=== PATIENT | male | born 1950 | race Caucasian/White ===

== ENCOUNTER 2017-08-28 21:44 | Emergency (ER) | payer MEDICARE, SELFPAY ==
[2017-08-28 21:45] VITALS: BP 126/78; PULSE 125; RESP 16; TEMP 37.2; O2SAT 97; BMI 37.5
--- NOTE | 2017-08-28 22:09 | EKG12_ITS ---
Test Reason : TACHY Blood Pressure : / mmHG Vent. Rate : 150 BPM Atrial Rate : 138 BPM P-R Int : 000 ms QRS Dur : 106 ms QT Int : 308 ms P-R-T Axes : 000 -04 118 degrees QTc Int : 486 ms Atrial flutter with 2:1 conduction Abnormal ECG Confirmed by PRASHANTH FERREIRA ([id number]), editor city SALO NICOLAS ([id number]) on 09/01/2017 12:59:45 PM Referred By: SATISH Confirmed By:PRASHANTH FERREIRA
[2017-08-28] MEDS: Loperamide 2 MG Capsule 4 MG PO (22:15)
[2017-08-28] MEDS: 0.9% Normal Saline 1,000 ML 1000 ML IV ×2 (22:15→23:03)
--- NOTE | 2017-08-28 22:36 | ED.VISSUMM ---
- ER Visit Summary Date of Service: 08/28/17 Chief Complaint: Diarrhea History of Present Illness: The patient is a 67 M presenting for evaluation secondary to diarrhea. Patient states that today he had a sudden onset of severe diarrhea. Patient states that he has had multiple episodes of loose watery stool without any mucus or blood. Denies any abdominal pain. Denies any fevers associated with this. He states that he had one episode of nonbloody nonbilious emesis but is no longer nauseous today. Denies any recent hospital admissions or exposures to antibiotics. Denies any recent travel. Patient has an underlying history of A. fib, multiple sclerosis, hypertension, high cholesterol, BPH, and GERD. Physical Examination: Vital signs are notable for a heart rate of 125. Well-nourished male no acute distress. Head normal cephalic atraumatic moist mucous membranes. No JVD. Heart was tachycardic and regular. Lung sounds clear to auscultation bilaterally. Abdomen soft nontender with hyperactive bowel sounds. No peripheral edema. No skin rashes. Remainder physical otherwise unremarkable. Test Results: EKG shows atrial fibrillation with a rapid ventricular rate of 115. There is some mild ST depression in lead II. No prior EKG for comparison. CBC, chemistry found to be unremarkable Emergency Department Course and Treatment: Patient presented with 1 day of a diarrheal illness and tachycardia. Laboratory workup does not show evidence of significant metabolic dehydration. Patient was given IV saline hydration and Imodium but continued to have atrial fibrillation with rapid ventricular rate. Patient is on a beta-modesto, he was given 2 doses Lopressor and had improvement of his heart rate down to 105. This point I believe the patient can safely be discharged, he ambulated easily in the emergency department. Patient was recommended on aggressive hydration and Imodium use at home and taking all of his normal home medications. Patient understands this and understands signs and symptoms for which to return. Disposition: Discharge Impression: 1. Diarrhea 2. A. fib with RVR, resolved This note was generated with [employer] dictation software. It may contain incorrect words, spelling, and punctuation that were not noted in review of the chart prior to signing ED Disposition - Plan for ED Patient: Disposition: Home or Assisted Living Chief Complaint: Diarrhea Diagnosis: Diarrhea Instructions: ED Diarrhea Viral Referrals: Elmer Castellanos MD [Primary Care Provider] - 3-5 Days if not improving
--- NOTE | 2017-08-28 22:40 | ED.DCSUM_ITS ---
- ER Visit Summary Date of Service: 08/28/17 Chief Complaint: Diarrhea History of Present Illness: The patient is a 67 M presenting for evaluation secondary to diarrhea. Patient states that today he had a sudden onset of severe diarrhea. Patient states that he has had multiple episodes of loose watery stool without any mucus or blood. Denies any abdominal pain. Denies any fevers associated with this. He states that he had one episode of nonbloody nonbilious emesis but is no longer nauseous today. Denies any recent hospital admissions or exposures to antibiotics. Denies any recent travel. Patient has an underlying history of A. fib, multiple sclerosis, hypertension, high cholesterol, BPH, and GERD. Physical Examination: Vital signs are notable for a heart rate of 125. Well- nourished male no acute distress. Head normal cephalic atraumatic moist mucous membranes. No JVD. Heart was tachycardic and regular. Lung sounds clear to auscultation bilaterally. Abdomen soft nontender with hyperactive bowel sounds. No peripheral edema. No skin rashes. Remainder physical otherwise unremarkable. Test Results: EKG shows atrial fibrillation with a rapid ventricular rate of 115. There is some mild ST depression in lead II. No prior EKG for comparison. CBC, chemistry found to be unremarkable Emergency Department Course and Treatment: Patient presented with 1 day of a diarrheal illness and tachycardia. Laboratory workup does not show evidence of significant metabolic dehydration. Patient was given IV saline hydration and Imodium but continued to have atrial fibrillation with rapid ventricular rate. Patient is on a beta-modesto, he was given 2 doses Lopressor and had improvement of his heart rate down to 105. This point I believe the patient can safely be discharged, he ambulated easily in the emergency department. Patient was recommended on aggressive hydration and Imodium use at home and taking all of his normal home medications. Patient understands this and understands signs and symptoms for which to return. Disposition: Discharge Impression: 1. Diarrhea 2. A. fib with RVR, resolved This note was generated with [employer] dictation software. It may contain incorrect words, spelling, and punctuation that were not noted in review of the chart prior to signing ED Disposition - Plan for ED Patient: Disposition: Home or Assisted Living Chief Complaint: Diarrhea Diagnosis: Diarrhea Instructions: ED Diarrhea Viral Referrals: Elmer Castellanos MD [Primary Care Provider] - 3-5 Days if not improving
[2017-08-28 22:45] VITALS: BP 125/87; PULSE 139; RESP 18; O2SAT 98
[2017-08-28 22:59] LABS: Absolute Lymphocyte Count 0.34 X10^3/ul (0.83-4.51); Absolute Neutrophil Count 3.4 X10^3/uL (2.0-7.7); Eosinophil# 0.05 X10^3/uL; Eosinophils% 1.2 % (0-5); Hematocrit 40.8 % (40-54); Hemoglobin 13.9 g/dl (13.0-16.5); Lymphocyte # 0.34 X10^3/ul (4.0); Mean Corp Hgb Conc 34.1 g/gl (32-36); Mean Corpuscular Hgb 33.2 pg (27.0-32.0); Mean Corpuscular Volume 97.4 fL (80-94); Mean Platelet Vol. 10.5 fl (6.2-12.0); Monocyte# 0.41 X10^3/uL; Monocyte% 9.6 % (0-10); Neutrophil # 3.43 X10^3/uL (2.7-7.7); Neutrophil % 80.5 % (47-70); Platelet Count 177 K/mm3 (150-450); RBC Distribution Width CV 13.1 % (11.6-14.6); RBC Distribution Width SD 45.6 fl (35.1-43.9); Red Blood Count 4.19 M/mm3 (4.6-6.2); White Blood Count 4.3 K/mm3 (4.4-11.0)
[2017-08-28 23:01] LABS: POSITIVE COUNT NO; POSITIVE DIFFERENTIAL YES; POSITIVE MORPHOLOGY NO
[2017-08-28 23:02] LABS: Differential Indicated SCAN CRITERIA MET
[2017-08-28 23:11] LABS: AST(SGOT) 33 U/L (15-37); Alanine Aminotransfer ALT/SGPT 52 U/L (16-61); Albumin, Serum 3.4 g/dL (3.2-5.0); Alkaline Phosphatase 46 U/L (45-117); Anion Gap 10 (5-15); BUN 24 mg/dL (7-18); Calcium,Total 8.8 mg/dL (8.5-10.1); Chloride 107 mmol/L (98-107); EST Glomerular Filtration Rate 64 mL/min (>60); Est Glom Filt Rate - Afr Amer 78 mL/min (>60); Estimated Creatinine Clearance 55.85 ml/min; Globulin 3.4 g/dL (2.2-4.2); Glucose 88 mg/dL (74-106); Protein, Total 6.8 g/dL (6.4-8.2); Sodium Level 140 mmol/L (136-145)
[2017-08-28 23:20] LABS: Anisocytosis RARE; Macrocytosis RARE; Platelet Estimate ADEQUATE (ADEQ)
[2017-08-28 23:35] VITALS: BP 138/84; PULSE 120; RESP 17; O2SAT 98
[2017-08-28] MEDS: Metoprolol Tartrate 5 MG/5 ML Vial IV ×2 (23:37→23:55)
--- NOTE | 2017-08-28 23:40 | ED.RN ---
BLOOD PRESSURE CUFF NOT GIVING ACCURATE BLOOD PRESSURES. BLOOD PRESSURE TAKEN MANUALLY. BLOOD PRESSURE 138/84, PRIOR TO FIRST DOSE OF METOPROLOL.
[2017-08-28 23:55] VITALS: BP 132/80; PULSE 110; RESP 18; O2SAT 96
[2017-08-29 00:07] VITALS: BP 130/76; PULSE 116; RESP 17; O2SAT 96
[2017-08-29 00:15] VITALS: BP 118/72; PULSE 110; RESP 19; O2SAT 96
[2017-08-29 00:47] VITALS: RESP 16
== END 2017-08-29 00:47 | disposition home or self-care (01) ==
PROVIDERS: Emergency Provider Emergency Medicine; Family Provider Family Medicine; PCP Family Medicine
DX: R19.7 Diarrhea, unspecified (principal); I48.91 Unspecified atrial fibrillation; R00.0 Tachycardia, unspecified; G35 Multiple sclerosis; I10 Essential (primary) hypertension; E78.00 Pure hypercholesterolemia, unspecified; N40.0 Benign prostatic hyperplasia without lower urinary tract symptoms; K21.9 Gastro-esophageal reflux disease without esophagitis; Z79.01 Long term (current) use of anticoagulants; Z79.899 Other long term (current) drug therapy
CPT/HCPCS: 80053; 85025; 93005; 96360; 96361; 99285; J7030

== ENCOUNTER → 2017-09-01 13:19 | Outpatient (CLI) | payer MEDICARE, SELFPAY ==
--- NOTE | 2017-09-01 13:23 | RAD_ITS ---
STUDY: X-RAY - LUMBOSACRAL SPINE REASON FOR EXAM: Male, 67 years old. NO KNOWN INJURY. PAIN IN ENTIRE BACK MOSTLY LOWER AND OFF TO THE LEFT SIDE. HX OF KNOWN SCOLIOSIS. TECHNIQUE: 6 view(s) of the lumbosacral spine were obtained. COMPARISON: None FINDINGS: Normal lumbar lordosis. There is a levoscoliosis of the lumbar spine. Grade 1 retrolisthesis of L1 on L2. There is multilevel endplate spondylosis of the lumbar vertebrae. There is multi-level degenerative disc disease with multi-level disc space narrowing. Normal bilateral sacral ala, sacroiliac joints, and visualized sacrum. Normal visualized soft tissue structures. RAD/L/S Spine Comp/w Bending Views IMPRESSION: There is a levoscoliosis of the lumbar spine. Grade 1 retrolisthesis of L1 on L2. Electronically Signed: Silvino Gordillo MD at 17:10 EST , Service support ,
--- NOTE | 2017-09-01 14:05 | RAD_ITS ---
STUDY: XR SPINE ENTIRE THORACIC T LUMBAR (W SKULL, CERVICAL AND SACRAL SPINE IF PERFORMED) REASON FOR EXAM: Male, 67 years old. Scoliosis TECHNIQUE: Radiological exam, spine, entire thoracic and lumbar, including skull, cervical and sacral spine if performed (eg, scoliosis evaluation); 2 or 3 views. COMPARISON: None. FINDINGS: There is a 30 degree dextroscoliosis of the thoracic spine with the apex of the convexity at the T11-12 level. There is a 35 degree levoscoliosis scoliosis of the lumbar spine with the apex of the convexity at the L2-3 level. There is an increase in the normal thoracic kyphosis. There is multilevel endplate spondylosis of the thoracic vertebrae. There is multilevel disc space narrowing of the thoracic spine. There is straightening of the normal lumbar lordosis. There is multilevel endplate spondylosis of the lumbar vertebrae. There is multilevel disc space narrowing of the lumbar spine. Spina bifida defect at L5. RAD/Scoliosis 2 or 3 views IMPRESSION: There is a 30 degree dextroscoliosis of the thoracic spine with the apex of the convexity at the T11-12 level. There is a 35 degree levoscoliosis scoliosis of the lumbar spine with the apex of the convexity at the L2-3 level. Electronically Signed: Silvino Gordillo MD at 17:08 EST , Service support ,
== END ==
PROVIDERS: Family Provider Family Medicine; PCP Family Medicine; Visit Provider Orthopaedic Surgery
DX: M54.5 Low back pain (principal)
CPT/HCPCS: 72082; 72114

== ENCOUNTER → 2017-09-18 12:15 | Outpatient (CLI) | payer MEDICARE, SELFPAY ==
--- NOTE | 2017-09-25 14:30 | MRI_ITS ---
STUDY: MRI CERVICAL SPINE WITH AND WITHOUT CONTRAST REASON FOR EXAM: Male, 67 years old. MS. follow-up. TECHNIQUE: Standardized fat and water weighted pulse sequences were obtained in the sagittal and axial following I.V. administration of 10ml ml of Gadavist contrast material. COMPARISON: None FINDINGS: Increased T2 signal lesions are seen in the brainstem are consistent with demyelinating lesions. Normal craniovertebral junction. Normal anterior atlantoaxial articulation. Normal odontoid process. Normal cervical lordosis. Normal vertebral bodies and posterior osseous elements. C2-3: Normal endplates. Normal disc height, signal and morphology. Normal central canal and intervertebral neural foramina. C3-4: Normal endplates. Normal disc height, signal and morphology. Normal central canal and intervertebral neural foramina. C4-5: Normal endplates. Normal disc height, signal and morphology. Normal central canal and intervertebral neural foramina. C5-6: Endplate spondylosis. Central and paracentral disc bulge. Degenerative changes of the bilateral facet joints and uncovertebral joints. Mild narrowing of the central canal and the bilateral intervertebral neural foramina. C6-7: Endplate spondylosis. Central and paracentral disc bulge. Degenerative changes of the bilateral facet joints and uncovertebral joints. Moderate narrowing of the central canal and the bilateral intervertebral neural foramina. C7-T1: Endplate spondylosis. Central and paracentral disc bulge. Degenerative changes of the bilateral facet joints and uncovertebral joints. Moderate narrowing of the central canal and the bilateral intervertebral neural foramina. Normal cervical cord. No abnormal enhancement is seen after contrast administration. Small artifacts are seen on the sagittal postcontrast images in the lingula and in the cervical spine cord at C2 level. Normal visualized soft tissue structures. MRI/Spine Cervical W/WO Contrast IMPRESSION: Multilevel degenerative changes, as described above. Multiple demyelinating lesions are seen in the brainstem. No demyelinating lesions are noted in the cervical spine cord. Electronically Signed: Filippo Garay MD at 7:50 EDT Tel , Service support ,
== END ==
PROVIDERS: Family Provider Family Medicine; PCP Family Medicine; Visit Provider Orthopaedic Surgery
DX: G35 Multiple sclerosis (principal)

== ENCOUNTER 2017-10-21 12:00 | Outpatient (RCR) | payer MEDICARE, SELFPAY ==
--- NOTE | 2017-09-10 13:29 | HP.PTEVAL_ITS ---
Patient's Visit Information FREDDY RODGERS is a 67 year old M referred to Physical Therapy by Yamel MACK with a diagnosis of SCOLIOSIS. Date of Evaluation: 09/10/17 Physical Therapist: Xochitl Rowe - Visit Plan Frequency: 2-3x /Week Duration: 4-6 Weeks Plan: AQUATIC THERAPY FOR LOW IMPACT AEROBIC ACTIVITIES, GAIT TRAINING, POSTURE CORRECTION/STRENGTHENING, INSTRUCTION IN APPROPRIATE BODY MECHANICS AND ACTIVITY MODIFICATIONS. DLS STARTING WITH A NEUTRAL SPINE PROGRESSING ROM TOLERATED. MARISOL LE ROM, STRETCHING AND STRENGTHENING. HEP INSTRUCTION. - Subjective Subjective: Work/Leisure: RETIRED. Disability: NO. Present symptoms: LEFT LOW BACK. LEFT THIGH IS NUMB MOST OF THE TIME. Present since: ABOUT 7 YEARS AGO. Pain Scale: WORST 8/10, LEAST 0/10. Currently: 07/15. Commenced as a result of: USING A GASOLINE POWERED WEED EATER - WHILE USING IT FELT SOMETHING IN THAT MUSCLE. Symptoms at onset: LEFT LOW BACK. Worse: WALKING AND STANDING. Better: SITTING AND LYING DOWN. Disturbed sleep: NO. Previous history/Previous treatment: INJECTIONS FROM DR. MOSCOSO WITH THE LAST INJECTION BEING ABOUT 5 WEEKS AGO - IT HELPED FOR ABOUT 2 WEEKS AND WAITING ON APPROVAL FOR ANOTHER ONE, PT ABOUT A YEAR AGO - IT DID NO GOOD AND IF ANYTHING IT MADE IT WORSE. NO BACK SURGERY YET BUT PATIENT REPORTS DR. MONTANO THINKS BACK SURGERY MIGHT HELP. QUITE A BIT OF CHIROPRACTIC TREATMENTS IN THE PAST. Coughing/sneezing/straining: NEGATIVE. Gait: INDEP GAIT INTO PT X > 300 FEET WITH STRAIGHT CANE. PATIENT REPORTS HE CAN NOT WALK FAR AT ALL WITHOUT THE CANE BECAUSE HIS BACK WOULD START KILLING ME. Difficulty initiating urinatin: NO. SOME INCONTINENCE BUT PATIENT DOES NOT THINK IT WILL BE A PROBLEM IN THE POOL IF HE EMPTIES HIS BLADDER FIRST. Accidents: NO. Unexplained weight loss : NO. Imaging: Levoscoliosis. Mild degree of multilevel degenerative disease with annular. bulges. Facet arthrosis at L4-5 and L5-S1. No focal disc herniations or spinal canal stenosis noted. PMH: *PACEMAKER* MS DX'D IN 1989. Recent major surgery: NONE RECENT. - Objective Sitting Posture: POOR. Standing Posture: POOR. Lordosis: REDUCED. SCOLIOSIS. Active Correction of posture: NE. Other Observations: INDEP GAIT INTO PT WITH STRAIGHT CANE, DECREASED CADANCE AND EXCESSIVE TRUNK FLEX. PATIENT IS ABLE TO TRANSFER INDEP'LY FROM SIT TO STAND WITHOUT UE ASSIST. Motor deficit: 5/5 MARISOL LE'S EXCEPT HIPS 4/5. Sensory deficit: LEFT ANTERIOR THIGH. ROM deficit: TIGHT MARISOL HIP FLEXORS, HS'S AND GASTROC SOLEUS COMPLEX'S. Reflexes: 2/3 MARISOL LE'S. Dural Signs: NEGATIVE. Lumbar mvmt loss: flex - NIL. ext - JOSSE. R SG - JOSSE. L SG - MOD. PATIENT HAS INCREASED LEFT LBP WITH FLEX AND RIGHT SG TESTING. Core strength: POOR. Palpation: NO PALPABLE LUMBAR TENDERNESS ON SPINE OR MUSCULATURE - Goals Goal 1:: DECREASE C/O LEFT LOW BACK PAIN Goal Time Frame: 4-6 Weeks Goal 2:: IMPROVE STANDING AND WALKING FUNCTION Goal Time Frame: 4-6 Weeks Goal 3:: INSTRUCT IN PROPHYLAXIS Goal Time Frame: 4-6 Weeks - Rehabilitation Potential Rehabilitation Potential: Fair - Anticipated Interventions Patient/Client Instruction: Educate patient on: Condition, Plan of Care, Risk Factors, Benefits of Fitness Program For the Purpose of:: To improve self management Therapeutic Exercise to Include: Strength training, Balance training, Body mechanics, Postural training, Gait and locomotor training, In an aquatic setting, Active ROM, Dynamic Lumbar Stabilization For the Purpose of:: To decrease pain, To improve ability of physical actions for home/community/work/leisure Thank you for the opportunity to evaluate your patient. For Medicare and Medicare HMO plans, please review the plan of care and approve it. It will need to be FAXED BACK to us at [phone] for Medicare purposes. Please let me know if there are questions or concerns regarding this plan of care. Physician Signature: Date:
--- NOTE | 2017-10-21 14:04 | HP.PTDCSUM ---
HP - PT D/C Summary It has been my pleasure to treat FREDDY RODGERS under orders from Yamel Montano, for the diagnosis of SCOLIOSIS for a total of 7 visit(s). Discharge Date: Please see the following information for a summary of their discharge status. - Subjective Subjective: PATIENT REPORTS HIS POSTURE FEELS A LITTLE BETTER SINCE STARTING PT. UP TO 10/10 PAIIN AT ITS WORST. PATIENT REPORTS IT FEELS REALLY GOOD WHEN HE IS IN THE WATER BUT HE HAS HAD RECENT EPISODES OF PAIN THAT WERE SO BAD THAT HE WOULD CONSIDER BACK SURGERY. - Pain Lumbar Spine Pain Intensity (Out of 10): 0 - Overall Improvement % Improvement: 10 - Objective Objective/Function: NO SIGNIFICANT CHANGES SEEN SINCE INITIAL EVALUATION HOWEVER PATIENT TOLERATES WATER EX WELL. UPON EXAM TODAY HE EXHIBITS INDEP GAIT INTO PT WITH STRAIGHT CANE, DECREASED CADANCE AND EXCESSIVE TRUNK FLEX. PATIENT IS ABLE TO TRANSFER INDEP'LY FROM SIT TO STAND WITHOUT UE ASSIST. Motor deficit: 5/5 MARISOL LE'S EXCEPT HIPS 4/5. Sensory deficit: LEFT ANTERIOR THIGH. ROM deficit: TIGHT MARISOL HIP FLEXORS, HS'S AND GASTROC SOLEUS COMPLEX'S. Lumbar mvmt loss: flex - NIL. ext - JOSSE. R SG - JOSSE. L SG - MOD. PATIENT HAS INCREASED LEFT LBP WITH FLEX AND RIGHT SG TESTING. Core strength: POOR. Palpation: NO PALPABLE LUMBAR TENDERNESS ON SPINE OR MUSCULATURE. AT THIS POINT I RECOMMEND FOLLOW UP WITH DR. MONTANO AND CONTINUED INDEP WATER EX FOR TEMPORARY RELEIF. IF DR. MONTANO AND PATIENT FEEL IT IS APPROPRIATE WE CAN RESUME PT TO PROGRESS POOL EX'S TOLERATED. EDUCATED PATIENT ON AT LEAST A FEW LOCAL OPTIONS (HERE, [facility] AND [facility]) FOR POOL USE. - Goals Goal 1:: DECREASE C/O LEFT LOW BACK PAIN Goal Progress: Not Progressing Goal 2:: IMPROVE STANDING AND WALKING FUNCTION Goal Progress: Not Progressing Goal 3:: INSTRUCT IN PROPHYLAXIS Goal Progress: Progressing - Plan Plan: D/C TO INDEP WATER EX AT FACILITY OF PATIENTS CHOICE AND FOLLOW UP WITH DR. MONTANO. PATIENT IS AGREEABLE. - D/C Information If there are questions or concerns regarding this patient's physical therapy, please feel free to call me at [phone]. Thank you for the referral of this patient. Sincerely, Xochitl Rowe
== END 2017-10-21 18:16 | disposition home or self-care (01) ==
LOC: PT 12:00
PROVIDERS: Family Provider Family Medicine; PCP Family Medicine; Visit Provider Orthopaedic Surgery
DX: M41.9 Scoliosis, unspecified (principal)
CPT/HCPCS: 97113; 97162; 97530

== ENCOUNTER → 2018-01-18 13:52 | Outpatient (CLI) | payer MEDICARE, SELFPAY ==
[2018-01-18 15:11] LABS: Amphetamine Urine VISTA NEGATIVE (<1000 ng/mL); Barbiturate Urine VISTA NEGATIVE (< 200 ng/mL); Benzodiazepine Urine VISTA NEGATIVE (< 200 ng/mL); Cocaine Urine VISTA NEGATIVE (< 300 ng/mL); Ecstacy Urine VISTA POSITIVE (< 500 ng/mL); Methadone Urine VISTA NEGATIVE (< 300 ng/mL); PCP Urine VISTA NEGATIVE (< 25 ng/mL); THC Urine VISTA NEGATIVE (< 50 ng/mL); Vista UDS pH Range 5
== END ==
PROVIDERS: Family Provider Family Medicine; PCP Family Medicine; Visit Provider Anesthesiology Pain Medicine
DX: F11.20 Opioid dependence, uncomplicated (principal)
CPT/HCPCS: 80307

== ENCOUNTER → 2018-08-03 12:47 | Outpatient (CLI) | payer MEDICARE, SELFPAY ==
--- NOTE | 2018-08-03 12:51 | VDLE_ITS ---
Reason For Study: Hx DVT RIGHT LEFT GSV is normal. GSV is normal. CFV is compressible, spontaneous, phasic, CFV is compressible, spontaneous, phasic, competent and demonstrates normal competent, and demonstrates normal augmentation. augmentation. FV is compressible, spontaneous, phasic, FV is compressible, spontaneous, phasic, competent and demonstrates normal competent and demonstrates normal augmentation. augmentation. POP V is compressible, spontaneous, phasic, POP V is compressible, spontaneous, phasic, competent and demonstrates normal competent and demonstrates normal augmentation. augmentation. T/P Trunk is compressible. T/P Trunk is compressible. PTV is compressible. PTV is compressible. RT PerV is compressible. LT PerV is compressible. Procedure Exam performed in department. The exam was diagnostic. A preliminary report was called and/or faxed to Dr. Dinh's office. Interpretation Summary No evidence for acute deep venous thrombosis bilateral lower extremities with patent and compressible bilateral great saphenous veins. Ordering Physician: Dwain Dinh Performed By: Bryan Paige RVT
== END ==
PROVIDERS: Family Provider Family Medicine; PCP Family Medicine; Referring Provider Surgery; Visit Provider Surgery
DX: Z01.818 Encounter for other preprocedural examination (principal); Z86.718 Personal history of other venous thrombosis and embolism
CPT/HCPCS: 93970

== ENCOUNTER 2018-08-09 09:25 | Day surgery (SDC) | payer MEDICARE, SELFPAY ==
[2018-08-04 14:26] VITALS: BMI 42.3
[2018-08-06 09:42] VITALS: BMI 42.3
[2018-08-09 09:47] LABS: Hematocrit 39.2 % (40-54); Hemoglobin 12.8 g/dl (13.0-16.5); Mean Corp Hgb Conc 32.7 g/gl (32-36); Mean Corpuscular Hgb 31.9 pg (27.0-32.0); Mean Corpuscular Volume 97.8 fL (80-94); Mean Platelet Vol. 10.2 fl (6.2-12.0); Platelet Count 184 K/mm3 (150-450); RBC Distribution Width CV 13.7 % (11.6-14.6); RBC Distribution Width SD 47.2 fl (35.1-43.9); Red Blood Count 4.01 M/mm3 (4.6-6.2); White Blood Count 5.1 K/mm3 (4.4-11.0)
[2018-08-09 09:48] LABS: Scan Indicated on CBC? Y/N NO
[2018-08-09 10:19] LABS: Anion Gap 9 (5-15); BUN 39 mg/dL (7-18); BUN/Creat Ratio 27.3 RATIO (10-20); Calcium,Total 9.4 mg/dL (8.5-10.1); Chloride 107 mmol/L (98-107); Creatinine, Serum 1.43 mg/dL (0.70-1.30); EST Glomerular Filtration Rate 52 mL/min (>60); Est Glom Filt Rate - Afr Amer 63 mL/min (>60); Estimated Creatinine Clearance 47.83 ml/min; Glucose 81 mg/dL (74-106); Potassium 4.4 mmol/L (3.5-5.1); Sodium Level 143 mmol/L (136-145)
--- NOTE | 2018-08-09 12:38 | PCM.OPRPT ---
Problem List (1) History of DVT (deep vein thrombosis) Status: Acute Report of Operation Date of Procedure: 08/09/18 Pre-Operative Diagnosis: History of unprovoked deep venous thrombosis Post-Operative Diagnosis: Same Surgery/Procedure Performed:: Inferior venacavogram with inferior vena cava Cassia filter placement. Reference number [id number] lot number [id number] expiry date 09/02/2020 Description of Surgical Findings:: Timeout and informed consent was obtained. 68-year-old gentleman was taken to the special procedure lab placed on the table. He received 50 mcg fentanyl and 1 mg of Versed as intravenous sedation. The right neck was sterilely prepped and draped. Ultrasound was used to identify the right internal jugular vein. 2% lidocaine was carefully instilled under ultrasound guidance. Micropuncture needle was inserted micropuncture wire inserted fluoroscopy demonstrated very careful positioning so as to not interfere with previously patient's pacer wires. Micropuncture sheath inserted [id number] was inserted a 5 Azerbaijani short sheath was inserted using 035 J-wire a 5 Azerbaijani universal flush catheter was placed into the right common iliac. Using Isovue contrast that was diluted at the rate of 15 cc of her a second for 20 cc which actually total of 12 cc of contrast a inferior venacavogram was obtained. The inferior venacavogram demonstrated an adequate diameter vena cava there was no evidence of any intraluminal thrombus the site of entrance of the renal vein identified. This was marked with a hemostat. Then the flush catheter was removed over the J-wire. The 5 Azerbaijani sheath was removed and the tract was dilated with a 9 Azerbaijani sheath then the 8 Azerbaijani deploying sheath was inserted under fluoroscopic control. The filter was positioned so to have a hook on fast. The Cassia filter was deployed it appeared to have a appropriate positioning with the course of the inferior vena cava. The deploying mechanism was then removed. Pressure was held for hemostasis. Steri-Strip Telfa OpSite dressing applied. He tolerated procedure well blood loss was minimal no apparent complication no specimens or drains. Successfully placed inferior vena cava Cassia filter. The patient has received explicit instructions on the importance of retrieval. Further office appointment will be pending his planned back surgery Dwain Dinh M.D., F.A.C.S. Type of Anesthesia:: IV Sedation, Local
--- NOTE | 2018-08-09 12:43 | OP.PCM_ITS ---
Problem List (1) History of DVT (deep vein thrombosis) Status: Acute Report of Operation Date of Procedure: 08/09/18 Pre-Operative Diagnosis: History of unprovoked deep venous thrombosis Post-Operative Diagnosis: Same Surgery/Procedure Performed:: Inferior venacavogram with inferior vena cava [place] filter placement. Reference number [id number] lot number [id number] expiry date 09/02/2020 Description of Surgical Findings:: Timeout and informed consent was obtained. 68-year-old gentleman was taken to the special procedure lab placed on the table. He received 50 mcg fentanyl and 1 mg of Versed as intravenous sedation. The right neck was sterilely prepped and draped. Ultrasound was used to identify the right internal jugular vein. 2% lidocaine was carefully instilled under ultrasound guidance. Micropuncture needle was inserted micropuncture wire inserted fluoroscopy demonstrated very careful positioning so as to not interfere with previously patient's pacer wires. Micropuncture sheath inserted [id number] was inserted a 5 Ukrainian short sheath was inserted using 035 J-wire a 5 Ukrainian universal flush catheter was placed into the right common iliac. Using Isovue contrast that was diluted at the rate of 15 cc of her a second for 20 cc which actually total of 12 cc of contrast a inferior venacavogram was obtained. The inferior venacavogram demonstrated an adequate diameter vena cava there was no evidence of any intraluminal thrombus the site of entrance of the renal vein identified. This was marked with a hemostat. Then the flush catheter was removed over the J-wire. The 5 Ukrainian sheath was removed and the tract was dilated with a 9 Ukrainian sheath then the 8 Ukrainian deploying sheath was inserted under fluoroscopic control. The filter was positioned so to have a hook on fast. The [place] filter was deployed it appeared to have a appropriate positioning with the course of the inferior vena cava. The deploying mechanism was then removed. Pressure was held for hemost asis. Steri-Strip Telfa OpSite dressing applied. He tolerated procedure well blood loss was minimal no apparent complication no specimens or drains. Successfully placed inferior vena cava Aggie filter. The patient has received explicit instructions on the importance of retrieval. Further office appointment will be pending his planned back surgery Dwain Dinh M.D., F.A.C.S. Type of Anesthesia:: IV Sedation, Local
== END 2018-08-09 13:50 | disposition home or self-care (01) ==
LOC: CLSP 09:26
PROVIDERS: Family Provider Family Medicine; PCP Family Medicine; Referring Provider Surgery; Visit Provider Surgery
DX: Z45.89 Encounter for adjustment and management of other implanted devices (principal); Z86.718 Personal history of other venous thrombosis and embolism; I49.5 Sick sinus syndrome; I48.91 Unspecified atrial fibrillation; G35 Multiple sclerosis; E78.00 Pure hypercholesterolemia, unspecified; M19.90 Unspecified osteoarthritis, unspecified site; G47.30 Sleep apnea, unspecified; K21.9 Gastro-esophageal reflux disease without esophagitis; F32.9 Major depressive disorder, single episode, unspecified; E66.01 Morbid (severe) obesity due to excess calories; Z68.41 Body mass index [BMI] 40.0-44.9, adult; Z79.01 Long term (current) use of anticoagulants; Z79.899 Other long term (current) drug therapy; Z87.891 Personal history of nicotine dependence; Z95.0 Presence of cardiac pacemaker; Z87.19 Personal history of other diseases of the digestive system
CPT/HCPCS: 36415; 37191; 76937; 80048; 85027; 99152; 99153; J7040; Q9967; C1769; C1880; C1894

== ENCOUNTER 2018-08-19 13:51 | Inpatient (IN) | payer MEDICARE, SELFPAY ==
[2018-08-06 09:42] VITALS: BMI 42.3
[2018-08-19 14:04] VITALS: BP 105/59; PULSE 111; RESP 18; TEMP 36.9; O2SAT 92
--- NOTE | 2018-08-19 14:08 | NURSING ---
pt arrived at 1345 via cot from [facility]
[2018-08-19 14:44] VITALS: BMI 44.6
[2018-08-19 15:01] VITALS: BMI 44.6
[2018-08-19 15:46] VITALS: BP 105/59; PULSE 111; RESP 18; TEMP 36.9; O2SAT 92
[2018-08-19 18:08] VITALS: BP 105/59; PULSE 111
[2018-08-19] MEDS: Cephalexin 500 MG Capsule PO ×2 (18:08→23:24)
[2018-08-19] MEDS: Docusate Sodium 100 MG Capsule PO (18:08)
[2018-08-19] MEDS: buPROPion (SR) 150 MG Tablet.SA PO (18:08)
[2018-08-19] MEDS: Metoprolol Tartrate 50 MG Tablet PO (18:08)
[2018-08-19] MEDS: Flecainide 100 MG Tablet PO (18:08)
[2018-08-19] MEDS: Tamsulosin HCl 0.4 MG Capsule PO (18:08)
[2018-08-19] MEDS: APIXABAN 5 MG TABLET PO (18:09)
--- NOTE | 2018-08-19 19:53 | PCM.HP.STD ---
Problem List (1) Anemia Status: Chronic (2) Osteoarthritis Status: Chronic (3) Atrial fibrillation Status: Chronic (4) BPH (benign prostatic hyperplasia) Status: Chronic (5) DVT (deep venous thrombosis) Status: Chronic (6) GERD (gastroesophageal reflux disease) Status: Chronic (7) Hemorrhoids Status: Chronic (8) Multiple sclerosis Status: Chronic (9) Obstructive sleep apnea Status: Chronic History of Present Illness Date of Admission: 08/19/18 Chief Complaint: Here for rehabilitation, strengthening, prior to discharge to [facility]. The patient is a 68 year old Male with below past medical history admitted to [facility] 08/13/2018 for a T3-pelvis posterior spinal fusion per Dr. Yamel Humphrey. Reason for surgery was scoliotic deformity. Patient had Ancef while drains in place, then discharge on Keflex. The surgery required a complex wound closure, and patient had postoperative respiratory failure. Fluid resuscitation for decreased urine output. Wean ventilator to extubate. 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 Patient's postoperative course unremarkable, but unable to discharge home without inpatient rehabilitation. 08/19/2018 Admit to TCU with debility, here for rehabilitation, strengthening, prior to discharge to [facility]. Past Medical History Past Medical History (Chronic Problems): Chronic Problems (Last Updated 08/04/18 @ 14:32 by Maribell Tolliver) Anemia (Chronic) Osteoarthritis (Chronic) Atrial fibrillation (Chronic) BPH (benign prostatic hyperplasia) (Chronic) DVT (deep venous thrombosis) (Chronic) GERD (gastroesophageal reflux disease) (Chronic) Hemorrhoids (Chronic) Multiple sclerosis (Chronic) Obstructive sleep apnea (Chronic) Medical History: Medical History (Last Updated 08/04/18 @ 14:32 by Maribell Tolliver) Sick sinus syndrome (Acute) I49.5 Presence of cardiac pacemaker (Acute) Z95.0 Acid reflux K21.9 Arthritis M19.90 Atrial fibrillation I48.91 Depression F32.9 Hemorrhoids K64.9 History of back problems Hypercholesterolemia E78.00 MS (multiple sclerosis) G35 Sleep apnea G47.30 Allergies No Known Allergies Allergy (Verified 08/04/18 14:27) Home Medications: Ambulatory Orders Medication Instructions Recorded Apixaban [Eliquis] 5 mg PO BID 06/10/17 Bupropion HCl [Zyban] 150 mg PO BID 06/10/17 Finasteride [Proscar] 5 mg PO DAILY 06/10/17 Flecainide [Tambocor] 100 mg PO BID 06/10/17 Metoprolol Tartrate [Lopressor 50 mg PO BID 06/10/17 (Beta Rakesh)] Omeprazole 40 mg PO LUNCH 06/10/17 Potassium Chloride [Klor-Con M20] 20 meq PO DAILY 06/10/17 Pravastatin Sodium [Pravachol] 10 mg PO QHS 06/10/17 Ferrous Sulfate 324 mg PO DAILY 08/28/17 dimethyl fumarate 240 mg 240 mg PO BID 08/04/18 capsule,delayed release pramipexole 1 mg tablet 1 mg PO QHS 08/04/18 tamsulosin 0.4 mg capsule 0.4 mg PO DAILY@1730 cap 08/04/18 Cephalexin [Keflex] 500 mg PO Q6H 08/19/18 Cyclobenzaprine [Flexeril] 5 mg PO TID PRN 08/19/18 Docusate Sodium [Colace] 100 mg PO BID 08/19/18 Ergocalciferol [Vitamin D] 50,000 unit PO Q7D 08/19/18 Fenofibrate,Micronized 200 mg PO LUNCH 08/19/18 [Fenofibrate] Multivitamin [Multivitamins] 1 each PO DAILY 08/19/18 Oxybutynin [Ditropan] 5 mg PO DAILY 08/19/18 Oxycodone [Oxyir] 2.5 - 5 mg PO Q4H PRN PRN 08/19/18 Sertraline HCl [Zoloft] 50 mg PO DAILY 08/19/18 Surgical History: Surgical History (Last Updated 08/04/18 @ 14:22 by Maribell Tolliver) History of hemorrhoidectomy Z98.890 gallbladder removed S/P cholecystectomy Z90.49 Surgical History: cholecystectomy, tonsillectomy, - - IVC filter. Psychiatric History: Anxiety, Depression Lives: Correction - Lives at [facility] with spouse who has Parkinson's Disease. Smoking Status: Former smoker Tobacco Use: Cigarettes - He has 80 pack year smoking history. Alcohol: None Drugs: None - *Family History Maternal Family History: Family History (Last Updated 08/04/18 @ 14:25 by Maribell Tolliver) Father Arthritis Cancer Brother Cancer Mother High cholesterol History Items: No pertinent history Paternal Family History: Family History (Last Updated 08/04/18 @ 14:25 by Maribell Tolliver) Father Arthritis Cancer Brother Cancer Mother High cholesterol History Items: No pertinent history Review of Systems Constitutional: Denies: Chills, Fever, Weight Change HEENT: Denies: Head Aches, Sinus Congestion, Sinus Drainage Cardiovascular: Denies: Chest Pain, Palpitations Respiratory: Denies: Cough, Shortness of breath at rest, Sputum production Gastrointestinal: Denies: Abdominal Pain, Nausea, Vomiting Genitourinary: Denies: Dysuria Musculoskeletal: Denies: Joint Pain, Joint Tenderness Skin: Denies: Rash, Wounds Neurological: Denies: Numbness, Tingling, Focal weakness Psychiatric: Denies: Anxiety, Depression, Homicidal Ideations, Suicidal Ideations Hematologic/ Lymphatic: Denies: Easy Bruising, Easy Bleeding VTE Information - Inpt Only VTE Present on Admission: No VTE Mechan Device Prophylaxis: Knee High DIANDRA Hose VTE Pharm Prophylaxis ordered?: No Reason prophylaxis not ordered:: Treatment Not Indicated - Physical Exam General: Alert, Oriented x3, Cooperative HEENT: Atraumatic, PERRLA, EOMI, Normocephalic Neck: Supple, No JVD, Negative Carotid Bruits Lungs: Clear to auscultation, Normal air movement Cardiovascular: Regular rate, No murmurs Abdomen: Bowel Sounds Present, Soft, Non Tender Extremities: No edema, Capillary Refill Less than 3 Seconds Skin: No rashes, No breakdown Musculoskeletal: No Tenderness to Palpation of Joints or Extremities Neurological: Cranial nerves II-XII grossly intact Psych/Mental Status: Normal Affect, Appropriate Vital Signs Temp Pulse Resp BP Pulse Ox 98.4 F 111 H 18 105/59 L 92 08/19/18 15:46 08/19/18 18:08 08/19/18 15:46 08/19/18 18:08 08/19/18 15:46 Oxygen Delivery Method Room Air Weight: 133 kg Body Mass Index (BMI) 44.6 Intake and Output for Last 24 Hours 08/17/18 08/18/18 08/19/18 23:59 23:59 23:59 Intake Total 240 / 240 Balance 240 / 240 Assessment/Plan All Active Problems (Last Updated 08/04/18 @ 14:32 by Maribell Tolliver) History of DVT (deep vein thrombosis) (Acute) Sick sinus syndrome (Acute) Presence of cardiac pacemaker (Acute) 68 year old male with below past medical history hospitalized for T3-pelvis posterior spinal fusion 08/13/[address] Yamel Humphrey, admitted to TCU with debility, here for rehabilitation, strengthening, prior to discharge to [facility] with spouse. Debility - PT/OT. Pain - Tylenol 1000MG Q6H PRN mild pain, Oxycodone 5MG Q4H PRN moderate pain. Bowel - Miralax 17GM daily, Senna/colace 2 tablets BID, Dulcolax 10MG daily PRN. Pneumonia vaccination - Administer Prevnar 13 and/or Pneumovax 23 as necessary. DVT prophylaxis - Not necessary, already on Eliquis. Atrial Fibrillation - Metoprolol 50MG BID, Flecainide 100MG BID, Eliquis 5MG BID. Depression - Bupropion 150MG BID, Sertraline 50MG daily, resident doing well with chronic assisted use, GDR clinically contraindicated. Lumbar wound infection - Keflex 500MG Q6H thru 09/02/2018. Muscle spasm - Flexeril 5MG TID PRN. Multiple Sclerosis - Dimethyl Fumarate 240MG BID. Vitamin D deficiency - D2 50,000 units per week. Hyperlipidemia - Pravastatin 10MG QHS, Fenofibrate 145MG daily (Fenofibrate shows no clinical evidence for decreasing cardiovascular risk, consider discontinuation). Iron deficiency anemia - Ferrex 150MG daily. BPH - Tamsulosin 0.4MG daily, Finasteride 5MG daily. Nutrition - MVI daily. GERD - Pantoprazole 40MG daily, consider changing to H2 rakesh for decreased assisted risk of proton pump inhibitor. Hypokalemia - K-Dur 20MEQ daily. Restless Leg Syndrome - Mirapex 1MG QHS. Overactive bladder - Tolterodine 2MG daily.
--- NOTE | 2018-08-19 20:00 | HP.PCM_ITS ---
Problem List (1) Anemia Status: Chronic (2) Osteoarthritis Status: Chronic (3) Atrial fibrillation Status: Chronic (4) BPH (benign prostatic hyperplasia) Status: Chronic (5) DVT (deep venous thrombosis) Status: Chronic (6) GERD (gastroesophageal reflux disease) Status: Chronic (7) Hemorrhoids Status: Chronic (8) Multiple sclerosis Status: Chronic (9) Obstructive sleep apnea Status: Chronic History of Present Illness Date of Admission: 08/19/18 Chief Complaint: Here for rehabilitation, strengthening, prior to discharge to [facility]. The patient is a 68 year old Male with below past medical history admitted to [facility] 08/13/2018 for a T3-pelvis posterior spinal fusion per Dr. Yamel Humphrey. Reason for surgery was scoliotic deformity. Patient had Ancef while drains in place, then discharge on Keflex. The surgery required a complex wound closure, and patient had postoperative respiratory failure. Fluid resuscitation for decreased urine output. Wean ventilator to extubate. UTILITY REPAIRER for postop pain control. Patient's postoperative course unremarkable, but unable to discharge home without inpatient rehabilitation. 08/19/2018 Admit to TCU with debility, here for rehabilitation, strengthening, prior to discharge to [facility]. Past Medical History Past Medical History (Chronic Problems): Chronic Problems (Last Updated 08/04/18 @ 14:32 by Maribell Tolliver) Anemia (Chronic) Osteoarthritis (Chronic) Atrial fibrillation (Chronic) BPH (benign prostatic hyperplasia) (Chronic) DVT (deep venous thrombosis) (Chronic) GERD (gastroesophageal reflux disease) (Chronic) Hemorrhoids (Chronic) Multiple sclerosis (Chronic) Obstructive sleep apnea (Chronic) Medical History: Medical History (Last Updated 08/04/18 @ 14:32 by Maribell Tolliver) Sick sinus syndrome (Acute) I49.5 Presence of cardiac pacemaker (Acute) Z95.0 Acid reflux K21.9 Arthritis M19.90 Atrial fibrillation I48.91 Depression F32.9 Hemorrhoids K64.9 History of back problems Hypercholesterolemia E78.00 MS (multiple sclerosis) G35 Sleep apnea G47.30 Allergies No Known Allergies Allergy (Verified 08/04/18 14:27) Home Medications: Ambulatory Orders Medication Instructions Recorded Apixaban [Eliquis] 5 mg PO BID 06/10/17 Bupropion HCl [Zyban] 150 mg PO BID 06/10/17 Finasteride [Proscar] 5 mg PO DAILY 06/10/17 Flecainide [Tambocor] 100 mg PO BID 06/10/17 Metoprolol Tartrate [Lopressor 50 mg PO BID 06/10/17 (Beta Rakesh)] Omeprazole 40 mg PO LUNCH 06/10/17 Potassium Chloride [Klor-Con M20] 20 meq PO DAILY 06/10/17 Pravastatin Sodium [Pravachol] 10 mg PO QHS 06/10/17 Ferrous Sulfate 324 mg PO DAILY 08/28/17 dimethyl fumarate 240 mg 240 mg PO BID 08/04/18 capsule,delayed release pramipexole 1 mg tablet 1 mg PO QHS 08/04/18 tamsulosin 0.4 mg capsule 0.4 mg PO DAILY@1730 cap 08/04/18 Cephalexin [Keflex] 500 mg PO Q6H 08/19/18 Cyclobenzaprine [Flexeril] 5 mg PO TID PRN 08/19/18 Docusate Sodium [Colace] 100 mg PO BID 08/19/18 Ergocalciferol [Vitamin D] 50,000 unit PO Q7D 08/19/18 Fenofibrate,Micronized 200 mg PO LUNCH 08/19/18 [Fenofibrate] Multivitamin [Multivitamins] 1 each PO DAILY 08/19/18 Oxybutynin [Ditropan] 5 mg PO DAILY 08/19/18 Oxycodone [Oxyir] 2.5 - 5 mg PO Q4H PRN PRN 08/19/18 Sertraline HCl [Zoloft] 50 mg PO DAILY 08/19/18 Surgical History: Surgical History (Last Updated 08/04/18 @ 14:22 by Maribell Tolliver) History of hemorrhoidectomy Z98.890 gallbladder removed S/P cholecystectomy Z90.49 Surgical History: cholecystectomy, tonsillectomy, - - IVC filter. Psychiatric History: Anxiety, Depression Lives: Fpc - Lives at [facility] with spouse who has Parkinson's Disease. Smoking Status: Former smoker Tobacco Use: Cigarettes - He has 80 pack year smoking history. Alcohol: None Drugs: None - *Family History Maternal Family History: Family History (Last Updated 08/04/18 @ 14:25 by Maribell Tolliver) Father Arthritis Cancer Brother Cancer Mother High cholesterol History Items: No pertinent history Paternal Family History: Family History (Last Updated 08/04/18 @ 14:25 by Maribell Tolliver) Father Arthritis Cancer Brother Cancer Mother High cholesterol History Items: No pertinent history Review of Systems Constitutional: Denies: Chills, Fever, Weight Change HEENT: Denies: Head Aches, Sinus Congestion, Sinus Drainage Cardiovascular: Denies: Chest Pain, Palpitations Respiratory: Denies: Cough, Shortness of breath at rest, Sputum production Gastrointestinal: Denies: Abdominal Pain, Nausea, Vomiting Genitourinary: Denies: Dysuria Musculoskeletal: Denies: Joint Pain, Joint Tenderness Skin: Denies: Rash, Wounds Neurological: Denies: Numbness, Tingling, Focal weakness Psychiatric: Denies: Anxiety, Depression, Homicidal Ideations, Suicidal Ideations Hematologic/ Lymphatic: Denies: Easy Bruising, Easy Bleeding VTE Information - Inpt Only VTE Present on Admission: No VTE Mechan Device Prophylaxis: Knee High DIANDRA Hose VTE Pharm Prophylaxis ordered?: No Reason prophylaxis not ordered:: Treatment Not Indicated - Physical Exam General: Alert, Oriented x3, Cooperative HEENT: Atraumatic, PERRLA, EOMI, Normocephalic Neck: Supple, No JVD, Negative Carotid Bruits Lungs: Clear to auscultation, Normal air movement Cardiovascular: Regular rate, No murmurs Abdomen: Bowel Sounds Present, Soft, Non Tender Extremities: No edema, Capillary Refill Less than 3 Seconds Skin: No rashes, No breakdown Musculoskeletal: No Tenderness to Palpation of Joints or Extremities Neurological: Cranial nerves II-XII grossly intact Psych/Mental Status: Normal Affect, Appropriate Vital Signs Temp Pulse Resp BP Pulse Ox 98.4 F 111 H 18 105/59 L 92 08/19/18 15:46 08/19/18 18:08 08/19/18 15:46 08/19/18 18:08 08/19/18 15:46 Oxygen Delivery Method Room Air Weight: 133 kg Body Mass Index (BMI) 44.6 Intake and Output for Last 24 Hours 08/17/18 08/18/18 08/19/18 23:59 23:59 23:59 Intake Total 240 / 240 Balance 240 / 240 Assessment/Plan All Active Problems (Last Updated 08/04/18 @ 14:32 by Maribell Tolliver) History of DVT (deep vein thrombosis) (Acute) Sick sinus syndrome (Acute) Presence of cardiac pacemaker (Acute) 68 year old male with below past medical history hospitalized for T3-pelvis posterior spinal fusion 08/13/[address] Yamel Humphrey, admitted to TCU with debility, here for rehabilitation, strengthening, prior to discharge to [facility] with spouse. * Debility - PT/OT. * Pain - Tylenol 1000MG Q6H PRN mild pain, Oxycodone 5MG Q4H PRN moderate pain. * Bowel - Miralax 17GM daily, Senna/colace 2 tablets BID, Dulcolax 10MG daily PRN. * Pneumonia vaccination - Administer Prevnar 13 and/or Pneumovax 23 as necessary. * DVT prophylaxis - Not necessary, already on Eliquis. * Atrial Fibrillation - Metoprolol 50MG BID, Flecainide 100MG BID, Eliquis 5MG BID. * Depression - Bupropion 150MG BID, Sertraline 50MG daily, resident doing well with chronic custodial use, GDR clinically contraindicated. * Lumbar wound infection - Keflex 500MG Q6H thru 09/02/2018. * Muscle spasm - Flexeril 5MG TID PRN. * Multiple Sclerosis - Dimethyl Fumarate 240MG BID. * Vitamin D deficiency - D2 50,000 units per week. * Hyperlipidemia - Pravastatin 10MG QHS, Fenofibrate 145MG daily (Fenofibrate shows no clinical evidence for decreasing cardiovascular risk, consider discontinuation). * Iron deficiency anemia - Ferrex 150MG daily. * BPH - Tamsulosin 0.4MG daily, Finasteride 5MG daily. * Nutrition - MVI daily. * GERD - Pantoprazole 40MG daily, consider changing to H2 rakesh for decreased custodial risk of proton pump inhibitor. * Hypokalemia - K-Dur 20MEQ daily. * Restless Leg Syndrome - Mirapex 1MG QHS. * Overactive bladder - Tolterodine 2MG daily.
[2018-08-19] MEDS: Pravastatin 20 MG Tablet 10 MG PO (20:30)
[2018-08-19] MEDS: Pramipexole Di-HCl 1 MG Tablet PO (20:31)
--- NOTE | 2018-08-19 20:43 | NURSING ---
Discussed code status with pt. Pt wishing to be a DNRCC.
[2018-08-19] MEDS: oxyCODONE 5 MG Tablet PO (23:24)
[2018-08-20 06:19] LABS: BUN 18 mg/dL (7-18); Creatinine, Serum 0.92 mg/dL (0.70-1.30); Estimated Creatinine Clearance 74.35 ml/min; Glucose 83 mg/dL (74-106)
[2018-08-20 06:20] LABS: Anion Gap 11 (5-15); BUN/Creat Ratio 19.7 RATIO (10-20); Calcium,Total 8.4 mg/dL (8.5-10.1); Chloride 107 mmol/L (98-107); EST Glomerular Filtration Rate 87 mL/min (>60); Est Glom Filt Rate - Afr Amer 106 mL/min (>60); Potassium 3.8 mmol/L (3.5-5.1); Sodium Level 142 mmol/L (136-145)
[2018-08-20] MEDS: Flecainide 100 MG Tablet PO ×2 (06:23→16:51)
[2018-08-20 06:24] VITALS: BP 154/79; PULSE 81
[2018-08-20] MEDS: buPROPion (SR) 150 MG Tablet.SA PO ×2 (06:24→16:51)
[2018-08-20] MEDS: Cephalexin 500 MG Capsule PO ×4 (06:24→23:42)
[2018-08-20] MEDS: Metoprolol Tartrate 50 MG Tablet PO ×2 (06:24→16:50)
[2018-08-20] MEDS: Acetaminophen 500 MG Tablet 1000 MG PO (06:24)
[2018-08-20] MEDS: Tolterodine Tartrate 2 MG CAP.SA PO (06:25)
[2018-08-20] MEDS: APIXABAN 5 MG TABLET PO ×2 (06:25→16:51)
[2018-08-20] MEDS: DIMETHYL FUMARATE 240 MG CAPSULE.DR PO ×2 (06:25→16:50)
[2018-08-20] MEDS: oxyCODONE 5 MG Tablet PO ×2 (06:25→20:14)
[2018-08-20 06:56] LABS: Hematocrit 28.5 % (40-54); Mean Corp Hgb Conc 31.6 g/gl (32-36); Mean Corpuscular Hgb 30.6 pg (27.0-32.0); Mean Corpuscular Volume 96.9 fL (80-94); Mean Platelet Vol. 10.1 fl (6.2-12.0); Platelet Count 211 K/mm3 (150-450); RBC Distribution Width CV 14.2 % (11.6-14.6); RBC Distribution Width SD 46.5 fl (35.1-43.9); Red Blood Count 2.94 M/mm3 (4.6-6.2); White Blood Count 6.4 K/mm3 (4.4-11.0)
[2018-08-20 06:59] LABS: Differential Indicated MANUAL DIFF; POSITIVE COUNT YES; POSITIVE DIFFERENTIAL YES; POSITIVE MORPHOLOGY YES
[2018-08-20 07:53] LABS: Eosinophil 3 % (0-5); Lymphocyte 4 % (19-41); Metamyelocyte 3 % (0-1); Monocyte 3 % (0-10); Neutrophil-Band 2 % (0-5); Neutrophil-Segmented 85 % (47-70); Total Cells Counted 100 (MANUAL DIFF)
[2018-08-20 07:54] LABS: Anisocytosis 1+; Hypochromasia 1+; Microcytosis 1+; Platelet Estimate ADEQUATE (ADEQ); Polychromasia 1+
[2018-08-20 07:55] LABS: Absolute Lymphocyte Count 0.26 X10^3/ul (0.83-4.51); Absolute Neutrophil Count 5.6 X10^3/uL (2.0-7.7)
[2018-08-20] MEDS: Sertraline 50 MG Tablet PO (08:46)
[2018-08-20] MEDS: Finasteride 5 MG Tablet PO (08:47)
[2018-08-20] MEDS: Multivitamins,Therapeutic Tablet 1 TABLET PO (08:47)
--- NOTE | 2018-08-20 10:19 | CASEMGMT ---
Reviewed and approved attached social work student documentation. Note: Telephone call made to Jeanna [facility]rera reporting to be able to accept resident back regards of level of physical care needed but would have limitations with wound care if the wound care would be daily. Currently resident wound care is every 5 days and PRN. Negro. JUSTIN Zambrano, ANA
--- NOTE | 2018-08-20 10:38 | PCM.PN.RX ---
<Familia Lopez D - Last Filed: 08/20/18 10:38> Progress Note - Pharmacy Subjective: TCU Admission Objective: Allergies No Known Allergies Allergy (Verified 08/04/18 14:27) Current Medications Generic Name Dose Route Start Last Admin Trade Name Freq PRN Reason Stop Dose Admin Acetaminophen 1,000 mg 08/19/18 20:18 08/20/18 06:24 Tylenol PO 1,000 mg Q6H PRN Administration MILD PAIN (1-3/10) Apixaban 5 mg 08/19/18 20:18 08/20/18 06:25 Eliquis PO 5 mg BID ARI Administration Bisacodyl 10 mg 08/19/18 20:19 Dulcolax PO DAILY PRN Constipation Bupropion HCl 150 mg 08/19/18 18:00 08/20/18 06:24 Wellbutrin Sr (150mg Tablets) PO 150 mg BID [facility] Administration Cephalexin 500 mg 08/19/18 18:00 08/20/18 06:24 Keflex PO 09/02/18 18:01 500 mg Q6 ARI Administration Cyclobenzaprine HCl 5 mg 08/19/18 15:23 Cyclobenzaprine Hcl PO TID PRN muscle spasms Dimethyl Fumarate 240 mg 08/19/18 18:00 08/20/18 06:25 Tecfidera PO 240 mg BID [facility] Administration Ergocalciferol 50,000 unit 08/21/18 10:00 Vitamin D PO Q7D [facility] Fenofibrate 145 mg 08/20/18 12:00 Tricor PO LUNCH [facility] Finasteride 5 mg 08/20/18 08:00 08/20/18 08:47 Proscar PO 5 mg DAILY@0800 [facility] Administration Flecainide Acetate 100 mg 08/19/18 18:00 08/20/18 06:23 Tambocor PO 100 mg BID [facility] Administration Metoprolol Tartrate 50 mg 08/19/18 18:00 08/20/18 06:24 Lopressor (Beta Rakesh) PO 50 mg BID [facility] Administration Multivitamins 1 tablet 08/20/18 08:00 08/20/18 08:47 Multivitamin PO 1 tablet DAILY@0800 [facility] Administration Oxycodone HCl 5 mg 08/19/18 20:18 08/20/18 06:25 Oxyir PO 5 mg Q4H PRN PRN Administration MODERATE PAIN (4-5/10) Pantoprazole Sodium 40 mg 08/20/18 12:00 Protonix PO LUNCH [facility] Polyethylene Glycol 17 gm 08/20/18 06:00 08/20/18 06:25 Miralax PO Not Given DAILY [facility] Polysaccharide Iron Complex 150 mg 08/20/18 08:00 Ferrex 150 PO DAILYCM [facility] Potassium Chloride 20 meq 08/20/18 08:00 08/20/18 08:47 K-Dur PO 20 meq DAILYCM [facility] Administration Pramipexole Dihydrochloride 1 mg 08/19/18 22:00 08/19/18 20:31 Mirapex PO 1 mg QHS [facility] Administration Pravastatin Sodium 10 mg 08/19/18 22:00 08/19/18 20:30 Pravachol PO 10 mg QHS [facility] Administration Senna/Docusate Sodium 2 tablet 08/20/18 06:00 08/20/18 06:25 Senokot-S, Geraldine-Colace PO Not Given BID [facility] Sertraline HCl 50 mg 08/20/18 08:00 08/20/18 08:46 Zoloft PO 50 mg DAILY@0800 [facility] Administration Tamsulosin HCl 0.4 mg 08/19/18 17:30 08/19/18 18:08 Flomax PO 0.4 mg DAILY@1730 [facility] Administration Tolterodine Tartrate 2 mg 08/20/18 06:00 08/20/18 06:25 Detrol La PO 2 mg DAILY [facility] Administration Tuberculin PPD 5 tu 08/27/18 10:00 Tubersol, Aplisol, Ppd ID 08/27/18 10:01 X1 ONE Problem List (Last Updated 08/04/18 @ 14:32 by Maribell Tolliver) Anemia (Chronic) Osteoarthritis (Chronic) Atrial fibrillation (Chronic) BPH (benign prostatic hyperplasia) (Chronic) DVT (deep venous thrombosis) (Chronic) GERD (gastroesophageal reflux disease) (Chronic) Hemorrhoids (Chronic) Multiple sclerosis (Chronic) Obstructive sleep apnea (Chronic) Vital Signs Temp Pulse Resp BP Pulse Ox 98.4 F 81 18 154/79 H 92 08/19/18 15:46 08/20/18 06:24 08/19/18 15:46 08/20/18 06:24 08/19/18 15:46 Oxygen Delivery Method Room Air Weight: 133 kg Body Mass Index (BMI) 44.6 Sodium 142 mmol/L (136-145) 08/20/18 05:10 Potassium 3.8 mmol/L (3.5-5.1) 08/20/18 05:10 Chloride 107 mmol/L (98-107) 08/20/18 05:10 Carbon Dioxide 24.0 mmol/L (21.0-32.0) 08/20/18 05:10 Anion Gap 11 (5-15) 08/20/18 05:10 BUN 18 mg/dL (7-18) 08/20/18 05:10 Creatinine 0.92 mg/dL (0.70-1.30) 08/20/18 05:10 Est GFR (MDRD) Af Amer 106 mL/min (>60) 08/20/18 05:10 Est GFR (MDRD) Non-Af 87 mL/min (>60) 08/20/18 05:10 BUN/Creatinine Ratio 19.7 RATIO (10-20) 08/20/18 05:10 Glucose 83 mg/dL (74-106) 08/20/18 05:10 Assessment/Plan: 1) Pain APAP for mild pain, oxycodone for moderate pain, cyclobenzaprine for muscle spasms. Continue to monitor prn medication use, daily pain scores. 2) AFib Apixaban, metoprolol, flecainide. Continue to monitor BP/HR, for bleeding/clot. 3) ID Cephalexin thru 09/02. Continue to monitor s/s infection. 4) GI Pantoprazole daily. Continue to monitor for GI distress. 5) MS Dimethyl fumarate. Continue to monitor clinically. 6) HLD Pravastatin, fenofibrate. Continue to monitor lipids. 7) OAB/BPH Finasteride, tamsulosin, tolterodine. Continue to monitor for symptoms. 8) RLS Pramipexole at HS. Continue to monitor clinically. Psychotropic Medications: 9) Depression Sertraline, bupropion. Continue to monitor s/s depression. Unnecessary Medications: None Bowel Regimen: 10) Senna/s, PEG, prn bisacodyl. Continue to monitor prn medication use for constipation/diarrhea. Date of Note:: 08/20/18 - Provider Comments Provider responsibility: Provider responsible to enter orders to implement recommendations <Dallin Ridley Chi - Last Filed: 08/20/18 14:24> Progress Note - Pharmacy Subjective: [] Objective: Allergies No Known Allergies Allergy (Verified 08/04/18 14:27) Current Medications Generic Name Dose Route Start Last Admin Trade Name Freq PRN Reason Stop Dose Admin Acetaminophen 1,000 mg 08/19/18 20:18 08/20/18 06:24 Tylenol PO 1,000 mg Q6H PRN Administration MILD PAIN (1-310) Apixaban 5 mg 08/19/18 20:18 08/20/18 06:25 Eliquis PO 5 mg BID ARI Administration Bisacodyl 10 mg 08/19/18 20:19 Dulcolax PO DAILY PRN Constipation Bupropion HCl 150 mg 08/19/18 18:00 08/20/18 06:24 Wellbutrin Sr (150mg Tablets) PO 150 mg BID [facility] Administration Cephalexin 500 mg 08/19/18 18:00 08/20/18 10:57 Keflex PO 09/02/18 18:01 500 mg Q6 ARI Administration Cyclobenzaprine HCl 5 mg 08/19/18 15:23 Cyclobenzaprine Hcl PO TID PRN muscle spasms Dimethyl Fumarate 240 mg 08/19/18 18:00 08/20/18 06:25 Tecfidera PO 240 mg BID [facility] Administration Ergocalciferol 50,000 unit 08/21/18 10:00 Vitamin D PO Q7D [facility] Fenofibrate 145 mg 08/20/18 12:00 08/20/18 10:57 Tricor PO 145 mg LUNCH [facility] Administration Finasteride 5 mg 08/20/18 08:00 08/20/18 08:47 Proscar PO 5 mg DAILY@0800 [facility] Administration Flecainide Acetate 100 mg 08/19/18 18:00 08/20/18 06:23 Tambocor PO 100 mg BID [facility] Administration Metoprolol Tartrate 50 mg 08/19/18 18:00 08/20/18 06:24 Lopressor (Beta Rakesh) PO 50 mg BID [facility] Administration Multivitamins 1 tablet 08/20/18 08:00 08/20/18 08:47 Multivitamin PO 1 tablet DAILY@0800 [facility] Administration Oxycodone HCl 5 mg 08/19/18 20:18 08/20/18 06:25 Oxyir PO 5 mg Q4H PRN PRN Administration MODERATE PAIN (4-5/10) Pantoprazole Sodium 40 mg 08/20/18 12:00 08/20/18 10:57 Protonix PO 40 mg LUNCH [facility] Administration Polyethylene Glycol 17 gm 08/20/18 06:00 08/20/18 06:25 Miralax PO Not Given DAILY [facility] Polysaccharide Iron Complex 150 mg 08/20/18 08:00 [facility] Potassium Chloride 20 meq 08/20/18 08:00 08/20/18 08:47 K-Dur PO 20 meq DAILYCM [facility] Administration Pramipexole Dihydrochloride 1 mg 08/19/18 22:00 08/19/18 20:31 Mirapex PO 1 mg QHS [facility] Administration Pravastatin Sodium 10 mg 08/19/18 22:00 08/19/18 20:30 Pravachol PO 10 mg QHS [facility] Administration Senna/Docusate Sodium 2 tablet 08/20/18 06:00 08/20/18 06:25 Senokot-S, Geraldine-Colace PO Not Given BID [facility] Sertraline HCl 50 mg 08/20/18 08:00 08/20/18 08:46 Zoloft PO 50 mg DAILY@0800 [facility] Administration Tamsulosin HCl 0.4 mg 08/19/18 17:30 08/19/18 18:08 Flomax PO 0.4 mg DAILY@1730 [facility] Administration Tolterodine Tartrate 2 mg 08/20/18 06:00 08/20/18 06:25 Detrol La PO 2 mg DAILY [facility] Administration Tuberculin PPD 5 tu 08/27/18 10:00 Tubersol, Aplisol, Ppd ID 08/27/18 10:01 X1 ONE Problem List (Last Updated 08/04/18 @ 14:32 by Maribell Tolliver) Anemia (Chronic) Osteoarthritis (Chronic) Atrial fibrillation (Chronic) BPH (benign prostatic hyperplasia) (Chronic) DVT (deep venous thrombosis) (Chronic) GERD (gastroesophageal reflux disease) (Chronic) Hemorrhoids (Chronic) Multiple sclerosis (Chronic) Obstructive sleep apnea (Chronic) Vital Signs Temp Pulse Resp BP Pulse Ox 98.4 F 81 18 154/79 H 92 08/19/18 15:46 08/20/18 06:24 08/19/18 15:46 08/20/18 06:24 08/19/18 15:46 Oxygen Delivery Method Room Air Weight: 133 kg Body Mass Index (BMI) 44.6 Sodium 142 mmol/L (136-145) 08/20/18 05:10 Potassium 3.8 mmol/L (3.5-5.1) 08/20/18 05:10 Chloride 107 mmol/L (98-107) 08/20/18 05:10 Carbon Dioxide 24.0 mmol/L (21.0-32.0) 08/20/18 05:10 Anion Gap 11 (5-15) 08/20/18 05:10 BUN 18 mg/dL (7-18) 08/20/18 05:10 Creatinine 0.92 mg/dL (0.70-1.30) 08/20/18 05:10 Est GFR (MDRD) Af Amer 106 mL/min (>60) 08/20/18 05:10 Est GFR (MDRD) Non-Af 87 mL/min (>60) 08/20/18 05:10 BUN/Creatinine Ratio 19.7 RATIO (10-20) 08/20/18 05:10 Glucose 83 mg/dL (74-106) 08/20/18 05:10 Assessment/Plan: Psychotropic Medications: Unnecessary Medications: Bowel Regimen: - Provider Comments Provider responsibility: Provider responsible to enter orders to implement recommendations Provider Comments to Recommendations by Pharmacy: Agree
--- NOTE | 2018-08-20 10:47 | PHA.CONS_ITS ---
<Familia Lopez D - Last Filed: 08/20/18 10:38> Progress Note - Pharmacy Subjective: TCU Admission Objective: Allergies No Known Allergies Allergy (Verified 08/04/18 14:27) Current Medications Generic Name Dose Route Start Last Admin Trade Name Freq PRN Reason Stop Dose Admin Acetaminophen 1,000 mg 08/19/18 20:18 08/20/18 06:24 Tylenol PO 1,000 mg Q6H PRN Administration MILD PAIN (1-3/10) Apixaban 5 mg 08/19/18 20:18 08/20/18 06:25 Eliquis PO 5 mg BID ARI Administration Bisacodyl 10 mg 08/19/18 20:19 Dulcolax PO DAILY PRN Constipation Bupropion HCl 150 mg 08/19/18 18:00 08/20/18 06:24 Wellbutrin Sr (150mg Tablets) PO 150 mg BID [facility] Administration Cephalexin 500 mg 08/19/18 18:00 08/20/18 06:24 Keflex PO 09/02/18 18:01 500 mg Q6 ARI Administration Cyclobenzaprine HCl 5 mg 08/19/18 15:23 Cyclobenzaprine Hcl PO TID PRN muscle spasms Dimethyl Fumarate 240 mg 08/19/18 18:00 08/20/18 06:25 Tecfidera PO 240 mg BID [facility] Administration Ergocalciferol 50,000 unit 08/21/18 10:00 Vitamin D PO Q7D [facility] Fenofibrate 145 mg 08/20/18 12:00 Tricor PO LUNCH [facility] Finasteride 5 mg 08/20/18 08:00 08/20/18 08:47 Proscar PO 5 mg DAILY@0800 [facility] Administration Flecainide Acetate 100 mg 08/19/18 18:00 08/20/18 06:23 Tambocor PO 100 mg BID [facility] Administration Metoprolol Tartrate 50 mg 08/19/18 18:00 08/20/18 06:24 Lopressor (Beta Rakesh) PO 50 mg BID [facility] Administration Multivitamins 1 tablet 08/20/18 08:00 08/20/18 08:47 Multivitamin PO 1 tablet DAILY@0800 [facility] Administration Oxycodone HCl 5 mg 08/19/18 20:18 08/20/18 06:25 Oxyir PO 5 mg Q4H PRN PRN Administration MODERATE PAIN (4-5/10) Pantoprazole Sodium 40 mg 08/20/18 12:00 Protonix PO LUNCH [facility] Polyethylene Glycol 17 gm 08/20/18 06:00 08/20/18 06:25 Miralax PO Not Given DAILY [facility] Polysaccharide Iron Complex 150 mg 08/20/18 08:00 Ferrex 150 PO DAILYCM [facility] Potassium Chloride 20 meq 08/20/18 08:00 08/20/18 08:47 K-Dur PO 20 meq DAILYCM [facility] Administration Pramipexole Dihydrochloride 1 mg 08/19/18 22:00 08/19/18 20:31 Mirapex PO 1 mg QHS [facility] Administration Pravastatin Sodium 10 mg 08/19/18 22:00 08/19/18 20:30 Pravachol PO 10 mg QHS [facility] Administration Senna/Docusate Sodium 2 tablet 08/20/18 06:00 08/20/18 06:25 Senokot-S, Geraldine-Colace PO Not Given BID [facility] Sertraline HCl 50 mg 08/20/18 08:00 08/20/18 08:46 Zoloft PO 50 mg DAILY@0800 [facility] Administration Tamsulosin HCl 0.4 mg 08/19/18 17:30 08/19/18 18:08 Flomax PO 0.4 mg DAILY@1730 [facility] Administration Tolterodine Tartrate 2 mg 08/20/18 06:00 08/20/18 06:25 Detrol La PO 2 mg DAILY [facility] Administration Tuberculin PPD 5 tu 08/27/18 10:00 Tubersol, Aplisol, Ppd ID 08/27/18 10:01 X1 ONE Problem List (Last Updated 08/04/18 @ 14:32 by Maribell Tolliver) Anemia (Chronic) Osteoarthritis (Chronic) Atrial fibrillation (Chronic) BPH (benign prostatic hyperplasia) (Chronic) DVT (deep venous thrombosis) (Chronic) GERD (gastroesophageal reflux disease) (Chronic) Hemorrhoids (Chronic) Multiple sclerosis (Chronic) Obstructive sleep apnea (Chronic) Vital Signs Temp Pulse Resp BP Pulse Ox 98.4 F 81 18 154/79 H 92 08/19/18 15:46 08/20/18 06:24 08/19/18 15:46 08/20/18 06:24 08/19/18 15:46 Oxygen Delivery Method Room Air Weight: 133 kg Body Mass Index (BMI) 44.6 Sodium 142 mmol/L (136-145) 08/20/18 05:10 Potassium 3.8 mmol/L (3.5-5.1) 08/20/18 05:10 Chloride 107 mmol/L (98-107) 08/20/18 05:10 Carbon Dioxide 24.0 mmol/L (21.0-32.0) 08/20/18 05:10 Anion Gap 11 (5-15) 08/20/18 05:10 BUN 18 mg/dL (7-18) 08/20/18 05:10 Creatinine 0.92 mg/dL (0.70-1.30) 08/20/18 05:10 Est GFR (MDRD) Af Amer 106 mL/min (>60) 08/20/18 05:10 Est GFR (MDRD) Non-Af 87 mL/min (>60) 08/20/18 05:10 BUN/Creatinine Ratio 19.7 RATIO (10-20) 08/20/18 05:10 Glucose 83 mg/dL (74-106) 08/20/18 05:10 Assessment/Plan: 1) Pain APAP for mild pain, oxycodone for moderate pain, cyclobenzaprine for muscle spasms. Continue to monitor prn medication use, daily pain scores. 2) AFib Apixaban, metoprolol, flecainide. Continue to monitor BP/HR, for bleeding/clot. 3) ID Cephalexin thru 09/02. Continue to monitor s/s infection. 4) GI Pantoprazole daily. Continue to monitor for GI distress. 5) MS Dimethyl fumarate. Continue to monitor clinically. 6) HLD Pravastatin, fenofibrate. Continue to monitor lipids. 7) OAB/BPH Finasteride, tamsulosin, tolterodine. Continue to monitor for symptoms. 8) RLS Pramipexole at HS. Continue to monitor clinically. Psychotropic Medications: 9) Depression Sertraline, bupropion. Continue to monitor s/s depression. Unnecessary Medications: None Bowel Regimen: 10) Senna/s, PEG, prn bisacodyl. Continue to monitor prn medication use for constipation/diarrhea. Date of Note:: 08/20/18 - Provider Comments Provider responsibility: Provider responsible to enter orders to implement recommendations <Dallin Ridley Chi - Last Filed: 08/20/18 14:24> Progress Note - Pharmacy Subjective: [] Objective: Allergies No Known Allergies Allergy (Verified 08/04/18 14:27) Current Medications Generic Name Dose Route Start Last Admin Trade Name Freq PRN Reason Stop Dose Admin Acetaminophen 1,000 mg 08/19/18 20:18 08/20/18 06:24 Tylenol PO 1,000 mg Q6H PRN Administration MILD PAIN (1-310) Apixaban 5 mg 08/19/18 20:18 08/20/18 06:25 Eliquis PO 5 mg BID [facility] Administration Bisacodyl 10 mg 08/19/18 20:19 Dulcolax PO DAILY PRN Constipation Bupropion HCl 150 mg 08/19/18 18:00 08/20/18 06:24 Wellbutrin Sr (150mg Tablets) PO 150 mg BID [facility] Administration Cephalexin 500 mg 08/19/18 18:00 08/20/18 10:57 Keflex PO 09/02/18 18:01 500 mg Q6 ARI Administration Cyclobenzaprine HCl 5 mg 08/19/18 15:23 Cyclobenzaprine Hcl PO TID PRN muscle spasms Dimethyl Fumarate 240 mg 08/19/18 18:00 08/20/18 06:25 Tecfidera PO 240 mg BID [facility] Administration Ergocalciferol 50,000 unit 08/21/18 10:00 Vitamin D PO Q7D [facility] Fenofibrate 145 mg 08/20/18 12:00 08/20/18 10:57 Tricor PO 145 mg LUNCH [facility] Administration Finasteride 5 mg 08/20/18 08:00 08/20/18 08:47 Proscar PO 5 mg DAILY@0800 [facility] Administration Flecainide Acetate 100 mg 08/19/18 18:00 08/20/18 06:23 Tambocor PO 100 mg BID [facility] Administration Metoprolol Tartrate 50 mg 08/19/18 18:00 08/20/18 06:24 Lopressor (Beta Rakesh) PO 50 mg BID [facility] Administration Multivitamins 1 tablet 08/20/18 08:00 08/20/18 08:47 Multivitamin PO 1 tablet DAILY@0800 [facility] Administration Oxycodone HCl 5 mg 08/19/18 20:18 08/20/18 06:25 Oxyir PO 5 mg Q4H PRN PRN Administration MODERATE PAIN (4-5/10) Pantoprazole Sodium 40 mg 08/20/18 12:00 08/20/18 10:57 Protonix PO 40 mg LUNCH [facility] Administration Polyethylene Glycol 17 gm 08/20/18 06:00 08/20/18 06:25 Miralax PO Not Given DAILY [facility] Polysaccharide Iron Complex 150 mg 08/20/18 08:00 [facility] Potassium Chloride 20 meq 08/20/18 08:00 08/20/18 08:47 K-Dur PO 20 meq DAILYCM [facility] Administration Pramipexole Dihydrochloride 1 mg 08/19/18 22:00 08/19/18 20:31 Mirapex PO 1 mg QHS [facility] Administration Pravastatin Sodium 10 mg 08/19/18 22:00 08/19/18 20:30 Pravachol PO 10 mg QHS [facility] Administration Senna/Docusate Sodium 2 tablet 08/20/18 06:00 08/20/18 06:25 Senokot-S, Geraldine-Colace PO Not Given BID [facility] Sertraline HCl 50 mg 08/20/18 08:00 08/20/18 08:46 Zoloft PO 50 mg DAILY@0800 [facility] Administration Tamsulosin HCl 0.4 mg 08/19/18 17:30 08/19/18 18:08 Flomax PO 0.4 mg DAILY@1730 [facility] Administration Tolterodine Tartrate 2 mg 08/20/18 06:00 08/20/18 06:25 Detrol La PO 2 mg DAILY [facility] Administration Tuberculin PPD 5 tu 08/27/18 10:00 Tubersol, Aplisol, Ppd ID 08/27/18 10:01 X1 ONE Problem List (Last Updated 08/04/18 @ 14:32 by Maribell Tolliver) Anemia (Chronic) Osteoarthritis (Chronic) Atrial fibrillation (Chronic) BPH (benign prostatic hyperplasia) (Chronic) DVT (deep venous thrombosis) (Chronic) GERD (gastroesophageal reflux disease) (Chronic) Hemorrhoids (Chronic) Multiple sclerosis (Chronic) Obstructive sleep apnea (Chronic) Vital Signs Temp Pulse Resp BP Pulse Ox 98.4 F 81 18 154/79 H 92 08/19/18 15:46 08/20/18 06:24 08/19/18 15:46 08/20/18 06:24 08/19/18 15:46 Oxygen Delivery Method Room Air Weight: 133 kg Body Mass Index (BMI) 44.6 Sodium 142 mmol/L (136-145) 08/20/18 05:10 Potassium 3.8 mmol/L (3.5-5.1) 08/20/18 05:10 Chloride 107 mmol/L (98-107) 08/20/18 05:10 Carbon Dioxide 24.0 mmol/L (21.0-32.0) 08/20/18 05:10 Anion Gap 11 (5-15) 08/20/18 05:10 BUN 18 mg/dL (7-18) 08/20/18 05:10 Creatinine 0.92 mg/dL (0.70-1.30) 08/20/18 05:10 Est GFR (MDRD) Af Amer 106 mL/min (>60) 08/20/18 05:10 Est GFR (MDRD) Non-Af 87 mL/min (>60) 08/20/18 05:10 BUN/Creatinine Ratio 19.7 RATIO (10-20) 08/20/18 05:10 Glucose 83 mg/dL (74-106) 08/20/18 05:10 Assessment/Plan: Psychotropic Medications: Unnecessary Medications: Bowel Regimen: - Provider Comments Provider responsibility: Provider responsible to enter orders to implement recommendations Provider Comments to Recommendations by Pharmacy: Agree
[2018-08-20] MEDS: Pantoprazole Sodium 40 MG Tablet PO (10:57)
[2018-08-20] MEDS: Fenofibrate 145 MG Tablet PO (10:57)
[2018-08-20] MEDS: Tuberculin,Purif.prot.deriv. 50 TU/ML Vial 5 ML ID (10:57)
[2018-08-20 16:00] VITALS: BP 159/74; PULSE 111; RESP 20; TEMP 36.4; O2SAT 96
[2018-08-20 16:50] VITALS: BP 159/74; PULSE 111
[2018-08-20] MEDS: Iron Polysaccharide Complex 150 MG CAPSULE PO (16:51)
[2018-08-20] MEDS: Tamsulosin HCl 0.4 MG Capsule PO (16:51)
--- NOTE | 2018-08-20 19:23 | NURSING ---
Pt draines emptied by this nurse. Pt drain in right lower back had 45cc of serosangious drainage noted, and the low back drain had 55cc of drainage note. Pt drain dressing intact. Henri LYNNE aware
[2018-08-20] MEDS: Pramipexole Di-HCl 1 MG Tablet PO (20:14)
[2018-08-20] MEDS: Pravastatin 20 MG Tablet 10 MG PO (20:14)
[2018-08-21 05:03] VITALS: PULSE 110
[2018-08-21] MEDS: Metoprolol Tartrate 50 MG Tablet PO ×2 (05:03→17:58)
[2018-08-21] MEDS: Flecainide 100 MG Tablet PO ×2 (05:03→17:58)
[2018-08-21] MEDS: APIXABAN 5 MG TABLET PO ×2 (05:03→17:58)
[2018-08-21] MEDS: Tolterodine Tartrate 2 MG CAP.SA PO (05:03)
[2018-08-21] MEDS: buPROPion (SR) 150 MG Tablet.SA PO ×2 (05:03→17:58)
[2018-08-21] MEDS: Cephalexin 500 MG Capsule PO ×4 (05:03→23:46)
[2018-08-21] MEDS: oxyCODONE 5 MG Tablet PO ×4 (05:03→23:46)
[2018-08-21] MEDS: DIMETHYL FUMARATE 240 MG CAPSULE.DR PO ×2 (05:04→17:57)
[2018-08-21] MEDS: Sertraline 50 MG Tablet PO (08:26)
[2018-08-21] MEDS: Iron Polysaccharide Complex 150 MG CAPSULE PO (08:26)
[2018-08-21] MEDS: Multivitamins,Therapeutic Tablet 1 TABLET PO (08:26)
[2018-08-21] MEDS: Finasteride 5 MG Tablet PO (08:26)
--- NOTE | 2018-08-21 11:16 | NURSING ---
PT HAS OWN DIANDRA HOSE AND STATED HE WOULD LIKE TO USE THOSE. REPORTED TO MAGED SANCHEZ
[2018-08-21] MEDS: Fenofibrate 145 MG Tablet PO (11:21)
[2018-08-21] MEDS: Pantoprazole Sodium 40 MG Tablet PO (11:21)
[2018-08-21 15:17] VITALS: PULSE 101; RESP 18; O2SAT 98
--- NOTE | 2018-08-21 15:26 | NURSING ---
MEPILEX CHANGED TO PT BACK. WOUND CLEANED,SLIGHT REDNESS IN FEW AREAS. NO S/S OF INFECTION. LAURARN IN ROOM WITH THIS NURSE.
--- NOTE | 2018-08-21 15:30 | NURSING ---
BOTH DRAINS EMPTED,#09/27 AND #. SANGUINOUS DRAINAGE. DRESSING CHANGED,SMALL LEAKAGE AROUND DRAIN SITE. MAGED SANCHEZ AWARE.
[2018-08-21 15:37] VITALS: BP 113/58; PULSE 110; RESP 20; TEMP 37.1; O2SAT 96
[2018-08-21 17:58] VITALS: BP 113/58; PULSE 110
[2018-08-21] MEDS: Tamsulosin HCl 0.4 MG Capsule PO (17:58)
[2018-08-21] MEDS: Pravastatin 20 MG Tablet 10 MG PO (20:55)
[2018-08-21] MEDS: Pramipexole Di-HCl 1 MG Tablet PO (20:55)
[2018-08-21] MEDS: Menthol/Lanolin/Calamine/Znox 113 GM Tube 1 APPLIC TOPICAL (20:56)
[2018-08-22] MEDS: Tolterodine Tartrate 2 MG CAP.SA PO (05:52)
[2018-08-22] MEDS: APIXABAN 5 MG TABLET PO ×2 (05:52→17:58)
[2018-08-22] MEDS: buPROPion (SR) 150 MG Tablet.SA PO ×2 (05:53→17:57)
[2018-08-22] MEDS: Flecainide 100 MG Tablet PO ×2 (05:53→17:58)
[2018-08-22] MEDS: Senna/Docusate Sodium 1 Tablet 2 TABLET PO (05:53)
[2018-08-22] MEDS: DIMETHYL FUMARATE 240 MG CAPSULE.DR PO ×2 (05:53→17:58)
[2018-08-22] MEDS: Cephalexin 500 MG Capsule PO ×3 (05:54→17:58)
[2018-08-22 06:01] VITALS: BP 130/72; PULSE 108
[2018-08-22] MEDS: Metoprolol Tartrate 50 MG Tablet PO ×2 (06:01→17:57)
[2018-08-22] MEDS: Menthol/Lanolin/Calamine/Znox 113 GM Tube 1 APPLIC TOPICAL ×2 (06:02→20:28)
[2018-08-22] MEDS: oxyCODONE 5 MG Tablet PO ×3 (08:32→22:09)
[2018-08-22] MEDS: Sertraline 50 MG Tablet PO (08:35)
[2018-08-22] MEDS: Multivitamins,Therapeutic Tablet 1 TABLET PO (08:35)
[2018-08-22] MEDS: Finasteride 5 MG Tablet PO (08:35)
[2018-08-22] MEDS: Iron Polysaccharide Complex 150 MG CAPSULE PO (08:36)
[2018-08-22] MEDS: Pantoprazole Sodium 40 MG Tablet PO (11:25)
[2018-08-22] MEDS: Fenofibrate 145 MG Tablet PO (11:25)
[2018-08-22 15:43] VITALS: BP 142/82; PULSE 100; RESP 20; TEMP 36.6; O2SAT 98
[2018-08-22 17:57] VITALS: BP 142/82; PULSE 100
[2018-08-22] MEDS: Tamsulosin HCl 0.4 MG Capsule PO (17:58)
--- NOTE | 2018-08-22 19:14 | NURSING ---
JARROD DRAINS EMPTIED,#2/ OUT, #3/30OUT. DRAINAGE RED WITH SMALL CLOT IN EACH. REPORTED TO MAGED SANCHEZ
[2018-08-22] MEDS: Pravastatin 20 MG Tablet 10 MG PO (20:25)
[2018-08-22] MEDS: Pramipexole Di-HCl 1 MG Tablet PO (20:25)
[2018-08-22 21:40] VITALS: PULSE 106; RESP 16; O2SAT 97
[2018-08-23] MEDS: Cephalexin 500 MG Capsule PO ×4 (00:07→17:09)
[2018-08-23] MEDS: DIMETHYL FUMARATE 240 MG CAPSULE.DR PO ×2 (05:17→17:10)
[2018-08-23 05:18] VITALS: BP 127/64; PULSE 104
[2018-08-23] MEDS: Tolterodine Tartrate 2 MG CAP.SA PO (05:18)
[2018-08-23] MEDS: Metoprolol Tartrate 50 MG Tablet PO ×2 (05:18→17:10)
[2018-08-23] MEDS: Flecainide 100 MG Tablet PO ×2 (05:18→17:09)
[2018-08-23] MEDS: APIXABAN 5 MG TABLET PO ×2 (05:19→17:10)
[2018-08-23] MEDS: buPROPion (SR) 150 MG Tablet.SA PO ×2 (05:19→17:09)
[2018-08-23] MEDS: Menthol/Lanolin/Calamine/Znox 113 GM Tube 1 APPLIC TOPICAL ×2 (07:03→20:15)
[2018-08-23] MEDS: Sertraline 50 MG Tablet PO (09:04)
[2018-08-23] MEDS: Multivitamins,Therapeutic Tablet 1 TABLET PO (09:04)
[2018-08-23] MEDS: Finasteride 5 MG Tablet PO (09:05)
[2018-08-23] MEDS: Iron Polysaccharide Complex 150 MG CAPSULE PO (09:05)
--- NOTE | 2018-08-23 09:36 | EKG12_ITS ---
Test Reason : SWOLLEN ARM Blood Pressure : / mmHG Vent. Rate : 097 BPM Atrial Rate : 097 BPM P-R Int : 232 ms QRS Dur : 128 ms QT Int : 374 ms P-R-T Axes : 000 005 069 degrees QTc Int : 474 ms Sinus rhythm with 1st degree A-V block Non-specific intra-ventricular conduction block Abnormal ECG Confirmed by KARELY MONET, WENCESLAO ([id number]), video editor SALO NICOLAS ([id number]) on 08/25/2018 10:41:45 AM Referred By: Dallin Ridley Confirmed By:WENCESLAO CALI MD
--- NOTE | 2018-08-23 09:37 | VDUE_ITS ---
Reason For Study: Arm pain Right Proximal Left Proximal Right jugular vein is spontaneous, widely Left jugular vein is spontaneous, widely patent, phasic, with no intraluminal patent, phasic, with no intraluminal echogenicity noted. echogenicity noted. Right subclavian vein is spontaneous, widely Left subclavian vein is spontaneous, widely patent, phasic, with no intraluminal patent, phasic, with no intraluminal echogenicity noted. echogenicity noted. Right Lower Arm Left Arm Right radial vein is compressible. Left axillary vein is spontaneous, patent, Right ulnar vein is compressible. phasic, competent, compressible and Right Arm demonstrates augmentation. Right axillary vein is spontaneous, patent, Left brachial vein is compressible. phasic, competent, compressible and Left cephalic vein is compressible. demonstrates augmentation. Left basilic vein is compressible. Right brachial vein is compressible. Left Lower Arm Right cephalic vein is compressible. Left radial vein is compressible. Right basilic vein is compressible. Left ulnar vein is compressible. Interpretation Summary Deep veins of the upper extremities are bilaterally patent and compressible segmentally. There is no evidence of deep vein thrombosis on either side. The superficial veins of the upper extremities, the basilic and cephalic veins, are patent and compressible bilaterally. There is no evidence of upper extremity superficial thrombophlebitis on either side involving the veins imaged. Ordering Physician: Dallin Ridley Referring Physician: Dallin Ridley Chi Performed By: Candace Archbiald RVT ?
--- NOTE | 2018-08-23 09:46 | NURSING ---
Addendum entered by [place] 08/23/18 17:32: dr angel updated, no new orders. Original Note: Addendum entered by [place] 08/23/18 13:42: doppler negative Original Note: pt c/o lt arm increased edema. dr angel updated, new order for stat EKG and doppler bilat UE's.
[2018-08-23] MEDS: Pantoprazole Sodium 40 MG Tablet PO (11:38)
[2018-08-23] MEDS: Fenofibrate 145 MG Tablet PO (11:39)
--- NOTE | 2018-08-23 12:51 | CASEMGMT ---
Insurance Clinical information sent. Pending continued stay approval at this time. Auth#[id number] Ang ANDERSON, ANA
[2018-08-23 13:41] LABS: Pathologist Review Reviewed
[2018-08-23 15:24] VITALS: BP 140/80; PULSE 74; RESP 16; TEMP 36.2; O2SAT 95
[2018-08-23] MEDS: oxyCODONE 5 MG Tablet PO ×2 (15:26→20:14)
[2018-08-23 17:10] VITALS: BP 140/80; PULSE 74
[2018-08-23] MEDS: Tamsulosin HCl 0.4 MG Capsule PO (17:10)
--- NOTE | 2018-08-23 19:57 | PN_ITS ---
Subjective: Resident seen in room, sitting in chair. He notes he has been having increasing swelling of left upper extremity, and it is not improving. He does not recall any trauma to the left arm. He also notes tingling pain down left arm. Vitals/I&O's: Vital Signs Temp Pulse Resp BP Pulse Ox 97.2 F L 74 16 140/80 H 95 08/23/18 15:24 08/23/18 17:10 08/23/18 15:24 08/23/18 17:10 08/23/18 15:24 Oxygen Delivery Method Room Air Weight: 133 kg Body Mass Index (BMI) 44.6 Intake and Output for Last 24 Hours 08/21/18 08/22/18 08/23/18 23:59 23:59 23:59 Intake Total 540 / 540 720 / 720 300 / 300 Output Total 394 / 394 490 / 490 320 / 320 Balance 146 / 146 230 / 230 -20 / -20 Laboratory Results 08/20/18 05:10: Diff Path Review Reviewed Past Medical History Past Medical History (Chronic Problems): Chronic Problems (Last Updated 08/04/18 @ 14:32 by Maribell Tolliver) Anemia (Chronic) Osteoarthritis (Chronic) Atrial fibrillation (Chronic) BPH (benign prostatic hyperplasia) (Chronic) DVT (deep venous thrombosis) (Chronic) GERD (gastroesophageal reflux disease) (Chronic) Hemorrhoids (Chronic) Multiple sclerosis (Chronic) Obstructive sleep apnea (Chronic) Medical History: Medical History (Last Updated 08/04/18 @ 14:32 by Maribell Tolliver) Sick sinus syndrome (Acute) I49.5 Presence of cardiac pacemaker (Acute) Z95.0 Acid reflux K21.9 Arthritis M19.90 Atrial fibrillation I48.91 Depression F32.9 Hemorrhoids K64.9 History of back problems Hypercholesterolemia E78.00 MS (multiple sclerosis) G35 Sleep apnea G47.30 Allergies No Known Allergies Allergy (Verified 08/04/18 14:27) Home Medications: Ambulatory Orders Medication Instructions Recorded Apixaban [Eliquis] 5 mg PO BID 06/10/17 Bupropion HCl [Zyban] 150 mg PO BID 06/10/17 Finasteride [Proscar] 5 mg PO DAILY 06/10/17 Flecainide [Tambocor] 100 mg PO BID 06/10/17 Metoprolol Tartrate [Lopressor 50 mg PO BID 06/10/17 (Beta Rakesh)] Omeprazole 40 mg PO LUNCH 06/10/17 Potassium Chloride [Klor-Con M20] 20 meq PO DAILY 06/10/17 Pravastatin Sodium [Pravachol] 10 mg PO QHS 06/10/17 Ferrous Sulfate 324 mg PO DAILY 08/28/17 dimethyl fumarate 240 mg 240 mg PO BID 08/04/18 capsule,delayed release pramipexole 1 mg tablet 1 mg PO QHS 08/04/18 tamsulosin 0.4 mg capsule 0.4 mg PO DAILY@1730 cap 08/04/18 Cephalexin [Keflex] 500 mg PO Q6H 08/19/18 Cyclobenzaprine [Flexeril] 5 mg PO TID PRN 08/19/18 Docusate Sodium [Colace] 100 mg PO BID 08/19/18 Ergocalciferol [Vitamin D] 50,000 unit PO Q7D 08/19/18 Fenofibrate,Micronized 200 mg PO LUNCH 08/19/18 [Fenofibrate] Multivitamin [Multivitamins] 1 each PO DAILY 08/19/18 Oxybutynin [Ditropan] 5 mg PO DAILY 08/19/18 Oxycodone [Oxyir] 2.5 - 5 mg PO Q4H PRN PRN 08/19/18 Sertraline HCl [Zoloft] 50 mg PO DAILY 08/19/18 Surgical History: Surgical History (Last Updated 08/04/18 @ 14:22 by Maribell Tolliver) History of hemorrhoidectomy Z98.890 gallbladder removed S/P cholecystectomy Z90.49 Surgical History: cholecystectomy, tonsillectomy, - - IVC filter. Psychiatric History: Anxiety, Depression Lives: Residential - Lives at [facility] with spouse who has Parkinson's Disease. Smoking Status: Former smoker Tobacco Use: Cigarettes - He has 80 pack year smoking history. Alcohol: None Drugs: None - *Family History Maternal Family History: Family History (Last Updated 08/04/18 @ 14:25 by Maribell Tolliver) Father Arthritis Cancer Brother Cancer Mother High cholesterol History Items: No pertinent history Paternal Family History: Family History (Last Updated 08/04/18 @ 14:25 by Maribell Tolliver) Father Arthritis Cancer Brother Cancer Mother High cholesterol History Items: No pertinent history Review of Systems Constitutional: Denies: Chills, Fever, Weight Change HEENT: Denies: Head Aches, Sinus Congestion, Sinus Drainage Cardiovascular: Reports: Edema - Left upper extremity.. Denies: Chest Pain, Palpitations Respiratory: Denies: Cough, Shortness of breath at rest, Sputum production Gastrointestinal: Denies: Abdominal Pain, Nausea, Vomiting Genitourinary: Denies: Dysuria Musculoskeletal: Denies: Joint Pain, Joint Tenderness Skin: Denies: Rash, Wounds Neurological: Denies: Numbness, Tingling, Focal weakness Psychiatric: Denies: Anxiety, Depression, Homicidal Ideations, Suicidal Ideations Hematologic/ Lymphatic: Denies: Easy Bruising, Easy Bleeding - Physical Exam General: Alert, Oriented x3, Cooperative HEENT: Atraumatic, PERRLA, EOMI, Normocephalic Neck: Supple, No JVD, Negative Carotid Bruits Lungs: Clear to auscultation, Normal air movement Cardiovascular: Regular rate, No murmurs Abdomen: Bowel Sounds Present, Soft, Non Tender Extremities: Capillary Refill Less than 3 Seconds, Edema - Left upper extremity noticeably more swollen then right upper extremity. Skin: No rashes, No breakdown Musculoskeletal: No Tenderness to Palpation of Joints or Extremities Neurological: Cranial nerves II-XII grossly intact Psych/Mental Status: Normal Affect, Appropriate Vital Signs Temp Pulse Resp BP Pulse Ox 97.2 F L 74 16 140/80 H 95 08/23/18 15:24 08/23/18 17:10 08/23/18 15:24 08/23/18 17:10 08/23/18 15:24 Oxygen Delivery Method Room Air Weight: 133 kg Body Mass Index (BMI) 44.6 Intake and Output for Last 24 Hours 08/21/18 08/22/18 08/23/18 23:59 23:59 23:59 Intake Total 540 / 540 720 / 720 300 / 300 Output Total 394 / 394 490 / 490 320 / 320 Balance 146 / 146 230 / 230 -20 / -20 Laboratory Tests Past 24 Hrs 08/20/18 05:10 Diff Path Review Reviewed Assessment/Plan All Active Problems (Last Updated 08/04/18 @ 14:32 by Maribell Tolliver) History of DVT (deep vein thrombosis) (Acute) Sick sinus syndrome (Acute) Presence of cardiac pacemaker (Acute) 68 year old male with below past medical history hospitalized for T3-pelvis posterior spinal fusion 08/13/[address] Yamel Humphrey, admitted to TCU with debility, here for rehabilitation, strengthening, prior to discharge to [facility] Living with spouse. * Left upper extremity swelling - Doppler ultrasound of bilateral upper extremities negative for DVT. Recommend ZACH wrap to left upper extremity until swelling improved. * Chest pain - EKG reviewed, no signs of acute coronary syndrome, no ischemia.
[2018-08-23] MEDS: Pramipexole Di-HCl 1 MG Tablet PO (20:14)
[2018-08-23] MEDS: Pravastatin 20 MG Tablet 10 MG PO (20:14)
[2018-08-23 20:17] VITALS: O2SAT 98
[2018-08-24] MEDS: Cephalexin 500 MG Capsule PO ×5 (00:12→23:02)
[2018-08-24] MEDS: oxyCODONE 5 MG Tablet PO ×4 (00:15→23:01)
[2018-08-24] MEDS: APIXABAN 5 MG TABLET PO ×2 (06:07→17:10)
[2018-08-24] MEDS: buPROPion (SR) 150 MG Tablet.SA PO ×2 (06:07→17:09)
[2018-08-24] MEDS: Tolterodine Tartrate 2 MG CAP.SA PO (06:07)
[2018-08-24] MEDS: Flecainide 100 MG Tablet PO ×2 (06:07→17:09)
[2018-08-24] MEDS: DIMETHYL FUMARATE 240 MG CAPSULE.DR PO ×2 (06:07→17:08)
[2018-08-24 06:10] VITALS: BP 120/84; PULSE 96
[2018-08-24] MEDS: Menthol/Lanolin/Calamine/Znox 113 GM Tube 1 APPLIC TOPICAL ×2 (06:10→20:30)
[2018-08-24] MEDS: Metoprolol Tartrate 50 MG Tablet PO ×2 (06:10→17:10)
[2018-08-24] MEDS: Sertraline 50 MG Tablet PO (08:44)
[2018-08-24] MEDS: Multivitamins,Therapeutic Tablet 1 TABLET PO (08:45)
[2018-08-24] MEDS: Finasteride 5 MG Tablet PO (08:45)
[2018-08-24] MEDS: Iron Polysaccharide Complex 150 MG CAPSULE PO (08:45)
--- NOTE | 2018-08-24 09:37 | CASEMGMT ---
Addendum entered by Linnette Zambrano 08/24/18 10:59: Reviewed and approved social work student documentation. Ang Zambrano CATHEAD WORKER, BODY CORPORATE MANAGER Original Note: Brief interview for mental status (BIMS) and mood (PHQ-9) completed on this day. BIMS score . PHQ-9 score 10/30. Magdalena Peterson social work student
[2018-08-24] MEDS: Fenofibrate 145 MG Tablet PO (11:55)
[2018-08-24] MEDS: Pantoprazole Sodium 40 MG Tablet PO (11:55)
[2018-08-24 14:25] VITALS: PULSE 104; RESP 18; O2SAT 98
[2018-08-24 15:15] VITALS: BP 124/56; PULSE 104; RESP 20; TEMP 36.3; O2SAT 94
--- NOTE | 2018-08-24 16:02 | CASEMGMT ---
Insurance Continued stay approved with next update due on 08/30/18. Auth#[id number] Ang ANDERSON, ANA
[2018-08-24] MEDS: Tamsulosin HCl 0.4 MG Capsule PO (17:09)
[2018-08-24 17:10] VITALS: PULSE 104
[2018-08-24] MEDS: Pramipexole Di-HCl 1 MG Tablet PO (20:29)
[2018-08-24] MEDS: Pravastatin 20 MG Tablet 10 MG PO (20:29)
--- NOTE | 2018-08-24 23:44 | NURSING ---
Per Dr Ridley, pt can wear teds.
[2018-08-25] MEDS: oxyCODONE 5 MG Tablet PO ×3 (05:36→13:40)
[2018-08-25] MEDS: DIMETHYL FUMARATE 240 MG CAPSULE.DR PO ×2 (05:36→17:15)
[2018-08-25 05:38] VITALS: BP 119/65; PULSE 101
[2018-08-25] MEDS: buPROPion (SR) 150 MG Tablet.SA PO ×2 (05:38→17:15)
[2018-08-25] MEDS: Metoprolol Tartrate 50 MG Tablet PO ×2 (05:38→17:15)
[2018-08-25] MEDS: Cephalexin 500 MG Capsule PO ×3 (05:38→17:12)
[2018-08-25] MEDS: Flecainide 100 MG Tablet PO ×2 (05:38→17:12)
[2018-08-25] MEDS: Tolterodine Tartrate 2 MG CAP.SA PO (05:39)
[2018-08-25] MEDS: APIXABAN 5 MG TABLET PO ×2 (05:39→17:11)
[2018-08-25] MEDS: Menthol/Lanolin/Calamine/Znox 113 GM Tube 1 APPLIC TOPICAL ×2 (05:40→21:38)
[2018-08-25] MEDS: Iron Polysaccharide Complex 150 MG CAPSULE PO (09:00)
[2018-08-25] MEDS: Multivitamins,Therapeutic Tablet 1 TABLET PO (09:00)
[2018-08-25] MEDS: Sertraline 50 MG Tablet PO (09:00)
[2018-08-25] MEDS: Finasteride 5 MG Tablet PO (09:01)
[2018-08-25] MEDS: Acetaminophen 500 MG Tablet 1000 MG PO (09:02)
--- NOTE | 2018-08-25 09:50 | CASEMGMT ---
Plan of care meeting held. Resident present, no family present at this time. Resident plans to return to [facility] Living at point of discharge. Resident with insurance update due on 08/30/18 and aware that continued stay approval is not guaranteed. Resident to continue with further care and treatment on the Transitional Care Unit. Support given. Will continue to follow. Ang ANDERSON, ANA
[2018-08-25] MEDS: Fenofibrate 145 MG Tablet PO (12:11)
[2018-08-25] MEDS: Pantoprazole Sodium 40 MG Tablet PO (12:11)
[2018-08-25] MEDS: Tamsulosin HCl 0.4 MG Capsule PO (17:11)
[2018-08-25 17:15] VITALS: BP 117/57; PULSE 101
[2018-08-25] MEDS: Pravastatin 20 MG Tablet 10 MG PO (21:38)
[2018-08-25] MEDS: Pramipexole Di-HCl 1 MG Tablet PO (21:38)
[2018-08-26] MEDS: Cephalexin 500 MG Capsule PO ×4 (00:50→17:55)
[2018-08-26] MEDS: oxyCODONE 5 MG Tablet PO ×3 (00:51→11:07)
[2018-08-26] MEDS: Flecainide 100 MG Tablet PO ×2 (06:15→17:55)
[2018-08-26] MEDS: DIMETHYL FUMARATE 240 MG CAPSULE.DR PO ×2 (06:15→17:57)
[2018-08-26] MEDS: buPROPion (SR) 150 MG Tablet.SA PO ×2 (06:15→17:56)
[2018-08-26 06:16] VITALS: BP 141/69; PULSE 102
[2018-08-26] MEDS: Metoprolol Tartrate 50 MG Tablet PO ×2 (06:16→18:00)
[2018-08-26] MEDS: Tolterodine Tartrate 2 MG CAP.SA PO (06:16)
[2018-08-26] MEDS: APIXABAN 5 MG TABLET PO ×2 (06:16→17:56)
[2018-08-26] MEDS: Menthol/Lanolin/Calamine/Znox 113 GM Tube 1 APPLIC TOPICAL ×2 (06:18→20:19)
[2018-08-26] MEDS: Finasteride 5 MG Tablet PO (08:56)
[2018-08-26] MEDS: Multivitamins,Therapeutic Tablet 1 TABLET PO (08:56)
[2018-08-26] MEDS: Sertraline 50 MG Tablet PO (08:56)
[2018-08-26] MEDS: Iron Polysaccharide Complex 150 MG CAPSULE PO (08:56)
[2018-08-26] MEDS: Fenofibrate 145 MG Tablet PO (11:07)
[2018-08-26] MEDS: Pantoprazole Sodium 40 MG Tablet PO (11:07)
--- NOTE | 2018-08-26 12:00 | NURSING ---
Pt left for appt in [place], transported by cot.
--- NOTE | 2018-08-26 13:55 | CASEMGMT ---
Reviewed and approved social work student MDS documentation on this day. Ang ANDERSON, ANA
[2018-08-26] MEDS: Senna/Docusate Sodium 1 Tablet 2 TABLET PO (17:55)
[2018-08-26] MEDS: Tamsulosin HCl 0.4 MG Capsule PO (17:56)
[2018-08-26 18:00] VITALS: BP 132/71; PULSE 110
[2018-08-26 18:02] VITALS: BP 132/71; PULSE 110; RESP 20; TEMP 36.7; O2SAT 95
[2018-08-26] MEDS: Pravastatin 20 MG Tablet 10 MG PO (20:19)
[2018-08-26] MEDS: Pramipexole Di-HCl 1 MG Tablet PO (20:19)
[2018-08-27] MEDS: Cephalexin 500 MG Capsule PO ×5 (00:10→23:09)
[2018-08-27 05:53] VITALS: BP 141/68; PULSE 105
[2018-08-27] MEDS: Menthol/Lanolin/Calamine/Znox 113 GM Tube 1 APPLIC TOPICAL ×2 (05:55→20:02)
[2018-08-27] MEDS: Tolterodine Tartrate 2 MG CAP.SA PO (05:55)
[2018-08-27 05:56] VITALS: BP 141/68; PULSE 105
[2018-08-27] MEDS: Flecainide 100 MG Tablet PO ×2 (05:56→16:43)
[2018-08-27] MEDS: Metoprolol Tartrate 50 MG Tablet PO ×2 (05:56→16:42)
[2018-08-27] MEDS: APIXABAN 5 MG TABLET PO ×2 (05:56→16:42)
[2018-08-27] MEDS: buPROPion (SR) 150 MG Tablet.SA PO ×2 (05:57→16:42)
[2018-08-27] MEDS: DIMETHYL FUMARATE 240 MG CAPSULE.DR PO ×2 (05:57→16:43)
[2018-08-27] MEDS: oxyCODONE 5 MG Tablet PO ×4 (05:58→22:28)
[2018-08-27 06:10] LABS: Anion Gap 10 (5-15); BUN 17 mg/dL (7-18); BUN/Creat Ratio 17.6 RATIO (10-20); Calcium,Total 8.7 mg/dL (8.5-10.1); Chloride 107 mmol/L (98-107); Creatinine, Serum 0.97 mg/dL (0.70-1.30); EST Glomerular Filtration Rate 82 mL/min (>60); Est Glom Filt Rate - Afr Amer 99 mL/min (>60); Estimated Creatinine Clearance 70.52 ml/min; Glucose 95 mg/dL (74-106); Potassium 4.3 mmol/L (3.5-5.1); Sodium Level 142 mmol/L (136-145)
[2018-08-27 06:21] LABS: Hematocrit 28.2 % (40-54); Hemoglobin 8.8 g/dl (13.0-16.5); Mean Corp Hgb Conc 31.2 g/gl (32-36); Mean Corpuscular Hgb 31.3 pg (27.0-32.0); Mean Corpuscular Volume 100.4 fL (80-94); Mean Platelet Vol. 9.1 fl (6.2-12.0); Platelet Count 314 K/mm3 (150-450); RBC Distribution Width SD 51.3 fl (35.1-43.9); Red Blood Count 2.81 M/mm3 (4.6-6.2); White Blood Count 5.4 K/mm3 (4.4-11.0)
[2018-08-27 06:39] LABS: Differential Indicated MANUAL DIFF; POSITIVE COUNT YES; POSITIVE DIFFERENTIAL YES; POSITIVE MORPHOLOGY YES
[2018-08-27 06:50] LABS: Bedside Glucose 89 mg/dL (70-110)
[2018-08-27 06:59] LABS: Eosinophil 2 % (0-5); Lymphocyte 8 % (19-41); Monocyte 4 % (0-10); Myelocyte 2 (0-0); Neutrophil-Segmented 84 % (47-70); Total Cells Counted 100 (MANUAL DIFF)
[2018-08-27 07:00] LABS: Anisocytosis 1+; Hypochromasia 1+; Platelet Estimate ADEQUATE (ADEQ); Platelet Morphology GIANT; Polychromasia 1+
[2018-08-27 07:01] LABS: Absolute Neutrophil Count 4.5 X10^3/uL (2.0-7.7)
[2018-08-27 07:02] LABS: Absolute Lymphocyte Count 0.43 X10^3/ul (0.83-4.51)
[2018-08-27] MEDS: Finasteride 5 MG Tablet PO (08:26)
[2018-08-27] MEDS: Multivitamins,Therapeutic Tablet 1 TABLET PO (08:26)
[2018-08-27] MEDS: Iron Polysaccharide Complex 150 MG CAPSULE PO (08:26)
[2018-08-27] MEDS: Sertraline 50 MG Tablet PO (08:26)
--- NOTE | 2018-08-27 10:15 | NURSING ---
Addendum entered by [place] 08/27/18 16:39: Dr Ridley updated, new order for PO lasix Original Note: PT IS WORRIED ABOUT THE SWELLING IN HIS LEGS AND FEET,STATED HE CAN NOT PUT HIS SHOES ON NOW. EDEMA X3,PITTING IN FEET NON PITTING IN LEGS. REPORTED TO MAGED SILVA
[2018-08-27] MEDS: Tuberculin,Purif.prot.deriv. 50 TU/ML Vial 5 ML ID (10:52)
[2018-08-27] MEDS: Fenofibrate 145 MG Tablet PO (11:41)
[2018-08-27] MEDS: Pantoprazole Sodium 40 MG Tablet PO (11:42)
[2018-08-27 13:10] VITALS: PULSE 101; RESP 18; O2SAT 96
[2018-08-27 13:23] LABS: Pathologist Review Reviewed
[2018-08-27] MEDS: Furosemide 40 MG Tablet PO (14:31)
[2018-08-27 15:11] VITALS: BP 129/70; PULSE 103; RESP 16; TEMP 36.5; O2SAT 96
[2018-08-27 16:42] VITALS: PULSE 103
[2018-08-27] MEDS: Tamsulosin HCl 0.4 MG Capsule PO (16:42)
[2018-08-27] MEDS: Pramipexole Di-HCl 1 MG Tablet PO (20:01)
[2018-08-27] MEDS: Pravastatin 20 MG Tablet 10 MG PO (20:01)
[2018-08-28 05:48] VITALS: BP 153/75; PULSE 112
[2018-08-28] MEDS: APIXABAN 5 MG TABLET PO ×2 (05:48→17:12)
[2018-08-28] MEDS: Metoprolol Tartrate 50 MG Tablet PO ×2 (05:48→17:12)
[2018-08-28] MEDS: Flecainide 100 MG Tablet PO ×2 (05:48→17:12)
[2018-08-28] MEDS: Cephalexin 500 MG Capsule PO ×3 (05:48→17:13)
[2018-08-28] MEDS: buPROPion (SR) 150 MG Tablet.SA PO ×2 (05:48→17:12)
[2018-08-28] MEDS: DIMETHYL FUMARATE 240 MG CAPSULE.DR PO ×2 (05:49→17:13)
[2018-08-28] MEDS: Furosemide 40 MG Tablet PO (05:49)
[2018-08-28] MEDS: oxyCODONE 5 MG Tablet PO ×2 (05:50→19:58)
[2018-08-28] MEDS: Tolterodine Tartrate 2 MG CAP.SA PO (05:54)
[2018-08-28] MEDS: Menthol/Lanolin/Calamine/Znox 113 GM Tube 1 APPLIC TOPICAL ×2 (05:57→19:52)
[2018-08-28 07:06] LABS: Bedside Glucose 100 mg/dL (70-110)
[2018-08-28] MEDS: Multivitamins,Therapeutic Tablet 1 TABLET PO (09:28)
[2018-08-28] MEDS: Finasteride 5 MG Tablet PO (09:28)
[2018-08-28] MEDS: Sertraline 50 MG Tablet PO (09:28)
[2018-08-28] MEDS: Iron Polysaccharide Complex 150 MG CAPSULE PO (09:28)
[2018-08-28] MEDS: Fenofibrate 145 MG Tablet PO (12:14)
[2018-08-28] MEDS: Pantoprazole Sodium 40 MG Tablet PO (12:14)
[2018-08-28 15:28] VITALS: BP 106/57; PULSE 108; RESP 16; TEMP 36.8; O2SAT 94
[2018-08-28 17:12] VITALS: BP 106/57; PULSE 108
[2018-08-28] MEDS: Tamsulosin HCl 0.4 MG Capsule PO (17:13)
[2018-08-28] MEDS: Pramipexole Di-HCl 1 MG Tablet PO (19:53)
[2018-08-28] MEDS: Pravastatin 20 MG Tablet 10 MG PO (19:54)
[2018-08-29] MEDS: Cephalexin 500 MG Capsule PO ×4 (00:06→17:46)
[2018-08-29] MEDS: oxyCODONE 5 MG Tablet PO ×5 (00:08→19:57)
[2018-08-29] MEDS: Menthol/Lanolin/Calamine/Znox 113 GM Tube 1 APPLIC TOPICAL ×2 (05:19→19:41)
[2018-08-29 05:20] VITALS: BP 115/58; PULSE 101
[2018-08-29] MEDS: Furosemide 40 MG Tablet PO (05:20)
[2018-08-29] MEDS: APIXABAN 5 MG TABLET PO ×2 (05:20→17:46)
[2018-08-29] MEDS: Flecainide 100 MG Tablet PO ×2 (05:20→17:48)
[2018-08-29] MEDS: Tolterodine Tartrate 2 MG CAP.SA PO (05:20)
[2018-08-29] MEDS: Metoprolol Tartrate 50 MG Tablet PO ×2 (05:20→17:46)
[2018-08-29] MEDS: DIMETHYL FUMARATE 240 MG CAPSULE.DR PO ×2 (05:21→17:45)
[2018-08-29] MEDS: buPROPion (SR) 150 MG Tablet.SA PO ×2 (05:21→17:46)
[2018-08-29 06:30] LABS: Bedside Glucose 104 mg/dL (70-110)
[2018-08-29 06:58] LABS: Anion Gap 9 (5-15); BUN 19 mg/dL (7-18); BUN/Creat Ratio 15.8 RATIO (10-20); Calcium,Total 8.6 mg/dL (8.5-10.1); Chloride 105 mmol/L (98-107); EST Glomerular Filtration Rate 64 mL/min (>60); Est Glom Filt Rate - Afr Amer 77 mL/min (>60); Glucose 102 mg/dL (74-106); Potassium 4.1 mmol/L (3.5-5.1); Sodium Level 142 mmol/L (136-145)
[2018-08-29] MEDS: Iron Polysaccharide Complex 150 MG CAPSULE PO (09:03)
[2018-08-29] MEDS: Multivitamins,Therapeutic Tablet 1 TABLET PO (09:03)
[2018-08-29] MEDS: Sertraline 50 MG Tablet PO (09:03)
[2018-08-29] MEDS: Finasteride 5 MG Tablet PO ×2 (09:04→17:47)
[2018-08-29] MEDS: Pantoprazole Sodium 40 MG Tablet PO (12:35)
[2018-08-29] MEDS: Fenofibrate 145 MG Tablet PO (12:35)
[2018-08-29 15:44] VITALS: BP 111/50; PULSE 107; RESP 20; TEMP 37.1; O2SAT 93
[2018-08-29] MEDS: Acetaminophen 500 MG Tablet 1000 MG PO (17:44)
[2018-08-29 17:46] VITALS: BP 111/50; PULSE 107
[2018-08-29] MEDS: Tamsulosin HCl 0.4 MG Capsule PO (17:48)
[2018-08-29] MEDS: CYCLOBENZAPRINE HCL 5 MG TABLET PO (18:49)
[2018-08-29] MEDS: Pravastatin 20 MG Tablet 10 MG PO (19:41)
[2018-08-29] MEDS: Pramipexole Di-HCl 1 MG Tablet PO (19:41)
[2018-08-29 20:56] VITALS: PULSE 98; O2SAT 96
[2018-08-30] MEDS: Cephalexin 500 MG Capsule PO ×4 (00:12→17:39)
[2018-08-30] MEDS: oxyCODONE 5 MG Tablet PO ×3 (00:17→15:16)
[2018-08-30] MEDS: Furosemide 40 MG Tablet PO (05:35)
[2018-08-30] MEDS: Menthol/Lanolin/Calamine/Znox 113 GM Tube 1 APPLIC TOPICAL ×2 (05:35→19:53)
[2018-08-30 05:36] VITALS: BP 101/51; PULSE 94
[2018-08-30] MEDS: Metoprolol Tartrate 50 MG Tablet PO ×2 (05:36→17:39)
[2018-08-30] MEDS: APIXABAN 5 MG TABLET PO ×2 (05:36→17:39)
[2018-08-30] MEDS: Tolterodine Tartrate 2 MG CAP.SA PO (05:36)
[2018-08-30] MEDS: Flecainide 100 MG Tablet PO ×2 (05:37→17:39)
[2018-08-30] MEDS: DIMETHYL FUMARATE 240 MG CAPSULE.DR PO ×2 (05:37→17:39)
[2018-08-30] MEDS: buPROPion (SR) 150 MG Tablet.SA PO ×2 (05:37→17:39)
[2018-08-30 06:51] LABS: Bedside Glucose 75 mg/dL (70-110)
[2018-08-30] MEDS: Multivitamins,Therapeutic Tablet 1 TABLET PO (08:29)
[2018-08-30] MEDS: Sertraline 50 MG Tablet PO (08:29)
[2018-08-30] MEDS: Iron Polysaccharide Complex 150 MG CAPSULE PO (08:30)
--- NOTE | 2018-08-30 10:42 | NURSING ---
PT STATED TO THIS NURSE THAT HE FELT PRETTY LOW THIS MORNING,A LITTLE DEPRESSED. TALKED TO PT ONE ON ONE A FEW MINUTES AND WALKED TO BATHROOM. REPORTED TO JOCELYN NELSON AND MAGED SANCHEZ
[2018-08-30] MEDS: Pantoprazole Sodium 40 MG Tablet PO (11:13)
[2018-08-30] MEDS: Fenofibrate 145 MG Tablet PO (11:13)
[2018-08-30 11:20] VITALS: PULSE 96; RESP 18; O2SAT 95
--- NOTE | 2018-08-30 12:42 | CASEMGMT ---
Insurance Clinical information sent. Pending continued stay approval. Auth#[id number] Ang ANDERSON, ANA
[2018-08-30 16:00] VITALS: BP 122/61; PULSE 99; RESP 20; TEMP 37.1; O2SAT 94
--- NOTE | 2018-08-30 17:24 | CASEMGMT ---
Social Work Referral from nursing staff stating that resident has been down today. Met with resident in room. Resident open to this hospital social worker sitting and talking with resident. Resident reporting to be doing well with therapy but to be discouraged with how long the healing processes if. Resident plans to return to [facility] but wants to be as independent as possible. Resident reporting to have times that resident has been feeling down and resident reporting that the antidepressant doesn't seem to be helping like it use to. This hospital social worker exploring the option of seeing if the antidepressant could be increased/changed. Resident is open to seeing if the antidepressant could be increased, nursing notified of resident request and plan to let Dr. Ridley know. Resident reporting that resident spouse, who is on hospice care at [facility], is doing okay. Resident appearing down during parts of conversation but stating to be encouraged by speaking with this hospital social worker. This hospital social worker encouraging resident to take one day at a time and to keep working hard in therapy. Resident appearing to accept encouragement. Resident denies any suicidal ideations or thoughts. Emotional/verbal support provided. Will continue to follow as needed. Ang Zambrano MSW, ANA
[2018-08-30 17:39] VITALS: BP 122/61; PULSE 99
[2018-08-30] MEDS: Tamsulosin HCl 0.4 MG Capsule PO (17:39)
[2018-08-30] MEDS: Pramipexole Di-HCl 1 MG Tablet PO (19:52)
[2018-08-30] MEDS: buPROPion 75 MG Tablet 150 MG PO (19:52)
[2018-08-30] MEDS: Pravastatin 20 MG Tablet 10 MG PO (19:52)
[2018-08-31] MEDS: oxyCODONE 5 MG Tablet PO ×4 (00:05→23:37)
[2018-08-31] MEDS: Cephalexin 500 MG Capsule PO ×5 (00:06→23:37)
[2018-08-31] MEDS: Menthol/Lanolin/Calamine/Znox 113 GM Tube 1 APPLIC TOPICAL ×2 (05:41→20:02)
[2018-08-31 05:43] VITALS: BP 128/63; PULSE 96
[2018-08-31] MEDS: DIMETHYL FUMARATE 240 MG CAPSULE.DR PO ×2 (05:43→16:49)
[2018-08-31] MEDS: Metoprolol Tartrate 50 MG Tablet PO ×2 (05:43→16:48)
[2018-08-31] MEDS: buPROPion 75 MG Tablet 150 MG PO ×3 (05:43→20:01)
[2018-08-31] MEDS: Furosemide 40 MG Tablet PO (05:44)
[2018-08-31] MEDS: Tolterodine Tartrate 2 MG CAP.SA PO (05:44)
[2018-08-31] MEDS: Flecainide 100 MG Tablet PO ×2 (05:44→16:48)
[2018-08-31] MEDS: APIXABAN 5 MG TABLET PO ×2 (05:44→16:48)
[2018-08-31 06:46] LABS: Bedside Glucose 88 mg/dL (70-110)
[2018-08-31] MEDS: Multivitamins,Therapeutic Tablet 1 TABLET PO (08:21)
[2018-08-31] MEDS: Iron Polysaccharide Complex 150 MG CAPSULE PO (08:22)
[2018-08-31] MEDS: Sertraline 100 MG Tablet PO (08:22)
[2018-08-31] MEDS: Finasteride 5 MG Tablet PO (08:22)
--- NOTE | 2018-08-31 10:43 | NURSING ---
WARM COMPRESS,ZACH WRAP AND LEFT ARM ELEVATED.
[2018-08-31] MEDS: Pantoprazole Sodium 40 MG Tablet PO (11:32)
[2018-08-31] MEDS: Fenofibrate 145 MG Tablet PO (11:32)
--- NOTE | 2018-08-31 13:10 | CASEMGMT ---
Insurance Continued stay approved with next update due on 09/02/18. Auth#[id number] Ang ANDERSON, ANA
--- NOTE | 2018-08-31 14:07 | NURSING ---
JARROD DRAINS EMPTED, #2/40 AND #3/10.
[2018-08-31 15:39] VITALS: BP 100/41; PULSE 98; RESP 18; TEMP 37.1; O2SAT 94
[2018-08-31 16:48] VITALS: PULSE 104
[2018-08-31] MEDS: Tamsulosin HCl 0.4 MG Capsule PO (16:48)
[2018-08-31] MEDS: Pravastatin 20 MG Tablet 10 MG PO (20:01)
[2018-08-31] MEDS: Pramipexole Di-HCl 1 MG Tablet PO (20:02)
[2018-09-01] MEDS: oxyCODONE 5 MG Tablet PO ×2 (06:28→17:38)
[2018-09-01] MEDS: Flecainide 100 MG Tablet PO ×2 (06:28→17:33)
[2018-09-01] MEDS: DIMETHYL FUMARATE 240 MG CAPSULE.DR PO ×2 (06:28→17:33)
[2018-09-01 06:29] VITALS: BP 129/72; PULSE 96
[2018-09-01] MEDS: Cephalexin 500 MG Capsule PO ×3 (06:29→17:33)
[2018-09-01] MEDS: Metoprolol Tartrate 50 MG Tablet PO ×2 (06:29→17:33)
[2018-09-01] MEDS: Tolterodine Tartrate 2 MG CAP.SA PO (06:29)
[2018-09-01] MEDS: APIXABAN 5 MG TABLET PO ×2 (06:29→17:33)
[2018-09-01] MEDS: Furosemide 40 MG Tablet PO (06:30)
[2018-09-01] MEDS: buPROPion 75 MG Tablet 150 MG PO ×3 (06:30→20:15)
[2018-09-01] MEDS: Menthol/Lanolin/Calamine/Znox 113 GM Tube 1 APPLIC TOPICAL ×2 (06:31→20:17)
[2018-09-01 06:51] LABS: Bedside Glucose 88 mg/dL (70-110)
[2018-09-01] MEDS: Sertraline 100 MG Tablet PO (09:05)
[2018-09-01] MEDS: Multivitamins,Therapeutic Tablet 1 TABLET PO (09:05)
[2018-09-01] MEDS: Finasteride 5 MG Tablet PO (09:05)
[2018-09-01] MEDS: Iron Polysaccharide Complex 150 MG CAPSULE PO (09:05)
[2018-09-01 10:00] VITALS: PULSE 89; RESP 18; O2SAT 98
[2018-09-01] MEDS: Pantoprazole Sodium 40 MG Tablet PO (10:55)
[2018-09-01] MEDS: Fenofibrate 145 MG Tablet PO (10:55)
--- NOTE | 2018-09-01 14:32 | MDS.RN ---
Information for the mds was obtained from review of the clinical record, interview of resident, staff, and direct observation of resident's care.
[2018-09-01 15:59] VITALS: BP 114/60; PULSE 97; RESP 18; TEMP 36.6; O2SAT 94
[2018-09-01 17:33] VITALS: PULSE 97
[2018-09-01] MEDS: Tamsulosin HCl 0.4 MG Capsule PO (17:33)
[2018-09-01] MEDS: Pravastatin 20 MG Tablet 10 MG PO (20:15)
[2018-09-01] MEDS: Pramipexole Di-HCl 1 MG Tablet PO (20:15)
[2018-09-02] MEDS: Cephalexin 500 MG Capsule PO ×4 (00:01→16:36)
[2018-09-02] MEDS: oxyCODONE 5 MG Tablet PO ×5 (00:02→22:35)
[2018-09-02] MEDS: DIMETHYL FUMARATE 240 MG CAPSULE.DR PO ×2 (05:00→16:34)
[2018-09-02] MEDS: APIXABAN 5 MG TABLET PO ×2 (05:01→16:35)
[2018-09-02] MEDS: buPROPion 75 MG Tablet 150 MG PO ×3 (05:01→21:35)
[2018-09-02 05:02] VITALS: BP 130/80; PULSE 106
[2018-09-02] MEDS: Flecainide 100 MG Tablet PO ×2 (05:02→16:35)
[2018-09-02] MEDS: Furosemide 40 MG Tablet PO (05:02)
[2018-09-02] MEDS: Tolterodine Tartrate 2 MG CAP.SA PO (05:02)
[2018-09-02] MEDS: Metoprolol Tartrate 50 MG Tablet PO ×2 (05:02→16:35)
[2018-09-02] MEDS: Menthol/Lanolin/Calamine/Znox 113 GM Tube 1 APPLIC TOPICAL ×2 (05:04→21:37)
[2018-09-02 06:41] LABS: Bedside Glucose 91 mg/dL (70-110)
[2018-09-02] MEDS: Sertraline 100 MG Tablet PO (08:41)
[2018-09-02] MEDS: Multivitamins,Therapeutic Tablet 1 TABLET PO (08:41)
[2018-09-02] MEDS: Iron Polysaccharide Complex 150 MG CAPSULE PO (08:41)
[2018-09-02] MEDS: Finasteride 5 MG Tablet PO (08:41)
[2018-09-02] MEDS: Fenofibrate 145 MG Tablet PO (10:53)
[2018-09-02] MEDS: Pantoprazole Sodium 40 MG Tablet PO (10:54)
--- NOTE | 2018-09-02 12:21 | CASEMGMT ---
Insurance Clinical information sent. Pending continued stay approval. Auth#[id number] Ang ANDERSON, ANA
[2018-09-02 15:27] VITALS: BP 102/51; PULSE 91; RESP 18; TEMP 36.4; O2SAT 94
[2018-09-02] MEDS: Senna/Docusate Sodium 1 Tablet 2 TABLET PO (16:34)
[2018-09-02 16:35] VITALS: BP 102/51; PULSE 91
[2018-09-02] MEDS: Tamsulosin HCl 0.4 MG Capsule PO (16:35)
[2018-09-02] MEDS: Pramipexole Di-HCl 1 MG Tablet PO (21:35)
[2018-09-02] MEDS: Pravastatin 20 MG Tablet 10 MG PO (21:35)
[2018-09-03 06:28] LABS: Anion Gap 6 (5-15); BUN 27 mg/dL (7-18); BUN/Creat Ratio 21.6 RATIO (10-20); Calcium,Total 8.8 mg/dL (8.5-10.1); Chloride 107 mmol/L (98-107); Creatinine, Serum 1.25 mg/dL (0.70-1.30); EST Glomerular Filtration Rate 61 mL/min (>60); Est Glom Filt Rate - Afr Amer 74 mL/min (>60); Estimated Creatinine Clearance 54.72 ml/min; Glucose 82 mg/dL (74-106); Sodium Level 140 mmol/L (136-145)
[2018-09-03 06:29] LABS: Absolute Lymphocyte Count 0.36 X10^3/ul (0.83-4.51); Absolute Neutrophil Count 2.4 X10^3/uL (2.0-7.7); Basophil# 0.01 X10^3/uL; Basophil% 0.3 % (0-1); Eosinophil# 0.12 X10^3/uL; Eosinophils% 3.7 % (0-5); Hematocrit 31.5 % (40-54); Hemoglobin 9.2 g/dl (13.0-16.5); Lymphocyte # 0.36 X10^3/ul (4.0); Lymphocyte % 11.2 % (19-41); Mean Corp Hgb Conc 29.2 g/gl (32-36); Mean Corpuscular Hgb 29.8 pg (27.0-32.0); Mean Corpuscular Volume 101.9 fL (80-94); Mean Platelet Vol. 9.3 fl (6.2-12.0); Monocyte% 9.3 % (0-10); Neutrophil # 2.37 X10^3/uL (2.7-7.7); Neutrophil % 73.6 % (47-70); Platelet Count 247 K/mm3 (150-450); RBC Distribution Width CV 15.4 % (11.6-14.6); RBC Distribution Width SD 54.7 fl (35.1-43.9); Red Blood Count 3.09 M/mm3 (4.6-6.2); White Blood Count 3.2 K/mm3 (4.4-11.0)
[2018-09-03] MEDS: Tolterodine Tartrate 2 MG CAP.SA PO (06:29)
[2018-09-03] MEDS: APIXABAN 5 MG TABLET PO ×2 (06:30→17:44)
[2018-09-03] MEDS: Furosemide 40 MG Tablet PO (06:30)
[2018-09-03] MEDS: DIMETHYL FUMARATE 240 MG CAPSULE.DR PO ×2 (06:31→17:45)
[2018-09-03] MEDS: buPROPion 75 MG Tablet 150 MG PO ×3 (06:31→21:02)
[2018-09-03 06:34] LABS: Differential Indicated SCAN CRITERIA MET; POSITIVE COUNT NO; POSITIVE DIFFERENTIAL YES; POSITIVE MORPHOLOGY NO
[2018-09-03 06:36] VITALS: BP 117/65; PULSE 99
[2018-09-03] MEDS: Metoprolol Tartrate 50 MG Tablet PO ×2 (06:36→17:44)
[2018-09-03] MEDS: oxyCODONE 5 MG Tablet PO ×3 (06:36→20:57)
[2018-09-03] MEDS: Menthol/Lanolin/Calamine/Znox 113 GM Tube 1 APPLIC TOPICAL ×2 (06:38→20:58)
[2018-09-03] MEDS: Flecainide 100 MG Tablet PO ×2 (06:39→17:45)
[2018-09-03 06:45] LABS: Bedside Glucose 130 mg/dL (70-110)
[2018-09-03] MEDS: Multivitamins,Therapeutic Tablet 1 TABLET PO (08:50)
[2018-09-03] MEDS: Iron Polysaccharide Complex 150 MG CAPSULE PO (08:50)
[2018-09-03] MEDS: Finasteride 5 MG Tablet PO (08:51)
[2018-09-03] MEDS: Sertraline 100 MG Tablet PO (08:51)
[2018-09-03] MEDS: Fenofibrate 145 MG Tablet PO (11:15)
[2018-09-03] MEDS: Pantoprazole Sodium 40 MG Tablet PO (11:15)
[2018-09-03 13:15] LABS: Pathologist Review Reviewed
--- NOTE | 2018-09-03 15:43 | CASEMGMT ---
Insurance Continued stay approved with update due 09/06/18. Auth # [id number] BIBI Chatterjee
[2018-09-03 15:52] VITALS: BP 115/43; PULSE 92; RESP 20; TEMP 36.2; O2SAT 95
[2018-09-03] MEDS: Tamsulosin HCl 0.4 MG Capsule PO (17:43)
[2018-09-03 17:44] VITALS: BP 115/43; PULSE 92
[2018-09-03] MEDS: Senna/Docusate Sodium 1 Tablet 2 TABLET PO (17:45)
[2018-09-03] MEDS: Pramipexole Di-HCl 1 MG Tablet PO (20:54)
[2018-09-03] MEDS: Pravastatin 20 MG Tablet 10 MG PO (20:54)
[2018-09-04 00:19] VITALS: PULSE 93; RESP 18
[2018-09-04] MEDS: Tolterodine Tartrate 2 MG CAP.SA PO (05:37)
[2018-09-04] MEDS: Menthol/Lanolin/Calamine/Znox 113 GM Tube 1 APPLIC TOPICAL ×2 (05:38→21:15)
[2018-09-04] MEDS: APIXABAN 5 MG TABLET PO ×2 (05:38→16:54)
[2018-09-04 05:39] VITALS: BP 122/69; PULSE 98
[2018-09-04] MEDS: Senna/Docusate Sodium 1 Tablet 2 TABLET PO ×2 (05:39→16:54)
[2018-09-04] MEDS: buPROPion 75 MG Tablet 150 MG PO ×3 (05:39→21:13)
[2018-09-04] MEDS: Metoprolol Tartrate 50 MG Tablet PO ×2 (05:39→16:54)
[2018-09-04] MEDS: Flecainide 100 MG Tablet PO ×2 (05:40→16:54)
[2018-09-04] MEDS: DIMETHYL FUMARATE 240 MG CAPSULE.DR PO ×2 (05:41→16:54)
[2018-09-04] MEDS: Furosemide 40 MG Tablet PO (05:47)
[2018-09-04 06:51] LABS: Bedside Glucose 97 mg/dL (70-110)
[2018-09-04] MEDS: Iron Polysaccharide Complex 150 MG CAPSULE PO (08:01)
[2018-09-04] MEDS: Multivitamins,Therapeutic Tablet 1 TABLET PO (08:01)
[2018-09-04] MEDS: Finasteride 5 MG Tablet PO (08:01)
[2018-09-04] MEDS: Sertraline 100 MG Tablet PO (08:01)
[2018-09-04] MEDS: Pantoprazole Sodium 40 MG Tablet PO (11:32)
[2018-09-04] MEDS: Fenofibrate 145 MG Tablet PO (11:32)
[2018-09-04] MEDS: oxyCODONE 5 MG Tablet PO (12:07)
--- NOTE | 2018-09-04 12:08 | NURSING ---
drsg changed to drain site, cleansed with NS around drain x2 sites, applied x1 split sponge placed around each drain. secured with blue tape. no drng noted to old dressing. no redness or s/s of infections.
--- NOTE | 2018-09-04 14:32 | NURSING ---
NO for melatonin for help with sleep.
[2018-09-04 15:21] VITALS: BP 123/66; PULSE 95; RESP 18; TEMP 36.4; O2SAT 93
[2018-09-04 16:54] VITALS: BP 123/66; PULSE 95
[2018-09-04] MEDS: Tamsulosin HCl 0.4 MG Capsule PO (16:54)
[2018-09-04] MEDS: Pravastatin 20 MG Tablet 10 MG PO (21:14)
[2018-09-04] MEDS: MELATONIN 10 MG TABLET PO (21:14)
[2018-09-04] MEDS: Pramipexole Di-HCl 1 MG Tablet PO (21:14)
[2018-09-04 21:16] VITALS: PULSE 80; O2SAT 95
[2018-09-05 06:34] VITALS: BP 117/50; PULSE 81
[2018-09-05] MEDS: buPROPion 75 MG Tablet 150 MG PO ×3 (06:34→20:54)
[2018-09-05] MEDS: APIXABAN 5 MG TABLET PO ×2 (06:34→16:51)
[2018-09-05] MEDS: Flecainide 100 MG Tablet PO ×2 (06:34→16:51)
[2018-09-05] MEDS: Tolterodine Tartrate 2 MG CAP.SA PO (06:34)
[2018-09-05] MEDS: Metoprolol Tartrate 50 MG Tablet PO ×2 (06:34→16:51)
[2018-09-05] MEDS: DIMETHYL FUMARATE 240 MG CAPSULE.DR PO ×2 (06:35→16:52)
[2018-09-05] MEDS: oxyCODONE 5 MG Tablet PO ×3 (06:37→16:52)
[2018-09-05] MEDS: Menthol/Lanolin/Calamine/Znox 113 GM Tube 1 APPLIC TOPICAL ×2 (06:39→20:56)
[2018-09-05 06:45] LABS: Bedside Glucose 120 mg/dL (70-110)
[2018-09-05] MEDS: Iron Polysaccharide Complex 150 MG CAPSULE PO (07:59)
[2018-09-05] MEDS: Sertraline 100 MG Tablet PO (07:59)
[2018-09-05] MEDS: Finasteride 5 MG Tablet PO (07:59)
[2018-09-05] MEDS: Multivitamins,Therapeutic Tablet 1 TABLET PO (07:59)
--- NOTE | 2018-09-05 09:44 | NURSING ---
Dr Pérez dc'd melatonin for c/o not helping and NO for Doxepin 50 mg PO HS.
[2018-09-05] MEDS: Pantoprazole Sodium 40 MG Tablet PO (11:05)
[2018-09-05] MEDS: Fenofibrate 145 MG Tablet PO (11:05)
[2018-09-05 15:39] VITALS: BP 116/60; PULSE 92; RESP 18; TEMP 36.3; O2SAT 93
[2018-09-05 16:51] VITALS: BP 116/60; PULSE 92
[2018-09-05] MEDS: Tamsulosin HCl 0.4 MG Capsule PO (16:51)
[2018-09-05] MEDS: Pravastatin 20 MG Tablet 10 MG PO (20:54)
[2018-09-05] MEDS: Pramipexole Di-HCl 1 MG Tablet PO (20:54)
[2018-09-05] MEDS: DOXEPIN HCL 50 MG CAPSULE PO (20:55)
[2018-09-06] MEDS: APIXABAN 5 MG TABLET PO ×2 (06:05→17:55)
[2018-09-06] MEDS: Tolterodine Tartrate 2 MG CAP.SA PO (06:05)
[2018-09-06] MEDS: DIMETHYL FUMARATE 240 MG CAPSULE.DR PO ×2 (06:05→17:55)
[2018-09-06] MEDS: oxyCODONE 5 MG Tablet PO ×2 (06:05→21:15)
[2018-09-06 06:06] VITALS: BP 113/66; PULSE 99
[2018-09-06] MEDS: Metoprolol Tartrate 50 MG Tablet PO ×2 (06:06→17:55)
[2018-09-06] MEDS: Flecainide 100 MG Tablet PO ×2 (06:06→17:55)
[2018-09-06] MEDS: buPROPion 75 MG Tablet 150 MG PO ×3 (06:08→21:09)
[2018-09-06] MEDS: Menthol/Lanolin/Calamine/Znox 113 GM Tube 1 APPLIC TOPICAL ×2 (06:09→21:12)
[2018-09-06 06:40] LABS: Bedside Glucose 90 mg/dL (70-110)
[2018-09-06] MEDS: Acetaminophen 500 MG Tablet 1000 MG PO (08:18)
[2018-09-06] MEDS: Finasteride 5 MG Tablet PO (08:21)
[2018-09-06] MEDS: Multivitamins,Therapeutic Tablet 1 TABLET PO (08:21)
[2018-09-06] MEDS: Sertraline 100 MG Tablet PO (08:21)
[2018-09-06] MEDS: Iron Polysaccharide Complex 150 MG CAPSULE PO (08:21)
--- NOTE | 2018-09-06 11:24 | CASEMGMT ---
Insurance Clinical information sent. Pending continued stay approval at this time. Auth#[id number] Ang ANDERSON, ANA
[2018-09-06] MEDS: Pantoprazole Sodium 40 MG Tablet PO (11:27)
[2018-09-06] MEDS: Fenofibrate 145 MG Tablet PO (11:39)
[2018-09-06 13:30] VITALS: PULSE 87; RESP 18; O2SAT 97
[2018-09-06 15:13] VITALS: BP 124/62; PULSE 88; RESP 18; TEMP 36.6; O2SAT 96
[2018-09-06 17:55] VITALS: BP 124/62; PULSE 88
[2018-09-06] MEDS: Tamsulosin HCl 0.4 MG Capsule PO (17:55)
[2018-09-06] MEDS: DOXEPIN HCL 50 MG CAPSULE PO (21:09)
[2018-09-06] MEDS: Pramipexole Di-HCl 1 MG Tablet PO (21:09)
[2018-09-06] MEDS: Pravastatin 20 MG Tablet 10 MG PO (21:09)
[2018-09-07 05:40] VITALS: BP 121/68; PULSE 95
[2018-09-07] MEDS: DIMETHYL FUMARATE 240 MG CAPSULE.DR PO ×2 (05:40→17:07)
[2018-09-07] MEDS: Tolterodine Tartrate 2 MG CAP.SA PO (05:40)
[2018-09-07] MEDS: APIXABAN 5 MG TABLET PO ×2 (05:40→17:08)
[2018-09-07] MEDS: buPROPion 75 MG Tablet 150 MG PO ×3 (05:40→20:54)
[2018-09-07] MEDS: Flecainide 100 MG Tablet PO ×2 (05:40→17:07)
[2018-09-07] MEDS: Metoprolol Tartrate 50 MG Tablet PO ×2 (05:40→17:07)
[2018-09-07] MEDS: Menthol/Lanolin/Calamine/Znox 113 GM Tube 1 APPLIC TOPICAL ×2 (05:42→20:56)
[2018-09-07 07:01] LABS: Bedside Glucose 104 mg/dL (70-110)
[2018-09-07] MEDS: Sertraline 100 MG Tablet PO (08:32)
[2018-09-07] MEDS: Multivitamins,Therapeutic Tablet 1 TABLET PO (08:32)
[2018-09-07] MEDS: Finasteride 5 MG Tablet PO (08:32)
[2018-09-07] MEDS: Iron Polysaccharide Complex 150 MG CAPSULE PO (08:32)
[2018-09-07] MEDS: oxyCODONE 5 MG Tablet PO ×2 (08:35→20:53)
[2018-09-07] MEDS: Pantoprazole Sodium 40 MG Tablet PO (12:05)
[2018-09-07] MEDS: Fenofibrate 145 MG Tablet PO (12:05)
--- NOTE | 2018-09-07 15:11 | CASEMGMT ---
Insurance Continued stay approved with next update due on 09/09/18 Auth#[id number] Ang ANDERSON, ANA
[2018-09-07 15:58] VITALS: BP 117/58; PULSE 97; RESP 20; TEMP 36.4; O2SAT 94
[2018-09-07 17:07] VITALS: BP 117/58; PULSE 97
[2018-09-07] MEDS: Senna/Docusate Sodium 1 Tablet 2 TABLET PO (17:07)
[2018-09-07] MEDS: Tamsulosin HCl 0.4 MG Capsule PO (17:08)
[2018-09-07] MEDS: Pramipexole Di-HCl 1 MG Tablet PO (20:54)
[2018-09-07] MEDS: DOXEPIN HCL 50 MG CAPSULE PO (20:54)
[2018-09-07] MEDS: Pravastatin 20 MG Tablet 10 MG PO (20:55)
[2018-09-08] MEDS: oxyCODONE 5 MG Tablet PO ×3 (05:57→19:58)
[2018-09-08] MEDS: DIMETHYL FUMARATE 240 MG CAPSULE.DR PO ×2 (05:57→17:10)
[2018-09-08 05:58] VITALS: BP 151/73; PULSE 99
[2018-09-08] MEDS: Tolterodine Tartrate 2 MG CAP.SA PO (05:58)
[2018-09-08] MEDS: Metoprolol Tartrate 50 MG Tablet PO ×2 (05:58→17:09)
[2018-09-08] MEDS: buPROPion 75 MG Tablet 150 MG PO ×3 (05:58→19:59)
[2018-09-08] MEDS: Flecainide 100 MG Tablet PO ×2 (05:59→17:09)
[2018-09-08] MEDS: APIXABAN 5 MG TABLET PO ×2 (05:59→17:10)
[2018-09-08] MEDS: Menthol/Lanolin/Calamine/Znox 113 GM Tube 1 APPLIC TOPICAL ×2 (06:12→20:01)
[2018-09-08 06:45] LABS: Bedside Glucose 76 mg/dL (70-110)
[2018-09-08] MEDS: Finasteride 5 MG Tablet PO (08:13)
[2018-09-08] MEDS: Multivitamins,Therapeutic Tablet 1 TABLET PO (08:13)
[2018-09-08] MEDS: Sertraline 100 MG Tablet PO (08:13)
[2018-09-08] MEDS: Iron Polysaccharide Complex 150 MG CAPSULE PO (08:41)
[2018-09-08] MEDS: Pantoprazole Sodium 40 MG Tablet PO (12:09)
[2018-09-08] MEDS: Fenofibrate 145 MG Tablet PO (12:09)
[2018-09-08 15:43] VITALS: BP 126/67; PULSE 90; RESP 20; TEMP 36.2; O2SAT 94
[2018-09-08 17:09] VITALS: PULSE 90
[2018-09-08] MEDS: Tamsulosin HCl 0.4 MG Capsule PO (17:10)
[2018-09-08] MEDS: Pravastatin 20 MG Tablet 10 MG PO (19:58)
[2018-09-08] MEDS: Pramipexole Di-HCl 1 MG Tablet PO (19:59)
[2018-09-08] MEDS: DOXEPIN HCL 50 MG CAPSULE PO (20:00)
[2018-09-09] MEDS: oxyCODONE 5 MG Tablet PO (05:25)
[2018-09-09] MEDS: buPROPion 75 MG Tablet 150 MG PO ×3 (05:26→20:02)
[2018-09-09] MEDS: APIXABAN 5 MG TABLET PO ×2 (05:26→16:45)
[2018-09-09] MEDS: DIMETHYL FUMARATE 240 MG CAPSULE.DR PO ×2 (05:26→16:44)
[2018-09-09] MEDS: Senna/Docusate Sodium 1 Tablet 2 TABLET PO (05:26)
[2018-09-09 05:27] VITALS: BP 130/71; PULSE 98
[2018-09-09] MEDS: Tolterodine Tartrate 2 MG CAP.SA PO (05:27)
[2018-09-09] MEDS: Flecainide 100 MG Tablet PO ×3 (05:27→16:45)
[2018-09-09] MEDS: Metoprolol Tartrate 50 MG Tablet PO ×2 (05:27→16:45)
[2018-09-09] MEDS: Menthol/Lanolin/Calamine/Znox 113 GM Tube 1 APPLIC TOPICAL ×2 (05:29→20:04)
[2018-09-09 06:51] LABS: Bedside Glucose 76 mg/dL (70-110)
[2018-09-09] MEDS: Iron Polysaccharide Complex 150 MG CAPSULE PO (08:40)
[2018-09-09] MEDS: Multivitamins,Therapeutic Tablet 1 TABLET PO (08:40)
[2018-09-09] MEDS: Finasteride 5 MG Tablet PO (08:40)
[2018-09-09] MEDS: Sertraline 100 MG Tablet PO (08:40)
--- NOTE | 2018-09-09 10:20 | CASEMGMT ---
Insurance Clinical information sent. Pending continued stay approval. Auth#[id number] Ang ANDERSON, ANA
[2018-09-09] MEDS: Pantoprazole Sodium 40 MG Tablet PO (11:57)
[2018-09-09] MEDS: Fenofibrate 145 MG Tablet PO (11:58)
[2018-09-09 15:37] VITALS: BP 123/56; PULSE 98; RESP 20; TEMP 36.6; O2SAT 96
[2018-09-09 16:45] VITALS: BP 123/56; PULSE 98
[2018-09-09] MEDS: Tamsulosin HCl 0.4 MG Capsule PO (16:46)
[2018-09-09] MEDS: Pramipexole Di-HCl 1 MG Tablet PO (20:03)
[2018-09-09] MEDS: DOXEPIN HCL 50 MG CAPSULE PO (20:03)
[2018-09-09] MEDS: Pravastatin 20 MG Tablet 10 MG PO (20:03)
[2018-09-10 06:11] VITALS: BP 131/70; PULSE 103
[2018-09-10] MEDS: DIMETHYL FUMARATE 240 MG CAPSULE.DR PO ×2 (06:11→21:39)
[2018-09-10] MEDS: Tolterodine Tartrate 2 MG CAP.SA PO (06:11)
[2018-09-10] MEDS: APIXABAN 5 MG TABLET PO ×2 (06:11→17:14)
[2018-09-10] MEDS: Metoprolol Tartrate 50 MG Tablet PO ×2 (06:11→17:14)
[2018-09-10] MEDS: buPROPion 75 MG Tablet 150 MG PO ×3 (06:11→21:39)
[2018-09-10] MEDS: Menthol/Lanolin/Calamine/Znox 113 GM Tube 1 APPLIC TOPICAL ×2 (06:12→21:41)
[2018-09-10] MEDS: Flecainide 100 MG Tablet PO ×2 (06:21→17:14)
[2018-09-10 06:45] LABS: Bedside Glucose 87 mg/dL (70-110)
[2018-09-10] MEDS: Finasteride 5 MG Tablet PO (08:19)
[2018-09-10] MEDS: Sertraline 100 MG Tablet PO (08:19)
[2018-09-10] MEDS: Iron Polysaccharide Complex 150 MG CAPSULE PO (08:19)
[2018-09-10] MEDS: Multivitamins,Therapeutic Tablet 1 TABLET PO (08:19)
[2018-09-10] MEDS: oxyCODONE 5 MG Tablet PO ×2 (08:24→18:31)
[2018-09-10] MEDS: Fenofibrate 145 MG Tablet PO (11:58)
[2018-09-10] MEDS: Pantoprazole Sodium 40 MG Tablet PO (11:58)
[2018-09-10 15:12] VITALS: BP 116/61; PULSE 88; RESP 20; TEMP 36.4; O2SAT 95
--- NOTE | 2018-09-10 15:41 | NURSING ---
At pt request, Dr. Khai Hill with change to regular diet.
[2018-09-10 17:14] VITALS: BP 116/61; PULSE 88
[2018-09-10] MEDS: Tamsulosin HCl 0.4 MG Capsule PO (17:14)
[2018-09-10] MEDS: DOXEPIN HCL 50 MG CAPSULE PO (21:40)
[2018-09-10] MEDS: Pravastatin 20 MG Tablet 10 MG PO (21:40)
[2018-09-10] MEDS: Pramipexole Di-HCl 1 MG Tablet PO (21:40)
[2018-09-11] MEDS: Menthol/Lanolin/Calamine/Znox 113 GM Tube 1 APPLIC TOPICAL ×2 (05:38→20:35)
[2018-09-11 05:39] VITALS: BP 123/74; PULSE 91
[2018-09-11] MEDS: APIXABAN 5 MG TABLET PO ×2 (05:39→17:34)
[2018-09-11] MEDS: Tolterodine Tartrate 2 MG CAP.SA PO (05:39)
[2018-09-11] MEDS: buPROPion 75 MG Tablet 150 MG PO ×3 (05:39→20:30)
[2018-09-11] MEDS: Flecainide 100 MG Tablet PO ×2 (05:39→17:34)
[2018-09-11] MEDS: Metoprolol Tartrate 50 MG Tablet PO ×2 (05:39→17:33)
[2018-09-11] MEDS: DIMETHYL FUMARATE 240 MG CAPSULE.DR PO ×2 (05:40→17:33)
[2018-09-11 06:36] LABS: Bedside Glucose 87 mg/dL (70-110)
[2018-09-11] MEDS: Finasteride 5 MG Tablet PO (08:16)
[2018-09-11] MEDS: Multivitamins,Therapeutic Tablet 1 TABLET PO (08:16)
[2018-09-11] MEDS: Sertraline 100 MG Tablet PO (08:16)
[2018-09-11] MEDS: Iron Polysaccharide Complex 150 MG CAPSULE PO (08:16)
[2018-09-11] MEDS: oxyCODONE 5 MG Tablet PO (08:19)
[2018-09-11] MEDS: Fenofibrate 145 MG Tablet PO (11:48)
[2018-09-11] MEDS: Pantoprazole Sodium 40 MG Tablet PO (11:48)
[2018-09-11 15:37] VITALS: BP 132/67; PULSE 89; RESP 16; TEMP 36.8; O2SAT 94
[2018-09-11 17:33] VITALS: BP 132/67; PULSE 89
[2018-09-11] MEDS: Tamsulosin HCl 0.4 MG Capsule PO (17:34)
[2018-09-11] MEDS: Pravastatin 20 MG Tablet 10 MG PO (20:30)
[2018-09-11] MEDS: Pramipexole Di-HCl 1 MG Tablet PO (20:30)
[2018-09-11] MEDS: DOXEPIN HCL 50 MG CAPSULE PO (20:31)
[2018-09-12 06:16] VITALS: BP 118/59; PULSE 98
[2018-09-12] MEDS: Metoprolol Tartrate 50 MG Tablet PO ×2 (06:16→17:07)
[2018-09-12] MEDS: APIXABAN 5 MG TABLET PO ×2 (06:16→17:08)
[2018-09-12] MEDS: DIMETHYL FUMARATE 240 MG CAPSULE.DR PO ×2 (06:16→17:08)
[2018-09-12] MEDS: Tolterodine Tartrate 2 MG CAP.SA PO (06:17)
[2018-09-12] MEDS: buPROPion 75 MG Tablet 150 MG PO ×3 (06:17→20:40)
[2018-09-12] MEDS: Flecainide 100 MG Tablet PO ×2 (06:17→17:07)
[2018-09-12 06:21] LABS: Bedside Glucose 105 mg/dL (70-110)
[2018-09-12] MEDS: Menthol/Lanolin/Calamine/Znox 113 GM Tube 1 APPLIC TOPICAL ×2 (06:24→20:38)
[2018-09-12] MEDS: Iron Polysaccharide Complex 150 MG CAPSULE PO (08:00)
[2018-09-12] MEDS: Sertraline 100 MG Tablet PO (08:00)
[2018-09-12] MEDS: Finasteride 5 MG Tablet PO (08:00)
[2018-09-12] MEDS: Multivitamins,Therapeutic Tablet 1 TABLET PO (08:00)
[2018-09-12] MEDS: Fenofibrate 145 MG Tablet PO (11:28)
[2018-09-12] MEDS: Pantoprazole Sodium 40 MG Tablet PO (11:28)
[2018-09-12 14:00] VITALS: PULSE 88; RESP 18; O2SAT 96
[2018-09-12 16:00] VITALS: BP 139/78; PULSE 88; RESP 16; TEMP 36.8; O2SAT 95
[2018-09-12 17:07] VITALS: BP 139/78; PULSE 88
[2018-09-12] MEDS: Tamsulosin HCl 0.4 MG Capsule PO (17:08)
[2018-09-12] MEDS: Pravastatin 20 MG Tablet 10 MG PO (20:41)
[2018-09-12] MEDS: Pramipexole Di-HCl 1 MG Tablet PO (20:41)
[2018-09-12] MEDS: DOXEPIN HCL 50 MG CAPSULE PO (20:42)
[2018-09-13 06:36] LABS: Bedside Glucose 84 mg/dL (70-110)
[2018-09-13] MEDS: buPROPion 75 MG Tablet 150 MG PO ×3 (06:44→20:16)
[2018-09-13] MEDS: DIMETHYL FUMARATE 240 MG CAPSULE.DR PO ×2 (06:44→16:55)
[2018-09-13 06:45] VITALS: BP 154/73; PULSE 102
[2018-09-13] MEDS: Tolterodine Tartrate 2 MG CAP.SA PO (06:45)
[2018-09-13] MEDS: APIXABAN 5 MG TABLET PO ×2 (06:45→16:55)
[2018-09-13] MEDS: Metoprolol Tartrate 50 MG Tablet PO ×2 (06:45→16:55)
[2018-09-13] MEDS: Flecainide 100 MG Tablet PO ×2 (06:45→16:55)
[2018-09-13] MEDS: Menthol/Lanolin/Calamine/Znox 113 GM Tube 1 APPLIC TOPICAL ×2 (06:47→20:17)
[2018-09-13] MEDS: Iron Polysaccharide Complex 150 MG CAPSULE PO (08:25)
[2018-09-13] MEDS: Sertraline 100 MG Tablet PO (08:25)
[2018-09-13] MEDS: Multivitamins,Therapeutic Tablet 1 TABLET PO (08:25)
[2018-09-13] MEDS: Finasteride 5 MG Tablet PO (08:25)
--- NOTE | 2018-09-13 09:08 | NURSING ---
Per MD order, Podiatry consult entered for Dr. Yang and office was notified.
[2018-09-13] MEDS: Pantoprazole Sodium 40 MG Tablet PO (11:42)
[2018-09-13] MEDS: Fenofibrate 145 MG Tablet PO (11:42)
--- NOTE | 2018-09-13 12:53 | PCM.PROGNOTE ---
Subjective: This patient was consulted to podiatry for thickened, elongated, discolored, painful toenails with the presence of subungual debris of toenails 1, 2, 3, 4, 5 of the right and left foot. Patient states he is unable to trim these nails safely on his own and would get relief having them debrided today professionally. Patient currently denies any feelings of nausea, vomiting, fever, chills. - Physical Exam General: Alert, Oriented x3, Cooperative Extremities: Capillary Refill Less than 3 Seconds, No Calf Tenderness - Negative Narinder and Song signs bilateral, Diminished Peripheral Pulses - DP pulses palpable and PT pulses nonpalpable due to lower extremity perimalleolar edema bilateral, Edema - Bilateral lower extremity janneth-malleolar edema Skin: - - Toenails 1, 2, 3, 4, 5 of the right and left foot are thickened, elongated, discolored, painful to palpation, with the presence of subungual debris. No signs of infection appreciated. Musculoskeletal: Tenderness - With palpation of the aforementioned toenails Neurological: Sensory exam intact to light touch and pain Psych/Mental Status: Normal Affect, Appropriate Vital Signs Temp Pulse Resp BP Pulse Ox 98.2 F 102 H 16 154/73 H 95 09/12/18 16:00 09/13/18 06:45 09/12/18 16:00 09/13/18 06:45 09/12/18 16:00 Oxygen Delivery Method Room Air Weight: 124.539 kg Body Mass Index (BMI) 44.6 Intake and Output for Last 24 Hours 09/11/18 09/12/18 09/13/18 22:59 23:59 23:59 Intake Total 360 / 360 Output Total 40 / 40 Balance 320 / 320 POC Glucose 09/13/18 06:24 POC Glucose 84 Medical Necessity - Tobacco Use Smoking Status: Former smoker Tobacco Use: Cigarettes - He has 80 pack year smoking history. Assessment/Plan All Active Problems (Last Updated 08/04/18 @ 14:32 by Maribell Tolliver) History of DVT (deep vein thrombosis) (Acute) Sick sinus syndrome (Acute) Presence of cardiac pacemaker (Acute) Tinea unguium Toe pain left Toe pain right This patient was carefully examined and evaluated resting bedside. Next, toenails 1, 2, 3, 4, 5 of the right and left foot were then carefully debrided using a nail nipper. This was done without incident. Patient experienced complete relief of painful toenails upon debridement. Patient was instructed to continue with compression for lower extremity edema. Podiatry can continue to follow this patient on an as-needed basis at this time. Thank you for this consult.
[2018-09-13 15:04] VITALS: BP 125/51; PULSE 92; RESP 20; TEMP 36.6; O2SAT 95
--- NOTE | 2018-09-13 15:30 | NURSING ---
Dr. Yang was in today to trim toe nails.
--- NOTE | 2018-09-13 16:01 | NURSING ---
Emptied pt JARROD drains, see I/O documentation.
[2018-09-13 16:55] VITALS: PULSE 92
[2018-09-13] MEDS: Tamsulosin HCl 0.4 MG Capsule PO (16:55)
[2018-09-13] MEDS: Pravastatin 20 MG Tablet 10 MG PO (20:16)
[2018-09-13] MEDS: Pramipexole Di-HCl 1 MG Tablet PO (20:16)
[2018-09-13] MEDS: DOXEPIN HCL 50 MG CAPSULE PO (20:16)
[2018-09-14 06:35] VITALS: BP 144/83; PULSE 101
[2018-09-14] MEDS: buPROPion 75 MG Tablet 150 MG PO ×3 (06:35→22:13)
[2018-09-14] MEDS: Flecainide 100 MG Tablet PO ×2 (06:35→17:34)
[2018-09-14] MEDS: DIMETHYL FUMARATE 240 MG CAPSULE.DR PO ×2 (06:35→17:35)
[2018-09-14] MEDS: APIXABAN 5 MG TABLET PO ×2 (06:35→17:34)
[2018-09-14] MEDS: Metoprolol Tartrate 50 MG Tablet PO ×2 (06:35→17:34)
[2018-09-14 06:36] LABS: Bedside Glucose 82 mg/dL (70-110)
[2018-09-14] MEDS: Tolterodine Tartrate 2 MG CAP.SA PO (06:36)
[2018-09-14] MEDS: Menthol/Lanolin/Calamine/Znox 113 GM Tube 1 APPLIC TOPICAL ×2 (06:38→22:12)
[2018-09-14] MEDS: Iron Polysaccharide Complex 150 MG CAPSULE PO (08:03)
[2018-09-14] MEDS: Sertraline 100 MG Tablet PO (08:03)
[2018-09-14] MEDS: Multivitamins,Therapeutic Tablet 1 TABLET PO (08:04)
[2018-09-14] MEDS: Finasteride 5 MG Tablet PO (08:05)
[2018-09-14] MEDS: Pantoprazole Sodium 40 MG Tablet PO (12:09)
[2018-09-14] MEDS: Fenofibrate 145 MG Tablet PO (12:09)
--- NOTE | 2018-09-14 13:13 | NURSING ---
Therapy reports that one of resident's drains was open and leaking some during therapy. Recorded I&O at this time will be skewed as a result of this.
[2018-09-14 15:26] VITALS: BP 127/67; PULSE 89; RESP 18; TEMP 36.3; O2SAT 96
--- NOTE | 2018-09-14 15:40 | CASEMGMT ---
Insurance Continued stay approved with update due on 09/14/18. Further clinical information sent on this day, 09/14/18. Pending approval at this time. Auth#[id number] Ang ANDERSON, ANA
[2018-09-14 17:34] VITALS: PULSE 89
[2018-09-14] MEDS: Tamsulosin HCl 0.4 MG Capsule PO (17:34)
[2018-09-14] MEDS: Pramipexole Di-HCl 1 MG Tablet PO (22:12)
[2018-09-14] MEDS: Pravastatin 20 MG Tablet 10 MG PO (22:13)
[2018-09-14] MEDS: DOXEPIN HCL 50 MG CAPSULE PO (22:14)
[2018-09-14] MEDS: oxyCODONE 5 MG Tablet PO (22:32)
[2018-09-15 06:33] VITALS: BP 143/76; PULSE 83
[2018-09-15] MEDS: Tolterodine Tartrate 2 MG CAP.SA PO (06:33)
[2018-09-15] MEDS: Metoprolol Tartrate 50 MG Tablet PO ×2 (06:33→17:17)
[2018-09-15] MEDS: Flecainide 100 MG Tablet PO ×2 (06:33→17:17)
[2018-09-15] MEDS: Menthol/Lanolin/Calamine/Znox 113 GM Tube 1 APPLIC TOPICAL ×2 (06:33→21:51)
[2018-09-15] MEDS: Finasteride 5 MG Tablet PO (06:33)
[2018-09-15] MEDS: buPROPion 75 MG Tablet 150 MG PO ×3 (06:34→21:52)
[2018-09-15] MEDS: DIMETHYL FUMARATE 240 MG CAPSULE.DR PO ×2 (06:34→17:17)
[2018-09-15] MEDS: APIXABAN 5 MG TABLET PO ×2 (06:35→17:17)
[2018-09-15 06:45] LABS: Bedside Glucose 81 mg/dL (70-110)
[2018-09-15] MEDS: Iron Polysaccharide Complex 150 MG CAPSULE PO (08:12)
[2018-09-15] MEDS: Multivitamins,Therapeutic Tablet 1 TABLET PO (08:12)
[2018-09-15] MEDS: Sertraline 100 MG Tablet PO (08:12)
[2018-09-15] MEDS: Fenofibrate 145 MG Tablet PO (11:38)
[2018-09-15] MEDS: Pantoprazole Sodium 40 MG Tablet PO (11:38)
[2018-09-15] MEDS: oxyCODONE 5 MG Tablet PO ×2 (13:57→23:11)
[2018-09-15 16:00] VITALS: BP 129/75; PULSE 96; RESP 20; TEMP 36.9; O2SAT 91
--- NOTE | 2018-09-15 16:03 | CASEMGMT ---
Insurance Continued stay denied with last cover day being 09/17/18 and resident to discharge or financial responsibility to begin on 09/18/18. Auth#[id number] Ang ANDERSON, ANA
--- NOTE | 2018-09-15 16:44 | CASEMGMT ---
Brief interview for mental status (BIMS) and resident mood interview (PHQ-9) completed on this day. BIMS score 15. PHQ-9 score 08/01
--- NOTE | 2018-09-15 16:56 | CASEMGMT ---
Brief interview for mental status (BIMS) and resident mood interview (PHQ-9) completed on this day. BIMS score 15. PHQ-9 score 11/29
--- NOTE | 2018-09-15 16:57 | CASEMGMT ---
Social Work Spoke with resident in room. This certified social workers in health care communicating that continued stay has been denied by insurance with a last cover day of 09/17/18 and resident to discharge or financial responsibility to begin on 09/18/18. Resident plans to discharge on 09/18/18 back to [facility]. Resident requesting for transportation to be set up via wheelchair van. This certified social workers in health care communicating that physical and occupational therapy are recommending for resident to continue with services at [facility]. Resident is agreeable to recommendation and utilizing home health care at [facility]. Resident reporting to also need a walker. Resident does not have a preference of [employer] to be utilized. Support given. Telephone call to [facility], they are able to accept resident back. Will fax discharge information when obtained. Telephone call to [facility]. Transportation set up for 09/18/18 at 12:45pm. Transportation form completed and placed with resident discharge information. Proposed discharge date: 09/18/18 PLAN: Discharge to [facility]. Ang ANDERSON, ANA
[2018-09-15 17:17] VITALS: PULSE 96
[2018-09-15] MEDS: Tamsulosin HCl 0.4 MG Capsule PO (17:17)
--- NOTE | 2018-09-15 20:33 | DCINST_ITS ---
- Discharge Diagnoses Current Active Problems: Current Active and Chronic Problems (Last Updated 08/04/18 @ 14:32 by Maribell Tolliver) Anemia (Chronic) Osteoarthritis (Chronic) Atrial fibrillation (Chronic) BPH (benign prostatic hyperplasia) (Chronic) DVT (deep venous thrombosis) (Chronic) GERD (gastroesophageal reflux disease) (Chronic) Hemorrhoids (Chronic) Multiple sclerosis (Chronic) Obstructive sleep apnea (Chronic) You will use the following diet at home:: No restrictions, Regular Your food should be the consistency of: Regular Your liquids should be the consistency of: Regular/Thin Discharge Activity: Return to Normal Activity, May Shower, Use Walker Weight Bearing Status: Weight bearing as tolerated Call your doctor if you observe: Fever of 101 or Higher, Inability to urinate, Inability to have a bowel movement, Shortness of breath, Chest pain, Uncontrolled pain Allergies/Adverse Reactions: Allergies No Known Allergies Allergy (Verified 08/04/18 14:27) Medications to take at Discharge Apixaban [Eliquis] 5 mg PO BID 06/10/17 Bupropion HCl [Zyban] 150 mg PO BID 06/10/17 Finasteride [Proscar] 5 mg PO DAILY 06/10/17 Flecainide [Tambocor] 100 mg PO BID 06/10/17 Metoprolol Tartrate [Lopressor (beta modesto)] 50 mg PO BID 06/10/17 Omeprazole 40 mg PO LUNCH 06/10/17 Potassium Chloride [Klor-Con M20] 20 meq PO DAILY 06/10/17 Pravastatin Sodium [Pravachol] 10 mg PO QHS 06/10/17 dimethyl fumarate 240 mg capsule,delayed release 240 mg PO BID 08/04/18 pramipexole 1 mg tablet 1 mg PO QHS 08/04/18 tamsulosin 0.4 mg capsule 0.4 mg PO DAILY@1730 cap 08/04/18 Ergocalciferol [Vitamin D] 50,000 unit PO Q7D 08/19/18 Fenofibrate,Micronized [Fenofibrate] 200 mg PO LUNCH 08/19/18 Multivitamin [Multivitamins] 1 each PO DAILY 08/19/18 Oxybutynin [Ditropan] 5 mg PO DAILY 08/19/18 Sertraline HCl [Zoloft] 50 mg PO DAILY 08/19/18 Acetaminophen [Tylenol] 1,000 mg PO Q6H PRN tablet 09/15/18 Cyclobenzaprine [Flexeril] 5 mg PO TID PRN #90 tablet 09/15/18 Doxepin HCl 50 mg PO QHS #30 capsule 09/15/18 Iron Polysaccharide Complex [Ferrex 150] 150 mg PO DAILYCM #30 capsule 09/15/18 Menthol/Lanolin/Calamine/Znox [Calmoseptine Ointment] 1 applic TOPICAL 0600,2200 tube 09/15/18 Oxycodone [Oxyir] 5 mg PO Q4H PRN PRN 7 Days #30 tab 09/15/18 Polyethylene Glycol 3350 [Miralax] 17 gm PO DAILY #30 packet 09/15/18 The following prescriptions were given: Oxycodone [Oxyir] 5 mg PO Q4H PRN PRN 7 Days #30 tab PRN Reason: Moderate Pain (4-5/10) Doxepin HCl 50 mg PO QHS #30 capsule Iron Polysaccharide Complex [Ferrex 150] 150 mg PO DAILYCM #30 capsule Polyethylene Glycol 3350 [Miralax] 17 gm PO DAILY #30 packet Cyclobenzaprine [Flexeril] 5 mg PO TID PRN #90 tablet PRN Reason: muscle spasms Primary Care Physician: Elmer Castellanos MD [Primary Care Provider] - Please follow up with your Primary Care Physician in: 1 week. Test Results: Test results from this visit will be discussed in further detail at your follow- up appointment, if applicable. Please Follow Up With: alicia lara PA-C When: [phone] Please Follow Up With: CARMELO Johansen When: [phone] Please Follow Up With: Jeffery Castellanos MD Proposed Discharge Date: 09/18/18
--- NOTE | 2018-09-15 20:33 | PCM.DC.SUM ---
Discharge Date and Diagnosis Date of Admission: 08/19/18 Date of Discharge: 09/18/18 - Secondary Discharge Diagnosis Chronic Problems (Last Updated 08/04/18 @ 14:32 by Maribell Tolliver) Anemia (Chronic) Osteoarthritis (Chronic) Atrial fibrillation (Chronic) BPH (benign prostatic hyperplasia) (Chronic) DVT (deep venous thrombosis) (Chronic) GERD (gastroesophageal reflux disease) (Chronic) Hemorrhoids (Chronic) Multiple sclerosis (Chronic) Obstructive sleep apnea (Chronic) Hospital Course and Treatment Imaging Results: 09/10/18 15:41 Diet: Regular Diet Is pt able to select menu?: Yes Diet Comments: low salt Labs (Last 48 Hours) 09/14/18 09/15/18 06:28 06:24 POC Glucose 82 81 Operations: None Procedures: None Summary of Care Provided: The patient is a 68 year old Male with below past medical history hospitalized for T3-pelvis posterior spinal fusion 08/13/[address] Yamel Humphrey, admitted to TCU with debility, here for rehabilitation, strengthening, prior to discharge to [facility] with spouse. Discharge to [facility], with Home Health Services. - Physical Exam Vital Signs Temp Pulse Resp BP Pulse Ox 98.5 F 96 20 H 129/75 H 91 09/15/18 16:00 09/15/18 17:17 09/15/18 16:00 09/15/18 16:00 09/15/18 16:00 Oxygen Delivery Method Room Air Weight: 123.462 kg Body Mass Index (BMI) 44.6 Intake and Output for Last 24 Hours 09/13/18 09/14/18 09/15/18 23:59 23:59 23:59 Intake Total 480 / 480 600 / 600 660 / 660 Output Total 80 / 80 78 / 78 450 / 450 Balance 400 / 400 522 / 522 210 / 210 POC Glucose 09/15/18 06:24 POC Glucose 81 Discharge Diet: No Restrictions Discharge Activity: Return to Normal Activity, May Shower, Use Walker Weight Bearing Status: Weight bearing as tolerated Call your doctor if you observe: Fever of 101 or Higher, Inability to urinate, Inability to have a bowel movement, Shortness of breath, Chest pain, Uncontrolled pain Home Medications: Medications to take at Discharge Apixaban [Eliquis] 5 mg PO BID 06/10/17 Bupropion HCl [Zyban] 150 mg PO BID 06/10/17 Finasteride [Proscar] 5 mg PO DAILY 06/10/17 Flecainide [Tambocor] 100 mg PO BID 06/10/17 Metoprolol Tartrate [Lopressor (beta modesto)] 50 mg PO BID 06/10/17 Omeprazole 40 mg PO LUNCH 06/10/17 Potassium Chloride [Klor-Con M20] 20 meq PO DAILY 06/10/17 Pravastatin Sodium [Pravachol] 10 mg PO QHS 06/10/17 dimethyl fumarate 240 mg capsule,delayed release 240 mg PO BID 08/04/18 pramipexole 1 mg tablet 1 mg PO QHS 08/04/18 tamsulosin 0.4 mg capsule 0.4 mg PO DAILY@1730 cap 08/04/18 Ergocalciferol [Vitamin D] 50,000 unit PO Q7D 08/19/18 Fenofibrate,Micronized [Fenofibrate] 200 mg PO LUNCH 08/19/18 Multivitamin [Multivitamins] 1 each PO DAILY 08/19/18 Oxybutynin [Ditropan] 5 mg PO DAILY 08/19/18 Sertraline HCl [Zoloft] 50 mg PO DAILY 08/19/18 Acetaminophen [Tylenol] 1,000 mg PO Q6H PRN tablet 09/15/18 Cyclobenzaprine [Flexeril] 5 mg PO TID PRN #90 tablet 09/15/18 Doxepin HCl 50 mg PO QHS #30 capsule 09/15/18 Iron Polysaccharide Complex [Ferrex 150] 150 mg PO DAILYCM #30 capsule 09/15/18 Menthol/Lanolin/Calamine/Znox [Calmoseptine Ointment] 1 applic TOPICAL 0600,2200 tube 09/15/18 Oxycodone [Oxyir] 5 mg PO Q4H PRN PRN 7 Days #30 tab 09/15/18 Polyethylene Glycol 3350 [Miralax] 17 gm PO DAILY #30 packet 09/15/18 Following Prescrptions Were Given to Patient: Oxycodone [Oxyir] 5 mg PO Q4H PRN PRN 7 Days #30 tab PRN Reason: Moderate Pain (4-5/10) Doxepin HCl 50 mg PO QHS #30 capsule Iron Polysaccharide Complex [Ferrex 150] 150 mg PO DAILYCM #30 capsule Polyethylene Glycol 3350 [Miralax] 17 gm PO DAILY #30 packet Cyclobenzaprine [Flexeril] 5 mg PO TID PRN #90 tablet PRN Reason: muscle spasms Primary Care Physician: Elmer Castellanos MD [Primary Care Provider] - Please follow up with your Primary Care Physician in: 1 week. Please Follow Up With: alicia lara PA-C When: [phone] Please Follow Up With: CARMELO Johansen When: [phone] Please Follow Up With: Jeffery Castellanos MD Disposition: [facility] Living/Non-[facility] Minutes spent on discharge:: 35 Patient Condition:: Good Medical Necessity - Tobacco Use Smoking Status: Former smoker Tobacco Use: Cigarettes - He has 80 pack year smoking history. Meaningful Use Info Meaningful Use Diagnoses (Choose all that apply): None applicable
--- NOTE | 2018-09-15 20:35 | PCM.PN.HH ---
Home Health Note - Plan Overview of reason of hospitalization: The patient is a 68 year old Male with below past medical history hospitalized for T3-pelvis posterior spinal fusion 08/13/[address] Yamel Humphrey, admitted to TCU with debility, here for rehabilitation, strengthening, prior to discharge to [facility] with spouse. Discharge to [facility], with Home Health Services. Problems: Patient was seen for (Last Updated 08/04/18 @ 14:32 by Maribell Tolliver) Anemia (Chronic) Osteoarthritis (Chronic) Atrial fibrillation (Chronic) BPH (benign prostatic hyperplasia) (Chronic) DVT (deep venous thrombosis) (Chronic) GERD (gastroesophageal reflux disease) (Chronic) Hemorrhoids (Chronic) Multiple sclerosis (Chronic) Obstructive sleep apnea (Chronic) Complete List of Medical Problems (Last Updated 08/04/18 @ 14:32 by Maribell Tolliver) Anemia (Chronic) Osteoarthritis (Chronic) Atrial fibrillation (Chronic) BPH (benign prostatic hyperplasia) (Chronic) DVT (deep venous thrombosis) (Chronic) GERD (gastroesophageal reflux disease) (Chronic) Hemorrhoids (Chronic) Multiple sclerosis (Chronic) Obstructive sleep apnea (Chronic) History of DVT (deep vein thrombosis) (Acute) Sick sinus syndrome (Acute) Presence of cardiac pacemaker (Acute) - Requirements and Reasons Disciplines Needed/Ordered: Physical Therapy Reason for Disciplines: Gait Training, Stair Training, Fall Prevention, Home Safety/Equipment Instruction, Balance and/or Posture Training, Transfer Training Related To: Limited/Poor Endurance, Shortness of Breath with Activity, Physical Impairments, Unsteady Gait/Balance, Fall Risk Patient is unable to leave the home: Without Aid of Supportive Devices (crutches, cane, wheelchair, walker), Without the assistance of another person - Additional Disciplines Additional Disciplines Needed/Ordered: Occupational Therapy
[2018-09-15] MEDS: Pramipexole Di-HCl 1 MG Tablet PO (21:53)
[2018-09-15] MEDS: DOXEPIN HCL 50 MG CAPSULE PO (21:53)
[2018-09-15] MEDS: Pravastatin 20 MG Tablet 10 MG PO (21:58)
[2018-09-15 23:10] VITALS: PULSE 82; RESP 18; O2SAT 94
[2018-09-16] MEDS: Menthol/Lanolin/Calamine/Znox 113 GM Tube 1 APPLIC TOPICAL ×2 (06:39→21:49)
[2018-09-16 06:43] VITALS: BP 129/66; PULSE 100
[2018-09-16] MEDS: Metoprolol Tartrate 50 MG Tablet PO ×2 (06:43→17:10)
[2018-09-16] MEDS: Tolterodine Tartrate 2 MG CAP.SA PO (06:43)
[2018-09-16] MEDS: APIXABAN 5 MG TABLET PO ×2 (06:44→17:08)
[2018-09-16] MEDS: buPROPion 75 MG Tablet 150 MG PO ×3 (06:44→21:50)
[2018-09-16] MEDS: Flecainide 100 MG Tablet PO ×2 (06:44→17:10)
[2018-09-16] MEDS: DIMETHYL FUMARATE 240 MG CAPSULE.DR PO ×2 (06:45→17:11)
[2018-09-16 06:46] LABS: Bedside Glucose 88 mg/dL (70-110)
[2018-09-16] MEDS: Finasteride 5 MG Tablet PO (07:43)
[2018-09-16] MEDS: Multivitamins,Therapeutic Tablet 1 TABLET PO (07:43)
[2018-09-16] MEDS: Sertraline 100 MG Tablet PO (07:44)
[2018-09-16] MEDS: Iron Polysaccharide Complex 150 MG CAPSULE PO (07:44)
--- NOTE | 2018-09-16 08:43 | CASEMGMT ---
Social Work Discharge information faxed to [facility]. Proposed discharge date: 09/18/18 PLAN: Discharge to [facility] with therapy. Ang ANDERSON, ANA
--- NOTE | 2018-09-16 08:45 | CASEMGMT ---
Social Work Order for walker faxed to [facility]. [facility] to deliver walker to resident room prior to resident discharge. Proposed discharge date: 09/18/18 PLAN: Discharge to [facility] with continued therapy services. Ang Zambrano MSW, ANA
[2018-09-16] MEDS: Fenofibrate 145 MG Tablet PO (11:56)
[2018-09-16] MEDS: Pantoprazole Sodium 40 MG Tablet PO (11:56)
--- NOTE | 2018-09-16 13:10 | MDS.RN ---
Pain interview for liza 09/18/18 completed.
[2018-09-16 15:04] VITALS: BP 121/65; PULSE 94; RESP 14; TEMP 36.7; O2SAT 94
[2018-09-16] MEDS: Tamsulosin HCl 0.4 MG Capsule PO (17:09)
[2018-09-16 17:10] VITALS: BP 121/65; PULSE 94
[2018-09-16] MEDS: Pramipexole Di-HCl 1 MG Tablet PO (21:51)
[2018-09-16] MEDS: DOXEPIN HCL 50 MG CAPSULE PO (21:52)
[2018-09-16] MEDS: Pravastatin 20 MG Tablet 10 MG PO (21:55)
[2018-09-16 22:00] VITALS: PULSE 91; RESP 18; O2SAT 93
[2018-09-17] MEDS: Menthol/Lanolin/Calamine/Znox 113 GM Tube 1 APPLIC TOPICAL ×2 (05:32→21:29)
[2018-09-17] MEDS: Flecainide 100 MG Tablet PO ×2 (05:33→17:07)
[2018-09-17] MEDS: APIXABAN 5 MG TABLET PO ×2 (05:33→17:07)
[2018-09-17] MEDS: Tolterodine Tartrate 2 MG CAP.SA PO (05:33)
[2018-09-17] MEDS: DIMETHYL FUMARATE 240 MG CAPSULE.DR PO ×2 (05:34→17:07)
[2018-09-17] MEDS: buPROPion 75 MG Tablet 150 MG PO ×3 (05:35→21:28)
[2018-09-17 05:38] VITALS: BP 144/74; PULSE 98
[2018-09-17] MEDS: Metoprolol Tartrate 50 MG Tablet PO ×2 (05:38→17:07)
[2018-09-17 07:05] LABS: Bedside Glucose 116 mg/dL (70-110)
[2018-09-17] MEDS: Multivitamins,Therapeutic Tablet 1 TABLET PO (08:16)
[2018-09-17] MEDS: Iron Polysaccharide Complex 150 MG CAPSULE PO (08:16)
[2018-09-17] MEDS: Finasteride 5 MG Tablet PO (08:16)
[2018-09-17] MEDS: Sertraline 100 MG Tablet PO (09:11)
[2018-09-17] MEDS: Pantoprazole Sodium 40 MG Tablet PO (11:10)
[2018-09-17] MEDS: Fenofibrate 145 MG Tablet PO (11:10)
--- NOTE | 2018-09-17 11:46 | NURSING ---
PT AND THERAPY,GEGE CAME TO THIS NURSE AND STATED PT GOT A SKIN TEAR TO THE LEFT HAND. ASKED PT WHAT HAPPENED,PT STATED WHEN HE WENT TO SIT DOWN IN THE WHEEL CHAIR HIS BACK BRACE SCRAPED HIS HAND. WOUND CLEANED AND APPLIED DRESSING. REPORTED TO MAGED SANCHEZ
[2018-09-17 15:33] VITALS: BP 116/64; PULSE 99; RESP 16; TEMP 36.7; O2SAT 93
[2018-09-17 17:07] VITALS: BP 116/64; PULSE 99
[2018-09-17] MEDS: Tamsulosin HCl 0.4 MG Capsule PO (17:07)
[2018-09-17] MEDS: DOXEPIN HCL 50 MG CAPSULE PO (21:27)
[2018-09-17] MEDS: Pramipexole Di-HCl 1 MG Tablet PO (21:28)
[2018-09-17] MEDS: Pravastatin 20 MG Tablet 10 MG PO (21:28)
[2018-09-18 04:56] VITALS: BP 109/60; PULSE 94
[2018-09-18] MEDS: buPROPion 75 MG Tablet 150 MG PO (04:56)
[2018-09-18] MEDS: Metoprolol Tartrate 50 MG Tablet PO (04:56)
[2018-09-18] MEDS: Flecainide 100 MG Tablet PO (04:56)
[2018-09-18] MEDS: Tolterodine Tartrate 2 MG CAP.SA PO (04:56)
[2018-09-18] MEDS: Pantoprazole Sodium 40 MG Tablet PO (04:56)
[2018-09-18] MEDS: DIMETHYL FUMARATE 240 MG CAPSULE.DR PO (04:57)
[2018-09-18] MEDS: APIXABAN 5 MG TABLET PO (04:57)
[2018-09-18] MEDS: Menthol/Lanolin/Calamine/Znox 113 GM Tube 1 APPLIC TOPICAL (04:59)
[2018-09-18 06:51] LABS: Bedside Glucose 98 mg/dL (70-110)
[2018-09-18] MEDS: Iron Polysaccharide Complex 150 MG CAPSULE PO (08:14)
[2018-09-18] MEDS: Sertraline 100 MG Tablet PO (08:14)
[2018-09-18] MEDS: Multivitamins,Therapeutic Tablet 1 TABLET PO (08:14)
[2018-09-18] MEDS: Finasteride 5 MG Tablet PO (08:14)
[2018-09-18 11:35] VITALS: BP 146/84; PULSE 68; RESP 16; TEMP 36.9; O2SAT 96
--- NOTE | 2018-09-20 10:55 | CASEMGMT ---
Insurance Notified insurance of resident discharge on 09/18/18 to [facility] with continued therapy. Auth#[id number] Ang ANDERSON, ANA
== END 2018-09-18 11:40 | disposition home health service (06) | DRG 561 ==
PROVIDERS: Admitting Provider Family Medicine Geriatric Medicine; Family Provider Family Medicine; PCP Family Medicine; Referring Provider Family Medicine Geriatric Medicine; Visit Provider Family Medicine Geriatric Medicine
DX: Z47.89 Encounter for other orthopedic aftercare (principal); K21.9 Gastro-esophageal reflux disease without esophagitis; Z86.718 Personal history of other venous thrombosis and embolism; G47.33 Obstructive sleep apnea (adult) (pediatric); G35 Multiple sclerosis; I48.2 Chronic atrial fibrillation; M19.90 Unspecified osteoarthritis, unspecified site; N40.0 Benign prostatic hyperplasia without lower urinary tract symptoms; F32.9 Major depressive disorder, single episode, unspecified; E78.5 Hyperlipidemia, unspecified; D50.9 Iron deficiency anemia, unspecified; N32.81 Overactive bladder; G25.81 Restless legs syndrome; E87.6 Hypokalemia; E55.9 Vitamin D deficiency, unspecified; T81.49XD Infection following a procedure, other surgical site, subsequent encounter; Y83.8 Other surgical procedures as the cause of abnormal reaction of the patient, or of later complication, without mention of misadventure at the time of the procedure; Z95.0 Presence of cardiac pacemaker; Z87.891 Personal history of nicotine dependence
CPT/HCPCS: 36415; 80048; 82962; 85025; 93005; 93970; 97110; 97116; 97163; 97166; 97530; 97535; 97802

== ENCOUNTER → 2018-10-12 05:30 | Outpatient (REF) | payer MEDICARE, SELFPAY ==
[2018-10-12 08:51] LABS: ALB/GLOB Ratio 0.9 RATIO (0.9-2.4); AST(SGOT) 15 U/L (15-37); Alanine Aminotransfer ALT/SGPT 15 U/L (16-61); Albumin, Serum 2.9 g/dL (3.2-5.0); Alkaline Phosphatase 63 U/L (45-117); Anion Gap 7 (5-15); BUN 24 mg/dL (7-18); Calcium,Total 9.1 mg/dL (8.5-10.1); Chloride 105 mmol/L (98-107); Creatinine, Serum 1.26 mg/dL (0.70-1.30); EST Glomerular Filtration Rate 60 mL/min (>60); Est Glom Filt Rate - Afr Amer 73 mL/min (>60); Globulin 3.4 g/dL (2.2-4.2); Glucose 74 mg/dL (74-106); Potassium 3.7 mmol/L (3.5-5.1); Protein, Total 6.3 g/dL (6.4-8.2); Sodium Level 138 mmol/L (136-145)
== END ==
DX: Z79.899 Other long term (current) drug therapy (principal); R60.9 Edema, unspecified
CPT/HCPCS: 36415; 80053

== ENCOUNTER → 2018-11-01 05:00 | Outpatient (REF) | payer MEDICARE, SELFPAY ==
[2018-11-01 07:43] LABS: Absolute Lymphocyte Count 0.61 X10^3/ul (0.83-4.51); Absolute Neutrophil Count 2.9 X10^3/uL (2.0-7.7); Basophil# 0.01 X10^3/uL; Basophil% 0.2 % (0-1); Eosinophil# 0.19 X10^3/uL; Eosinophils% 4.7 % (0-5); Hematocrit 33.4 % (40-54); Hemoglobin 10.6 g/dl (13.0-16.5); Lymphocyte # 0.61 X10^3/ul (4.0); Lymphocyte % 15.1 % (19-41); Mean Corp Hgb Conc 31.7 g/gl (32-36); Mean Corpuscular Hgb 28.8 pg (27.0-32.0); Mean Corpuscular Volume 90.8 fL (80-94); Mean Platelet Vol. 9.3 fl (6.2-12.0); Monocyte% 7.4 % (0-10); Neutrophil # 2.89 X10^3/uL (2.7-7.7); Neutrophil % 71.4 % (47-70); Platelet Count 270 K/mm3 (150-450); RBC Distribution Width CV 14.6 % (11.6-14.6); RBC Distribution Width SD 48.9 fl (35.1-43.9); Red Blood Count 3.68 M/mm3 (4.6-6.2); White Blood Count 4.1 K/mm3 (4.4-11.0)
[2018-11-01 07:45] LABS: POSITIVE COUNT NO; POSITIVE DIFFERENTIAL NO; POSITIVE MORPHOLOGY NO
[2018-11-01 07:56] LABS: ALB/GLOB Ratio 0.6 RATIO (0.9-2.4); AST(SGOT) 20 U/L (15-37); Alanine Aminotransfer ALT/SGPT 20 U/L (16-61); Albumin, Serum 2.9 g/dL (3.2-5.0); Alkaline Phosphatase 73 U/L (45-117); Anion Gap 8 (5-15); BUN 34 mg/dL (7-18); BUN/Creat Ratio 21.9 RATIO (10-20); Calcium,Total 9.5 mg/dL (8.5-10.1); Chloride 104 mmol/L (98-107); Creatinine, Serum 1.55 mg/dL (0.70-1.30); EST Glomerular Filtration Rate 48 mL/min (>60); Est Glom Filt Rate - Afr Amer 58 mL/min (>60); Globulin 4.5 g/dL (2.2-4.2); Glucose 91 mg/dL (74-106); Potassium 3.8 mmol/L (3.5-5.1); Protein, Total 7.4 g/dL (6.4-8.2); Sodium Level 141 mmol/L (136-145)
== END ==
DX: I48.91 Unspecified atrial fibrillation (principal); R53.83 Other fatigue
CPT/HCPCS: 36415; 80053; 85025

== ENCOUNTER → 2018-11-16 14:02 | Outpatient (CLI) | payer MEDICARE, SELFPAY ==
[2018-11-16 13:44] VITALS: BMI 44.6
--- NOTE | 2018-11-16 14:04 | RAD_ITS ---
STUDY: X-RAY OF THE THORACIC AND LUMBAR SPINE. REASON FOR EXAM: Male, 68 years old. Postop . TECHNIQUE: 2 views of the thoracic and lumbar spine. COMPARISON: None. FINDINGS: Posterior thoracolumbar fusion with pedicle screws from T3 through the sacrum. Bilateral rods and pedicle screws. Surgical hardware appears intact. Heart is mildly enlarged. Cardiac pacemaker left hemithorax. Caval filter best appreciated on the lateral view.. RAD/Scoliosis 2 or 3 views IMPRESSION: Thoracolumbar fusion. Electronically Signed: Adam Love MD at 3:11 EDT , Service support ,
== END ==
PROVIDERS: Family Provider Family Medicine; PCP Family Medicine; Referring Provider Orthopaedic Surgery; Visit Provider Orthopaedic Surgery
DX: M43.26 Fusion of spine, lumbar region (principal)
CPT/HCPCS: 72082

== ENCOUNTER → 2019-01-11 09:26 | Outpatient (CLI) | payer MEDICARE, SELFPAY ==
[2018-11-16 13:44] VITALS: BMI 44.6
--- NOTE | 2019-01-11 09:27 | RAD_ITS ---
STUDY: X-RAY EXAMINATION: SCOLIOSIS SERIES REASON FOR EXAM: Male, 68 years old. Mid back pain TECHNIQUE: 4 view(s) of the thoracolumbar spine were obtained in the upright standing position. COMPARISON: November 16, 2018 FINDINGS: Extensive scoliosis fixation randal hardware is noted of the thoracolumbar spine which is intact and not changed from prior exam. Again noted is similar minimal scoliosis of the thoracolumbar spine without change. Again noted is normal vertebral body height with mild multilevel degenerative disc disease. IVC filter is noted. Lungs are clear. Left chest wall pacing device RAD/Scoliosis 2 or 3 views IMPRESSION: Status post scoliosis fixation rods without evidence of acute hardware failure or loosening. Minimal scoliosis is noted. Age-related degenerative changes of the thoracolumbar spine. Electronically Signed: Asad Souza DO at 9:29 EDT Tel , Service support ,
== END ==
PROVIDERS: Family Provider Family Medicine; PCP Family Medicine; Referring Provider Orthopaedic Surgery; Visit Provider Orthopaedic Surgery
DX: Z98.1 Arthrodesis status (principal)
CPT/HCPCS: 72081; 72082

== ENCOUNTER → 2019-02-15 14:09 | Outpatient (CLI) | payer MEDICARE, SELFPAY ==
[2019-01-11 09:34] VITALS: BMI 44.6
--- NOTE | 2019-02-15 14:10 | RAD_ITS ---
STUDY: ENTIRE THORACIC AND LUMBAR SPINE 2 or 3 views REASON FOR EXAM: Male, 68 years old. Follow-up back surgery 2018 TECHNIQUE: AP and lateral view of the spine is provided. COMPARISON: January 11, 2019 AP lateral some lumbar spine. FINDINGS: There are new posterior spinous cervical spinal randal and cortical screws. There is anterior fusion in the cervical spine partially visualized on this study. There is a spinal fusion approximately T1 to the sacrum. There is kyphosis. There is minimal spondylosis. There is a left-sided pacer. There is mild cardiac enlargement. RAD/Scoliosis 2 or 3 views IMPRESSION: Interval placement of posterior spinal rods and anterior plate with cervical spinal fusion since prior study and re alignment of the upper thoracic spinal rods when compared to prior study. Ptosis. Electronically Signed: Mary Ellen Mehta MD at 1:12 EDT Tel , Service support ,
--- NOTE | 2019-02-15 14:27 | RAD_ITS ---
STUDY: X-RAY - CERVICAL SPINE REASON FOR EXAM: Male, 68 years old. Follow-up surgery TECHNIQUE: 2 view(s) of the cervical spine were obtained. COMPARISON: January 11 thoracic spine x-ray FINDINGS 2019: There are degenerative changes of the anterior atlantoaxial articulation. Normal odontoid process. Since prior study there is been a placement of an anterior cervical plate 345 and 6. The upper thoracic spinal rods are realigned with the posterior elements of the cervical spine with multilevel cortical screws and spinal rods. There are punctate calcific bone graft type densities along the borders of the hardware . There is minimal spondylosis remaining at the level of C6-C7. Since prior study there there are new cortical screws randal at T1 and T2 RAD/Cerv Spine 2 or 3 Views IMPRESSION: Interval cervical anterior and posterior spinal fusion which appears to be in anatomic position and alignment. The upper spinal rods on the prior study appear to be aligned with the cervical spine posterior spinal fusion. Electronically Signed: Mary Ellen Mehta MD at 1:17 EDT Tel , Service support ,
== END ==
PROVIDERS: Family Provider Family Medicine; PCP Family Medicine; Referring Provider Orthopaedic Surgery; Visit Provider Orthopaedic Surgery
DX: Z98.1 Arthrodesis status (principal)
CPT/HCPCS: 72040; 72082

== ENCOUNTER → 2019-02-17 10:40 | Outpatient (CLI) | payer MEDICARE, SELFPAY ==
[2019-02-15 14:16] VITALS: BMI 44.6
--- NOTE | 2019-02-17 10:45 | CT_ITS ---
STUDY: CT CERVICAL SPINE WITHOUT CONTRAST REASON FOR EXAM: Male, 68 years old. Hardware failure. Pain. RADIATION DOSAGE (If Supplied By Facility): CTDIvol = ( 38.62 ) mGy, DLP = ( 3722.62 ) mGycm TECHNIQUE: High resolution transaxial imaging was performed without contrast material. Sagittal and coronal images were reconstructed. Individualized dose optimization techniques were used for this CT. COMPARISON: None FINDINGS: Normal craniovertebral junction. Normal anterior atlantoaxial articulation. Normal odontoid process. Normal cervical lordosis. The patient is status post anterior fusion and disc spacers at the C3-C4, C4-C5 and C5-C6 levels. The patient is also status post posterior fusion at the C3-C7 level with interpedicular screw and plate fixation as well as posterior bone graft. No evidence of spinal stenosis. There is good alignment. Artifacts from the extensive metal causes beam hardening artifact. Normal visualized soft tissue structures. CT/Spine Cervical without Contras IMPRESSION: Multilevel anterior and posterior fusion with bone grafting posteriorly. Electronically Signed: Lawson Vogel, at 12:21 EDT , Service support ,
--- NOTE | 2019-02-17 10:45 | CT_ITS ---
STUDY: CT THORACIC SPINE WITHOUT CONTRAST REASON FOR EXAM: Male, 68 years old. Scoliosis. Hardware failure. RADIATION DOSAGE (If Supplied By Facility): CTDIvol = ( 38.62 ) mGy, DLP = ( 3722.62 ) mGycm TECHNIQUE: The patient was scanned in a multi detector CT scanner. High resolution imaging was performed. Images were obtained from to . Sagittal and coronal images were reconstructed. Individualized dose optimization techniques were used for this CT. COMPARISON: None. FINDINGS: There is an increased kyphosis of the thoracic spine. There is a minimal dextroscoliosis of the thoracic spine. The patient is status post interpedicular screw and randal fixation involving the lower cervical spine and the entire thoracic spine. Multilevel spondylosis and disc space narrowing. The mineralization of the thoracic vertebrae. A filter is seen within the inferior vena cava. CT/Spine Thoracic without Contras IMPRESSION: Status post multilevel into thicker screw and randal fixation of the thoracic spine with increased kyphosis and multilevel disc space narrowing and degeneration. Electronically Signed: Lawson Vogel, at 12:24 EDT , Service support ,
== END ==
PROVIDERS: Family Provider Family Medicine; PCP Family Medicine; Referring Provider Orthopaedic Surgery; Visit Provider Orthopaedic Surgery
DX: Z98.1 Arthrodesis status (principal)
CPT/HCPCS: 72125; 72128

== ENCOUNTER → 2019-02-21 05:00 | Outpatient (REF) | payer MEDICARE, SELFPAY ==
[2019-02-15 14:16] VITALS: BMI 44.6
[2019-02-21 09:10] LABS: Hematocrit 34.2 % (40-54); Hemoglobin 10.9 g/dL (13.0-16.5); Mean Corp Hgb Conc 31.9 g/dL (32-36); Mean Corpuscular Hgb 30.1 pg (27.0-32.0); Mean Corpuscular Volume 94.5 fL (80-94); Mean Platelet Vol. 10.2 fl (6.2-12.0); Platelet Count 200 K/mm3 (150-450); RBC Distribution Width CV 16.4 % (11.6-14.6); Red Blood Count 3.62 M/mm3 (4.6-6.2); White Blood Count 3.9 K/mm3 (4.4-11.0)
[2019-02-21 09:46] LABS: AST(SGOT) 18 U/L (15-37); Alanine Aminotransfer ALT/SGPT 21 U/L (16-61); Albumin, Serum 3.4 g/dL (3.2-5.0); Alkaline Phosphatase 89 U/L (45-117); Anion Gap 6 (5-15); BUN 19 mg/dL (7-18); BUN/Creat Ratio 17.4 RATIO (10-20); Calcium,Total 9.1 mg/dL (8.5-10.1); Chloride 109 mmol/L (98-107); Creatinine, Serum 1.09 mg/dL (0.70-1.30); EST Glomerular Filtration Rate 71 mL/min (>60); Est Glom Filt Rate - Afr Amer 86 mL/min (>60); Globulin 3.5 g/dL (2.2-4.2); Glucose 87 mg/dL (74-106); Potassium 4.1 mmol/L (3.5-5.1); Protein, Total 6.9 g/dL (6.4-8.2); Sodium Level 140 mmol/L (136-145)
== END ==
DX: I82.409 Acute embolism and thrombosis of unspecified deep veins of unspecified lower extremity (principal); I10 Essential (primary) hypertension; E78.5 Hyperlipidemia, unspecified; Z79.899 Other long term (current) drug therapy
CPT/HCPCS: 36415; 80053; 85027

== ENCOUNTER 2019-03-18 12:15 | Inpatient (IN) | payer MEDICARE, SELFPAY ==
[2019-02-15 14:16] VITALS: BMI 44.6
[2019-03-18 12:56] VITALS: BP 149/84; PULSE 60; RESP 18; TEMP 36.8; O2SAT 98; BMI 40.2
[2019-03-18 13:15] VITALS: RESP 18; O2SAT 98; BMI 40.2
--- NOTE | 2019-03-18 14:44 | CASEMGMT ---
Social Work Completed new healthcare POA and living will paperwork, per pt request. POA is son, Hakeem Lo. Copies placed on pt chart. Sonja Quintanilla, ASSISTANT [employer] COACH HELP DESK REPRESENTATIVE
--- NOTE | 2019-03-18 15:09 | HP.PCM_ITS ---
Problem List (1) Debility Status: Acute (2) Scoliosis Status: Chronic (3) Hypokalemia Status: Chronic (4) Hyperlipidemia Status: Chronic (5) Iron deficiency anemia Status: Chronic (6) Restless leg syndrome Status: Chronic (7) Muscle spasm Status: Chronic (8) Vitamin D deficiency Status: Chronic (9) Overactive bladder Status: Chronic (10) Hardware failure Status: Acute (11) Anemia Status: Chronic (12) Osteoarthritis Status: Chronic (13) Atrial fibrillation Status: Chronic (14) BPH (benign prostatic hyperplasia) Status: Chronic (15) DVT (deep venous thrombosis) Status: Chronic (16) GERD (gastroesophageal reflux disease) Status: Chronic (17) Multiple sclerosis Status: Chronic (18) Obstructive sleep apnea Status: Chronic History of Present Illness Date of Admission: 03/18/19 Chief Complaint: Here for rehabilitation, strengthening, prior to discharge to [facility]. The patient is a 68 year old Male with below past medical history with followin08/13/2018 T3-ileum instrumented surgery. 01/17/2019 Dr. Humphrey performed Revision posterior spinal fusion from C3-T6 with plastics assist. 01/24/2019 C3-C6 Anterior cervical discectomy and fusion with ENT assist. 03/14/2019 Admitted to [facility] for revision C2-T8 instrumented fusion due to hardware failure after mechanical fall 02/15/2019. 03/14/2019 Removal of hardware with fusion. 03/18/2019 Admit to TCU with debility, here for rehabilitation, strengthening, prior to discharge to [facility]. Past Medical History Past Medical History (Chronic Problems): Chronic Problems (Last Updated 08/04/18 @ 14:32 by Maribell Tolliver) Anemia (Chronic) Osteoarthritis (Chronic) Atrial fibrillation (Chronic) BPH (benign prostatic hyperplasia) (Chronic) DVT (deep venous thrombosis) (Chronic) GERD (gastroesophageal reflux disease) (Chronic) Hemorrhoids (Chronic) Multiple sclerosis (Chronic) Obstructive sleep apnea (Chronic) Scoliosis (Chronic) Hypokalemia (Chronic) Hyperlipidemia (Chronic) Iron deficiency anemia (Chronic) Restless leg syndrome (Chronic) Muscle spasm (Chronic) Vitamin D deficiency (Chronic) Overactive bladder (Chronic) Medical History: Medical History (Last Updated 08/04/18 @ 14:32 by Maribell Tolliver) Sick sinus syndrome (Acute) I49.5 Presence of cardiac pacemaker (Acute) Z95.0 Acid reflux K21.9 Arthritis M19.90 Atrial fibrillation I48.91 Depression F32.9 Hemorrhoids K64.9 History of back problems Hypercholesterolemia E78.00 MS (multiple sclerosis) G35 Sleep apnea G47.30 Allergies No Known Allergies Allergy (Verified 08/04/18 14:27) Home Medications: Ambulatory Orders Medication Instructions Recorded Apixaban [Eliquis] 5 mg PO BID 06/10/17 Bupropion HCl [Zyban] 150 mg PO BID 06/10/17 Finasteride [Proscar] 5 mg PO DINNER 06/10/17 Flecainide [Tambocor] 100 mg PO BID 06/10/17 Metoprolol Tartrate [Lopressor 50 mg PO BID 06/10/17 (beta modesto)] Omeprazole 40 mg PO LUNCH 06/10/17 Potassium Chloride [Klor-Con M20] 20 meq PO BREAKFAST 06/10/17 Pravastatin Sodium [Pravachol] 10 mg PO QHS 06/10/17 dimethyl fumarate 240 mg 240 mg PO BID 08/04/18 capsule,delayed release pramipexole 1 mg tablet 1 mg PO QHS 08/04/18 tamsulosin 0.4 mg capsule 0.4 mg PO DAILY@1730 cap 08/04/18 Ergocalciferol [Vitamin D] 50,000 unit PO Q7D 08/19/18 Fenofibrate,Micronized 200 mg PO LUNCH 08/19/18 [Fenofibrate] Multivitamin [Multivitamins] 1 ea PO DAILY 08/19/18 Oxybutynin [Ditropan] 5 mg PO DAILY 08/19/18 Sertraline HCl [Zoloft] 50 mg PO DAILY 08/19/18 Acetaminophen [Tylenol] 650 mg PO Q6H PRN PRN 03/18/19 Ascorbic Acid [Vitamin C] 250 mg PO BID 03/18/19 Calcium (Elemental) [Os-Karlos 500] 1,250 mg PO DAILY@0800 03/18/19 Cholecalciferol (VIT D3) [Vitamin 2,000 units PO DAILY 03/18/19 D3] Docusate Sodium 100 mg PO BID 03/18/19 Ferrous Gluconate 324 mg PO BREAKFAST 03/18/19 Lactobacillus Acidophilus 1 ea PO BID 03/18/19 [Acidophilus Lactobacilli] Magnesium Hydroxide [Milk Of 30 ml PO DAILY PRN PRN 03/18/19 Magnesia] Magnesium Oxide 400 400 mg PO BREAKFAST 03/18/19 Oxycodone [Oxyir] 5 mg PO Q4H PRN PRN 03/18/19 Sennosides [Senna] 8.6 mg PO BID 03/18/19 Zinc Sulfate 220 mg PO DAILY 03/18/19 cycloBENZAPRine HCl [Flexeril] 5 mg PO Q8H PRN PRN 03/18/19 Surgical History: Surgical History (Last Updated 08/04/18 @ 14:22 by Maribell Tolliver) History of hemorrhoidectomy Z98.890 gallbladder removed S/P cholecystectomy Z90.49 Surgical History: cholecystectomy, pacemaker implantation, tonsillectomy, - - IVC filter, Multiple spine surgeries. Psychiatric History: Anxiety, Depression Lives: [facility]dc - Lives at [facility]. Smoking Status: Former smoker - 80 pack year history. Tobacco Use: Non-smoker Alcohol: None Drugs: None - *Family History Maternal Family History: Family History (Last Updated 08/04/18 @ 14:25 by Maribell Tolliver) Father Arthritis Cancer Brother Cancer Mother High cholesterol History Items: No pertinent history Paternal Family History: Family History (Last Updated 08/04/18 @ 14:25 by Maribell Tolliver) Father Arthritis Cancer Brother Cancer Mother High cholesterol History Items: No pertinent history Review of Systems Constitutional: Denies: Chills, Fever, Weight Change HEENT: Denies: Head Aches, Sinus Congestion, Sinus Drainage Cardiovascular: Denies: Chest Pain, Palpitations Respiratory: Denies: Cough, Shortness of breath at rest, Sputum production Gastrointestinal: Denies: Abdominal Pain, Nausea, Vomiting Genitourinary: Denies: Dysuria Musculoskeletal: Denies: Joint Pain, Joint Tenderness Skin: Denies: Rash, Wounds Neurological: Denies: Numbness, Tingling, Focal weakness Psychiatric: Denies: Anxiety, Depression, Homicidal Ideations, Suicidal Ideations Hematologic/ Lymphatic: Denies: Easy Bruising, Easy Bleeding VTE Information - Inpt Only VTE Present on Admission: No VTE Mechan Device Prophylaxis: Knee High DIANDRA Hose VTE Pharm Prophylaxis ordered?: No Reason prophylaxis not ordered:: Treatment Not Indicated Patient Problems: Active and Suspected Problems (Last Updated 08/04/18 @ 14:32 by Maribell Tolliver) Debility (Acute) Hardware failure (Acute) - Physical Exam General: Alert, Oriented x3, Cooperative HEENT: Atraumatic, PERRLA, EOMI, Normocephalic Neck: Supple, No JVD, Negative Carotid Bruits Lungs: Clear to auscultation, Normal air movement Cardiovascular: Regular rate, No murmurs Abdomen: Bowel Sounds Present, Soft, Non Tender Extremities: No edema, Capillary Refill Less than 3 Seconds Skin: No rashes, No breakdown, Incision - cervical thoracic spine clean, dry, intact. Drain in place superiorly. Musculoskeletal: No Tenderness to Palpation of Joints or Extremities, - - Back brace. Neurological: Cranial nerves II-XII grossly intact Psych/Mental Status: Normal Affect, Appropriate Vital Signs Temp Pulse Resp BP Pulse Ox 98.2 F 60 18 149/84 H 98 03/18/19 12:56 03/18/19 12:56 03/18/19 12:56 03/18/19 12:56 03/18/19 12:56 Oxygen Delivery Method Room Air Weight: 119.918 kg Body Mass Index (BMI) 44.6 Assessment/Plan All Active Problems (Last Updated 08/04/18 @ 14:32 by Maribell Tolliver) Debility (Acute) Hardware failure (Acute) History of DVT (deep vein thrombosis) (Acute) Sick sinus syndrome (Acute) Presence of cardiac pacemaker (Acute) 68 year old male with below past medical history hospitalized for removal of hardware with fusion 03/14/2019, admitted to TCU with debility, here for rehabilitation, strengthening, prior to discharge to [facility]. * Debility - PT/OT. * Pain - Tylenol 1000MG Q6H PRN mild pain, Oxycodone 5MG Q4H PRN moderate pain. * Bowel - Miralax 17GM daily, Senna/colace 2 tablets BID, Duloclax 10MG RI PRN. * Pneumonia vaccination - Administer Prevnar 13 and/or Pneumovax 23 as necessa ry. * DVT prophylaxis - Not necessary, already on Eliquis. * Atrial Fibrillation - Metoprolol 50MG twice daily, Flecainide 100MG BID, Eliquis 5MG BID. * Vitamin C deficiency - Vitamin C 250MG BID. * Depression - Bupropion 150MG twice daily. * Calcium deficiency - Calcium 1250MG daily. * Vitamin D deficiency - D3 2000IU daily. * Muscle spasm - Flexeril 5MG Q8H PRN. * Multiple Sclerosis - Dimethyl Fumarate 240MG BID. * Hypertriglyceridemia - Fenofibrate 200MG daily. * Iron deficiency anemia - Ferrous 324MG daily. * BPH - Finasteride 5MG daily, Tamsulosin 0.4MG daily. * GI prophylaxis - Lactobacillus 1 tablet BID. * Hypomagnesemia - Magnesium Oxide 400MG daily. * Nutrition - MVI daily. * GERD - Omeprazole 40MG daily. * OAB - Oxybutynin 5MG daily. * Hypokalemia - KCL 20MEQ daily. * Restless Leg syndrome - Mirapex 1MG QHS. * Hyperlipidemia - Pravastatin 10MG QHS. * Depression - Sertraline 50MG daily. * Zinc deficiency - Zinc 220MG daily.
[2019-03-18 15:40] VITALS: BP 141/60; PULSE 63; RESP 20; TEMP 36.8; O2SAT 98
--- NOTE | 2019-03-18 15:43 | CPS ---
Pt krystle I.S., says he works on one @home and will do deep breathing on his own once an hour w/a.
[2019-03-18] MEDS: Senna/Docusate Sodium 1 Tablet 2 TABLET PO (17:41)
[2019-03-18] MEDS: Ascorbic Acid 500 MG Tablet 250 MG PO (17:45)
[2019-03-18] MEDS: Flecainide 100 MG Tablet PO (17:46)
[2019-03-18 17:48] VITALS: BP 141/60; PULSE 63
[2019-03-18] MEDS: buPROPion (SR) 150 MG Tablet.SA PO (17:48)
[2019-03-18] MEDS: Metoprolol Tartrate 50 MG Tablet PO (17:48)
[2019-03-18] MEDS: Tamsulosin HCl 0.4 MG Capsule PO (17:49)
[2019-03-18] MEDS: Finasteride 5 MG Tablet PO (17:50)
[2019-03-18] MEDS: Pravastatin 20 MG Tablet 10 MG PO (20:47)
[2019-03-18] MEDS: Pramipexole Di-HCl 1 MG Tablet PO (20:47)
[2019-03-19] MEDS: Oxybutynin 5 MG Tablet PO (04:43)
[2019-03-19 04:44] VITALS: BP 158/73; PULSE 65
[2019-03-19] MEDS: Flecainide 100 MG Tablet PO ×2 (04:44→16:55)
[2019-03-19] MEDS: Metoprolol Tartrate 50 MG Tablet PO ×2 (04:44→16:54)
[2019-03-19] MEDS: buPROPion (SR) 150 MG Tablet.SA PO ×2 (04:45→16:55)
[2019-03-19] MEDS: Sertraline 50 MG Tablet PO (04:46)
[2019-03-19] MEDS: Ascorbic Acid 500 MG Tablet 250 MG PO ×2 (04:48→16:55)
[2019-03-19] MEDS: APIXABAN 5 MG TABLET PO ×2 (04:53→16:55)
[2019-03-19 06:44] LABS: Absolute Lymphocyte Count 0.44 X10^3/uL (0.83-4.51); Absolute Neutrophil Count 3.8 X10^3/uL (2.0-7.7); Basophil# 0.02 X10^3/uL; Basophil% 0.4 % (0-1); Eosinophil# 0.23 X10^3/uL; Eosinophils% 4.8 % (0-5); Hematocrit 27.4 % (40-54); Hemoglobin 8.7 g/dL (13.0-16.5); Lymphocyte # 0.44 X10^3/ul (4.0); Lymphocyte % 9.1 % (19-41); Mean Corp Hgb Conc 31.8 g/dL (32-36); Mean Corpuscular Hgb 29.9 pg (27.0-32.0); Mean Corpuscular Volume 94.2 fL (80-94); Mean Platelet Vol. 9.7 fl (6.2-12.0); Monocyte# 0.28 X10^3/uL; Monocyte% 5.8 % (0-10); NRBC Flagged by Analyzer 0 % (0-5); Neutrophil # 3.78 X10^3/uL (2.7-7.7); Neutrophil % 78.7 % (47-70); POSITIVE DIFFERENTIAL YES; Platelet Count 214 K/mm3 (150-450); RBC Distribution Width CV 15.6 % (11.6-14.6); RBC Distribution Width SD 53.1 fl (35.1-43.9); Red Blood Count 2.91 M/mm3 (4.6-6.2); White Blood Count 4.8 K/mm3 (4.4-11.0)
[2019-03-19 06:53] LABS: Differential Indicated SCAN CRITERIA MET
[2019-03-19 07:08] LABS: Anion Gap 7 (5-15); BUN 18 mg/dL (7-18); BUN/Creat Ratio 17.6 RATIO (10-20); Calcium,Total 9.4 mg/dL (8.5-10.1); Chloride 110 mmol/L (98-107); Creatinine, Serum 1.02 mg/dL (0.70-1.30); EST Glomerular Filtration Rate 77 mL/min (>60); Est Glom Filt Rate - Afr Amer 93 mL/min (>60); Estimated Creatinine Clearance 67.06 ml/min; Glucose 87 mg/dL (74-106); Potassium 4.4 mmol/L (3.5-5.1); Sodium Level 144 mmol/L (136-145)
[2019-03-19] MEDS: Multivitamins,Therapeutic Tablet 1 TABLET PO (07:49)
[2019-03-19] MEDS: Magnesium Oxide 400 MG Tablet PO (07:49)
[2019-03-19] MEDS: Ferrous Gluconate 324 MG Tablet PO (07:49)
[2019-03-19] MEDS: Calcium (Elemental) 500 MG Tablet 1250 MG PO (07:50)
[2019-03-19] MEDS: Tuberculin,Purif.prot.deriv. 50 TU/ML Vial 5 ML ID (11:42)
[2019-03-19] MEDS: Pantoprazole Sodium 40 MG Tablet PO (11:45)
[2019-03-19] MEDS: Fenofibrate 145 MG Tablet PO (11:46)
[2019-03-19 15:52] VITALS: BP 142/70; PULSE 64; RESP 18; TEMP 36.4; O2SAT 98
[2019-03-19] MEDS: Finasteride 5 MG Tablet PO (16:53)
[2019-03-19 16:54] VITALS: BP 142/70; PULSE 64
[2019-03-19] MEDS: DIMETHYL FUMARATE 240 MG CAPSULE.DR PO (20:43)
[2019-03-19] MEDS: Pravastatin 20 MG Tablet 10 MG PO (20:44)
[2019-03-19] MEDS: Pramipexole Di-HCl 1 MG Tablet PO (20:45)
[2019-03-19] MEDS: Tamsulosin HCl 0.4 MG Capsule PO (20:46)
[2019-03-20] MEDS: Sertraline 50 MG Tablet PO (06:08)
[2019-03-20] MEDS: Oxybutynin 5 MG Tablet PO (06:08)
[2019-03-20] MEDS: Flecainide 100 MG Tablet PO ×2 (06:08→16:51)
[2019-03-20 06:09] VITALS: BP 136/69; PULSE 60
[2019-03-20] MEDS: Metoprolol Tartrate 50 MG Tablet PO ×2 (06:09→16:51)
[2019-03-20] MEDS: Ascorbic Acid 500 MG Tablet 250 MG PO ×2 (06:09→16:51)
[2019-03-20] MEDS: APIXABAN 5 MG TABLET PO ×2 (06:10→16:53)
[2019-03-20] MEDS: buPROPion (SR) 150 MG Tablet.SA PO ×2 (06:10→16:51)
[2019-03-20] MEDS: DIMETHYL FUMARATE 240 MG CAPSULE.DR PO ×2 (07:40→20:58)
[2019-03-20] MEDS: Magnesium Oxide 400 MG Tablet PO (07:40)
[2019-03-20] MEDS: Calcium (Elemental) 500 MG Tablet 1250 MG PO (07:40)
[2019-03-20] MEDS: Iron Polysaccharide Complex 150 MG CAPSULE PO (07:40)
[2019-03-20] MEDS: Finasteride 5 MG Tablet PO (07:40)
[2019-03-20] MEDS: Multivitamins,Therapeutic Tablet 1 TABLET PO (07:40)
[2019-03-20] MEDS: Fenofibrate 145 MG Tablet PO (11:42)
[2019-03-20] MEDS: Pantoprazole Sodium 40 MG Tablet PO (11:42)
[2019-03-20 16:00] VITALS: BP 135/71; PULSE 61; RESP 18; TEMP 37.2; O2SAT 95
[2019-03-20 16:51] VITALS: BP 135/71; PULSE 64
[2019-03-20] MEDS: Pramipexole Di-HCl 1 MG Tablet PO (20:59)
[2019-03-20] MEDS: Pravastatin 20 MG Tablet 10 MG PO (21:00)
[2019-03-20] MEDS: Tamsulosin HCl 0.4 MG Capsule PO (21:03)
[2019-03-21 05:12] VITALS: BP 142/78; PULSE 60
[2019-03-21] MEDS: Sertraline 50 MG Tablet PO (05:12)
[2019-03-21] MEDS: Metoprolol Tartrate 50 MG Tablet PO ×2 (05:12→17:44)
[2019-03-21] MEDS: buPROPion (SR) 150 MG Tablet.SA PO ×2 (05:12→17:43)
[2019-03-21] MEDS: Oxybutynin 5 MG Tablet PO (05:13)
[2019-03-21] MEDS: APIXABAN 5 MG TABLET PO ×2 (05:13→17:43)
[2019-03-21] MEDS: Ascorbic Acid 500 MG Tablet 250 MG PO ×2 (05:13→17:43)
[2019-03-21] MEDS: Flecainide 100 MG Tablet PO ×2 (05:14→17:45)
--- NOTE | 2019-03-21 08:46 | CASEMGMT ---
Insurance: Continued stay review sent through [employer] secure email this day. Auth # [id number].
[2019-03-21] MEDS: DIMETHYL FUMARATE 240 MG CAPSULE.DR PO ×2 (09:45→20:01)
[2019-03-21] MEDS: Magnesium Oxide 400 MG Tablet PO (09:46)
[2019-03-21] MEDS: Finasteride 5 MG Tablet PO (09:46)
[2019-03-21] MEDS: Multivitamins,Therapeutic Tablet 1 TABLET PO (09:46)
[2019-03-21] MEDS: Calcium (Elemental) 500 MG Tablet 1250 MG PO (09:47)
[2019-03-21] MEDS: Iron Polysaccharide Complex 150 MG CAPSULE PO (09:47)
[2019-03-21] MEDS: Pantoprazole Sodium 40 MG Tablet PO (11:26)
[2019-03-21] MEDS: Fenofibrate 145 MG Tablet PO (11:26)
--- NOTE | 2019-03-21 15:35 | PHA.CONS_ITS ---
<FayeGalina M - Last Filed: 03/21/19 15:35> Progress Note - Pharmacy Subjective: TCU Admission Objective: Allergies No Known Allergies Allergy (Verified 08/04/18 14:27) Current Medications Generic Name Dose Route Start Last Admin Trade Name Freq PRN Reason Stop Dose Admin Acetaminophen 1,000 mg 03/18/19 15:56 Tylenol PO Q6H PRN PRN MILD PAIN (1-3/10) Apixaban 5 mg 03/19/19 06:00 03/21/19 05:13 Eliquis PO 5 mg BID ARI Administration Ascorbic Acid 250 mg 03/18/19 18:00 03/21/19 05:13 Vitamin C PO 250 mg BID ARI Administration Bisacodyl 10 mg 03/18/19 15:22 Dulcolax RECTAL DAILY PRN PRN Constipation Bupropion HCl 150 mg 03/18/19 18:00 03/21/19 05:12 Wellbutrin Sr (150mg Tablets) PO 150 mg BID ARI Administration Calcium Carbonate 1,250 mg 03/19/19 08:00 03/21/19 09:47 Os-Karlos 500 PO 1,250 mg DAILY@0800 ARI Administration Cholecalciferol 2,000 unit 03/19/19 06:00 03/21/19 05:13 Vitamin D PO 2,000 unit DAILY ARI Administration Cyclobenzaprine HCl 5 mg 03/18/19 15:23 Flexeril PO Q8H PRN PRN muscle spasms Dimethyl Fumarate 240 mg 03/19/19 20:00 03/21/19 09:45 Tecfidera PO 240 mg 08,1999 ARI Administration Fenofibrate 145 mg 03/19/19 12:00 03/21/19 11:26 Tricor PO 145 mg LUNCH ARI Administration Finasteride 5 mg 03/20/19 08:00 03/21/19 09:46 Proscar PO 5 mg BREAKFAST ARI Administration Flecainide Acetate 100 mg 03/18/19 18:00 03/21/19 05:14 Tambocor PO 100 mg BID ARI Administration Lactobacillus Acidophilus 1 tablet 03/18/19 18:00 03/21/19 05:14 Acidophilus PO 1 tablet BID ARI Administration Magnesium Oxide 400 mg 03/19/19 08:00 03/21/19 09:46 Mag-Ox 400 PO 400 mg BREAKFAST ARI Administration Metoprolol Tartrate 50 mg 03/18/19 18:00 03/21/19 05:12 Lopressor (Beta Rakesh) PO 50 mg BID ARI Administration Multivitamins 1 tablet 03/19/19 08:00 03/21/19 09:46 Multivitamin PO 1 tablet DAILY@0800 ARI Administration Oxybutynin Chloride 5 mg 03/19/19 06:00 03/21/19 05:13 Ditropan PO 5 mg DAILY ARI Administration Oxycodone HCl 5 mg 03/18/19 15:56 Oxyir PO Q4H PRN PRN MODERATE PAIN (4-5/10) Pantoprazole Sodium 40 mg 03/19/19 12:00 03/21/19 11:26 Protonix PO 40 mg LUNCH [facility] Administration Polyethylene Glycol 17 gm 03/19/19 06:00 03/21/19 05:13 Miralax PO Not Given DAILY ARI Polysaccharide Iron Complex 150 mg 03/20/19 08:00 03/21/19 09:47 Ferrex 150 PO 150 mg DAILYCM [facility] Administration Potassium Chloride 20 meq 03/19/19 08:00 03/21/19 09:47 K-Dur PO 20 meq BREAKFAST [facility] Administration Pramipexole Dihydrochloride 1 mg 03/18/19 22:00 03/20/19 20:59 Mirapex PO 1 mg QHS ARI Administration Pravastatin Sodium 10 mg 03/18/19 22:00 03/20/19 21:00 Pravachol PO 10 mg QHS ARI Administration Senna/Docusate Sodium 2 tablet 03/18/19 18:00 03/21/19 05:13 Senokot-S, Geraldine-Colace PO Not Given BID [facility] Sertraline HCl 50 mg 03/19/19 06:00 03/21/19 05:12 Zoloft PO 50 mg DAILY ARI Administration Tamsulosin HCl 0.4 mg 03/19/19 20:00 03/20/19 21:03 Flomax PO 0.4 mg DAILY@1999 [facility] Administration Tuberculin PPD 5 tu 03/26/19 10:00 Tubersol, Aplisol, Ppd ID 03/26/19 10:01 X1 ONE Zinc Sulfate 220 mg 03/19/19 06:00 03/21/19 05:13 Zinc Sulfate PO 220 mg DAILY ARI Administration Problem List (Last Updated 08/04/18 @ 14:32 by Maribell Tolliver) Debility (Acute) Scoliosis (Chronic) Hypokalemia (Chronic) Hyperlipidemia (Chronic) Iron deficiency anemia (Chronic) Restless leg syndrome (Chronic) Muscle spasm (Chronic) Vitamin D deficiency (Chronic) Overactive bladder (Chronic) Hardware failure (Acute) Vital Signs Temp Pulse Resp BP Pulse Ox 99.0 F 60 18 142/78 H 95 03/20/19 16:00 03/21/19 05:12 03/20/19 16:00 03/21/19 05:12 03/20/19 16:00 Oxygen Delivery Method Room Air Weight: 120.021 kg Body Mass Index (BMI) 40.2 Sodium 144 mmol/L (136-145) 03/19/19 06:23 Potassium 4.4 mmol/L (3.5-5.1) 03/19/19 06:23 Chloride 110 mmol/L (98-107) H 03/19/19 06:23 Carbon Dioxide 27.0 mmol/L (21.0-32.0) 03/19/19 06:23 Anion Gap 7 (5-15) 03/19/19 06:23 BUN 18 mg/dL (7-18) 03/19/19 06:23 Creatinine 1.02 mg/dL (0.70-1.30) 03/19/19 06:23 Est GFR (MDRD) Af Amer 93 mL/min (>60) 03/19/19 06:23 Est GFR (MDRD) Non-Af 77 mL/min (>60) 03/19/19 06:23 BUN/Creatinine Ratio 17.6 RATIO (10-20) 03/19/19 06:23 Glucose 87 mg/dL (74-106) 03/19/19 06:23 Assessment/Plan: 1. Pain: Tylenol 1000mg PO Q6h PRN Mild Pain (1-3/10), Oxycodone 5mg PO Q4h PRN Moderate pain (4-5/10). Please continue to monitor for increased/decreased signs and symptoms of pain 2. Atrial Fibrillation: Eliquis 5mg PO BID, Flecainide 100mg PO BID, Metoprolol tartrate 50mg PO BID. Please continue to monitor for signs/symptoms of bleeding, blood pressure, heart rate and cardiac rhythm 3. Muscle Spasm: Flexeril 5mg PO Q8h PRN. Please continue to monitor for increased/decreased PRN use 4. Multiple Sclerosis: Dimethyl Fumarate: 240mg PO BID. Please continue to monitor for progression of disease, LFTs 5. BPH: Finasteride 5mg PO daily, Flomax 0.4mg PO daily. Please continue to monitor for increased/decreased BPH symptoms 6. OAB: Ditropan 5mg PO Daily. Beer's list drug, please consider behavioral alternatives. Pt already on medication for BPH, which is another alternative, please continue to monitor *7. Hyperlipidemia/Hypertriglyceridemia: Pravastatin 10mg PO QHS, Fenofibrate 145mg PO daily. No lipid panel in [facility], if labs not done at another facility, please consider ordering a lipid panel to assess dosing/patient need. 8. Restless Leg Syndrome: Mirapex 1mg PO QHS. Please continue to monitor for increased or decreased signs/symptoms 9. GERD: Protonix 40mg PO Daily. Please continue to monitor for increased or decreased GERD symptoms 10. Hypokalemia: KCl 20mEq PO Daily. Last K =4.4 03/19/19. Please continue to monitor electrolytes as clinically appropriate. *11. Iron Deficiency Anemia: Ferrex 150mg PO daily. No iron studies reported in [facility]. If labs not done at another facility, please consider ordering iron studies to assess dosing/patient need. 12. General Wellness: MVI 1T PO daily, Mag-Ox 400mg PO daily, Zinc 220mg PO daily, Cholecalciferol 2000 units PO daily, Lactobacillus acidophilus 1T PO BID, Os-Karlos 1T PO daily, ascorbic acid 250mg PO BID. Please continue to monitor Psychotropic Medications: *1. Depression: Wellbutrin SR: 150mg PO BID, Sertraline 50mg PO daily. Please consider a GDR by 09/2019 if clinically indicated/appropriate Unnecessary Medications: None Bowel Regimen: Miralax 17g PO Daily, Senna/Docusate 2T PO BID, Bisacodyl 10mg Rectal Daily PRN. Please continue to monitor for increased/decreased bowel movements or diarrhea Date of Note:: 03/21/19 - Provider Comments Provider responsibility: Provider responsible to enter orders to implement recommendations <Dallin Ridley Chi - Last Filed: 03/21/19 17:26> Progress Note - Pharmacy Subjective: [] Objective: Allergies No Known Allergies Allergy (Verified 08/04/18 14:27) Current Medications Generic Name Dose Route Start Last Admin Trade Name Freq PRN Reason Stop Dose Admin Acetaminophen 1,000 mg 03/18/19 15:56 Tylenol PO Q6H PRN PRN MILD PAIN (1-3/10) Apixaban 5 mg 03/19/19 06:00 03/21/19 05:13 Eliquis PO 5 mg BID ARI Administration Ascorbic Acid 250 mg 03/18/19 18:00 03/21/19 05:13 Vitamin C PO 250 mg BID ARI Administration Bisacodyl 10 mg 03/18/19 15:22 Dulcolax RECTAL DAILY PRN PRN Constipation Bupropion HCl 150 mg 03/18/19 18:00 03/21/19 05:12 Wellbutrin Sr (150mg Tablets) PO 150 mg BID ARI Administration Calcium Carbonate 1,250 mg 03/19/19 08:00 03/21/19 09:47 Os-Karlos 500 PO 1,250 mg DAILY@0800 ARI Administration Cholecalciferol 2,000 unit 03/19/19 06:00 03/21/19 05:13 Vitamin D PO 2,000 unit DAILY ARI Administration Cyclobenzaprine HCl 5 mg 03/18/19 15:23 Flexeril PO Q8H PRN PRN muscle spasms Dimethyl Fumarate 240 mg 03/19/19 20:00 03/21/19 09:45 Tecfidera PO 240 mg ARI Administration Fenofibrate 145 mg 03/19/19 12:00 03/21/19 11:26 Tricor PO 145 mg LUNCH ARI Administration Finasteride 5 mg 03/20/19 08:00 03/21/19 09:46 Proscar PO 5 mg BREAKFAST [facility] Administration Flecainide Acetate 100 mg 03/18/19 18:00 03/21/19 05:14 Tambocor PO 100 mg BID ARI Administration Lactobacillus Acidophilus 1 tablet 03/18/19 18:00 03/21/19 05:14 Acidophilus PO 1 tablet BID ARI Administration Magnesium Oxide 400 mg 03/19/19 08:00 03/21/19 09:46 Mag-Ox 400 PO 400 mg BREAKFAST ARI Administration Metoprolol Tartrate 50 mg 03/18/19 18:00 03/21/19 05:12 Lopressor (Beta Rakesh) PO 50 mg BID ARI Administration Multivitamins 1 tablet 03/19/19 08:00 03/21/19 09:46 Multivitamin PO 1 tablet DAILY@0800 [facility] Administration Oxybutynin Chloride 5 mg 03/19/19 06:00 03/21/19 05:13 Ditropan PO 5 mg DAILY ARI Administration Oxycodone HCl 5 mg 03/18/19 15:56 Oxyir PO Q4H PRN PRN MODERATE PAIN (4-5/10) Pantoprazole Sodium 40 mg 03/19/19 12:00 03/21/19 11:26 Protonix PO 40 mg LUNCH ARI Administration Polyethylene Glycol 17 gm 03/19/19 06:00 03/21/19 05:13 Miralax PO Not Given DAILY [facility] Polysaccharide Iron Complex 150 mg 03/20/19 08:00 03/21/19 09:47 Ferrex 150 PO 150 mg DAILYCM [facility] Administration Potassium Chloride 20 meq 03/19/19 08:00 03/21/19 09:47 K-Dur PO 20 meq BREAKFAST [facility] Administration Pramipexole Dihydrochloride 1 mg 03/18/19 22:00 03/20/19 20:59 Mirapex PO 1 mg QHS ARI Administration Pravastatin Sodium 10 mg 03/18/19 22:00 03/20/19 21:00 Pravachol PO 10 mg QHS [facility] Administration Senna/Docusate Sodium 2 tablet 03/18/19 18:00 03/21/19 05:13 Senokot-S, Geraldine-Colace PO Not Given BID [facility] Sertraline HCl 50 mg 03/19/19 06:00 03/21/19 05:12 Zoloft PO 50 mg DAILY [facility] Administration Tamsulosin HCl 0.4 mg 03/19/19 20:00 03/20/19 21:03 Flomax PO 0.4 mg DAILY@2000 [facility] Administration Tuberculin PPD 5 tu 03/26/19 10:00 Tubersol, Aplisol, Ppd ID 03/26/19 10:01 X1 ONE Zinc Sulfate 220 mg 03/19/19 06:00 03/21/19 05:13 Zinc Sulfate PO 220 mg DAILY ARI Administration Problem List (Last Updated 08/04/18 @ 14:32 by Maribell Tolliver) Debility (Acute) Scoliosis (Chronic) Hypokalemia (Chronic) Hyperlipidemia (Chronic) Iron deficiency anemia (Chronic) Restless leg syndrome (Chronic) Muscle spasm (Chronic) Vitamin D deficiency (Chronic) Overactive bladder (Chronic) Hardware failure (Acute) Vital Signs Temp Pulse Resp BP Pulse Ox 98.5 F 60 18 137/64 H 94 03/21/19 16:00 03/21/19 16:00 03/21/19 16:00 03/21/19 16:00 03/21/19 16:00 Oxygen Delivery Method Room Air Weight: 120.021 kg Body Mass Index (BMI) 40.2 Sodium 144 mmol/L (136-145) 03/19/19 06:23 Potassium 4.4 mmol/L (3.5-5.1) 03/19/19 06:23 Chloride 110 mmol/L (98-107) H 03/19/19 06:23 Carbon Dioxide 27.0 mmol/L (21.0-32.0) 03/19/19 06:23 Anion Gap 7 (5-15) 03/19/19 06:23 BUN 18 mg/dL (7-18) 03/19/19 06:23 Creatinine 1.02 mg/dL (0.70-1.30) 03/19/19 06:23 Est GFR (MDRD) Af Amer 93 mL/min (>60) 03/19/19 06:23 Est GFR (MDRD) Non-Af 77 mL/min (>60) 03/19/19 06:23 BUN/Creatinine Ratio 17.6 RATIO (10-20) 03/19/19 06:23 Glucose 87 mg/dL (74-106) 03/19/19 06:23 Assessment/Plan: Psychotropic Medications: Unnecessary Medications: Bowel Regimen: - Provider Comments Provider responsibility: Provider responsible to enter orders to implement recommendations Provider Comments to Recommendations by Pharmacy: Agree
--- NOTE | 2019-03-21 15:42 | CASEMGMT ---
Social Work Patient was issued LCD 03/23 by insurance. DC 03/24. Spoke with patient - he is agreeable. Pt has drs. perez in [place] that day and will discharge prior to appt. He will return to [facility]. Pt requested [facility] PT/OT as well. NO DME needs. Referral made. Plan: [place] 03/24 back to [facility] with [facility] PT/OT. Sonja Quintanilla, [employer]
[2019-03-21 16:00] VITALS: BP 137/64; PULSE 60; RESP 18; TEMP 36.9; O2SAT 94
[2019-03-21 17:44] VITALS: BP 137/64; PULSE 60
[2019-03-21] MEDS: Tamsulosin HCl 0.4 MG Capsule PO (20:01)
[2019-03-21] MEDS: Pramipexole Di-HCl 1 MG Tablet PO (20:02)
[2019-03-21] MEDS: Pravastatin 20 MG Tablet 10 MG PO (20:02)
--- NOTE | 2019-03-21 20:21 | DCINST_ITS ---
- Discharge Diagnoses Current Active Problems: Current Active and Chronic Problems (Last Updated 08/04/18 @ 14:32 by Maribell Tolliver) Debility (Acute) Scoliosis (Chronic) Hypokalemia (Chronic) Hyperlipidemia (Chronic) Iron deficiency anemia (Chronic) Restless leg syndrome (Chronic) Muscle spasm (Chronic) Vitamin D deficiency (Chronic) Overactive bladder (Chronic) Hardware failure (Acute) You will use the following diet at home:: No restrictions, Regular Your food should be the consistency of: Regular Your liquids should be the consistency of: Regular/Thin Discharge Activity: Return to Normal Activity, May Shower, Use Walker Weight Bearing Status: Weight bearing as tolerated Call your doctor if you observe: Fever of 101 or Higher, Inability to urinate, Inability to have a bowel movement, Shortness of breath, Chest pain, Uncontrolled pain Allergies/Adverse Reactions: Allergies No Known Allergies Allergy (Verified 08/04/18 14:27) Medications to take at Discharge Apixaban [Eliquis] 5 mg PO BID 06/10/17 Bupropion HCl [Zyban] 150 mg PO BID 06/10/17 Finasteride [Proscar] 5 mg PO DINNER 06/10/17 Flecainide [Tambocor] 100 mg PO BID 06/10/17 Metoprolol Tartrate [Lopressor (beta modesto)] 50 mg PO BID 06/10/17 Omeprazole 40 mg PO LUNCH 06/10/17 Potassium Chloride [Klor-Con M20] 20 meq PO BREAKFAST 06/10/17 Pravastatin Sodium [Pravachol] 10 mg PO QHS 06/10/17 dimethyl fumarate 240 mg capsule,delayed release 240 mg PO BID 08/04/18 pramipexole 1 mg tablet 1 mg PO QHS 08/04/18 tamsulosin 0.4 mg capsule 0.4 mg PO DAILY@1730 cap 08/04/18 Fenofibrate,Micronized [Fenofibrate] 200 mg PO LUNCH 08/19/18 Multivitamin [Multivitamins] 1 ea PO DAILY 08/19/18 Oxybutynin [Ditropan] 5 mg PO DAILY 08/19/18 Sertraline HCl [Zoloft] 50 mg PO DAILY 08/19/18 Ascorbic Acid [Vitamin C] 250 mg PO BID 03/18/19 Calcium (Elemental) [Os-Karlos 500] 1,250 mg PO DAILY@0800 09/13/19 Cholecalciferol (VIT D3) [Vitamin D3] 2,000 units PO DAILY 03/18/19 Lactobacillus Acidophilus [Acidophilus Lactobacilli] 1 ea PO BID 03/18/19 cycloBENZAPRine HCl [Flexeril] 5 mg PO Q8H PRN PRN 03/18/19 Acetaminophen [Tylenol] 1,000 mg PO Q6H PRN PRN tablet 03/21/19 Iron Polysaccharide Complex [Ferrex 150] 150 mg PO DAILYCM #30 cap 03/21/19 Magnesium Oxide 400 400 mg PO BREAKFAST #30 03/21/19 Polyethylene Glycol 3350 [Miralax] 17 gm PO DAILY packet 03/21/19 Zinc Sulfate 220 mg PO DAILY #30 tab 03/21/19 The following prescriptions were given: Iron Polysaccharide Complex [Ferrex 150] 150 mg PO DAILYCM #30 cap Transmission Status: [id number] Magnesium Oxide 400 400 mg PO BREAKFAST #30 Zinc Sulfate 220 mg PO DAILY #30 tab Transmission Status: [id number] Primary Care Physician: Elmer Castellanos MD [Primary Care Provider] - Please follow up with your Primary Care Physician in: 1 week. Test Results: Test results from this visit will be discussed in further detail at your follow- up appointment, if applicable. Please Follow Up With: Heidy Weber PA-C When: 2 weeks. Please Follow Up With: Dr. Yamel Humphrey When: 2 weeks. Please Follow Up With: Dr. Jefefry Castellanos MD Proposed Discharge Date: 03/24/19
--- NOTE | 2019-03-21 20:23 | PCM.DC.SUM ---
Discharge Date and Diagnosis - Problem List Patient Problems: Active and Suspected Problems (Last Updated 08/04/18 @ 14:32 by Maribell Tolliver) Debility (Acute) Hardware failure (Acute) Date of Admission: 03/18/19 Date of Discharge: 03/24/19 - Primary Discharge Diagnosis Active and Suspected Problems (Last Updated 08/04/18 @ 14:32 by Maribell Tolliver) Debility (Acute) Hardware failure (Acute) - Secondary Discharge Diagnosis Chronic Problems (Last Updated 08/04/18 @ 14:32 by Maribell Tolliver) Anemia (Chronic) Osteoarthritis (Chronic) Atrial fibrillation (Chronic) BPH (benign prostatic hyperplasia) (Chronic) DVT (deep venous thrombosis) (Chronic) GERD (gastroesophageal reflux disease) (Chronic) Hemorrhoids (Chronic) Multiple sclerosis (Chronic) Obstructive sleep apnea (Chronic) Scoliosis (Chronic) Hypokalemia (Chronic) Hyperlipidemia (Chronic) Iron deficiency anemia (Chronic) Restless leg syndrome (Chronic) Muscle spasm (Chronic) Vitamin D deficiency (Chronic) Overactive bladder (Chronic) Hospital Course and Treatment Imaging Results: 03/18/19 13:10 Diet: Regular Diet Operations: None Procedures: None Summary of Care Provided: The patient is a 68 year old Male with below past medical history hospitalized for removal of hardware with fusion cervical spine 03/14/2019, admitted to TCU with debility, here for rehabilitation, strengthening, prior to discharge to [facility]. [] Discharge to [facility], with [facility] for PT/OT. Patient Problems: Active and Suspected Problems (Last Updated 08/04/18 @ 14:32 by Maribell Tolliver) Debility (Acute) Hardware failure (Acute) - Physical Exam Vital Signs Temp Pulse Resp BP Pulse Ox 98.5 F 60 18 137/64 H 94 03/21/19 16:00 03/21/19 17:44 03/21/19 16:00 03/21/19 17:44 03/21/19 16:00 Oxygen Delivery Method Room Air Weight: 120.021 kg Body Mass Index (BMI) 40.2 Intake and Output for Last 24 Hours 03/19/19 03/20/19 03/21/19 23:59 23:59 23:59 Intake Total 720 / 720 470 / 470 480 / 480 Output Total 70 / 70 90 / 90 25 / 25 Balance 650 / 650 380 / 380 455 / 455 Discharge Diet: No Restrictions Discharge Activity: Return to Normal Activity, May Shower, Use Walker Weight Bearing Status: Weight bearing as tolerated Call your doctor if you observe: Fever of 101 or Higher, Inability to urinate, Inability to have a bowel movement, Shortness of breath, Chest pain, Uncontrolled pain Home Medications: Medications to take at Discharge Apixaban [Eliquis] 5 mg PO BID 06/10/17 Bupropion HCl [Zyban] 150 mg PO BID 06/10/17 Finasteride [Proscar] 5 mg PO DINNER 06/10/17 Flecainide [Tambocor] 100 mg PO BID 06/10/17 Metoprolol Tartrate [Lopressor (beta modesto)] 50 mg PO BID 06/10/17 Omeprazole 40 mg PO LUNCH 06/10/17 Potassium Chloride [Klor-Con M20] 20 meq PO BREAKFAST 06/10/17 Pravastatin Sodium [Pravachol] 10 mg PO QHS 06/10/17 dimethyl fumarate 240 mg capsule,delayed release 240 mg PO BID 08/04/18 pramipexole 1 mg tablet 1 mg PO QHS 08/04/18 tamsulosin 0.4 mg capsule 0.4 mg PO DAILY@1730 cap 08/04/18 Fenofibrate,Micronized [Fenofibrate] 200 mg PO LUNCH 08/19/18 Multivitamin [Multivitamins] 1 ea PO DAILY 08/19/18 Oxybutynin [Ditropan] 5 mg PO DAILY 08/19/18 Sertraline HCl [Zoloft] 50 mg PO DAILY 08/19/18 Ascorbic Acid [Vitamin C] 250 mg PO BID 03/18/19 Calcium (Elemental) [Os-Karlos 500] 1,250 mg PO DAILY@0800 03/18/19 Cholecalciferol (VIT D3) [Vitamin D3] 2,000 units PO DAILY 03/18/19 Lactobacillus Acidophilus [Acidophilus Lactobacilli] 1 ea PO BID 03/18/19 cycloBENZAPRine HCl [Flexeril] 5 mg PO Q8H PRN PRN 03/18/19 Acetaminophen [Tylenol] 1,000 mg PO Q6H PRN PRN tablet 03/21/19 Iron Polysaccharide Complex [Ferrex 150] 150 mg PO DAILYCM #30 cap 09/16/19 Magnesium Oxide 400 400 mg PO BREAKFAST #30 03/21/19 Polyethylene Glycol 3350 [Miralax] 17 gm PO DAILY packet 03/21/19 Zinc Sulfate 220 mg PO DAILY #30 tab 03/21/19 Following Prescrptions Were Given to Patient: Iron Polysaccharide Complex [Ferrex 150] 150 mg PO DAILYCM #30 cap Transmission Status: [id number] Magnesium Oxide 400 400 mg PO BREAKFAST #30 Zinc Sulfate 220 mg PO DAILY #30 tab Transmission Status: [id number] Primary Care Physician: Elmer Castellanos MD [Primary Care Provider] - Please follow up with your Primary Care Physician in: 1 week. Please Follow Up With: Heidy Weber PA-C When: 2 weeks. Please Follow Up With: Dr. Yamel Humphrey When: 2 weeks. Please Follow Up With: Dr. Jeffery Castellanos MD Disposition: Asstd Living/Non-Skill [facility] Minutes spent on discharge:: 30 Patient Condition:: Stable Medical Necessity - Tobacco Use Smoking Status: Former smoker - 80 pack year history. Tobacco Use: Non-smoker Meaningful Use Info Meaningful Use Diagnoses (Choose all that apply): None applicable
--- NOTE | 2019-03-21 20:25 | HHNOTE_ITS ---
Home Health Note - Plan Overview of reason of hospitalization: The patient is a 68 year old Male with below past medical history hospitalized for removal of hardware with fusion cervical spine 03/14/2019, admitted to TCU with debility, here for rehabilitation, strengthening, prior to discharge to [facility]. [] Discharge to [facility], with [facility] for PT/OT. Problems: Patient was seen for (Last Updated 08/04/18 @ 14:32 by Maribell Tolliver) Debility (Acute) Scoliosis (Chronic) Hypokalemia (Chronic) Hyperlipidemia (Chronic) Iron deficiency anemia (Chronic) Restless leg syndrome (Chronic) Muscle spasm (Chronic) Vitamin D deficiency (Chronic) Overactive bladder (Chronic) Hardware failure (Acute) Complete List of Medical Problems (Last Updated 08/04/18 @ 14:32 by Maribell Tolliver) Anemia (Chronic) Osteoarthritis (Chronic) Atrial fibrillation (Chronic) BPH (benign prostatic hyperplasia) (Chronic) DVT (deep venous thrombosis) (Chronic) GERD (gastroesophageal reflux disease) (Chronic) Hemorrhoids (Chronic) Multiple sclerosis (Chronic) Obstructive sleep apnea (Chronic) Debility (Acute) Scoliosis (Chronic) Hypokalemia (Chronic) Hyperlipidemia (Chronic) Iron deficiency anemia (Chronic) Restless leg syndrome (Chronic) Muscle spasm (Chronic) Vitamin D deficiency (Chronic) Overactive bladder (Chronic) Hardware failure (Acute) History of DVT (deep vein thrombosis) (Acute) Sick sinus syndrome (Acute) Presence of cardiac pacemaker (Acute) - Requirements and Reasons Disciplines Needed/Ordered: Physical Therapy Reason for Disciplines: Teaching of Injections, Gait Training, Stair Training, Fall Prevention, Home Safety/Equipment Instruction, Balance and/or Posture Training, Transfer Training Related To: Limited/Poor Endurance, Physical Impairments, Unsteady Gait/Balance, Fall Risk Patient is unable to leave the home: Without Aid of Supportive Devices (crutches, cane, wheelchair, walker), Without the assistance of another person - Additional Disciplines Additional Disciplines Needed/Ordered: Occupational Therapy
[2019-03-22] MEDS: Flecainide 100 MG Tablet PO ×2 (05:05→17:06)
[2019-03-22] MEDS: Ascorbic Acid 500 MG Tablet 250 MG PO ×2 (05:05→17:06)
[2019-03-22] MEDS: Oxybutynin 5 MG Tablet PO (05:05)
[2019-03-22] MEDS: APIXABAN 5 MG TABLET PO ×2 (05:05→17:04)
[2019-03-22] MEDS: Sertraline 50 MG Tablet PO (05:06)
[2019-03-22] MEDS: buPROPion (SR) 150 MG Tablet.SA PO ×2 (05:06→17:06)
[2019-03-22 05:07] VITALS: BP 129/65; PULSE 60
[2019-03-22] MEDS: Metoprolol Tartrate 50 MG Tablet PO ×2 (05:07→17:05)
[2019-03-22] MEDS: Calcium (Elemental) 500 MG Tablet 1250 MG PO (08:49)
[2019-03-22] MEDS: Iron Polysaccharide Complex 150 MG CAPSULE PO (08:49)
[2019-03-22] MEDS: Magnesium Oxide 400 MG Tablet PO (08:50)
[2019-03-22] MEDS: Multivitamins,Therapeutic Tablet 1 TABLET PO (08:50)
[2019-03-22] MEDS: DIMETHYL FUMARATE 240 MG CAPSULE.DR PO ×2 (08:50→21:38)
[2019-03-22] MEDS: Finasteride 5 MG Tablet PO (08:50)
[2019-03-22] MEDS: Pantoprazole Sodium 40 MG Tablet PO (11:55)
[2019-03-22] MEDS: Fenofibrate 145 MG Tablet PO (11:55)
[2019-03-22 15:22] VITALS: BP 141/70; PULSE 60; RESP 18; TEMP 36.8; O2SAT 98
[2019-03-22 17:05] VITALS: PULSE 60
[2019-03-22] MEDS: Tamsulosin HCl 0.4 MG Capsule PO (21:38)
[2019-03-22] MEDS: Pramipexole Di-HCl 1 MG Tablet PO (21:38)
[2019-03-22] MEDS: Pravastatin 20 MG Tablet 10 MG PO (21:38)
[2019-03-23 05:47] VITALS: BP 162/76; PULSE 67
[2019-03-23] MEDS: Flecainide 100 MG Tablet PO ×2 (05:47→17:40)
[2019-03-23] MEDS: buPROPion (SR) 150 MG Tablet.SA PO ×2 (05:47→17:40)
[2019-03-23] MEDS: APIXABAN 5 MG TABLET PO ×2 (05:47→17:40)
[2019-03-23] MEDS: Oxybutynin 5 MG Tablet PO (05:47)
[2019-03-23] MEDS: Metoprolol Tartrate 50 MG Tablet PO ×2 (05:47→17:39)
[2019-03-23] MEDS: Ascorbic Acid 500 MG Tablet 250 MG PO ×2 (05:47→17:38)
[2019-03-23] MEDS: Sertraline 50 MG Tablet PO (05:48)
[2019-03-23] MEDS: DIMETHYL FUMARATE 240 MG CAPSULE.DR PO ×2 (07:48→20:46)
[2019-03-23] MEDS: Calcium (Elemental) 500 MG Tablet 1250 MG PO (07:48)
[2019-03-23] MEDS: Multivitamins,Therapeutic Tablet 1 TABLET PO (07:48)
[2019-03-23] MEDS: Iron Polysaccharide Complex 150 MG CAPSULE PO (07:48)
[2019-03-23] MEDS: Magnesium Oxide 400 MG Tablet PO (07:49)
[2019-03-23] MEDS: Finasteride 5 MG Tablet PO (07:49)
--- NOTE | 2019-03-23 09:59 | CASEMGMT ---
Social Work IDT met with patient for care plan meeting. Pt is mod I for ADLs, walking 200 ft with FWW, some assistance needed for LE dressing d/t neck brace. Pt will return home to [facility] with [facility] to evaluate if he has further needs. DC home 03/24. JUSTIN BarnesW
[2019-03-23] MEDS: Fenofibrate 145 MG Tablet PO (12:23)
[2019-03-23] MEDS: Pantoprazole Sodium 40 MG Tablet PO (12:23)
[2019-03-23 16:00] VITALS: BP 121/58; PULSE 60; RESP 18; TEMP 36.8; O2SAT 96
[2019-03-23 17:39] VITALS: BP 121/58; PULSE 60
[2019-03-23] MEDS: Pramipexole Di-HCl 1 MG Tablet PO (20:46)
[2019-03-23] MEDS: Pravastatin 20 MG Tablet 10 MG PO (20:46)
[2019-03-23] MEDS: Tamsulosin HCl 0.4 MG Capsule PO (20:47)
[2019-03-24] MEDS: DIMETHYL FUMARATE 240 MG CAPSULE.DR PO (05:11)
[2019-03-24 05:12] VITALS: BP 154/57; PULSE 60
[2019-03-24] MEDS: Finasteride 5 MG Tablet PO (05:12)
[2019-03-24] MEDS: APIXABAN 5 MG TABLET PO (05:12)
[2019-03-24] MEDS: Flecainide 100 MG Tablet PO (05:12)
[2019-03-24] MEDS: Metoprolol Tartrate 50 MG Tablet PO (05:12)
[2019-03-24] MEDS: buPROPion (SR) 150 MG Tablet.SA PO (05:12)
[2019-03-24] MEDS: Sertraline 50 MG Tablet PO (05:12)
[2019-03-24] MEDS: Oxybutynin 5 MG Tablet PO (05:12)
[2019-03-24 05:15] VITALS: O2SAT 98
[2019-03-24 05:36] VITALS: BP 154/57; PULSE 60; RESP 20; TEMP 37.1; O2SAT 98
--- NOTE | 2019-03-24 06:40 | NURSING ---
Pt was DC'd at 0640. Pts home medication, Tecfidera bottle was sent with pt.
--- NOTE | 2019-03-24 11:50 | NURSING ---
report called to Asya nurse at [facility]. faxed H/P, med list & DC orders per her request.
--- NOTE | 2019-03-29 14:01 | MDS.RN ---
Information for the mds was obtained from review of the clinical record, interview of resident, staff, and direct observation of resident's care.
== END 2019-03-24 06:40 | disposition home or self-care (01) | DRG 561 ==
PROVIDERS: Admitting Provider Family Medicine Geriatric Medicine; Family Provider Family Medicine; PCP Family Medicine; Referring Provider Family Medicine Geriatric Medicine; Visit Provider Family Medicine Geriatric Medicine
DX: Z47.89 Encounter for other orthopedic aftercare (principal); Z98.1 Arthrodesis status; M19.90 Unspecified osteoarthritis, unspecified site; N40.0 Benign prostatic hyperplasia without lower urinary tract symptoms; K21.9 Gastro-esophageal reflux disease without esophagitis; Z86.718 Personal history of other venous thrombosis and embolism; G35 Multiple sclerosis; N32.81 Overactive bladder; G47.33 Obstructive sleep apnea (adult) (pediatric); E78.5 Hyperlipidemia, unspecified; I48.2 Chronic atrial fibrillation; E55.9 Vitamin D deficiency, unspecified; G25.81 Restless legs syndrome; D50.9 Iron deficiency anemia, unspecified; M41.9 Scoliosis, unspecified; F32.9 Major depressive disorder, single episode, unspecified; Z87.891 Personal history of nicotine dependence; T84.89XD Other specified complication of internal orthopedic prosthetic devices, implants and grafts, subsequent encounter; Y79.8 Miscellaneous orthopedic devices associated with adverse incidents, not elsewhere classified; F41.9 Anxiety disorder, unspecified; E87.6 Hypokalemia
CPT/HCPCS: 36415; 80048; 85025; 97110; 97116; 97162; 97166; 97530; 97535; 97802

== ENCOUNTER → 2019-03-29 10:24 | Outpatient (CLI) | payer MEDICARE, SELFPAY ==
[2019-03-18 13:15] VITALS: BMI 40.2
--- NOTE | 2019-03-29 10:26 | RAD_ITS ---
STUDY: X-RAY EXAMINATION: ENTIRE SPINE REASON FOR EXAM: Male, 68 years old. Postop TECHNIQUE: 6 view(s) of the thoracolumbar spine were obtained in the upright standing position. COMPARISON: CT of the thoracic spine, February 17, 2019. Scoliosis series, February 15, 2019. FINDINGS: Again seen is fusion extending from the C2 to the sacroiliac joints. There is scientology of normal alignment of the cervical portion of the fusion. The lower hardware appears unchanged from the prior study. The hardware is intact and unchanged. Also noted anterior plate and screws extending from C3 through C6. There is no evidence of new hardware. There is no evidence of scoliosis. Normal kyphosis of the thoracic spine. Normal thoracic vertebrae and endplates. Normal disc space heights of the thoracic spine. Normal lordosis of the lumbar spine. Normal lumbar vertebrae and endplates. Normal disc space heights of the lumbar spine. The soft tissues appear grossly normal. There is evidence of an IVC filter and surgical clips in the pelvis and the left sided cardiac pacemaker. Right jugular central venous catheter is now noted. RAD/Scoliosis 2 or 3 views IMPRESSION: Spinal fusion from C2 through the sacroiliac joints. There is scientology of normal fusion of the posterior cervical spine when compared to prior study. There is otherwise no major interval change. Electronically Signed: Kvng Desir DO at 17:52 EDT Tel [phone], Service support ,
--- NOTE | 2019-03-29 10:50 | RAD_ITS ---
STUDY: X-RAY - CERVICAL SPINE REASON FOR EXAM: Male, 68 years old. Neck pain. TECHNIQUE: 2 view(s) of the cervical spine were obtained. COMPARISON: Cervical spine, March 29 cervical spine, February 16, 2012. FINDINGS: There are degenerative changes of the anterior atlantoaxial articulation. Normal odontoid process. There is bed revision of the posterior cervical fusion when compared to prior study. The prior study demonstrated displacement of the posterior hardware. This is now in normal position with the pedicle screws in expected location. There are no pedicle screws extending into C2. There is a metallic plate and screws along the anterior aspect of C3-C6 which is unchanged. There is no change in alignment. There is no evidence of neural foraminal narrowing Normal disc space heights. There is maintenance of normal alignment. The soft tissue structures are unremarkable. RAD/Cerv Spine 2 or 3 Views IMPRESSION: 1. Revision of the posterior cervical fusion when compared to the earlier study. No evidence of acute abnormality. 2. Stable anterior fusion lower cervical spine. Electronically Signed: Kvng Desir DO at 21:53 EDT Tel [phone], Service support ,
== END ==
PROVIDERS: Family Provider Family Medicine; PCP Family Medicine; Referring Provider Orthopaedic Surgery; Visit Provider Orthopaedic Surgery
DX: Z98.1 Arthrodesis status (principal)
CPT/HCPCS: 72040; 72082

== ENCOUNTER → 2019-04-04 12:00 | Outpatient (REF) | payer MEDICARE, SELFPAY ==
[2019-03-29 10:50] VITALS: BMI 40.2
[2019-04-04 13:07] LABS: Color, Urine Yellow (Yellow); Glucose, Dipstick Normal (Normal); Ketone-Dipstick 5 mg/dl (Negative); Leukocyte Esterase-Dipstick Negative /ul (Negative); Nitrite-Dipstick Negative (Negative); Occult Blood-Urine Negative /ul (Negative); Protein-Dipstick Negative (Negative); Specific Gravity, Urine 1.025 (1.002-1.030); Urine Bilirubin Dipstick Negative (Negative); Urine Clarity Clear (Clear); Urine Urobilinogen Normal (Normal)
== END ==
DX: R46.89 Other symptoms and signs involving appearance and behavior (principal)
CPT/HCPCS: 81002; 87077; 87086; 87088; 87186

== ENCOUNTER 2019-04-04 18:56 | Emergency (ER) | payer MEDICARE, SELFPAY ==
[2019-03-29 10:50] VITALS: BMI 40.2
[2019-04-04 19:01] VITALS: BP 131/61; PULSE 82; RESP 18; TEMP 37.6; O2SAT 94; BMI 40.3
--- NOTE | 2019-04-04 19:23 | ED.VISSUMM ---
- ER Visit Summary Date of Service: 04/04/19 Chief Complaint: Pain History of Present Illness: The patient is a 69 M with neck and upper back pain. The pain came on gradually yesterday and was worse today. He is also having fever since yesterday. The patient has an extensive surgical history by Dr. Humphrey at [facility]. His first surgery was in August for his cervical spine. He also had hardware issues with his lower back and with his upper back. His last surgery was about 4 weeks ago. The patient fell at rehab and had Pulled some hardware in his upper back. He denies any history of back or surgical infections. He denies any other infectious symptoms like cough, upper respiratory symptoms, joint pain, rash, GI symptoms, or urinary symptoms. Physical Examination: Afebrile and vital signs unremarkable. Patient appears nontoxic. He is wearing a cervical collar. This was removed to examine him while holding spinal precautions. He has midline upper thoracic and cervical incision that is red and warm to the touch. There is no drainage. No fluctuance or induration. The area is tender to palpation. Otherwise his back is unremarkable. Good strength and sensation. Test Results: X-rays and lab work pending. Emergency Department Course and Treatment: Treated with fluids. He declined pain medicine. We will check x-rays and blood work. Will discuss with his surgeon. White count normal. Hemoglobin 8.0, stable. Lactate normal. Cultures pending. CRP 126 and ESR 75. X-ray showed stable changes, postoperative changes. Nothing acute. Patient was discussed with Dr. Yamel Humphrey. She would like the patient transferred to [facility] ER for evaluation by her resident. Treatment Plan: As above Disposition: Transfer Impression: 1. Neck pain This note was generated with [employer] dictation software. It may contain incorrect words, spelling, and punctuation that were not noted in review of the chart prior to signing ED Disposition - Plan for ED Patient: Referrals: Elmer Castellanos MD [Primary Care Provider] -
[2019-04-04] MEDS: 0.9% Normal Saline 1,000 ML 999 ML IV (19:42)
--- NOTE | 2019-04-04 19:50 | RAD_ITS ---
STUDY: X-RAY - CERVICAL SPINE REASON FOR EXAM: Male, 69 years old. Postoperative pain TECHNIQUE: 2 view(s) of the cervical spine were obtained. COMPARISON: 03/29/2019 FINDINGS: Stable cervical alignment. Stable cervicothoracic hardware. Normal prevertebral soft tissues. Pacemaker. Carotid calcifications. Posterior bone graft. No radiographic evidence of hardware failure. RAD/Cerv Spine 2 or 3 Views IMPRESSION: Stable alignment and cervicothoracic hardware. Electronically Signed: Tello Medrano MD at 20:18 EDT Tel , Service support ,
--- NOTE | 2019-04-04 19:56 | RAD_ITS ---
STUDY: X-RAY - THORACIC SPINE REASON FOR EXAM: Male, 69 years old. Postoperative pain TECHNIQUE: 3 view(s) of the thoracic spine were obtained. COMPARISON: 02/15/2019 FINDINGS: Stable thoracic spine hardware. Stable thoracic spinal alignment. Diffuse spondylosis. No new compression fractures are seen. Pacemaker. RAD/Thoracic Spine 3 Views IMPRESSION: Stable thoracic spine hardware. Stable thoracic spinal alignment. No new compression fractures are seen. Electronically Signed: Tello Medrano MD at 20:20 EDT Tel , Service support ,
[2019-04-04 20:05] LABS: Absolute Lymphocyte Count 0.33 X10^3/uL (0.83-4.51); Eosinophil# 0.03 X10^3/uL; Eosinophils% 0.6 % (0-5); Hematocrit 25.3 % (40-54); Lymphocyte # 0.33 X10^3/ul (4.0); Lymphocyte % 6.9 % (19-41); Mean Corp Hgb Conc 31.6 g/dL (32-36); Mean Corpuscular Volume 91.7 fL (80-94); Mean Platelet Vol. 9.5 fl (6.2-12.0); Monocyte# 0.36 X10^3/uL; Monocyte% 7.6 % (0-10); NRBC Flagged by Analyzer 0 % (0-5); Neutrophil # 3.98 X10^3/uL (2.7-7.7); Neutrophil % 83.8 % (47-70); POSITIVE DIFFERENTIAL YES; Platelet Count 231 K/mm3 (150-450); RBC Distribution Width CV 15.4 % (11.6-14.6); RBC Distribution Width SD 51.5 fl (35.1-43.9); Red Blood Count 2.76 M/mm3 (4.6-6.2); White Blood Count 4.8 K/mm3 (4.4-11.0)
[2019-04-04 20:11] LABS: Differential Indicated SCAN CRITERIA MET; Lactic Acid 1.1 mmol/L (0.4-2.0)
[2019-04-04 20:12] LABS: Anion Gap 6 (5-15); BUN 26 mg/dL (7-18); Calcium,Total 9.1 mg/dL (8.5-10.1); Chloride 102 mmol/L (98-107); Creatinine, Serum 1.24 mg/dL (0.70-1.30); EST Glomerular Filtration Rate 61 mL/min (>60); Est Glom Filt Rate - Afr Amer 74 mL/min (>60); Glucose 115 mg/dL (74-106); Potassium 3.5 mmol/L (3.5-5.1); Sodium Level 137 mmol/L (136-145)
[2019-04-04 20:35] LABS: Differential Comment SCANNED
[2019-04-04 20:36] LABS: Erythrocyte Sedimentation Rate 75 mm/hr (0-20)
--- NOTE | 2019-04-04 20:54 | ED.RN ---
dr. hallman paged at this time
[2019-04-04 21:39] VITALS: BP 136/51; PULSE 78; RESP 18; TEMP 36.9; O2SAT 95
[2019-04-04 21:53] VITALS: RESP 18
--- NOTE | 2019-04-05 22:54 | ED.RN ---
lab called with positive blood culture results. both cultures positive for gram positive cocci in clusters. spoke with Dr. Humphrey who discharged patient from [facility] today. Patient has been cleared by neurosurgery. Patient needs no follow up with them. Spoke with Dr. Torre at this time. Patient should be brought back into the hospital and admitted for IV ATX. [facility] called and made aware of test results. They will attempt to arrange transport to [facility] or [facility] for treatment at this time
--- NOTE | 2019-04-06 00:50 | ED.RN ---
shahbaz called patient is arranging own transport to [facility]. [facility] transfer line made aware of patient coming at this time
== END 2019-04-04 21:55 | disposition short-term general hospital (02) ==
LOC: ED 21:16
PROVIDERS: Emergency Provider Emergency Medicine; Family Provider Family Medicine; PCP Family Medicine
DX: M54.2 Cervicalgia (principal); R50.9 Fever, unspecified; K21.9 Gastro-esophageal reflux disease without esophagitis; I48.91 Unspecified atrial fibrillation; I49.5 Sick sinus syndrome; N40.0 Benign prostatic hyperplasia without lower urinary tract symptoms; G25.81 Restless legs syndrome; G35 Multiple sclerosis; Z95.0 Presence of cardiac pacemaker; Z79.01 Long term (current) use of anticoagulants; Z79.899 Other long term (current) drug therapy; Z72.0 Tobacco use; R46.89 Other symptoms and signs involving appearance and behavior
CPT/HCPCS: 72040; 72072; 80048; 81002; 83605; 85025; 85652; 86140; 87040; 87077; 87086; 87088; 87149; 87186; 96360; 99285; J7030; A4216

== ENCOUNTER 2019-04-13 16:13 | Inpatient (IN) | payer MEDICARE, SELFPAY ==
[2019-04-13 16:23] VITALS: BP 141/77; PULSE 60; RESP 18; TEMP 36.4; O2SAT 96; BMI 37.9
--- NOTE | 2019-04-13 16:43 | NURSING ---
PT ARRIVED BY [facility] FROM [facility] @ [id number].
[2019-04-13 18:52] VITALS: BP 141/77; PULSE 60
[2019-04-13] MEDS: Senna Tablet 1 TABLET PO (18:52)
[2019-04-13] MEDS: Docusate Sodium 100 MG Capsule PO (18:52)
[2019-04-13] MEDS: Metoprolol Tartrate 50 MG Tablet PO (18:52)
[2019-04-13] MEDS: Tamsulosin HCl 0.4 MG Capsule PO (18:52)
[2019-04-13] MEDS: buPROPion (SR) 150 MG Tablet.SA PO (20:57)
[2019-04-13] MEDS: rifAMPin 300 MG Capsule PO (20:57)
[2019-04-13] MEDS: APIXABAN 5 MG TABLET PO (20:58)
[2019-04-13] MEDS: Pravastatin 20 MG Tablet 10 MG PO (20:59)
[2019-04-13] MEDS: traZODone 50 MG Tablet PO (21:00)
[2019-04-13] MEDS: Ferrous Gluconate 324 MG Tablet PO (21:00)
[2019-04-13] MEDS: Pramipexole Di-HCl 1 MG Tablet PO (21:00)
[2019-04-13] MEDS: Calcium (Elemental) 500 MG Tablet PO (21:06)
--- NOTE | 2019-04-13 21:06 | HP.PCM_ITS ---
Problem List (1) Staphylococcus epidermidis bacteremia Status: Acute (2) Spinal abscess Status: Acute (3) Osteoarthritis Status: Chronic (4) Atrial fibrillation Status: Chronic (5) BPH (benign prostatic hyperplasia) Status: Chronic (6) GERD (gastroesophageal reflux disease) Status: Chronic (7) Multiple sclerosis Status: Chronic (8) Obstructive sleep apnea Status: Chronic (9) Debility Status: Acute (10) Scoliosis Status: Chronic (11) Hyperlipidemia Status: Chronic (12) Iron deficiency anemia Status: Chronic (13) Restless leg syndrome Status: Chronic (14) Muscle spasm Status: Chronic (15) Vitamin D deficiency Status: Chronic (16) Overactive bladder Status: Chronic History of Present Illness Date of Admission: 04/13/19 Chief Complaint: Here for rehabilitation, strengthening, intravenous antibiotics, prior to discharge to [facility]. The patient is a 69 year old Male with below past medical history presented to [facility] Emergency Department with pain. 04/04/2019 X-ray cervical spine stable alignment, cervicothoracic hardware. 04/04/2019 X-ray thoracic spine stable thoracic spine hardware. No new compression fractures. Gradual pain, worsening, fever. IV fluids given. CRP 126, ESR 75. Transfer to [facility] per Dr. Yamel Humphrey's recommendations. 04/06/2019 Admit to [facility]. Bacteremia secondary to Staphylococcus epidermidis. Blood cultures repeated, patient treated with Vancomycin IV. Blood cultures x 5 positive for S. Epi, last blood culture methicillin resistant S. epi, doubt skin contaminant. MRI showed large C4 - T7 abscess. Surgery for drainage not done, patient deemed too high risk. PICC line right upper extremity. Need senior living IV antibiotics for 6 weeks. 04/13/2019 Admit to TCU with debility, here for rehabilitation, strengthening, intravenous antibiotics, prior to discharge to [facility]. Past Medical History Past Medical History (Chronic Problems): Chronic Problems (Last Updated 08/04/18 @ 14:32 by Maribell Tolliver) Anemia (Chronic) Osteoarthritis (Chronic) Atrial fibrillation (Chronic) BPH (benign prostatic hyperplasia) (Chronic) DVT (deep venous thrombosis) (Chronic) GERD (gastroesophageal reflux disease) (Chronic) Hemorrhoids (Chronic) Multiple sclerosis (Chronic) Obstructive sleep apnea (Chronic) Scoliosis (Chronic) Hypokalemia (Chronic) Hyperlipidemia (Chronic) Iron deficiency anemia (Chronic) Restless leg syndrome (Chronic) Muscle spasm (Chronic) Vitamin D deficiency (Chronic) Overactive bladder (Chronic) Medical History: Medical History (Last Updated 08/04/18 @ 14:32 by Maribell Tolliver) Sick sinus syndrome (Acute) I49.5 Presence of cardiac pacemaker (Acute) Z95.0 Acid reflux K21.9 Arthritis M19.90 Atrial fibrillation I48.91 Depression F32.9 Hemorrhoids K64.9 History of back problems Hypercholesterolemia E78.00 MS (multiple sclerosis) G35 Sleep apnea G47.30 Allergies No Known Allergies Allergy (Verified 04/04/19 19:04) Home Medications: Ambulatory Orders Medication Instructions Recorded Apixaban [Eliquis] 5 mg PO BID 06/10/17 Bupropion HCl [Zyban] 150 mg PO BID 06/10/17 Finasteride [Proscar] 5 mg PO DINNER 06/10/17 Flecainide [Tambocor] 100 mg PO BID 06/10/17 Metoprolol Tartrate [Lopressor 50 mg PO BID 06/10/17 (beta modesto)] Omeprazole 40 mg PO LUNCH 06/10/17 Potassium Chloride [Klor-Con M20] 20 meq PO BREAKFAST 06/10/17 Pravastatin Sodium [Pravachol] 10 mg PO QHS 06/10/17 dimethyl fumarate 240 mg 240 mg PO BID 08/04/18 capsule,delayed release pramipexole 1 mg tablet 1 mg PO QHS 08/04/18 tamsulosin 0.4 mg capsule 0.4 mg PO DAILY@1730 cap 08/04/18 Fenofibrate,Micronized 200 mg PO LUNCH 08/19/18 [Fenofibrate] Multivitamin [Multivitamins] 1 ea PO DAILY 08/19/18 Oxybutynin [Ditropan] 2.5 mg PO DAILY 08/19/18 Sertraline HCl [Zoloft] 50 mg PO DAILY 08/19/18 Calcium (Elemental) [Os-Karlos 500] 600 mg PO BID 03/18/19 Cholecalciferol (VIT D3) [Vitamin 2,000 units PO DAILY 03/18/19 D3] cycloBENZAPRine HCl [Flexeril] 5 mg PO Q8H PRN PRN 03/18/19 Ferrous Gluconate 324 mg PO QHS 04/04/19 Oxycodone HCl 5 mg PO Q8H PRN PRN 04/04/19 Acetaminophen 325 mg PO Q6H PRN PRN 04/13/19 Docusate Sodium 100 mg PO BID 04/13/19 Furosemide [Lasix] 40 mg PO DAILY 04/13/19 L. Acidophilus/L.bulgaricus 1 ea PO BID 04/13/19 [Lactobacillus Tablet] Magnesium Hydroxide [Milk Of 30 ml PO DAILY PRN PRN 04/13/19 Magnesia] Magnesium Oxide 400 mg PO DAILY 04/13/19 Nitroglycerin (INPATIENT USE) 0.4 mg SL DAILY PRN PRN 04/13/19 [Nitrostat] Polyethylene Glycol 3350 [Miralax] 17 gm PO DAILY 04/13/19 Rifampin 300 mg PO Q12H 04/13/19 Sennosides 8.6 mg PO BID 04/13/19 Vancomycin HCl in 5 % Dextrose 1.25 gm IV Q12H 04/13/19 [Vancomycin 1.25 Gram/250Ml-D5w] Zinc Sulfate 220 mg PO DAILY 04/13/19 traZODone [Desyrel] 50 mg PO QHS 04/13/19 Surgical History: Surgical History (Last Updated 03/29/19 @ 10:16 by Betty Reyes) H/O cervical spine surgery Z98.890 03/14/19 History of hemorrhoidectomy Z98.890 gallbladder removed S/P cholecystectomy Z90.49 Surgical History: cholecystectomy, pacemaker implantation, tonsillectomy, - - IVC filter, Multiple spine surgeries. Psychiatric History: Anxiety, Depression Lives: [facility]. Smoking Status: Former smoker - 80 pack year smoking history. Tobacco Use: Cigarettes Alcohol: None Drugs: None - *Family History Maternal Family History: Family History (Last Updated 08/04/18 @ 14:25 by Maribell Tolliver) Father Arthritis Cancer Brother Cancer Mother High cholesterol History Items: No pertinent history Paternal Family History: Family History (Last Updated 08/04/18 @ 14:25 by Maribell Tolliver) Father Arthritis Cancer Brother Cancer Mother High cholesterol History Items: No pertinent history Review of Systems Constitutional: Denies: Chills, Fever, Weight Change HEENT: Denies: Head Aches, Sinus Congestion, Sinus Drainage Cardiovascular: Denies: Chest Pain, Palpitations Respiratory: Denies: Cough, Shortness of breath at rest, Sputum production Gastrointestinal: Denies: Abdominal Pain, Nausea, Vomiting Genitourinary: Denies: Dysuria Musculoskeletal: Denies: Joint Pain, Joint Tenderness Skin: Denies: Rash, Wounds Neurological: Denies: Numbness, Tingling, Focal weakness Psychiatric: Denies: Anxiety, Depression, Homicidal Ideations, Suicidal Ideations Hematologic/ Lymphatic: Denies: Easy Bruising, Easy Bleeding VTE Information - Inpt Only VTE Present on Admission: No VTE Mechan Device Prophylaxis: Knee High DIANDRA Hose VTE Pharm Prophylaxis ordered?: No Reason prophylaxis not ordered:: Treatment Not Indicated Patient Problems: Active and Suspected Problems (Last Updated 08/04/18 @ 14:32 by Maribell Tolliver) Staphylococcus epidermidis bacteremia (Acute) Spinal abscess (Acute) - Physical Exam General: Alert, Oriented x3, Cooperative HEENT: Atraumatic, PERRLA, EOMI, Normocephalic Neck: Supple, No JVD, Negative Carotid Bruits Lungs: Clear to auscultation, Normal air movement Cardiovascular: Regular rate, No murmurs, - - Back brace. Abdomen: Bowel Sounds Present, Soft, Non Tender Extremities: No edema, Capillary Refill Less than 3 Seconds, - - Right upper extremity PICC line. Skin: No rashes, No breakdown Musculoskeletal: No Tenderness to Palpation of Joints or Extremities Neurological: Cranial nerves II-XII grossly intact Psych/Mental Status: Normal Affect, Appropriate Vital Signs Temp Pulse Resp BP Pulse Ox 97.5 F L 60 18 141/77 H 96 04/13/19 16:23 04/13/19 18:52 04/13/19 16:23 04/13/19 18:52 04/13/19 16:23 Oxygen Delivery Method Room Air Weight: 113.1 kg Body Mass Index (BMI) 37.9 Laboratory Tests Past 24 Hrs 04/13/19 20:10 Random Vancomycin 24.0 H Assessment/Plan All Active Problems (Last Updated 08/04/18 @ 14:32 by Maribell Tolliver) Staphylococcus epidermidis bacteremia (Acute) Spinal abscess (Acute) Debility (Acute) Hardware failure (Acute) History of DVT (deep vein thrombosis) (Acute) Sick sinus syndrome (Acute) Presence of cardiac pacemaker (Acute) 69 year old male with below past medical history hospitalized for staph epi bacteremia, no surgical intervention recommended due to high risk, admitted to TCU with debility, here for rehabilitation, strengthening, intravenous antibiotics, prior to discharge to [facility]. * Debility - PT/OT. * Pain - Tylenol 1000MG Q6H PRN pain (1-3), Oxycodone 5MG Q8H PRN pain (4-10) * Bowel - Miralax 17GM daily, Senna/colace 2 tablets BID, Dulcolax 10MG daily PRN. * Pneumonia vaccination - Administer Prevnar 13 and/or Pneumovax 23 as necessary. * DVT prophylaxis - Not necessary, already on Eliquis. * Atrial Fibrillation - Metoprolol 50MG BID, Flecainide 100MG BID, Eliquis 5MG BID. * Depression - Bupropion SR 150MG BID. * Hypocalcemia - Calcium 500MG BID. * Vitamin D deficiency - D3 2000IU daily. * Muscle spasm - Flexeril 5MG Q8H PRN. * Multiple Sclerosis - Dimethyl Fumarate 240MG BID. * Hyperlipidemia - Tricor 145MG daily, Pravastatin 10MG QHS. * Iron deficiency anemia - Ferrous Gluconate 324MG QHS. * BPH - Tamsulosin 0.4MG daily, Finasteride 5MG daily. * Edema - Lasix 40MG daily. * GI prophylaxis - Lactobacillus 1 tablet BID. * Hypomagnesemia - Magnesium Oxide 400MG daily. * Nutrition - MVI daily.. * Chest pain - NTG 0.4MG SL Q5M PRN. * Overactive bladder - Oxybutynin 2.5MG daily. * GERD - Pantoprazole 40MG daily. * Hypokalemia - K-Dur 20MEQ daily. * Restless Leg Syndrome - Mirapex 1MG QHS. * S. Epidermidis bacteremia - Rifampin 300MG PO Q12H, Vancomycin 1.25GM IV Q12H thru 05/17/2019. * Anxiety - Sertraline 50MG daily. * Insomnia - Trazodone 50MG QHS. * Zinc deficiency - Zinc 220MG daily.
[2019-04-13 21:08] VITALS: PULSE 60; RESP 16
[2019-04-13 22:07] VITALS: PULSE 60; RESP 16
[2019-04-14] MEDS: oxyCODONE 5 MG Tablet PO (02:56)
[2019-04-14] MEDS: Flecainide 100 MG Tablet PO ×2 (03:00→16:57)
[2019-04-14] MEDS: Sertraline 50 MG Tablet PO (03:00)
[2019-04-14] MEDS: Magnesium Oxide 400 MG Tablet PO (03:00)
[2019-04-14] MEDS: Oxybutynin 5 MG Tablet 2.5 MG PO (03:01)
[2019-04-14] MEDS: Polyethylene Glycol 3350 17 GM PACKET PO (03:02)
[2019-04-14] MEDS: Furosemide 40 MG Tablet PO (03:02)
[2019-04-14] MEDS: rifAMPin 300 MG Capsule PO ×2 (03:04→16:59)
[2019-04-14] MEDS: APIXABAN 5 MG TABLET PO ×2 (03:05→16:59)
[2019-04-14] MEDS: buPROPion (SR) 150 MG Tablet.SA PO ×2 (03:06→17:00)
[2019-04-14 03:12] VITALS: BP 174/71; PULSE 68
[2019-04-14] MEDS: Senna/Docusate Sodium 1 Tablet 2 TABLET PO ×2 (03:12→16:59)
[2019-04-14] MEDS: Metoprolol Tartrate 50 MG Tablet PO ×2 (03:12→16:59)
[2019-04-14 06:05] LABS: Absolute Lymphocyte Count 0.46 X10^3/uL (0.83-4.51); Absolute Neutrophil Count 4.1 X10^3/uL (2.0-7.7); Basophil# 0.02 X10^3/uL; Basophil% 0.4 % (0-1); Eosinophil# 0.23 X10^3/uL; Eosinophils% 4.4 % (0-5); Hemoglobin 8.7 g/dL (13.0-16.5); Lymphocyte # 0.46 X10^3/ul (4.0); Lymphocyte % 8.7 % (19-41); Mean Corp Hgb Conc 31.1 g/dL (32-36); Mean Corpuscular Hgb 28.2 pg (27.0-32.0); Mean Corpuscular Volume 90.9 fL (80-94); Mean Platelet Vol. 9.3 fl (6.2-12.0); Monocyte# 0.42 X10^3/uL; NRBC Flagged by Analyzer 0 % (0-5); Neutrophil # 4.07 X10^3/uL (2.7-7.7); Neutrophil % 77.2 % (47-70); POSITIVE DIFFERENTIAL YES; Platelet Count 377 K/mm3 (150-450); RBC Distribution Width CV 15.5 % (11.6-14.6); RBC Distribution Width SD 51.1 fl (35.1-43.9); Red Blood Count 3.08 M/mm3 (4.6-6.2); White Blood Count 5.3 K/mm3 (4.4-11.0)
[2019-04-14 06:26] LABS: Differential Indicated SCAN CRITERIA MET
[2019-04-14 06:38] LABS: Anion Gap 8 (5-15); BUN 13 mg/dL (7-18); BUN/Creat Ratio 10.9 RATIO (10-20); Calcium,Total 9.4 mg/dL (8.5-10.1); Chloride 100 mmol/L (98-107); Creatinine, Serum 1.19 mg/dL (0.70-1.30); EST Glomerular Filtration Rate 64 mL/min (>60); Est Glom Filt Rate - Afr Amer 78 mL/min (>60); Estimated Creatinine Clearance 56.68 ml/min; Glucose 96 mg/dL (74-106); Sodium Level 137 mmol/L (136-145)
--- NOTE | 2019-04-14 06:59 | PCM.PN.RX ---
<Familia Lopez D - Last Filed: 04/14/19 06:59> Progress Note - Pharmacy Subjective: TCU Admission Objective: Allergies No Known Allergies Allergy (Verified 04/04/19 19:04) Current Medications Generic Name Dose Route Start Last Admin Trade Name Freq PRN Reason Stop Dose Admin Acetaminophen 1,000 mg 04/13/19 21:36 Tylenol PO Q6H PRN PRN Pain Score 1-3/10 Apixaban 5 mg 04/13/19 18:00 04/14/19 03:05 Eliquis PO 5 mg BID ARI Administration Bisacodyl 10 mg 04/13/19 21:35 Dulcolax PO DAILY PRN Constipation Bupropion HCl 150 mg 04/13/19 18:30 04/14/19 03:06 Wellbutrin Sr (150mg Tablets) PO 150 mg BID ARI Administration Calcium Carbonate 500 mg 04/13/19 18:00 04/13/19 21:06 Os-Karlos 500 PO 500 mg BIDCM ARI Administration Cholecalciferol 2,000 unit 04/14/19 06:00 04/14/19 03:01 Vitamin D PO 2,000 unit DAILY ARI Administration Cyclobenzaprine HCl 5 mg 04/13/19 17:19 Flexeril PO Q8H PRN PRN muscle spasms Fenofibrate 145 mg 04/14/19 12:00 Tricor PO LUNCH [facility] Ferrous Gluconate 324 mg 04/13/19 22:00 04/13/19 21:00 Ferrous Gluconate PO 324 mg QHS ARI Administration Finasteride 5 mg 04/14/19 17:00 Proscar PO DINNER [facility] Flecainide Acetate 100 mg 04/14/19 08:00 04/14/19 03:00 Tambocor PO 100 mg BIDCM ARI Administration Furosemide 40 mg 04/14/19 06:00 04/14/19 03:02 Lasix PO 40 mg DAILY ARI Administration Heparin Sodium (Beef Lung) 50 units 04/14/19 00:20 IV UD PRN HEPARIN FLUSH Sodium Chloride 250 mls @ 15 mls/hr 04/14/19 00:20 IV .[id number] PRN SALINE FLUSH Lactobacillus Acidophilus 1 tablet 04/14/19 06:00 04/14/19 03:05 Acidophilus PO 1 tablet BID ARI Administration Magnesium Oxide 400 mg 04/14/19 06:00 04/14/19 03:00 Mag-Ox 400 PO 400 mg DAILY ARI Administration Metoprolol Tartrate 50 mg 04/13/19 18:00 04/14/19 03:12 Lopressor (Beta Rakesh) PO 50 mg BID ARI Administration Multivitamins 1 tablet 04/14/19 08:00 Multivitamin PO DAILY@0800 [facility] Nitroglycerin 0.4 mg 04/13/19 17:19 Nitrostat SUBLINGUAL DAILY PRN PRN chest pain Non-Formulary Medication 240 mg 04/13/19 18:00 Dimethyl Fumarate PO BID ARI Non-Formulary Medication 1.25 gm 04/14/19 10:00 Vancomycin Hcl In 5 % Dextrose [Vancomycin 1.25 Gram/250ml-D5w] IV 05/17/19 10:01 Q12H ARI Oxybutynin Chloride 2.5 mg 04/14/19 06:00 04/14/19 03:01 Ditropan PO 2.5 mg DAILY ARI Administration Oxycodone HCl 5 mg 04/13/19 17:19 04/14/19 02:56 Oxyir PO 5 mg Q8H PRN PRN Administration Pain Score 4-10/10 Pantoprazole Sodium 40 mg 04/14/19 12:00 Protonix PO LUNCH [facility] Polyethylene Glycol 17 gm 04/14/19 06:00 04/14/19 03:02 Miralax PO 17 gm DAILY [facility] Administration Potassium Chloride 20 meq 04/14/19 08:00 K-Dur PO BREAKFAST [facility] Pramipexole Dihydrochloride 1 mg 04/13/19 22:00 04/13/19 21:00 Mirapex PO 1 mg QHS ARI Administration Pravastatin Sodium 10 mg 04/13/19 22:00 04/13/19 20:59 Pravachol PO 10 mg QHS ARI Administration Rifampin 300 mg 04/13/19 18:30 04/14/19 03:04 Rifadin PO 05/17/19 23:59 300 mg Q12 ARI Administration Senna/Docusate Sodium 2 tablet 04/14/19 06:00 04/14/19 03:12 Senokot-S, Geraldine-Colace PO 2 tablet BID ARI Administration Sertraline HCl 50 mg 04/14/19 06:00 04/14/19 03:00 Zoloft PO 50 mg DAILY ARI Administration Sodium Chloride 10 - 40 ml 04/14/19 00:20 IV UD PRN PICC FLUSH Tamsulosin HCl 0.4 mg 04/13/19 17:30 04/13/19 18:52 Flomax PO 0.4 mg DAILY@1730 ARI Administration Trazodone HCl 50 mg 04/13/19 22:00 04/13/19 21:00 Desyrel PO 50 mg QHS ARI Administration Tuberculin PPD 5 tu 04/14/19 10:00 Tubersol, Aplisol, Ppd ID 04/14/19 10:01 X1 ONE Tuberculin PPD 5 tu 04/21/19 10:00 Tubersol, Aplisol, Ppd ID 04/21/19 10:01 X1 ONE Zinc Sulfate 220 mg 04/14/19 06:00 04/14/19 03:02 Zinc Sulfate PO 220 mg DAILY ARI Administration Problem List (Last Updated 08/04/18 @ 14:32 by Maribell Tolliver) Staphylococcus epidermidis bacteremia (Acute) Spinal abscess (Acute) Vital Signs Temp Pulse Resp BP Pulse Ox 97.5 F L 68 16 174/71 H 96 04/13/19 16:23 04/14/19 03:12 04/13/19 22:07 04/14/19 03:12 04/13/19 16:23 Oxygen Delivery Method Room Air Weight: 113.1 kg Body Mass Index (BMI) 37.9 Sodium 137 mmol/L (136-145) 04/14/19 05:05 Potassium 4.0 mmol/L (3.5-5.1) 04/14/19 05:05 Chloride 100 mmol/L (98-107) 04/14/19 05:05 Carbon Dioxide 29.0 mmol/L (21.0-32.0) 04/14/19 05:05 Anion Gap 8 (5-15) 04/14/19 05:05 BUN 13 mg/dL (7-18) 04/14/19 05:05 Creatinine 1.19 mg/dL (0.70-1.30) 04/14/19 05:05 Est GFR (MDRD) Af Amer 78 mL/min (>60) 04/14/19 05:05 Est GFR (MDRD) Non-Af 64 mL/min (>60) 04/14/19 05:05 BUN/Creatinine Ratio 10.9 RATIO (10-20) 04/14/19 05:05 Glucose 96 mg/dL (74-106) 04/14/19 05:05 Assessment/Plan: 1) Pain APAP for pain 1-3, oxycodone for pain 4-10, cyclobenzaprine for spasm. Continue to monitor daily pain scores, prn medication use. 2) AFib Flecainide, apixaban. Continue to monitor BP/HR, s/s bleeding/clot. 3) MS DMF. Continue to monitor clinically. 4) HLD Pravastatin, fenofibrate. Continue to monitor lipids. 5) Edema Furosemide, KCL, Mg. Continue to monitor renal function, electrolytes, BP/HR, swelling. 6) ID Vancomycin, rifampin thru 05/17. Pharmacy following vanc levels and recommending adjustments prn. Continue to monitor renal function, s/s infection. 7) GI Lactobacillus, pantoprazole. Continue to monitor s/s GI distress. 8) Tamsulosin, finasteride, oxybutynin. Continue to monitor for symptoms. 9) RLS Pramipexole at HS. Continue to monitor for restless legs. 10) Nutrition Zn, multivitamin, Fe, Ca, D. Continue to monitor clinically. Psychotropic Medications: 11) Depression/Insomnia Bupropion, sertraline, trazodone. Continue to monitor s/s depression/anxiety, for serotonin syndrome with multiple serotonergic drugs. Unnecessary Medications: None Bowel Regimen: 12) Senna/s, PEG, prn bisacodyl. Continue to monitor prn medication use, for constipation/diarrhea. Date of Note:: 04/14/19 - Provider Comments Provider responsibility: Provider responsible to enter orders to implement recommendations <Dallin Ridley Chi - Last Filed: 04/14/19 08:15> Progress Note - Pharmacy Subjective: [] Objective: Allergies No Known Allergies Allergy (Verified 04/04/19 19:04) Current Medications Generic Name Dose Route Start Last Admin Trade Name Freq PRN Reason Stop Dose Admin Acetaminophen 1,000 mg 04/13/19 21:36 Tylenol PO Q6H PRN PRN Pain Score 1-3/10 Apixaban 5 mg 04/13/19 18:00 04/14/19 03:05 Eliquis PO 5 mg BID ARI Administration Bisacodyl 10 mg 04/13/19 21:35 Dulcolax PO DAILY PRN Constipation Bupropion HCl 150 mg 04/13/19 18:30 04/14/19 03:06 Wellbutrin Sr (150mg Tablets) PO 150 mg BID [facility] Administration Calcium Carbonate 500 mg 04/13/19 18:00 04/13/19 21:06 Os-Karlos 500 PO 500 mg BIDCM [facility] Administration Cholecalciferol 2,000 unit 04/14/19 06:00 04/14/19 03:01 Vitamin D PO 2,000 unit DAILY [facility] Administration Cyclobenzaprine HCl 5 mg 04/13/19 17:19 Flexeril PO Q8H PRN PRN muscle spasms Fenofibrate 145 mg 04/14/19 12:00 Tricor PO LUNCH [facility] Ferrous Gluconate 324 mg 04/13/19 22:00 04/13/19 21:00 Ferrous Gluconate PO 324 mg QHS [facility] Administration Finasteride 5 mg 04/14/19 17:00 Proscar PO DINNER [facility] Flecainide Acetate 100 mg 04/14/19 08:00 04/14/19 03:00 Tambocor PO 100 mg [facility] Administration Furosemide 40 mg 04/14/19 06:00 04/14/19 03:02 Lasix PO 40 mg DAILY [facility] Administration Heparin Sodium (Beef Lung) 50 units 04/14/19 00:20 IV UD PRN HEPARIN FLUSH Sodium Chloride 250 mls @ 15 mls/hr 04/14/19 00:20 IV .[id number] PRN SALINE FLUSH Lactobacillus Acidophilus 1 tablet 04/14/19 06:00 04/14/19 03:05 Acidophilus PO 1 tablet BID [facility] Administration Magnesium Oxide 400 mg 04/14/19 06:00 04/14/19 03:00 Mag-Ox 400 PO 400 mg DAILY [facility] Administration Metoprolol Tartrate 50 mg 04/13/19 18:00 04/14/19 03:12 Lopressor (Beta Rakesh) PO 50 mg BID [facility] Administration Multivitamins 1 tablet 04/14/19 08:00 Multivitamin PO DAILY@0800 [facility] Nitroglycerin 0.4 mg 04/13/19 17:19 Nitrostat SUBLINGUAL DAILY PRN PRN chest pain Non-Formulary Medication 240 mg 04/13/19 18:00 Dimethyl Fumarate PO BID [facility] Non-Formulary Medication 1.25 gm 04/14/19 10:00 Vancomycin Hcl In 5 % Dextrose [Vancomycin 1.25 Gram/250ml-D5w] IV 05/17/19 10:01 Q12H ARI Oxybutynin Chloride 2.5 mg 04/14/19 06:00 04/14/19 03:01 Ditropan PO 2.5 mg DAILY ARI Administration Oxycodone HCl 5 mg 04/13/19 17:19 04/14/19 02:56 Oxyir PO 5 mg Q8H PRN PRN Administration Pain Score 4-10/10 Pantoprazole Sodium 40 mg 04/14/19 12:00 Protonix PO LUNCH [facility] Polyethylene Glycol 17 gm 04/14/19 06:00 04/14/19 03:02 Miralax PO 17 gm DAILY ARI Administration Potassium Chloride 20 meq 04/14/19 08:00 K-Dur PO BREAKFAST [facility] Pramipexole Dihydrochloride 1 mg 04/13/19 22:00 04/13/19 21:00 Mirapex PO 1 mg QHS ARI Administration Pravastatin Sodium 10 mg 04/13/19 22:00 04/13/19 20:59 Pravachol PO 10 mg QHS ARI Administration Rifampin 300 mg 04/13/19 18:30 04/14/19 03:04 Rifadin PO 05/17/19 23:59 300 mg Q12 ARI Administration Senna/Docusate Sodium 2 tablet 04/14/19 06:00 04/14/19 03:12 Senokot-S, Geraldine-Colace PO 2 tablet BID ARI Administration Sertraline HCl 50 mg 04/14/19 06:00 04/14/19 03:00 Zoloft PO 50 mg DAILY ARI Administration Sodium Chloride 10 - 40 ml 04/14/19 00:20 IV UD PRN PICC FLUSH Tamsulosin HCl 0.4 mg 04/13/19 17:30 04/13/19 18:52 Flomax PO 0.4 mg DAILY@1730 ARI Administration Trazodone HCl 50 mg 04/13/19 22:00 04/13/19 21:00 Desyrel PO 50 mg QHS ARI Administration Tuberculin PPD 5 tu 04/14/19 10:00 Tubersol, Aplisol, Ppd ID 04/14/19 10:01 X1 ONE Tuberculin PPD 5 tu 04/21/19 10:00 Tubersol, Aplisol, Ppd ID 04/21/19 10:01 X1 ONE Zinc Sulfate 220 mg 04/14/19 06:00 04/14/19 03:02 Zinc Sulfate PO 220 mg DAILY ARI Administration Problem List (Last Updated 08/04/18 @ 14:32 by Maribell Tolliver) Staphylococcus epidermidis bacteremia (Acute) Spinal abscess (Acute) Vital Signs Temp Pulse Resp BP Pulse Ox 97.5 F L 68 16 174/71 H 96 04/13/19 16:23 04/14/19 03:12 04/13/19 22:07 04/14/19 03:12 04/13/19 16:23 Oxygen Delivery Method Room Air Weight: 113.1 kg Body Mass Index (BMI) 37.9 Sodium 137 mmol/L (136-145) 04/14/19 05:05 Potassium 4.0 mmol/L (3.5-5.1) 04/14/19 05:05 Chloride 100 mmol/L (98-107) 04/14/19 05:05 Carbon Dioxide 29.0 mmol/L (21.0-32.0) 04/14/19 05:05 Anion Gap 8 (5-15) 04/14/19 05:05 BUN 13 mg/dL (7-18) 04/14/19 05:05 Creatinine 1.19 mg/dL (0.70-1.30) 04/14/19 05:05 Est GFR (MDRD) Af Amer 78 mL/min (>60) 04/14/19 05:05 Est GFR (MDRD) Non-Af 64 mL/min (>60) 04/14/19 05:05 BUN/Creatinine Ratio 10.9 RATIO (10-20) 04/14/19 05:05 Glucose 96 mg/dL (74-106) 04/14/19 05:05 Assessment/Plan: Psychotropic Medications: Unnecessary Medications: Bowel Regimen: - Provider Comments Provider responsibility: Provider responsible to enter orders to implement recommendations Provider Comments to Recommendations by Pharmacy: Agree
[2019-04-14] MEDS: Multivitamins,Therapeutic Tablet 1 TABLET PO (08:14)
[2019-04-14] MEDS: Calcium (Elemental) 500 MG Tablet PO ×2 (09:08→16:57)
[2019-04-14] MEDS: Tuberculin,Purif.prot.deriv. 50 TU/ML Vial 5 ML ID (09:09)
[2019-04-14 09:14] LABS: Vancomycin, Random Level 17.2 ug/mL (0.0-15.0)
--- NOTE | 2019-04-14 09:48 | PCM.RX.CS ---
Consult Pharmacy has been consulted to manage selected antiobiotic: Vancomycin Type of Consult: Follow-up Suspected Infection: Other Labs: Sodium 137 mmol/L (136-145) 04/14/19 05:05 Potassium 4.0 mmol/L (3.5-5.1) 04/14/19 05:05 Chloride 100 mmol/L (98-107) 04/14/19 05:05 Carbon Dioxide 29.0 mmol/L (21.0-32.0) 04/14/19 05:05 Anion Gap 8 (5-15) 04/14/19 05:05 BUN 13 mg/dL (7-18) 04/14/19 05:05 Creatinine 1.19 mg/dL (0.70-1.30) 04/14/19 05:05 Est GFR (MDRD) Af Amer 78 mL/min (>60) 04/14/19 05:05 Est GFR (MDRD) Non-Af 64 mL/min (>60) 04/14/19 05:05 BUN/Creatinine Ratio 10.9 RATIO (-) 04/14/19 05:05 Glucose 96 mg/dL (74-106) 04/14/19 05:05 Random Vancomycin 17.2 ug/mL (0.0-15.0) H 04/14/19 08:21 Weight used for dosin kg Goal Trough: 15-20 mcg/mL Pharmacy Plan for Drug Dosing: Patient admitted from [facility], last reported vanc dose was 1250mg IV x1 04/13 @ 1000 (admission order was to continue 1250mg IV q12h @ 10-22 thru 05/17). Initial level here which would've been a trough was 24 mcg/mL, patient did not receive dose. Random level checked @ 22 hours was 17.2. Recommend to change order to vancomycin 1250mg IV q24h and continue dosing via policy with next trough prior to 3rd dose of new frequency. Thru 05/17/19. Pharmacy Service will continue to monitor and adjust dosing as required. Follow-Up Labs: Trough Vancomycin - 04/16/19 @ 0930
[2019-04-14] MEDS: 0.9% NaCl PICC Flush IV (10:25)
[2019-04-14] MEDS: 0.9% NaCl IVPB Med Flush (250 mL) 15 ML IV (10:30)
[2019-04-14] MEDS: Fenofibrate 145 MG Tablet PO (11:46)
[2019-04-14] MEDS: Pantoprazole Sodium 40 MG Tablet PO (11:46)
[2019-04-14 13:30] VITALS: PULSE 59; RESP 18; O2SAT 96
[2019-04-14 15:41] VITALS: BP 153/66; PULSE 60; RESP 18; TEMP 36.6; O2SAT 95
[2019-04-14] MEDS: Finasteride 5 MG Tablet PO (16:57)
[2019-04-14] MEDS: Tamsulosin HCl 0.4 MG Capsule PO (16:57)
[2019-04-14 16:59] VITALS: BP 153/66; PULSE 60
[2019-04-14] MEDS: DIMETHYL FUMARATE 240 MG CAPSULE.DR PO (17:00)
[2019-04-14] MEDS: Pramipexole Di-HCl 1 MG Tablet PO (20:48)
[2019-04-14] MEDS: traZODone 50 MG Tablet PO (20:48)
[2019-04-14] MEDS: Ferrous Gluconate 324 MG Tablet PO (20:48)
[2019-04-14] MEDS: Pravastatin 20 MG Tablet 10 MG PO (20:49)
--- NOTE | 2019-04-14 22:08 | PCA ---
This DRUG ENFORCEMENT AGENT gave patient a shower this evening.
[2019-04-15] MEDS: Oxybutynin 5 MG Tablet 2.5 MG PO (05:34)
[2019-04-15] MEDS: APIXABAN 5 MG TABLET PO ×2 (05:35→17:10)
[2019-04-15] MEDS: Sertraline 50 MG Tablet PO (05:35)
[2019-04-15] MEDS: rifAMPin 300 MG Capsule PO ×2 (05:35→17:09)
[2019-04-15] MEDS: Magnesium Oxide 400 MG Tablet PO (05:36)
[2019-04-15] MEDS: buPROPion (SR) 150 MG Tablet.SA PO ×2 (05:36→17:11)
[2019-04-15] MEDS: Furosemide 40 MG Tablet PO (05:36)
[2019-04-15] MEDS: DIMETHYL FUMARATE 240 MG CAPSULE.DR PO ×2 (05:37→17:17)
[2019-04-15] MEDS: cycloBENZAPRine HCl 10 MG Tablet 5 MG PO (05:48)
[2019-04-15 05:49] VITALS: BP 138/68; PULSE 66
[2019-04-15] MEDS: Metoprolol Tartrate 50 MG Tablet PO ×2 (05:49→17:07)
[2019-04-15] MEDS: Flecainide 100 MG Tablet PO ×2 (08:19→17:08)
[2019-04-15] MEDS: Multivitamins,Therapeutic Tablet 1 TABLET PO (08:19)
[2019-04-15] MEDS: Calcium (Elemental) 500 MG Tablet PO ×2 (08:19→17:13)
[2019-04-15] MEDS: 0.9% NaCl PICC Flush IV (10:09)
[2019-04-15] MEDS: Pantoprazole Sodium 40 MG Tablet PO (12:11)
[2019-04-15] MEDS: Fenofibrate 145 MG Tablet PO (12:12)
[2019-04-15 15:42] VITALS: BP 136/69; PULSE 60; RESP 16; TEMP 36.6; O2SAT 95
[2019-04-15 17:07] VITALS: PULSE 60
[2019-04-15] MEDS: Senna/Docusate Sodium 1 Tablet 2 TABLET PO (17:07)
[2019-04-15] MEDS: Finasteride 5 MG Tablet PO (17:07)
[2019-04-15] MEDS: Tamsulosin HCl 0.4 MG Capsule PO (17:11)
[2019-04-15] MEDS: Pramipexole Di-HCl 1 MG Tablet PO (20:02)
[2019-04-15] MEDS: Pravastatin 20 MG Tablet 10 MG PO (20:02)
[2019-04-15] MEDS: traZODone 50 MG Tablet PO (20:03)
[2019-04-15] MEDS: Ferrous Gluconate 324 MG Tablet PO (20:03)
[2019-04-16] MEDS: DIMETHYL FUMARATE 240 MG CAPSULE.DR PO ×2 (05:47→17:58)
[2019-04-16 05:49] VITALS: BP 150/61; PULSE 61
[2019-04-16] MEDS: Magnesium Oxide 400 MG Tablet PO (05:49)
[2019-04-16] MEDS: Metoprolol Tartrate 50 MG Tablet PO ×2 (05:49→17:58)
[2019-04-16] MEDS: Sertraline 50 MG Tablet PO (05:49)
[2019-04-16] MEDS: Furosemide 40 MG Tablet PO (05:49)
[2019-04-16] MEDS: buPROPion (SR) 150 MG Tablet.SA PO ×2 (05:50→17:58)
[2019-04-16] MEDS: Oxybutynin 5 MG Tablet 2.5 MG PO (05:50)
[2019-04-16] MEDS: rifAMPin 300 MG Capsule PO ×2 (05:50→17:58)
[2019-04-16] MEDS: APIXABAN 5 MG TABLET PO ×2 (05:51→17:58)
[2019-04-16] MEDS: Multivitamins,Therapeutic Tablet 1 TABLET PO (09:00)
[2019-04-16] MEDS: Calcium (Elemental) 500 MG Tablet PO ×2 (09:01→17:57)
[2019-04-16] MEDS: Flecainide 100 MG Tablet PO ×2 (09:01→17:57)
[2019-04-16] MEDS: 0.9% NaCl IVPB Med Flush (250 mL) 167 ML IV (11:15)
[2019-04-16] MEDS: 0.9% NaCl PICC Flush IV ×2 (11:16→21:11)
[2019-04-16 11:28] LABS: Vancomycin, Trough Level 12.1 ug/mL (5.0-15.0)
[2019-04-16] MEDS: Fenofibrate 145 MG Tablet PO (11:56)
[2019-04-16] MEDS: Pantoprazole Sodium 40 MG Tablet PO (11:56)
--- NOTE | 2019-04-16 13:16 | NURSING ---
Pt noted to have blood under PICC dressing. Reported to Henri LYNNE.
[2019-04-16 15:05] LABS: Creatinine, Serum 1.33 mg/dL (0.70-1.30); EST Glomerular Filtration Rate 57 mL/min (>60); Est Glom Filt Rate - Afr Amer 69 mL/min (>60); Estimated Creatinine Clearance 50.71 ml/min
--- NOTE | 2019-04-16 15:35 | PCM.RX.CS ---
Consult Pharmacy has been consulted to manage selected antiobiotic: Vancomycin Type of Consult: Follow-up Suspected Infection: Other Prior Doses of Antibiotics Received/Current Regimen: Currently receiving 1250mg IV q24h Labs: Sodium 137 mmol/L (136-145) 04/14/19 05:05 Potassium 4.0 mmol/L (3.5-5.1) 04/14/19 05:05 Chloride 100 mmol/L (98-107) 04/14/19 05:05 Carbon Dioxide 29.0 mmol/L (21.0-32.0) 04/14/19 05:05 Anion Gap 8 (5-15) 04/14/19 05:05 BUN 13 mg/dL (7-18) 04/14/19 05:05 Creatinine 1.33 mg/dL (0.70-1.30) H 04/16/19 14:40 Est GFR (MDRD) Af Amer 69 mL/min (>60) 04/16/19 14:40 Est GFR (MDRD) Non-Af 57 mL/min (>60) L 04/16/19 14:40 BUN/Creatinine Ratio 10.9 RATIO (10-20) 04/14/19 05:05 Glucose 96 mg/dL (74-106) 04/14/19 05:05 Vancomycin Trough 12.1 ug/mL (5.0-15.0) 04/16/19 10:36 Random Vancomycin 17.2 ug/mL (0.0-15.0) H 04/14/19 08:21 Weight used for dosin kg Estimated Creatinine Clearance: 51 ml/min Goal Trough: 15-20 mcg/mL Pharmacy Plan for Drug Dosing: The trough drawn before this morning's dose came back as 12.1 mg/L. Since this is below goal range of 15-20, will plan to increase the dose to 1500mg IV q24h, starting with tomorrow's dose since the patient already received today's dose of 1250mg this morning after the trough was drawn. We are being conservative in increasing the dose at this time since the patient's SCr did go up to 1.33 today. Another trough will be drawn on 04/19/19 before the 3rd dose. Pharmacy Service will continue to monitor and adjust dosing as required. Follow-Up Labs: Trough Vancomycin Labs to be done on [date and time ordered]: 04/19/19 09:30
[2019-04-16 15:50] VITALS: BP 113/47; PULSE 59; RESP 20; TEMP 36.5; O2SAT 95
[2019-04-16] MEDS: Tamsulosin HCl 0.4 MG Capsule PO (17:57)
[2019-04-16 17:58] VITALS: BP 113/47; PULSE 59
[2019-04-16] MEDS: Finasteride 5 MG Tablet PO (17:58)
[2019-04-16] MEDS: Pramipexole Di-HCl 1 MG Tablet PO (20:56)
[2019-04-16] MEDS: traZODone 50 MG Tablet PO (20:58)
[2019-04-16] MEDS: Ferrous Gluconate 324 MG Tablet PO (20:59)
[2019-04-16] MEDS: Pravastatin 20 MG Tablet 10 MG PO (21:02)
[2019-04-16 21:15] VITALS: PULSE 70; RESP 16; O2SAT 94
[2019-04-17] MEDS: DIMETHYL FUMARATE 240 MG CAPSULE.DR PO ×2 (06:40→17:22)
[2019-04-17] MEDS: Furosemide 40 MG Tablet PO (06:41)
[2019-04-17] MEDS: Magnesium Oxide 400 MG Tablet PO (06:41)
[2019-04-17] MEDS: Oxybutynin 5 MG Tablet 2.5 MG PO (06:41)
[2019-04-17] MEDS: Sertraline 50 MG Tablet PO (06:41)
[2019-04-17 06:42] VITALS: BP 136/49; PULSE 60
[2019-04-17] MEDS: APIXABAN 5 MG TABLET PO ×2 (06:42→17:21)
[2019-04-17] MEDS: buPROPion (SR) 150 MG Tablet.SA PO ×2 (06:42→17:23)
[2019-04-17] MEDS: Metoprolol Tartrate 50 MG Tablet PO ×2 (06:42→17:22)
[2019-04-17] MEDS: Senna/Docusate Sodium 1 Tablet 2 TABLET PO (06:42)
[2019-04-17] MEDS: rifAMPin 300 MG Capsule PO ×2 (06:42→17:22)
[2019-04-17] MEDS: Multivitamins,Therapeutic Tablet 1 TABLET PO (08:14)
[2019-04-17] MEDS: Flecainide 100 MG Tablet PO ×2 (08:14→17:21)
[2019-04-17] MEDS: Calcium (Elemental) 500 MG Tablet PO ×2 (08:14→17:21)
[2019-04-17 10:00] VITALS: PULSE 60; O2SAT 94
[2019-04-17] MEDS: 0.9% NaCl IVPB Med Flush (250 mL) IV (10:02)
[2019-04-17] MEDS: 0.9% NaCl PICC Flush IV ×2 (10:03→21:04)
[2019-04-17] MEDS: Fenofibrate 145 MG Tablet PO (11:11)
[2019-04-17] MEDS: Pantoprazole Sodium 40 MG Tablet PO (11:11)
[2019-04-17 15:17] VITALS: BP 173/46; PULSE 61; RESP 18; TEMP 36.6; O2SAT 98
[2019-04-17] MEDS: Tamsulosin HCl 0.4 MG Capsule PO (17:21)
[2019-04-17] MEDS: Finasteride 5 MG Tablet PO (17:21)
[2019-04-17 17:22] VITALS: BP 173/46; PULSE 61
[2019-04-17] MEDS: Pravastatin 20 MG Tablet 10 MG PO (20:58)
[2019-04-17] MEDS: traZODone 50 MG Tablet PO (20:58)
[2019-04-17] MEDS: Pramipexole Di-HCl 1 MG Tablet PO (20:58)
[2019-04-17] MEDS: Ferrous Gluconate 324 MG Tablet PO (20:59)
[2019-04-18] MEDS: DIMETHYL FUMARATE 240 MG CAPSULE.DR PO ×2 (06:27→17:40)
[2019-04-18] MEDS: Magnesium Oxide 400 MG Tablet PO (06:28)
[2019-04-18] MEDS: Oxybutynin 5 MG Tablet 2.5 MG PO (06:28)
[2019-04-18] MEDS: rifAMPin 300 MG Capsule PO ×2 (06:28→17:40)
[2019-04-18] MEDS: Furosemide 40 MG Tablet PO (06:28)
[2019-04-18] MEDS: Polyethylene Glycol 3350 17 GM PACKET PO (06:28)
[2019-04-18] MEDS: APIXABAN 5 MG TABLET PO ×2 (06:29→17:38)
[2019-04-18] MEDS: Senna/Docusate Sodium 1 Tablet 2 TABLET PO ×2 (06:30→17:40)
[2019-04-18] MEDS: Sertraline 50 MG Tablet PO (06:31)
[2019-04-18] MEDS: buPROPion (SR) 150 MG Tablet.SA PO ×2 (06:31→17:39)
[2019-04-18 06:36] VITALS: BP 157/68; PULSE 82
[2019-04-18] MEDS: Metoprolol Tartrate 50 MG Tablet PO ×2 (06:36→17:40)
[2019-04-18] MEDS: Flecainide 100 MG Tablet PO ×2 (08:39→17:38)
[2019-04-18] MEDS: Calcium (Elemental) 500 MG Tablet PO ×2 (08:40→17:38)
[2019-04-18] MEDS: Multivitamins,Therapeutic Tablet 1 TABLET PO (08:40)
[2019-04-18] MEDS: 0.9% NaCl PICC Flush IV ×2 (09:41→20:57)
[2019-04-18 09:50] VITALS: PULSE 60; RESP 18; O2SAT 96
[2019-04-18] MEDS: Fenofibrate 145 MG Tablet PO (11:35)
[2019-04-18] MEDS: Pantoprazole Sodium 40 MG Tablet PO (11:35)
[2019-04-18 16:00] VITALS: BP 129/44; PULSE 60; RESP 18; TEMP 36.6; O2SAT 96
[2019-04-18] MEDS: Finasteride 5 MG Tablet PO (17:37)
[2019-04-18] MEDS: Tamsulosin HCl 0.4 MG Capsule PO (17:38)
[2019-04-18 17:40] VITALS: BP 129/44; PULSE 60
[2019-04-18] MEDS: Pramipexole Di-HCl 1 MG Tablet PO (20:58)
[2019-04-18] MEDS: Pravastatin 20 MG Tablet 10 MG PO (20:58)
[2019-04-18] MEDS: traZODone 50 MG Tablet PO (20:58)
[2019-04-18] MEDS: Ferrous Gluconate 324 MG Tablet PO (21:01)
--- NOTE | 2019-04-18 21:29 | PCA ---
This PLANT UTILITIES ENGINEER assisted patient with a shower this evening. Patient was able to do most everything for himself with minimal assistance.
[2019-04-19] MEDS: Senna/Docusate Sodium 1 Tablet 2 TABLET PO ×2 (05:22→17:24)
[2019-04-19] MEDS: DIMETHYL FUMARATE 240 MG CAPSULE.DR PO ×2 (05:22→17:24)
[2019-04-19] MEDS: rifAMPin 300 MG Capsule PO ×2 (05:23→17:24)
[2019-04-19] MEDS: Oxybutynin 5 MG Tablet 2.5 MG PO (05:23)
[2019-04-19 05:24] VITALS: BP 140/76; PULSE 82
[2019-04-19] MEDS: APIXABAN 5 MG TABLET PO ×2 (05:24→17:23)
[2019-04-19] MEDS: Metoprolol Tartrate 50 MG Tablet PO ×2 (05:24→17:23)
[2019-04-19] MEDS: Furosemide 40 MG Tablet PO (05:24)
[2019-04-19] MEDS: Sertraline 50 MG Tablet PO (05:24)
[2019-04-19] MEDS: Magnesium Oxide 400 MG Tablet PO (05:24)
[2019-04-19] MEDS: buPROPion (SR) 150 MG Tablet.SA PO ×2 (05:24→17:25)
[2019-04-19] MEDS: Polyethylene Glycol 3350 17 GM PACKET PO (05:34)
[2019-04-19] MEDS: Calcium (Elemental) 500 MG Tablet PO ×2 (08:22→17:20)
[2019-04-19] MEDS: Multivitamins,Therapeutic Tablet 1 TABLET PO (08:22)
[2019-04-19] MEDS: Flecainide 100 MG Tablet PO ×2 (08:22→17:21)
[2019-04-19 09:59] LABS: EST Glomerular Filtration Rate 64 mL/min (>60); Est Glom Filt Rate - Afr Amer 77 mL/min (>60); Estimated Creatinine Clearance 56.21 ml/min
--- NOTE | 2019-04-19 10:35 | NURSING ---
PICC FLUSHED,GOOD BLOOD RETURN. PT TOLERATED WELL. NO S/S OF INFECTION.
[2019-04-19 10:36] LABS: Vancomycin, Trough Level 14.3 ug/mL (5.0-15.0)
--- NOTE | 2019-04-19 11:29 | PCM.RX.CS ---
Consult Pharmacy has been consulted to manage selected antiobiotic: Vancomycin Type of Consult: Follow-up Suspected Infection: Other Prior Doses of Antibiotics Received/Current Regimen: Currently on vancomycin 1500mg IV q24h. Labs: Sodium 137 mmol/L (136-145) 04/14/19 05:05 Potassium 4.0 mmol/L (3.5-5.1) 04/14/19 05:05 Chloride 100 mmol/L (98-107) 04/14/19 05:05 Carbon Dioxide 29.0 mmol/L (21.0-32.0) 04/14/19 05:05 Anion Gap 8 (5-15) 04/14/19 05:05 BUN 13 mg/dL (7-18) 04/14/19 05:05 Creatinine 1.20 mg/dL (0.70-1.30) 04/19/19 09:28 Est GFR (MDRD) Af Amer 77 mL/min (>60) 04/19/19 09:28 Est GFR (MDRD) Non-Af 64 mL/min (>60) 04/19/19 09:28 BUN/Creatinine Ratio 10.9 RATIO (10-20) 04/14/19 05:05 Glucose 96 mg/dL (74-106) 04/14/19 05:05 Vancomycin Trough 14.3 ug/mL (5.0-15.0) 04/19/19 09:28 Random Vancomycin 17.2 ug/mL (0.0-15.0) H 04/14/19 08:21 Weight used for dosin kg Estimated Creatinine Clearance: 56 ml/min Goal Trough: 15-20 mcg/mL Pharmacy Plan for Drug Dosing: The vancomycin trough drawn before this morning's dose came back as 14.3 mg/L, which is just below goal range of 15-20. The patient's SCr did go down to 1.20 today from 1.33 on 04/16/19 so we will increase the dose to 1750mg IV q24h. Will start with tomorrow's dose since the patient already received a dose of 1500mg today. Will obtain a trough before the 3rd new dose on 04/22/19. The patient's vancomycin therapy is to continue through 05/17/19. Pharmacy Service will continue to monitor and adjust dosing as required. Follow-Up Labs: Trough Vancomycin Labs to be done on [date and time ordered]: 04/22/19 09:30
--- NOTE | 2019-04-19 11:43 | CASEMGMT ---
Insurance: Continued stay review sent to [place] through secure email on 04/18/19. Next update due on 04/21. auth # [id number].
[2019-04-19] MEDS: Fenofibrate 145 MG Tablet PO (11:50)
[2019-04-19] MEDS: Pantoprazole Sodium 40 MG Tablet PO (11:50)
[2019-04-19 15:38] VITALS: BP 127/58; PULSE 60; RESP 18; TEMP 36.3; O2SAT 94
[2019-04-19] MEDS: Finasteride 5 MG Tablet PO (17:21)
[2019-04-19] MEDS: Tamsulosin HCl 0.4 MG Capsule PO (17:22)
[2019-04-19 17:23] VITALS: PULSE 60
[2019-04-19] MEDS: Pravastatin 20 MG Tablet 10 MG PO (21:59)
[2019-04-19] MEDS: traZODone 50 MG Tablet PO (22:00)
[2019-04-19] MEDS: Ferrous Gluconate 324 MG Tablet PO (22:00)
[2019-04-19] MEDS: Pramipexole Di-HCl 1 MG Tablet PO (22:00)
[2019-04-20] MEDS: DIMETHYL FUMARATE 240 MG CAPSULE.DR PO ×2 (06:11→17:53)
[2019-04-20] MEDS: rifAMPin 300 MG Capsule PO ×2 (06:12→17:53)
[2019-04-20] MEDS: Magnesium Oxide 400 MG Tablet PO (06:12)
[2019-04-20] MEDS: buPROPion (SR) 150 MG Tablet.SA PO ×2 (06:12→17:56)
[2019-04-20] MEDS: Sertraline 50 MG Tablet PO (06:12)
[2019-04-20] MEDS: Senna/Docusate Sodium 1 Tablet 2 TABLET PO (06:12)
[2019-04-20] MEDS: Furosemide 40 MG Tablet PO (06:13)
[2019-04-20] MEDS: Oxybutynin 5 MG Tablet 2.5 MG PO (06:13)
[2019-04-20] MEDS: APIXABAN 5 MG TABLET PO ×2 (06:13→17:53)
[2019-04-20] MEDS: Menthol/Lanolin/Calamine/Znox 113 GM Tube 1 APPLIC TOPICAL ×2 (06:17→22:15)
[2019-04-20 06:18] VITALS: BP 139/60; PULSE 78
[2019-04-20] MEDS: Metoprolol Tartrate 50 MG Tablet PO ×2 (06:18→17:53)
[2019-04-20] MEDS: Flecainide 100 MG Tablet PO ×2 (08:22→17:56)
[2019-04-20] MEDS: Calcium (Elemental) 500 MG Tablet PO ×2 (08:23→17:56)
[2019-04-20] MEDS: Multivitamins,Therapeutic Tablet 1 TABLET PO (08:23)
--- NOTE | 2019-04-20 09:26 | CASEMGMT ---
Social Work IDT met with patient for care plan meeting. Discussed patient's progress in therapy. Pt is CGA 170 ft FWW, SBA to CGA for transfers, min assist bed mobility and min assist for LE ADLs. Pt has IV ATBs through 05/17. Pt will return to [facility] once IVs are stopped as they cannot take pt with IVs. Explained insurance coverage and NRD 04/21 - continued stay is not guaranteed. Will continue to follow. Sonja Quintanilla, DISTRIBUTION SYSTEMS SERVICEPERSON BREAKFAST SUPERVISOR
[2019-04-20] MEDS: 0.9% NaCl PICC Flush IV ×2 (09:47→12:14)
[2019-04-20] MEDS: 0.9% NaCl IVPB Med Flush (250 mL) 15 ML IV (09:48)
[2019-04-20] MEDS: Fenofibrate 145 MG Tablet PO (11:29)
[2019-04-20] MEDS: Pantoprazole Sodium 40 MG Tablet PO (11:29)
[2019-04-20 15:23] VITALS: BP 128/55; PULSE 60; RESP 18; TEMP 36.6; O2SAT 92
[2019-04-20 17:53] VITALS: PULSE 60
[2019-04-20] MEDS: Finasteride 5 MG Tablet PO (17:55)
[2019-04-20] MEDS: Tamsulosin HCl 0.4 MG Capsule PO (17:56)
[2019-04-20] MEDS: Ferrous Gluconate 324 MG Tablet PO (22:13)
[2019-04-20] MEDS: Pravastatin 20 MG Tablet 10 MG PO (22:14)
[2019-04-20] MEDS: Pramipexole Di-HCl 1 MG Tablet PO (22:15)
--- NOTE | 2019-04-20 23:07 | NURSING ---
SPECIAL AGENT IN CHARGE REPORTED BLOOD IN PT'S TOILET AFTER URINATION. THIS RN ESTIMATES 20-30 ML OF ELIZABETH RED BLOOD NOTED IN TOILET. PT STATES HEMORRHOIDS ARE CHRONIC AND ON OCCASION THEY BLEED. PT REFUSED TO HAVE RECTAL AREA ASSESSED AT THIS TIME. WILL CONTINUE TO MONITOR.
[2019-04-21 05:01] VITALS: BP 145/52; PULSE 61; RESP 18; O2SAT 95
[2019-04-21] MEDS: APIXABAN 5 MG TABLET PO ×2 (05:02→17:37)
[2019-04-21] MEDS: Sertraline 50 MG Tablet PO (05:02)
[2019-04-21] MEDS: buPROPion (SR) 150 MG Tablet.SA PO ×2 (05:03→17:42)
[2019-04-21 05:04] VITALS: BP 145/52; PULSE 61
[2019-04-21] MEDS: Furosemide 40 MG Tablet PO (05:04)
[2019-04-21] MEDS: rifAMPin 300 MG Capsule PO ×2 (05:04→17:37)
[2019-04-21] MEDS: Metoprolol Tartrate 50 MG Tablet PO ×2 (05:04→17:39)
[2019-04-21] MEDS: Magnesium Oxide 400 MG Tablet PO (05:04)
[2019-04-21] MEDS: Menthol/Lanolin/Calamine/Znox 113 GM Tube 1 APPLIC TOPICAL ×2 (05:05→21:14)
[2019-04-21] MEDS: Oxybutynin 5 MG Tablet 2.5 MG PO (05:05)
[2019-04-21] MEDS: DIMETHYL FUMARATE 240 MG CAPSULE.DR PO ×2 (05:05→17:36)
[2019-04-21] MEDS: Finasteride 5 MG Tablet PO (05:07)
[2019-04-21 06:15] LABS: Absolute Lymphocyte Count 0.54 X10^3/uL (0.83-4.51); Absolute Neutrophil Count 3.5 X10^3/uL (2.0-7.7); Basophil# 0.01 X10^3/uL; Basophil% 0.2 % (0-1); Eosinophil# 0.15 X10^3/uL; Eosinophils% 3.2 % (0-5); Hematocrit 30.2 % (40-54); Hemoglobin 9.2 g/dL (13.0-16.5); Lymphocyte # 0.54 X10^3/ul (4.0); Lymphocyte % 11.7 % (19-41); Mean Corp Hgb Conc 30.5 g/dL (32-36); Mean Corpuscular Hgb 27.7 pg (27.0-32.0); Mean Platelet Vol. 9.5 fl (6.2-12.0); Monocyte# 0.37 X10^3/uL; NRBC Flagged by Analyzer 0 % (0-5); Neutrophil # 3.46 X10^3/uL (2.7-7.7); Neutrophil % 74.7 % (47-70); POSITIVE DIFFERENTIAL YES; Platelet Count 267 K/mm3 (150-450); RBC Distribution Width CV 15.9 % (11.6-14.6); RBC Distribution Width SD 52.6 fl (35.1-43.9); Red Blood Count 3.32 M/mm3 (4.6-6.2); White Blood Count 4.6 K/mm3 (4.4-11.0)
[2019-04-21 06:22] LABS: Differential Indicated SCAN CRITERIA MET
[2019-04-21 06:28] LABS: Anion Gap 5 (5-15); BUN 22 mg/dL (7-18); BUN/Creat Ratio 17.2 RATIO (10-20); Calcium,Total 9.9 mg/dL (8.5-10.1); Chloride 103 mmol/L (98-107); Creatinine, Serum 1.28 mg/dL (0.70-1.30); EST Glomerular Filtration Rate 59 mL/min (>60); Est Glom Filt Rate - Afr Amer 72 mL/min (>60); Glucose 92 mg/dL (74-106); Potassium 4.4 mmol/L (3.5-5.1); Sodium Level 138 mmol/L (136-145)
[2019-04-21 06:39] LABS: Differential Comment SCANNED
[2019-04-21] MEDS: Multivitamins,Therapeutic Tablet 1 TABLET PO (08:34)
[2019-04-21] MEDS: Flecainide 100 MG Tablet PO ×2 (08:35→16:11)
[2019-04-21 08:42] VITALS: PULSE 70
[2019-04-21] MEDS: Calcium (Elemental) 500 MG Tablet PO ×2 (10:25→16:11)
[2019-04-21] MEDS: Tuberculin,Purif.prot.deriv. 50 TU/ML Vial 5 ML ID (10:25)
[2019-04-21] MEDS: 0.9% NaCl PICC Flush IV ×2 (10:25→13:51)
[2019-04-21] MEDS: 0.9% NaCl IVPB Med Flush (250 mL) 15 ML IV (10:26)
--- NOTE | 2019-04-21 10:42 | NURSING ---
pt states he is in a lousy mood, he requested for a nail clipper locked in med cupboard. Nurse asked if was suicidal, pt denies. Nail clipper given.
--- NOTE | 2019-04-21 10:55 | CASEMGMT ---
Insurance: Continued stay review sent to [place] secure email. auth #[id number].
[2019-04-21] MEDS: Pantoprazole Sodium 40 MG Tablet PO (12:14)
[2019-04-21] MEDS: Fenofibrate 145 MG Tablet PO (12:14)
[2019-04-21 15:16] VITALS: BP 122/53; PULSE 66; RESP 18; TEMP 36.4; O2SAT 94
--- NOTE | 2019-04-21 16:14 | CASEMGMT ---
Social Work Insurance issued LCD 04/23, DC home 04/24. Spoke with patient about LCD and provided pt with options and appeal rights. Patient did not want to appeal and have the risk of accepting financial liability. Contacted [facility] to verify return with IV ATB - Jeanna stated given the situation, pt can return but nursing unable to provide any skilled needs and could only commit to 3 days a week for transportation if pt chooses to get ATBs administer at the hospital infusion clinic. They also stated their [facility] could not complete those services either. Relayed information to pt and he would like to DC home. He does not have means for consistent transportation and would prefer to be homebound, have HHC out once a week and learn how to administer IV ATBs. [facility] Referral made. Referral made to I infusion. Pt stated he is confident his secondary insurance will cover cost of copays, if any, and was not concerned with cost of IVs in the community, if any. Plan: DC to [facility] with [facility] SN and Q24 IV ATBs through [facility]. Sonja Quintanilla, JUSTIN RODRIGUEZW
[2019-04-21 17:39] VITALS: PULSE 66
[2019-04-21] MEDS: Tamsulosin HCl 0.4 MG Capsule PO (17:41)
[2019-04-21] MEDS: Pravastatin 20 MG Tablet 10 MG PO (21:18)
[2019-04-21] MEDS: Pramipexole Di-HCl 1 MG Tablet PO (21:18)
[2019-04-21] MEDS: Ferrous Gluconate 324 MG Tablet PO (21:19)
--- NOTE | 2019-04-21 22:00 | DCINST_ITS ---
- Discharge Diagnoses Current Active Problems: Current Active and Chronic Problems (Last Updated 08/04/18 @ 14:32 by Maribell Tolliver) Staphylococcus epidermidis bacteremia (Acute) Spinal abscess (Acute) You will use the following diet at home:: No restrictions, Regular Your food should be the consistency of: Regular Your liquids should be the consistency of: Regular/Thin Discharge Activity: Return to Normal Activity, May Shower, Use Walker Weight Bearing Status: Weight bearing as tolerated Call your doctor if you observe: Fever of 101 or Higher, Inability to urinate, Inability to have a bowel movement, Shortness of breath, Chest pain, Uncontrolled pain Allergies/Adverse Reactions: Allergies No Known Allergies Allergy (Verified 04/04/19 19:04) Medications to take at Discharge Apixaban [Eliquis] 5 mg PO BID 06/10/17 Bupropion HCl [Zyban] 150 mg PO BID 06/10/17 Finasteride [Proscar] 5 mg PO DINNER 06/10/17 Flecainide [Tambocor] 100 mg PO BID 06/10/17 Metoprolol Tartrate [Lopressor (beta [place])] 50 mg PO BID 06/10/17 Omeprazole 40 mg PO LUNCH 06/10/17 Potassium Chloride [Klor-Con M20] 20 meq PO BREAKFAST 06/10/17 Pravastatin Sodium [Pravachol] 10 mg PO QHS 06/10/17 dimethyl fumarate 240 mg capsule,delayed release 240 mg PO BID 08/04/18 pramipexole 1 mg tablet 1 mg PO QHS 08/04/18 tamsulosin 0.4 mg capsule 0.4 mg PO DAILY@1730 cap 08/04/18 Fenofibrate,Micronized [Fenofibrate] 200 mg PO LUNCH 08/19/18 Multivitamin [Multivitamins] 1 ea PO DAILY 08/19/18 Oxybutynin [Ditropan] 2.5 mg PO DAILY 08/19/18 Sertraline HCl [Zoloft] 50 mg PO DAILY 08/19/18 Calcium (Elemental) [Os-Karlos 500] 600 mg PO BID 03/18/19 Cholecalciferol (VIT D3) [Vitamin D3] 2,000 units PO DAILY 03/18/19 cycloBENZAPRine HCl [Flexeril] 5 mg PO Q8H PRN PRN 03/18/19 Ferrous Gluconate 324 mg PO QHS 04/04/19 L. Acidophilus/L.bulgaricus [Lactobacillus Tablet] 1 ea PO BID 04/13/19 Magnesium Oxide 400 mg PO DAILY 04/13/19 Nitroglycerin (INPATIENT USE) [Nitrostat] 0.4 mg SL DAILY PRN PRN 04/13/19 Vancomycin HCl in 5 % Dextrose [Vancomycin 1.25 Gram/250Ml-D5w] 1.25 gm IV Q12H 04/13/19 Zinc Sulfate 220 mg PO DAILY 04/13/19 traZODone [Desyrel] 50 mg PO QHS 04/13/19 Acetaminophen [Tylenol] 1,000 mg PO Q6H PRN PRN tab 04/21/19 Furosemide [Lasix] 40 mg PO DAILY #30 tab 04/21/19 Heparin Pf Lock 10 units/ml 50 units IV UD PRN #30 syringe 04/21/19 Menthol/Lanolin/Calamine/Znox [Calmoseptine Ointment] 1 applic TOPICAL 0600,2200 tube 04/21/19 Rifampin 300 mg PO Q12H #50 cap 04/21/19 Vancomycin IV 1,750 mg IV Q24H #25 vial 04/21/19 The following prescriptions were given: Heparin Pf Lock 10 units/ml 50 units IV UD PRN #30 syringe PRN Reason: Heparin Flush Prescription Printed Furosemide [Lasix] 40 mg PO DAILY #30 tab Transmission Status: Pending to [id number] Rifampin 300 mg PO Q12H #50 cap Transmission Status: Pending to [id number] Vancomycin IV 1,750 mg IV Q24H #25 vial Prescription Printed Primary Care Physician: Elmer Castellanos MD [Primary Care Provider] - Please follow up with your Primary Care Physician in: 1 week. Test Results: Test results from this visit will be discussed in further detail at your follow- up appointment, if applicable. Please Follow Up With: teo Naranjo/garrett per patient 04-20-19 Please Follow Up With: Yamel Humphrey When: As scheduled. Please Follow Up With: MRI Please Follow Up With: MEENA Cooper When: As scheduled. Proposed Discharge Date: 04/24/19
--- NOTE | 2019-04-21 22:02 | PCM.DC.SUM ---
Discharge Date and Diagnosis - Problem List Patient Problems: Active and Suspected Problems (Last Updated 08/04/18 @ 14:32 by Maribell Tolliver) Staphylococcus epidermidis bacteremia (Acute) Spinal abscess (Acute) Date of Admission: 04/13/19 Date of Discharge: 04/24/19 - Primary Discharge Diagnosis Active and Suspected Problems (Last Updated 08/04/18 @ 14:32 by Maribell Tolliver) Staphylococcus epidermidis bacteremia (Acute) Spinal abscess (Acute) - Secondary Discharge Diagnosis Chronic Problems (Last Updated 08/04/18 @ 14:32 by Maribell Tolliver) Anemia (Chronic) Osteoarthritis (Chronic) Atrial fibrillation (Chronic) BPH (benign prostatic hyperplasia) (Chronic) DVT (deep venous thrombosis) (Chronic) GERD (gastroesophageal reflux disease) (Chronic) Hemorrhoids (Chronic) Multiple sclerosis (Chronic) Obstructive sleep apnea (Chronic) Scoliosis (Chronic) Hypokalemia (Chronic) Hyperlipidemia (Chronic) Iron deficiency anemia (Chronic) Restless leg syndrome (Chronic) Muscle spasm (Chronic) Vitamin D deficiency (Chronic) Overactive bladder (Chronic) Hospital Course and Treatment Imaging Results: 04/13/19 16:47 Diet: Regular Diet Food consistency:: Regular Liquid Consistency:: Regular/Thin Labs (Last 48 Hours) 04/21/19 04/21/19 06:00 06:00 WBC 4.6 RBC 3.32 L Hgb 9.2 L Hct 30.2 L MCV 91.0 MCH 27.7 MCHC 30.5 L RDW Std Deviation 52.6 H RDW Coeff of Nick 15.9 H Plt Count 267 MPV 9.5 Immature Gran % (Auto) 2.200 H Neut % (Auto) 74.7 H Lymph % (Auto) 11.[address] [place] % (Auto) 8.0 Eos % (Auto) 3.2 Baso % (Auto) 0.2 Absolute Neuts (auto) 3.5 Absolute Lymphs (auto) 0.54 L Nucleated RBC % 0 Differential Comment SCANNED Sodium 138 Potassium 4.4 Chloride 103 Carbon Dioxide 30.0 Anion Gap 5 BUN 22 H Creatinine 1.28 Estim Creat Clear Calc 52.70 Est GFR (MDRD) Af Amer 72 Est GFR (MDRD) Non-Af 59 L BUN/Creatinine Ratio 17.2 Glucose 92 Calcium 9.9 Operations: None Procedures: None Summary of Care Provided: The patient is a 69 year old Male with below past medical history hospitalized for staph epi bacteremia, no surgical intervention recommended due to high risk, admitted to TCU with debility, here for rehabilitation, strengthening, intravenous antibiotics, prior to discharge to [facility]. Discharge to [facility], with [facility] & Q24H IV antibiotic thru [facility]. Patient Problems: Active and Suspected Problems (Last Updated 08/04/18 @ 14:32 by Maribell Tolliver) Staphylococcus epidermidis bacteremia (Acute) Spinal abscess (Acute) - Physical Exam Vital Signs Temp Pulse Resp BP Pulse Ox 97.5 F L 66 18 122/53 H 94 04/21/19 15:16 04/21/19 17:39 04/21/19 15:16 04/21/19 15:16 04/21/19 15:16 Oxygen Delivery Method Room Air Weight: 110.875 kg Body Mass Index (BMI) 37.9 Intake and Output for Last 24 Hours 04/19/19 04/20/19 04/21/19 23:59 23:59 23:59 Intake Total 1170 / 1170 1579.5 / 1579.5 1086.75 / 1086.75 Balance 1170 / 1170 1579.5 / 1579.5 1086.75 / 1086.75 Laboratory Tests Past 24 Hrs 04/21/19 04/21/19 06:00 06:00 WBC 4.6 RBC 3.32 L Hgb 9.2 L Hct 30.2 L MCV 91.0 MCH 27.7 MCHC 30.5 L RDW Std Deviation 52.6 H RDW Coeff of Nick 15.9 H Plt Count 267 MPV 9.5 Immature Gran % (Auto) 2.200 H Neut % (Auto) 74.7 H Lymph % (Auto) 11.[address] [place] % (Auto) 8.0 Eos % (Auto) 3.2 Baso % (Auto) 0.2 Absolute Neuts (auto) 3.5 Absolute Lymphs (auto) 0.54 L Nucleated RBC % 0 Differential Comment SCANNED Sodium 138 Potassium 4.4 Chloride 103 Carbon Dioxide 30.0 Anion Gap 5 BUN 22 H Creatinine 1.28 Estim Creat Clear Calc 52.70 Est GFR (MDRD) Af Amer 72 Est GFR (MDRD) Non-Af 59 L BUN/Creatinine Ratio 17.2 Glucose 92 Calcium 9.9 Discharge Diet: No Restrictions Discharge Activity: Return to Normal Activity, May Shower, Use Walker Weight Bearing Status: Weight bearing as tolerated Call your doctor if you observe: Fever of 101 or Higher, Inability to urinate, Inability to have a bowel movement, Shortness of breath, Chest pain, Uncontrolled pain Home Medications: Medications to take at Discharge Apixaban [Eliquis] 5 mg PO BID 06/10/17 Bupropion HCl [Zyban] 150 mg PO BID 06/10/17 Finasteride [Proscar] 5 mg PO DINNER 06/10/17 Flecainide [Tambocor] 100 mg PO BID 06/10/17 Metoprolol Tartrate [Lopressor (beta modesto)] 50 mg PO BID 06/10/17 Omeprazole 40 mg PO LUNCH 06/10/17 Potassium Chloride [Klor-Con M20] 20 meq PO BREAKFAST 06/10/17 Pravastatin Sodium [Pravachol] 10 mg PO QHS 06/10/17 dimethyl fumarate 240 mg capsule,delayed release 240 mg PO BID 08/04/18 pramipexole 1 mg tablet 1 mg PO QHS 08/04/18 tamsulosin 0.4 mg capsule 0.4 mg PO DAILY@1730 cap 08/04/18 Fenofibrate,Micronized [Fenofibrate] 200 mg PO LUNCH 08/19/18 Multivitamin [Multivitamins] 1 ea PO DAILY 08/19/18 Oxybutynin [Ditropan] 2.5 mg PO DAILY 08/19/18 Sertraline HCl [Zoloft] 50 mg PO DAILY 08/19/18 Calcium (Elemental) [Os-Karlos 500] 600 mg PO BID 03/18/19 Cholecalciferol (VIT D3) [Vitamin D3] 2,000 units PO DAILY 03/18/19 cycloBENZAPRine HCl [Flexeril] 5 mg PO Q8H PRN PRN 03/18/19 Ferrous Gluconate 324 mg PO QHS 04/04/19 L. Acidophilus/L.bulgaricus [Lactobacillus Tablet] 1 ea PO BID 04/13/19 Magnesium Oxide 400 mg PO DAILY 04/13/19 Nitroglycerin (INPATIENT USE) [Nitrostat] 0.4 mg SL DAILY PRN PRN 04/13/19 Vancomycin HCl in 5 % Dextrose [Vancomycin 1.25 Gram/250Ml-D5w] 1.25 gm IV Q12H 04/13/19 Zinc Sulfate 220 mg PO DAILY 04/13/19 traZODone [Desyrel] 50 mg PO QHS 04/13/19 Acetaminophen [Tylenol] 1,000 mg PO Q6H PRN PRN tab 04/21/19 Furosemide [Lasix] 40 mg PO DAILY #30 tab 04/21/19 Heparin Pf Lock 10 units/ml 50 units IV UD PRN #30 syringe 04/21/19 Menthol/Lanolin/Calamine/Znox [Calmoseptine Ointment] 1 applic TOPICAL 0600,2200 tube 04/21/19 Rifampin 300 mg PO Q12H #50 cap 04/21/19 Vancomycin IV 1,750 mg IV Q24H #25 vial 04/21/19 Following Prescrptions Were Given to Patient: Heparin Pf Lock 10 units/ml 50 units IV UD PRN #30 syringe PRN Reason: Heparin Flush Prescription Printed Furosemide [Lasix] 40 mg PO DAILY #30 tab Transmission Status: Pending to [id number] Rifampin 300 mg PO Q12H #50 cap Transmission Status: Pending to [id number] Vancomycin IV 1,750 mg IV Q24H #25 vial Prescription Printed Primary Care Physician: Elmer Castellanos MD [Primary Care Provider] - Please follow up with your Primary Care Physician in: 1 week. Please Follow Up With: teo Naranjo/canceled per patient 04-20-19 Please Follow Up With: Yamel Humphrey When: As scheduled. Please Follow Up With: MRI Please Follow Up With: MEENA Cooper When: As scheduled. Disposition: Asstd Living/Non-Skill NH Minutes spent on discharge:: 35 Patient Condition:: Stable Medical Necessity - Tobacco Use Smoking Status: Former smoker - 80 pack year smoking history. Tobacco Use: Cigarettes Meaningful Use Info Meaningful Use Diagnoses (Choose all that apply): None applicable
--- NOTE | 2019-04-21 22:04 | HHNOTE_ITS ---
Home Health Note - Plan Overview of reason of hospitalization: The patient is a 69 year old Male with below past medical history hospitalized for staph epi bacteremia, no surgical intervention recommended due to high risk, admitted to TCU with debility, here for rehabilitation, strengthening, intravenous antibiotics, prior to discharge to [facility]. Discharge to [facility], with [facility] & Q24H IV antibiotic thru [facility]. Problems: Patient was seen for (Last Updated 08/04/18 @ 14:32 by Maribell Tolliver) Staphylococcus epidermidis bacteremia (Acute) Spinal abscess (Acute) Complete List of Medical Problems (Last Updated 08/04/18 @ 14:32 by Maribell Tolliver) Staphylococcus epidermidis bacteremia (Acute) Spinal abscess (Acute) Anemia (Chronic) Osteoarthritis (Chronic) Atrial fibrillation (Chronic) BPH (benign prostatic hyperplasia) (Chronic) DVT (deep venous thrombosis) (Chronic) GERD (gastroesophageal reflux disease) (Chronic) Hemorrhoids (Chronic) Multiple sclerosis (Chronic) Obstructive sleep apnea (Chronic) Debility (Acute) Scoliosis (Chronic) Hypokalemia (Chronic) Hyperlipidemia (Chronic) Iron deficiency anemia (Chronic) Restless leg syndrome (Chronic) Muscle spasm (Chronic) Vitamin D deficiency (Chronic) Overactive bladder (Chronic) Hardware failure (Acute) History of DVT (deep vein thrombosis) (Acute) Sick sinus syndrome (Acute) Presence of cardiac pacemaker (Acute) - Requirements and Reasons Disciplines Needed/Ordered: Senior Care Reason for Disciplines: Disease Specific Monitoring/education, Medication Management/Knowledge Deficit, Infusion Therapy, Observation Assessment Related To: Change in Medical Treatment Plan, Limited/Poor Endurance, Physical Impairments, Unsteady Gait/Balance, Intractable Pain, Fall Risk Patient is unable to leave the home: Without Aid of Supportive Devices (crutches, cane, wheelchair, walker), Without the assistance of another person
[2019-04-22 04:59] VITALS: BP 138/68; PULSE 81
[2019-04-22] MEDS: 0.9% NaCl PICC Flush IV ×2 (05:02→10:40)
[2019-04-22] MEDS: APIXABAN 5 MG TABLET PO ×2 (05:04→17:37)
[2019-04-22] MEDS: buPROPion (SR) 150 MG Tablet.SA PO ×2 (05:04→17:37)
[2019-04-22] MEDS: Magnesium Oxide 400 MG Tablet PO (05:04)
[2019-04-22 05:05] VITALS: BP 138/68; PULSE 81
[2019-04-22] MEDS: Furosemide 40 MG Tablet PO (05:05)
[2019-04-22] MEDS: Metoprolol Tartrate 50 MG Tablet PO ×2 (05:05→17:37)
[2019-04-22] MEDS: rifAMPin 300 MG Capsule PO ×2 (05:05→17:37)
[2019-04-22] MEDS: Oxybutynin 5 MG Tablet 2.5 MG PO (05:05)
[2019-04-22] MEDS: DIMETHYL FUMARATE 240 MG CAPSULE.DR PO ×2 (05:07→17:38)
[2019-04-22] MEDS: Menthol/Lanolin/Calamine/Znox 113 GM Tube 1 APPLIC TOPICAL ×2 (05:11→22:06)
[2019-04-22] MEDS: Finasteride 5 MG Tablet PO (05:23)
[2019-04-22] MEDS: Sertraline 50 MG Tablet PO (05:24)
--- NOTE | 2019-04-22 06:29 | NURSING ---
ECONOMICS ANALYST REPORTED TO THIS NURSE THAT THE PT HAD A SMALL BOWEL MOVEMENT AND THERE WAS BLOOD IN THE TOILET. THIS NURSE TALKED TO THE PT. PT STATES HE HAS 1 HEMORRHOID. PT REFUSED TO HAVE RECTAL AREA ASSESSED.
[2019-04-22] MEDS: Flecainide 100 MG Tablet PO ×2 (07:45→17:37)
[2019-04-22] MEDS: Multivitamins,Therapeutic Tablet 1 TABLET PO (07:45)
[2019-04-22] MEDS: Calcium (Elemental) 500 MG Tablet PO ×2 (07:45→17:37)
[2019-04-22 10:39] LABS: Vancomycin, Trough Level 16.8 ug/mL (5.0-15.0)
[2019-04-22 10:42] LABS: EST Glomerular Filtration Rate 64 mL/min (>60); Est Glom Filt Rate - Afr Amer 77 mL/min (>60); Estimated Creatinine Clearance 56.21 ml/min
--- NOTE | 2019-04-22 10:43 | NURSING ---
PICC IN RIGHT UPPER ARM FLUSHED AND GOOD BLOOD RETURN. MED INFUSING. WILL MONITOR.
[2019-04-22] MEDS: 0.9% NaCl IVPB Med Flush (250 mL) 15 ML IV (10:45)
[2019-04-22] MEDS: Pantoprazole Sodium 40 MG Tablet PO (11:33)
[2019-04-22] MEDS: Fenofibrate 145 MG Tablet PO (11:33)
[2019-04-22 16:00] VITALS: BP 137/56; PULSE 70; RESP 18; TEMP 36.6; O2SAT 93
[2019-04-22 17:37] VITALS: BP 137/56; PULSE 70
[2019-04-22] MEDS: Tamsulosin HCl 0.4 MG Capsule PO (17:37)
[2019-04-22] MEDS: Pravastatin 20 MG Tablet 10 MG PO (22:05)
[2019-04-22] MEDS: Pramipexole Di-HCl 1 MG Tablet PO (22:06)
[2019-04-22] MEDS: Ferrous Gluconate 324 MG Tablet PO (22:06)
[2019-04-23] MEDS: Calcium (Elemental) 500 MG Tablet PO ×2 (06:10→17:37)
[2019-04-23] MEDS: Sertraline 50 MG Tablet PO (06:10)
[2019-04-23] MEDS: Finasteride 5 MG Tablet PO (06:10)
[2019-04-23] MEDS: APIXABAN 5 MG TABLET PO ×2 (06:10→17:40)
[2019-04-23] MEDS: buPROPion (SR) 150 MG Tablet.SA PO ×2 (06:10→17:39)
[2019-04-23 06:11] VITALS: PULSE 82
[2019-04-23] MEDS: Magnesium Oxide 400 MG Tablet PO (06:11)
[2019-04-23] MEDS: Furosemide 40 MG Tablet PO (06:11)
[2019-04-23] MEDS: Oxybutynin 5 MG Tablet 2.5 MG PO (06:11)
[2019-04-23] MEDS: rifAMPin 300 MG Capsule PO ×2 (06:11→17:39)
[2019-04-23] MEDS: Metoprolol Tartrate 50 MG Tablet PO ×2 (06:11→17:38)
[2019-04-23] MEDS: DIMETHYL FUMARATE 240 MG CAPSULE.DR PO ×2 (06:13→17:40)
[2019-04-23] MEDS: Menthol/Lanolin/Calamine/Znox 113 GM Tube 1 APPLIC TOPICAL ×2 (06:24→20:06)
[2019-04-23] MEDS: Multivitamins,Therapeutic Tablet 1 TABLET PO (08:05)
[2019-04-23] MEDS: Flecainide 100 MG Tablet PO ×2 (08:05→17:37)
[2019-04-23] MEDS: Fenofibrate 145 MG Tablet PO (11:10)
[2019-04-23] MEDS: Pantoprazole Sodium 40 MG Tablet PO (11:10)
[2019-04-23 15:56] VITALS: BP 147/56; PULSE 66; RESP 18; TEMP 36.4; O2SAT 95
[2019-04-23] MEDS: Tamsulosin HCl 0.4 MG Capsule PO (17:37)
[2019-04-23 17:38] VITALS: BP 147/56; PULSE 66
--- NOTE | 2019-04-23 19:20 | NURSING ---
pt stating that he will try to find a ride back to [place] but not sure if that is possible. Pt had reported to BIBI Casillas on 04/21 that he had a friend to take him home. Pt going to call some people that may be able to pick him up tomorrow. states ya know, I dont have any family or friends to help me, but let me try the one that might pt knows to let charge nurse know if he finds a ride. [facility] digital campaign manager notified. [facility] updated and they do not have transport on sundays & neither does [facility]. will continue to follow for transportation home.
[2019-04-23] MEDS: Pravastatin 20 MG Tablet 10 MG PO (20:06)
[2019-04-23] MEDS: Ferrous Gluconate 324 MG Tablet PO (20:06)
[2019-04-23] MEDS: Pramipexole Di-HCl 1 MG Tablet PO (20:07)
[2019-04-23] MEDS: 0.9% NaCl PICC Flush IV (20:09)
[2019-04-24 04:55] VITALS: BP 145/55; PULSE 60; RESP 18; TEMP 36.7; O2SAT 96
[2019-04-24] MEDS: Sertraline 50 MG Tablet PO (04:56)
[2019-04-24] MEDS: DIMETHYL FUMARATE 240 MG CAPSULE.DR PO (04:56)
[2019-04-24 04:57] VITALS: BP 145/55; PULSE 60
[2019-04-24] MEDS: Oxybutynin 5 MG Tablet 2.5 MG PO (04:57)
[2019-04-24] MEDS: Metoprolol Tartrate 50 MG Tablet PO (04:57)
[2019-04-24] MEDS: Magnesium Oxide 400 MG Tablet PO (04:57)
[2019-04-24] MEDS: rifAMPin 300 MG Capsule PO (04:58)
[2019-04-24] MEDS: buPROPion (SR) 150 MG Tablet.SA PO (04:59)
[2019-04-24] MEDS: Flecainide 100 MG Tablet PO (04:59)
[2019-04-24] MEDS: Finasteride 5 MG Tablet PO (05:00)
[2019-04-24] MEDS: APIXABAN 5 MG TABLET PO (05:00)
[2019-04-24] MEDS: Menthol/Lanolin/Calamine/Znox 113 GM Tube 1 APPLIC TOPICAL (05:02)
[2019-04-24] MEDS: Furosemide 40 MG Tablet PO (05:02)
[2019-04-24] MEDS: Calcium (Elemental) 500 MG Tablet PO (07:43)
[2019-04-24] MEDS: Multivitamins,Therapeutic Tablet 1 TABLET PO (07:43)
[2019-04-24] MEDS: 0.9% NaCl PICC Flush IV ×2 (09:23→12:10)
[2019-04-24 09:25] VITALS: BP 127/61; PULSE 63; RESP 18; TEMP 36.6; O2SAT 96
[2019-04-24 09:42] VITALS: PULSE 68; RESP 18
--- NOTE | 2019-04-24 10:03 | NURSING ---
report called to [facility] Meeks at this time.
[2019-04-24] MEDS: Fenofibrate 145 MG Tablet PO (11:40)
--- NOTE | 2019-04-26 08:31 | MDS.RN ---
Information for the mds was obtained from review of the clinical record, interview of resident, staff, and direct observation of resident's care.
== END 2019-04-24 12:00 | disposition home health service (06) | DRG 95 ==
PROVIDERS: Admitting Provider Family Medicine Geriatric Medicine; Family Provider Family Medicine; PCP Family Medicine; Referring Provider Family Medicine Geriatric Medicine; Visit Provider Family Medicine Geriatric Medicine
DX: G06.1 Intraspinal abscess and granuloma (principal); I48.20 Chronic atrial fibrillation, unspecified; B95.7 Other staphylococcus as the cause of diseases classified elsewhere; M19.90 Unspecified osteoarthritis, unspecified site; G35 Multiple sclerosis; N40.0 Benign prostatic hyperplasia without lower urinary tract symptoms; K21.9 Gastro-esophageal reflux disease without esophagitis; G47.33 Obstructive sleep apnea (adult) (pediatric); M41.9 Scoliosis, unspecified; E55.9 Vitamin D deficiency, unspecified; G25.81 Restless legs syndrome; D50.9 Iron deficiency anemia, unspecified; E78.5 Hyperlipidemia, unspecified; N32.81 Overactive bladder; F41.9 Anxiety disorder, unspecified; F32.9 Major depressive disorder, single episode, unspecified; E87.6 Hypokalemia; Z86.718 Personal history of other venous thrombosis and embolism; Z95.0 Presence of cardiac pacemaker; Z87.891 Personal history of nicotine dependence
CPT/HCPCS: 36415; 80048; 80202; 82565; 85025; 97110; 97116; 97162; 97165; 97530; 97535; 97802; J7040; J7050; A4216

== ENCOUNTER 2019-04-25 13:27 | Outpatient (RCR) | payer MEDICARE, SELFPAY ==
[2019-04-13 16:23] VITALS: BMI 37.9
[2019-04-25 15:50] LABS: Absolute Lymphocyte Count 0.43 X10^3/uL (0.83-4.51); Absolute Neutrophil Count 2.8 X10^3/uL (2.0-7.7); Basophil# 0.02 X10^3/uL; Basophil% 0.5 % (0-1); Eosinophil# 0.12 X10^3/uL; Eosinophils% 3.2 % (0-5); Hematocrit 31.4 % (40-54); Hemoglobin 9.9 g/dL (13.0-16.5); Lymphocyte # 0.43 X10^3/ul (4.0); Lymphocyte % 11.3 % (19-41); Mean Corp Hgb Conc 31.5 g/dL (32-36); Mean Corpuscular Hgb 28.4 pg (27.0-32.0); Mean Platelet Vol. 9.7 fl (6.2-12.0); Monocyte# 0.34 X10^3/uL; Monocyte% 8.9 % (0-10); NRBC Flagged by Analyzer 0 % (0-5); Neutrophil # 2.84 X10^3/uL (2.7-7.7); Neutrophil % 74.8 % (47-70); POSITIVE DIFFERENTIAL YES; Platelet Count 252 K/mm3 (150-450); RBC Distribution Width CV 16.3 % (11.6-14.6); Red Blood Count 3.49 M/mm3 (4.6-6.2); White Blood Count 3.8 K/mm3 (4.4-11.0)
[2019-04-25 15:57] LABS: Anion Gap 6 (5-15); BUN 25 mg/dL (7-18); BUN/Creat Ratio 19.7 RATIO (10-20); Calcium,Total 9.9 mg/dL (8.5-10.1); Chloride 101 mmol/L (98-107); Creatinine, Serum 1.27 mg/dL (0.70-1.30); EST Glomerular Filtration Rate 60 mL/min (>60); Est Glom Filt Rate - Afr Amer 72 mL/min (>60); Glucose 101 mg/dL (74-106); Sodium Level 137 mmol/L (136-145)
[2019-04-25 16:03] LABS: Vancomycin, Trough Level 16.4 ug/mL (5.0-15.0)
[2019-04-25 16:06] LABS: Differential Indicated SCAN CRITERIA MET
[2019-04-26 14:17] LABS: Pathologist Review Reviewed
== END 2019-05-05 23:59 ==
LOC: HHLAB 13:27
PROVIDERS: Family Provider Family Medicine; PCP Family Medicine
DX: R78.81 Bacteremia (principal)
CPT/HCPCS: 80048; 80202; 85025

== ENCOUNTER → 2019-04-26 10:18 | Outpatient (CLI) | payer MEDICARE, SELFPAY ==
[2019-04-26 10:16] VITALS: BMI 37.9
--- NOTE | 2019-04-26 10:19 | RAD_ITS ---
Study: X-ray of the entire thoracic and lumbar spine Prior study: 04/04/2019 CLINICAL HISTORY: Follow-up postop FINDINGS: There are posterior spinal fusion changes with rods and interpeduncular screws extending from the mid sacrum to lower cervical region. There is a slightly increased thoracic kyphosis. The visualized thoracic and lumbar vertebrae appear within normal limits in contour and alignment. There is mild diffuse endplate spondylosis of the thoracic and lumbar vertebrae. IMPRESSION: Posterior spinal fusion with rods and interpeduncular screws from the mid sacrum to lower cervical region. No new compression fractures are identified. Findings are similar to the previous study. Electronically Signed: Dex Ascencio MD at 19:58 EDT , Service support , RAD/Scoliosis 2 or 3 views
--- NOTE | 2019-04-26 10:19 | RAD_ITS ---
STUDY: X-RAY - CERVICAL SPINE REASON FOR EXAM: Male, 69 years old. Postop TECHNIQUE: 2 view(s) of the cervical spine were obtained. COMPARISON: Prior study of 04/04/2019. FINDINGS: There is an anterior fusion plate from C3 to C6 with disc spacers noted throughout this level.. Posterior fusion changes with rods and interpeduncular screws are seen from C2 through the visualized mid thoracic region. Posterior bone graft changes are seen. There is no evidence of acute fracture or subluxation. RAD/Cerv Spine 2 or 3 Views IMPRESSION: Stable orthopedic hardware with no evidence of acute fracture or subluxation. Electronically Signed: Dex Ascencio MD at 19:59 EDT , Service support ,
== END ==
PROVIDERS: Family Provider Family Medicine; PCP Family Medicine; Referring Provider Orthopaedic Surgery; Visit Provider Orthopaedic Surgery
DX: M54.2 Cervicalgia (principal)
CPT/HCPCS: 72040; 72082

== ENCOUNTER 2019-05-05 11:45 | Outpatient (RCR) | payer MEDICARE, SELFPAY ==
[2019-04-26 10:16] VITALS: BMI 37.9
[2019-04-28 12:19] LABS: Absolute Lymphocyte Count 0.31 X10^3/uL (0.83-4.51); Absolute Neutrophil Count 1.7 X10^3/uL (2.0-7.7); Basophil# 0.01 X10^3/uL; Basophil% 0.4 % (0-1); Eosinophil# 0.14 X10^3/uL; Eosinophils% 5.7 % (0-5); Hematocrit 31.7 % (40-54); Hemoglobin 9.9 g/dL (13.0-16.5); Lymphocyte # 0.31 X10^3/ul (4.0); Lymphocyte % 12.6 % (19-41); Mean Corp Hgb Conc 31.2 g/dL (32-36); Mean Corpuscular Volume 89.5 fL (80-94); Mean Platelet Vol. 9.8 fl (6.2-12.0); Monocyte# 0.26 X10^3/uL; Monocyte% 10.6 % (0-10); NRBC Flagged by Analyzer 0 % (0-5); Neutrophil # 1.69 X10^3/uL (2.7-7.7); Neutrophil % 68.7 % (47-70); POSITIVE DIFFERENTIAL YES; Platelet Count 189 K/mm3 (150-450); RBC Distribution Width CV 16.5 % (11.6-14.6); RBC Distribution Width SD 54.6 fl (35.1-43.9); Red Blood Count 3.54 M/mm3 (4.6-6.2); White Blood Count 2.5 K/mm3 (4.4-11.0)
[2019-04-28 12:22] LABS: Differential Indicated SCAN CRITERIA MET
[2019-04-28 12:26] LABS: Anion Gap 6 (5-15); BUN 28 mg/dL (7-18); BUN/Creat Ratio 22.4 RATIO (10-20); Calcium,Total 9.2 mg/dL (8.5-10.1); Chloride 105 mmol/L (98-107); Creatinine, Serum 1.25 mg/dL (0.70-1.30); EST Glomerular Filtration Rate 61 mL/min (>60); Est Glom Filt Rate - Afr Amer 74 mL/min (>60); Glucose 91 mg/dL (74-106); Potassium 4.1 mmol/L (3.5-5.1); Sodium Level 141 mmol/L (136-145)
[2019-04-28 12:28] LABS: Vancomycin, Trough Level 17.9 ug/mL (5.0-15.0)
[2019-04-29 11:49] LABS: Pathologist Review Reviewed
[2019-05-02 10:28] LABS: Absolute Lymphocyte Count 0.39 X10^3/uL (0.83-4.51); Absolute Neutrophil Count 1.8 X10^3/uL (2.0-7.7); Basophil# 0.02 X10^3/uL; Basophil% 0.7 % (0-1); Eosinophil# 0.16 X10^3/uL; Hematocrit 28.8 % (40-54); Hemoglobin 8.9 g/dL (13.0-16.5); Lymphocyte # 0.39 X10^3/ul (4.0); Lymphocyte % 14.6 % (19-41); Mean Corp Hgb Conc 30.9 g/dL (32-36); Mean Corpuscular Hgb 28.3 pg (27.0-32.0); Mean Corpuscular Volume 91.4 fL (80-94); Mean Platelet Vol. 9.6 fl (6.2-12.0); Monocyte# 0.34 X10^3/uL; Monocyte% 12.7 % (0-10); NRBC Flagged by Analyzer 0 % (0-5); Neutrophil # 1.75 X10^3/uL (2.7-7.7); Neutrophil % 65.3 % (47-70); POSITIVE DIFFERENTIAL YES; Platelet Count 170 K/mm3 (150-450); RBC Distribution Width SD 57.1 fl (35.1-43.9); Red Blood Count 3.15 M/mm3 (4.6-6.2); White Blood Count 2.7 K/mm3 (4.4-11.0)
[2019-05-02 10:32] LABS: Differential Indicated SCAN CRITERIA MET
[2019-05-02 10:40] LABS: Anion Gap 5 (5-15); BUN 24 mg/dL (7-18); BUN/Creat Ratio 21.4 RATIO (10-20); Calcium,Total 9.5 mg/dL (8.5-10.1); Chloride 105 mmol/L (98-107); Creatinine, Serum 1.12 mg/dL (0.70-1.30); EST Glomerular Filtration Rate 69 mL/min (>60); Est Glom Filt Rate - Afr Amer 84 mL/min (>60); Glucose 112 mg/dL (74-106); Potassium 3.8 mmol/L (3.5-5.1); Sodium Level 141 mmol/L (136-145)
[2019-05-02 10:44] LABS: Vancomycin, Trough Level 17.2 ug/mL (5.0-15.0)
[2019-05-02 14:32] LABS: Pathologist Review Reviewed
[2019-05-05 12:11] LABS: Anion Gap 8 (5-15); BUN 23 mg/dL (7-18); Chloride 104 mmol/L (98-107); Creatinine, Serum 1.15 mg/dL (0.70-1.30); EST Glomerular Filtration Rate 67 mL/min (>60); Est Glom Filt Rate - Afr Amer 81 mL/min (>60); Glucose 98 mg/dL (74-106); Potassium 3.9 mmol/L (3.5-5.1); Sodium Level 143 mmol/L (136-145)
[2019-05-05 12:14] LABS: Vancomycin, Trough Level 15.9 ug/mL (5.0-15.0)
[2019-05-05 12:22] LABS: Absolute Lymphocyte Count 0.34 X10^3/uL (0.83-4.51); Absolute Neutrophil Count 1.7 X10^3/uL (2.0-7.7); Eosinophil# 0.21 X10^3/uL; Eosinophils% 8.1 % (0-5); Hematocrit 27.2 % (40-54); Lymphocyte # 0.34 X10^3/ul (4.0); Lymphocyte % 13.2 % (19-41); Mean Corp Hgb Conc 33.1 g/dL (32-36); Mean Corpuscular Hgb 29.8 pg (27.0-32.0); Mean Corpuscular Volume 90.1 fL (80-94); Mean Platelet Vol. 9.9 fl (6.2-12.0); Monocyte# 0.29 X10^3/uL; Monocyte% 11.2 % (0-10); NRBC Flagged by Analyzer 0 % (0-5); Neutrophil # 1.71 X10^3/uL (2.7-7.7); Neutrophil % 66.3 % (47-70); POSITIVE DIFFERENTIAL YES; Platelet Count 161 K/mm3 (150-450); RBC Distribution Width CV 17.4 % (11.6-14.6); RBC Distribution Width SD 57.1 fl (35.1-43.9); Red Blood Count 3.02 M/mm3 (4.6-6.2); White Blood Count 2.6 K/mm3 (4.4-11.0)
[2019-05-05 12:24] LABS: Differential Indicated SCAN CRITERIA MET
[2019-05-06 11:53] LABS: Pathologist Review Reviewed
== END 2019-05-05 23:59 ==
LOC: HHLAB 11:45
PROVIDERS: Family Provider Family Medicine; PCP Family Medicine
DX: R78.81 Bacteremia (principal)
CPT/HCPCS: 80048; 80202; 85025

== ENCOUNTER → 2019-05-10 09:14 | Outpatient (CLI) | payer MEDICARE, SELFPAY ==
[2019-04-26 10:16] VITALS: BMI 37.9
[2019-05-10] MEDS: Alteplase 2 MG/2 ML Vial IV (09:51)
== END ==
PROVIDERS: Family Provider Family Medicine; PCP Family Medicine
DX: R78.81 Bacteremia (principal)
CPT/HCPCS: 36593; J2997; A4216

== ENCOUNTER 2019-05-31 11:52 | Outpatient (RCR) | payer MEDICARE, SELFPAY ==
[2019-04-26 10:16] VITALS: BMI 37.9
[2019-05-09 11:21] LABS: Absolute Lymphocyte Count 0.45 X10^3/uL (0.83-4.51); Basophil# 0.01 X10^3/uL; Basophil% 0.3 % (0-1); Eosinophil# 0.22 X10^3/uL; Eosinophils% 7.1 % (0-5); Hematocrit 29.4 % (40-54); Hemoglobin 9.2 g/dL (13.0-16.5); Lymphocyte # 0.45 X10^3/ul (4.0); Lymphocyte % 14.6 % (19-41); Mean Corp Hgb Conc 31.3 g/dL (32-36); Mean Corpuscular Hgb 28.2 pg (27.0-32.0); Mean Corpuscular Volume 90.2 fL (80-94); Mean Platelet Vol. 9.9 fl (6.2-12.0); Monocyte# 0.33 X10^3/uL; Monocyte% 10.7 % (0-10); NRBC Flagged by Analyzer 0 % (0-5); Neutrophil # 2.03 X10^3/uL (2.7-7.7); POSITIVE DIFFERENTIAL YES; Platelet Count 176 K/mm3 (150-450); RBC Distribution Width CV 17.4 % (11.6-14.6); RBC Distribution Width SD 58.2 fl (35.1-43.9); Red Blood Count 3.26 M/mm3 (4.6-6.2); White Blood Count 3.1 K/mm3 (4.4-11.0)
[2019-05-09 11:24] LABS: Differential Indicated SCAN CRITERIA MET
[2019-05-09 11:29] LABS: Anion Gap 4 (5-15); BUN 32 mg/dL (7-18); BUN/Creat Ratio 27.6 RATIO (10-20); Chloride 106 mmol/L (98-107); Creatinine, Serum 1.16 mg/dL (0.70-1.30); EST Glomerular Filtration Rate 66 mL/min (>60); Est Glom Filt Rate - Afr Amer 80 mL/min (>60); Glucose 98 mg/dL (74-106); Potassium 4.1 mmol/L (3.5-5.1); Sodium Level 141 mmol/L (136-145)
[2019-05-09 11:32] LABS: Vancomycin, Trough Level 15.5 ug/mL (5.0-15.0)
[2019-05-10 12:42] LABS: Pathologist Review Reviewed
[2019-05-16 13:48] LABS: Absolute Lymphocyte Count 0.41 X10^3/uL (0.83-4.51); Absolute Neutrophil Count 2.5 X10^3/uL (2.0-7.7); Eosinophil# 0.24 X10^3/uL; Eosinophils% 6.8 % (0-5); Hematocrit 29.1 % (40-54); Hemoglobin 9.2 g/dL (13.0-16.5); Lymphocyte # 0.41 X10^3/ul (4.0); Lymphocyte % 11.6 % (19-41); Mean Corp Hgb Conc 31.6 g/dL (32-36); Mean Corpuscular Hgb 28.9 pg (27.0-32.0); Mean Corpuscular Volume 91.5 fL (80-94); Mean Platelet Vol. 10.7 fl (6.2-12.0); Monocyte# 0.33 X10^3/uL; Monocyte% 9.4 % (0-10); NRBC Flagged by Analyzer 0 % (0-5); Neutrophil # 2.53 X10^3/uL (2.7-7.7); Neutrophil % 71.9 % (47-70); POSITIVE DIFFERENTIAL YES; Platelet Count 186 K/mm3 (150-450); RBC Distribution Width CV 17.9 % (11.6-14.6); RBC Distribution Width SD 60.1 fl (35.1-43.9); Red Blood Count 3.18 M/mm3 (4.6-6.2); White Blood Count 3.5 K/mm3 (4.4-11.0)
[2019-05-16 13:56] LABS: Anion Gap 7 (5-15); BUN 35 mg/dL (7-18); BUN/Creat Ratio 27.8 RATIO (10-20); Chloride 105 mmol/L (98-107); Creatinine, Serum 1.26 mg/dL (0.70-1.30); EST Glomerular Filtration Rate 60 mL/min (>60); Est Glom Filt Rate - Afr Amer 73 mL/min (>60); Glucose 96 mg/dL (74-106); Potassium 4.2 mmol/L (3.5-5.1); Sodium Level 140 mmol/L (136-145)
[2019-05-16 14:02] LABS: Vancomycin, Trough Level 17.4 ug/mL (5.0-15.0)
[2019-05-16 14:43] LABS: Anisocytosis RARE; Platelet Estimate ADEQUATE (ADEQ); Red Cell Morphology N CHROM NORMAL (NORM C&C)
[2019-05-16 14:44] LABS: Differential Indicated SCAN CRITERIA MET
[2019-05-17 13:45] LABS: Pathologist Review Reviewed
[2019-05-23 11:25] LABS: Absolute Lymphocyte Count 0.43 X10^3/uL (0.83-4.51); Absolute Neutrophil Count 2.3 X10^3/uL (2.0-7.7); Basophil# 0.01 X10^3/uL; Basophil% 0.3 % (0-1); Eosinophil# 0.21 X10^3/uL; Eosinophils% 6.4 % (0-5); Hematocrit 30.4 % (40-54); Hemoglobin 9.6 g/dL (13.0-16.5); Lymphocyte # 0.43 X10^3/ul (4.0); Lymphocyte % 13.1 % (19-41); Mean Corp Hgb Conc 31.6 g/dL (32-36); Mean Corpuscular Hgb 28.7 pg (27.0-32.0); Mean Corpuscular Volume 90.7 fL (80-94); Mean Platelet Vol. 10.1 fl (6.2-12.0); Monocyte% 9.2 % (0-10); NRBC Flagged by Analyzer 0 % (0-5); Neutrophil # 2.31 X10^3/uL (2.7-7.7); Neutrophil % 70.7 % (47-70); POSITIVE DIFFERENTIAL YES; Platelet Count 192 K/mm3 (150-450); RBC Distribution Width CV 17.2 % (11.6-14.6); RBC Distribution Width SD 57.6 fl (35.1-43.9); Red Blood Count 3.35 M/mm3 (4.6-6.2); White Blood Count 3.3 K/mm3 (4.4-11.0)
[2019-05-23 11:28] LABS: Differential Indicated SCAN CRITERIA MET
[2019-05-23 11:31] LABS: Anion Gap 5 (5-15); BUN 30 mg/dL (7-18); BUN/Creat Ratio 24.6 RATIO (10-20); Calcium,Total 9.2 mg/dL (8.5-10.1); Chloride 107 mmol/L (98-107); Creatinine, Serum 1.22 mg/dL (0.70-1.30); EST Glomerular Filtration Rate 63 mL/min (>60); Est Glom Filt Rate - Afr Amer 76 mL/min (>60); Glucose 109 mg/dL (74-106); Potassium 3.8 mmol/L (3.5-5.1); Sodium Level 141 mmol/L (136-145)
[2019-05-23 11:33] LABS: Vancomycin, Trough Level 14.3 ug/mL (5.0-15.0)
[2019-05-23 11:47] LABS: Hypochromasia 1+; Platelet Estimate ADEQUATE (ADEQ); Red Cell Morphology N CYTIC NORMAL (NORM C&C)
[2019-05-24 11:44] LABS: Pathologist Review Reviewed
[2019-05-31 12:10] LABS: Absolute Lymphocyte Count 0.43 X10^3/uL (0.83-4.51); Absolute Neutrophil Count 2.3 X10^3/uL (2.0-7.7); Basophil# 0.02 X10^3/uL; Basophil% 0.6 % (0-1); Eosinophils% 6.1 % (0-5); Hemoglobin 9.9 g/dL (13.0-16.5); Lymphocyte # 0.43 X10^3/ul (4.0); Mean Corp Hgb Conc 31.9 g/dL (32-36); Mean Corpuscular Hgb 29.1 pg (27.0-32.0); Mean Corpuscular Volume 91.2 fL (80-94); Mean Platelet Vol. 10.1 fl (6.2-12.0); Monocyte# 0.36 X10^3/uL; Monocyte% 10.9 % (0-10); NRBC Flagged by Analyzer 0 % (0-5); Neutrophil # 2.26 X10^3/uL (2.7-7.7); Neutrophil % 68.5 % (47-70); POSITIVE DIFFERENTIAL YES; Platelet Count 190 K/mm3 (150-450); RBC Distribution Width CV 17.2 % (11.6-14.6); RBC Distribution Width SD 58.4 fl (35.1-43.9); White Blood Count 3.3 K/mm3 (4.4-11.0)
[2019-05-31 12:19] LABS: Anion Gap 7 (5-15); BUN 44 mg/dL (7-18); BUN/Creat Ratio 29.9 RATIO (10-20); Chloride 105 mmol/L (98-107); Creatinine, Serum 1.47 mg/dL (0.70-1.30); EST Glomerular Filtration Rate 51 mL/min (>60); Est Glom Filt Rate - Afr Amer 61 mL/min (>60); Glucose 93 mg/dL (74-106); Potassium 4.4 mmol/L (3.5-5.1); Sodium Level 140 mmol/L (136-145)
[2019-05-31 12:43] LABS: Anisocytosis RARE; Platelet Estimate ADEQUATE (ADEQ); Red Cell Morphology N CHROM NORMAL (NORM C&C)
[2019-05-31 12:44] LABS: Differential Indicated SCAN CRITERIA MET
[2019-06-01 14:34] LABS: Pathologist Review Reviewed
== END 2019-05-31 18:00 | disposition home or self-care (01) ==
LOC: HHLAB 11:52
PROVIDERS: Family Provider Family Medicine; PCP Family Medicine
DX: R78.81 Bacteremia (principal)
CPT/HCPCS: 80048; 80202; 85025

== ENCOUNTER → 2019-06-07 13:54 | Outpatient (CLI) | payer MEDICARE, SELFPAY ==
[2019-04-26 10:16] VITALS: BMI 37.9
--- NOTE | 2019-06-07 13:59 | CT_ITS ---
STUDY: CT CERVICAL SPINE WITH AND WITHOUT CONTRAST REASON FOR EXAM: Male, 69 years old. History of spinal abscess following complete cervical spinal fusion. RADIATION DOSAGE (If Supplied By Facility): CTDIvol = ( 36.92 ) mGy, DLP = ( 4927.09 ) mGycm TECHNIQUE: High resolution transaxial imaging was performed following intravenous administration of 100ML ISOVUE 370. Sagittal and coronal images were reconstructed. Individualized dose optimization techniques were used for this CT. COMPARISON: Comparison is made with prior examination dated February 17, 2019. FINDINGS: Limited examination due to the extensive beam hardening artifact due to the metallic fusion materials. The patient is status post anterior fusion at the C3-C4, C4-C5 and C5-C6 levels. There is also evidence of a prior fusion posteriorly utilizing intrapedicular screw and randal fixation devices and disc space prosthetic material at the C3-C4 C4-C5 and C5-C6 levels. No obvious spinal stenosis is seen. No obvious soft tissue inflammation is present. CT/Spine Cervical W/WO Contrast IMPRESSION: Stable examination. Status post anterior and posterior fusion with limited visualization of the spinal cord due to beam hardening artifacts. Electronically Signed: Lawson Vogel, at 10:35 EST , Service support ,
--- NOTE | 2019-06-07 14:00 | CT_ITS ---
STUDY: CT THORACIC SPINE WITH AND WITHOUT CONTRAST REASON FOR EXAM: Male, 69 years old. SPINAL ABSCESS FOLLOWING COMPLETE SPINAL FUSION, HAD SURG IN AUG 2018, HX-SCOLIOSIS, DDD RADIATION DOSAGE (If Supplied By Facility): CTDIvol = ( 36.92 ) mGy, DLP = ( 4927.09 ) mGycm TECHNIQUE: The patient was scanned in a multi-detector CT scanner. High resolution transaxial imaging was performed pre-and post contrast administration. The examination was performed with 100ML ISOVUE 370. Sagittal and coronal images were reconstructed. Individualized dose optimization techniques were used for this CT. COMPARISON: None. FINDINGS: Spinal rods and screws are present from the cervical spine down to the visualized upper lumbar spine. No fracture or significant displacement of the hardware is seen on this study. Metallic artifact from the hardware results in limited visualization of the surrounding regions. No visualized acute fracture or aggressive process. Mild disc space narrowing is present at multiple levels mild anterior endplate osteophyte formation is present in nearly all visualized levels. The kyphosis of the thoracic spine is slightly exaggerated. There is no substantial scoliosis. No significant central canal stenosis is seen on this study. Chronic postsurgical changes are seen in the paraspinous soft tissues. No significant process is seen in the visualized aspects of the chest and abdomen. No large fluid collection is seen. CT/Spine Thoracic W/WO Contrast IMPRESSION: 1. No large fluid collection seen on this study. 2. Multilevel degenerative changes. Electronically Signed: Roger Buckner MD at 17:03 EST , Service support ,
== END ==
PROVIDERS: Family Provider Family Medicine; PCP Family Medicine
DX: M46.20 Osteomyelitis of vertebra, site unspecified (principal)
CPT/HCPCS: 72127; 72130; Q9967

== ENCOUNTER 2019-06-13 09:30 | Outpatient (RCR) | payer MEDICARE, SELFPAY ==
[2019-04-26 10:16] VITALS: BMI 37.9
[2019-06-06 13:10] LABS: Absolute Lymphocyte Count 0.46 X10^3/uL (0.83-4.51); Basophil# 0.01 X10^3/uL; Basophil% 0.2 % (0-1); Differential Indicated SCAN CRITERIA MET; Eosinophil# 0.19 X10^3/uL; Eosinophils% 4.6 % (0-5); Hematocrit 31.1 % (40-54); Lymphocyte # 0.46 X10^3/ul (4.0); Lymphocyte % 11.2 % (19-41); Mean Corp Hgb Conc 32.2 g/dL (32-36); Mean Corpuscular Hgb 28.8 pg (27.0-32.0); Mean Corpuscular Volume 89.6 fL (80-94); Mean Platelet Vol. 10.3 fl (6.2-12.0); Monocyte# 0.42 X10^3/uL; Monocyte% 10.2 % (0-10); NRBC Flagged by Analyzer 0 % (0-5); Neutrophil % 73.1 % (47-70); POSITIVE DIFFERENTIAL YES; Platelet Count 178 K/mm3 (150-450); RBC Distribution Width CV 17.2 % (11.6-14.6); RBC Distribution Width SD 56.2 fl (35.1-43.9); Red Blood Count 3.47 M/mm3 (4.6-6.2); White Blood Count 4.1 K/mm3 (4.4-11.0)
[2019-06-06 13:20] LABS: Anion Gap 6 (5-15); BUN 37 mg/dL (7-18); BUN/Creat Ratio 25.9 RATIO (10-20); Calcium,Total 9.1 mg/dL (8.5-10.1); Chloride 105 mmol/L (98-107); Creatinine, Serum 1.43 mg/dL (0.70-1.30); EST Glomerular Filtration Rate 52 mL/min (>60); Est Glom Filt Rate - Afr Amer 63 mL/min (>60); Glucose 81 mg/dL (74-106); Potassium 4.2 mmol/L (3.5-5.1); Sodium Level 140 mmol/L (136-145)
[2019-06-06 13:26] LABS: Vancomycin, Trough Level 17.9 ug/mL (5.0-15.0)
[2019-06-06 13:55] LABS: Platelet Estimate ADEQUATE (ADEQ); Red Cell Morphology NORM C+C NORMAL (NORM C&C)
[2019-06-07 11:58] LABS: Pathologist Review Reviewed
[2019-06-13 10:29] LABS: Absolute Lymphocyte Count 0.44 X10^3/uL (0.83-4.51); Absolute Neutrophil Count 1.7 X10^3/uL (2.0-7.7); Basophil# 0.01 X10^3/uL; Basophil% 0.4 % (0-1); Eosinophil# 0.18 X10^3/uL; Eosinophils% 7.1 % (0-5); Hematocrit 33.9 % (40-54); Hemoglobin 10.6 g/dL (13.0-16.5); Lymphocyte # 0.44 X10^3/ul (4.0); Lymphocyte % 17.5 % (19-41); Mean Corp Hgb Conc 31.3 g/dL (32-36); Mean Corpuscular Hgb 28.7 pg (27.0-32.0); Mean Corpuscular Volume 91.9 fL (80-94); Mean Platelet Vol. 10.1 fl (6.2-12.0); Monocyte% 7.9 % (0-10); NRBC Flagged by Analyzer 0 % (0-5); Neutrophil # 1.66 X10^3/uL (2.7-7.7); Neutrophil % 65.9 % (47-70); POSITIVE DIFFERENTIAL YES; Platelet Count 159 K/mm3 (150-450); RBC Distribution Width CV 17.1 % (11.6-14.6); RBC Distribution Width SD 57.6 fl (35.1-43.9); Red Blood Count 3.69 M/mm3 (4.6-6.2); White Blood Count 2.5 K/mm3 (4.4-11.0)
[2019-06-13 10:31] LABS: Differential Indicated SCAN CRITERIA MET
[2019-06-13 10:49] LABS: Differential Comment SCANNED
[2019-06-13 10:54] LABS: Anion Gap 4 (5-15); BUN 29 mg/dL (7-18); BUN/Creat Ratio 21.5 RATIO (10-20); Calcium,Total 9.3 mg/dL (8.5-10.1); Chloride 105 mmol/L (98-107); Creatinine, Serum 1.35 mg/dL (0.70-1.30); EST Glomerular Filtration Rate 56 mL/min (>60); Est Glom Filt Rate - Afr Amer 67 mL/min (>60); Glucose 96 mg/dL (74-106); Potassium 3.8 mmol/L (3.5-5.1); Sodium Level 140 mmol/L (136-145)
[2019-06-13 10:55] LABS: Vancomycin, Trough Level 20.3 ug/mL (5.0-15.0)
== END 2019-06-13 18:00 | disposition home or self-care (01) ==
LOC: HHLAB 09:30
PROVIDERS: Family Provider Family Medicine; PCP Family Medicine
DX: R78.81 Bacteremia (principal)
CPT/HCPCS: 80048; 80202; 85025

== ENCOUNTER → 2019-06-14 10:29 | Outpatient (CLI) | payer MEDICARE, SELFPAY ==
[2019-04-26 10:16] VITALS: BMI 37.9
--- NOTE | 2019-06-14 10:38 | RAD_ITS ---
HISTORY: PAIN TECHNIQUE: AP and lateral views of the thoracolumbar spine Number of images including paperwork: 12 COMPARISON: 04/26/2019 04/04/2019 FINDINGS: Extensive spinal fusion hardware is noted in the cervical, thoracic and lumbar spine. No radiographic evidence of hardware complication. Bone graft material noted in the lumbar region. VERTEBRAE: No acute fracture. VERTEBRAL ALIGNMENT: No traumatic subluxation. DISKS AND JOINTS: No significant degenerative changes. SOFT TISSUES: Unremarkable paraspinous soft tissues. Pacemaker with left-sided generator. IVC filter tilted slightly to the right. Brachytherapy seeds in the prostate. RAD/Scoliosis 2 or 3 views IMPRESSION: No acute osseous abnormality. Extensive spinal fusion hardware without gross change. at [id number] Reported and signed by: Nicole Grant MD Electronically Signed: Nicole Grant MD at 23:41 EST Tel , Service support ,
== END ==
PROVIDERS: Family Provider Family Medicine; PCP Family Medicine; Referring Provider Orthopaedic Surgery; Visit Provider Orthopaedic Surgery
DX: T82.898A Other specified complication of vascular prosthetic devices, implants and grafts, initial encounter (principal); Z45.2 Encounter for adjustment and management of vascular access device; Z98.1 Arthrodesis status
CPT/HCPCS: 36593; 72082; J2997; A4216

== ENCOUNTER → 2019-06-14 12:00 | Outpatient (CLI) | payer MEDICARE, SELFPAY ==
[2019-04-26 10:16] VITALS: BMI 37.9
[2019-06-14 11:13] VITALS: BMI 37.9
[2019-06-14] MEDS: Alteplase 2 MG/2 ML Vial IV (12:21)
--- NOTE | 2019-06-14 15:35 | NURSING ---
PT INFORMED THAT [facility] INFECTIONS DISEASE DOCTOR WANTS A SECOND DOSE OF CATH KEITH TO BE GIVEN. PT REFUSING, WANTS TO LEAVE, STATES HE DOESN'T HAVE ANY MORE IV ANTIBIOTICS AT HOME ANYWAY. INFECTIONS DISEASE DOCTOR MADE AWARE THAT PT IS LEAVING AND IS NOT PLANNING TO RECEIVE ANY MORE IV ANTIBIOTICS. PT WILL FOLLOW UP WITH INFECTIOUS DISEASE ON THURSDAY THIS WEEK.
== END ==
PROVIDERS: Family Provider Family Medicine; PCP Family Medicine
DX: T82.898A Other specified complication of vascular prosthetic devices, implants and grafts, initial encounter (principal); Z45.2 Encounter for adjustment and management of vascular access device
CPT/HCPCS: 36593; J2997; A4216

== ENCOUNTER → 2019-07-01 09:43 | Outpatient (CLI) | payer MEDICARE, SELFPAY ==
[2019-06-14 11:13] VITALS: BMI 37.9
[2019-06-24 09:48] VITALS: BMI 37.9
--- NOTE | 2019-07-01 09:44 | VDLE_ITS ---
Reason For Study: History of DVT RIGHT LEFT GSV is normal. GSV is normal. CFV is compressible, spontaneous, phasic, CFV is compressible, spontaneous, phasic, competent and demonstrates normal competent, and demonstrates normal augmentation. augmentation. FV prox and distal is compressible, FV is compressible, spontaneous, phasic, spontaneous, phasic, competent and competent and demonstrates normal demonstrates normal augmentation. augmentation. FV mid is partially compressible with normal POP V is compressible, spontaneous, phasic, flow noted. competent and demonstrates normal POP V is compressible, spontaneous, phasic, augmentation. competent and demonstrates normal T/P Trunk is compressible. augmentation. PTV is compressible. T/P Trunk is compressible. LT PerV is compressible. PTV is compressible. RT PerV is compressible. Procedure Exam performed in department. A preliminary report was called and/or faxed to [facility]. Interpretation Summary No evidence for acute deep venous thrombosis bilateral lower extremities with patent and compressible bilateral great saphenous veins. Ordering Physician: Dwain Dinh Referring Physician: Elmer Castellanos Performed By: Ness Miranda RVT
== END ==
PROVIDERS: Family Provider Family Medicine; PCP Family Medicine; Referring Provider Surgery; Visit Provider Surgery
DX: Z01.818 Encounter for other preprocedural examination (principal); Z86.718 Personal history of other venous thrombosis and embolism
CPT/HCPCS: 93970

== ENCOUNTER 2019-07-14 09:41 | Day surgery (SDC) | payer MEDICARE, SELFPAY ==
[2019-06-24 09:48] VITALS: BMI 37.9
--- NOTE | 2019-06-24 09:54 | HP_ITS ---
Intake Vital Signs 06/24/19 BMI 37.9 06/24/19 Height 5 ft 7.6 in 06/24/19 Weight: 244 lb 06/24/19 BMI 37.5 06/24/19 BP 118/70 06/24/19 Blood Pressure Location Rt brachial 06/24/19 Position Sitting 06/24/19 Respiration 18 06/24/19 Pulse 58 L 06/24/19 Pulse Source Monitor 06/24/19 Temp 98.0 F 06/24/19 Temp Source Oral 06/24/19 Pulse Oximetry (%) 99 06/24/19 Oxygen Delivery Method room air Intake Visit Reasons: filter removal Chief Complaint: schedule filter removal Clinical Scientist Required: No Is patient in pain?: No Allergies No Known Allergies Allergy (Verified 06/24/19 09:47) Medications Apixaban [Eliquis] 5 mg PO BID 06/10/17 [History Confirmed 06/24/19] Bupropion HCl [Zyban] 150 mg PO BID 06/10/17 [History Confirmed 06/24/19] Finasteride [Proscar] 5 mg PO DINNER 06/10/17 [History Confirmed 06/24/19] Flecainide [Tambocor] 100 mg PO BID 06/10/17 [History Confirmed 06/24/19] Metoprolol Tartrate [Lopressor (beta modesto)] 50 mg PO BID 06/10/17 [History Confirmed 06/24/19] Omeprazole 40 mg PO LUNCH 06/10/17 [History Confirmed 06/24/19] Potassium Chloride [Klor-Con M20] 20 meq PO BREAKFAST 06/10/17 [History Confirmed 06/24/19] Pravastatin Sodium [Pravachol] 10 mg PO QHS 06/10/17 [History Confirmed 06/24/19] dimethyl fumarate 240 mg capsule,delayed release 240 mg PO BID 08/04/18 [History Confirmed 06/24/19] pramipexole 1 mg tablet 1 mg PO QHS 08/04/18 [History Confirmed 06/24/19] tamsulosin 0.4 mg capsule 0.4 mg PO DAILY@1730 cap 08/04/18 [History Confirmed 06/24/19] Fenofibrate,Micronized [Fenofibrate] 200 mg PO LUNCH 08/19/18 [History Confirmed 06/24/19] Multivitamin [Multivitamins] 1 ea PO DAILY 08/19/18 [History Confirmed 06/24/19] Oxybutynin [Ditropan] 2.5 mg PO DAILY 08/19/18 [History Confirmed 06/24/19] Sertraline HCl [Zoloft] 50 mg PO DAILY 08/19/18 [History Confirmed 06/24/19] Calcium (Elemental) [Os-Karlos 500] 600 mg PO BID 03/18/19 [History Confirmed 06/24/19] Cholecalciferol (VIT D3) [Vitamin D3] 2,000 units PO DAILY 03/18/19 [History Confirmed 06/24/19] cycloBENZAPRine HCl [Flexeril] 5 mg PO Q8H PRN PRN 03/18/19 [History Confirmed 06/24/19] Ferrous Gluconate 324 mg PO QHS 04/04/19 [History Confirmed 06/24/19] L. Acidophilus/L.bulgaricus [Lactobacillus Tablet] 1 ea PO BID 04/13/19 [History Confirmed 06/24/19] Magnesium Oxide 400 mg PO DAILY 04/13/19 [History Confirmed 06/24/19] Nitroglycerin (INPATIENT USE) [Nitrostat] 0.4 mg SL DAILY PRN PRN 04/13/19 [History Confirmed 06/24/19] Vancomycin HCl in 5 % Dextrose [Vancomycin 1.25 Gram/250Ml-D5w] 1.25 gm IV Q12H 04/13/19 [History Confirmed 06/24/19] Zinc Sulfate 220 mg PO DAILY 04/13/19 [History Confirmed 06/24/19] traZODone [Desyrel] 50 mg PO QHS 04/13/19 [History Confirmed 06/24/19] Acetaminophen [Tylenol] 1,000 mg PO Q6H PRN PRN tab 04/21/19 [Rx Confirmed 06/24/19] Furosemide [Lasix] 40 mg PO DAILY #30 tab 04/21/19 [Rx Confirmed 06/24/19] Heparin Pf Lock 10 units/ml 50 units IV UD PRN #30 syringe 04/21/19 [Rx Confirmed 06/24/19] Menthol/Lanolin/Calamine/Znox [Calmoseptine Ointment] 1 applic TOPICAL 0600,2200 tube 04/21/19 [Rx Confirmed 06/24/19] Rifampin 300 mg PO Q12H #50 cap 04/21/19 [Rx Confirmed 06/24/19] Vancomycin IV 1,750 mg IV Q24H #25 vial 04/21/19 [Rx Confirmed 06/24/19] PFSH Medical History (Updated 06/24/19 @ 09:51 by Dwain Dinh MD) Presence of vena cava filter (Acute) Sick sinus syndrome (Acute) Presence of cardiac pacemaker (Acute) Acid reflux (Acute) Arthritis (Acute) Atrial fibrillation (Acute) Depression (Acute) Hemorrhoids (Acute) History of back problems (Acute) Hypercholesterolemia (Acute) MS (multiple sclerosis) (Acute) Sleep apnea (Acute) Surgical History (Updated 06/24/19 @ 09:48 by Maribell Tolliver) History of embolic filter insertion (Acute ~06/08/19) H/O cervical spine surgery (Acute) History of hemorrhoidectomy (Acute) gallbladder removed (Acute) S/P cholecystectomy (Inactive) Family History Father Arthritis Cancer prostate Brother Cancer prostate Mother High cholesterol Social History (Updated 06/24/19 @ 09:54 by Dwain Dinh MD) Smoking Status: Former smoker quit date: 07/06/99 pack-years: 30 alcohol intake: never substance use type: does not use HPI HPI HPI: FREDDY RODGERS, is a 69 M who presents to the office today for HPI HPI Surgical H&P: Yes HPI: FREDDY RODGERS, is a 69 M who presents to the office today for surgical consultation for removal of his inferior vena cava filter. The patient apparently has had 3 separate spinal procedures. He has a previous history of deep venous thrombosis unprovoked. He has atrial fibrillation is on chronic Eliquis therapy. Because of his increased risk for DVT on August 09, 2018 I placed a Kerr filter via a right internal jugular approach. Very careful attention was paid to his pacer wires so as to not to interfere. The procedure otherwise went without difficulty and the filter was felt to have been deployed in correct positioning. The patient states that he has not had any leg swelling or pain despite the need for 3 separate procedures due to difficulties with the fusion technique. He has not had a recently updated venous duplex exam. ROS General General: No weight change, appetite, fatigue, colon cancer, breast cancer or weakness HEENT HEENT: No difficulty swallowing, eye injury, eye surgery, swollen glands or hoarseness Endo Endocrine: No thyroid disease, diabetes mellitus, thyroid cancer, Hair loss, heat intolerance or cold intolerance Skin Skin: No rash or changing moles Breast Breast: No left breast lump, right breast lump, nipple discharge, breast pain, abnormal mammogram, abnormal US or breast enlargement Musc Musculoskeletal: Yes back problems; no arthritis, rheumatoid arthritis, gout or joint pain Cardio Cardiovascular: Yes pacemaker and atrial fibrillation; no murmur, heart disease, high blood pressure, heart attack, heart stent, palpitations, shortness of breat with exertion or chest pain Psych Psychiatric: No depression, anxiety or hearing voices Resp Respiratory: No shortness of breath, Yes sleep apnea, No cough, No COPD, No asthma, No emphysema, No wheezing Gastro Gastrointestinal: No abdominal pain, No nausea or vomiting, No diarrhea, No constipation, No blood in stool, No acid reflux, Yes hemorrhoids, No ulcers, No gallbladder problem, No black,tarry stools Aron Hematologic: No blood thinners, No blood disorders, No bleeding, No anemia, No blood clots Neuro Neurologic: No system reviewed and no additional complaints, except as docu, No as per HPI, No abnormal walking, No abnormal hearing, No abnormal movements, No abnormal speech, No behavioral changes, No burning sensations, No confusion, No seizure-like activity, No unsteadiness, No dizziness, No localized weakness, No frequent falls, No headache(s), No lack of coordination, No loss of vision, No memory loss, Yes numbness, No other visual disturbances, No radiating pain, No restless legs, No sensory deficit, No fainting, Yes tingling, No tremor(s), No weakness, Yes other (numbness in back and tingling left forearm) Exam Const General: cooperative Nutritional Appearance: obese Chest Breast Palpation: No nipple discharge Resp Effort & Inspection: normal respiratory effort Auscultation: clear to auscultation bilaterally Cardio Rate: regular rate Rhythm: regular rhythm Heart Sounds: no murmurs GI Palpation: soft Neuro Cognition: normal cognition Extrem Other: Mild bilateral extremity swelling Assessment & Plan Problems 1. Presence of vena cava filter Z95.828 Plan 69-year-old gentleman with an indwelling inferior vena cava filter. He has had 3 separate spinal fusion procedures. The filter was placed August 2018. Subsequent now to all the complicated work he is referred back for removal of the filter. We will obtain venous duplex imaging of his legs. If that is unremarkable then we will plan to proceed with a right internal jugular approach for removal of the filter. In detail I have discussed with him the technique, benefit, risk, alternatives. We will need to have him hold his Eliquis for 48 hours preprocedure. No guarantees of success have been offered. He is additionally aware that a combined transfemoral approach may be required. He has had an opportunity to ask and have questions answered. We will schedule and proceed at his discretion. CC: Dr. Jeffery Dinh M.D., F.A.C.S.s Orders Orders: Venous Duplex - [facility] Today Z01.818, Z86.718 Coding Level of Care Code Off vis,est,level 3 Diagnoses Presence of vena cava filter Z95.828 06/24/19 0954 <Electronically signed by Dwain hobbs MD> Date _ Dwain Dinh MD Bilateral lower extremity venous duplex exam was negative for deep venous thrombosis. The patient's history and physical otherwise remains constant Dwain Dinh M.D., F.A.C.S.
[2019-07-13 08:03] VITALS: BMI 38.2
--- NOTE | 2019-07-14 11:24 | OP.PCM_ITS ---
Problem List (1) Presence of vena cava filter Status: Acute Report of Operation Date of Procedure: 07/14/19 Pre-Operative Diagnosis: Presence of inferior vena cava filter Post-Operative Diagnosis: Same Surgery/Procedure Performed:: Inferior venacavogram with inferior vena cava Aggie filter retrieval Description of Surgical Findings:: Timeout and informed consent was obtained. 69-year-old gent was taken to special procedures lab placed on the table. He received 50 mcg of fentanyl. Because of chronic back issues he was complaining of some positional pain. Extra neck support was applied to keep the patient comfortable. The right neck was sterilely prepped draped. Ultrasound was used to identify the right internal jugular vein. Image capture performed. Under ultrasound guidance 2% lidocaine was instilled as a local anesthetic. Total of 4 cc was used. Under ultrasound guidance micropuncture needle inserted micropuncture wire inserted micropuncture sheath inserted 035 J-wire was carefully inserted under complete fluoroscopic control into the inferior vena cava through the heart with absolutely no disruption of the pacer wires. A 5 Macedonian short sheath light dilator was exchanged out. An 035 J-wire was used to place a flush catheter into the distal abdominal vena cava. Using Isovue contrast 3 to 15 cc a second for 20 cc an inferior venacavogram was obtained demonstrated good positioning of the filter no evidence of thrombus normal flow from the renal veins identified. The tract was then dilated with a 9 Macedonian sheath dilator. Then the retrieval 8 Macedonian sheath dilator was inserted. A single loop snare was used to immediately capture the filter which was easily come pressed and easily removed. The entire device was removed and the filter was inspected and noted be completely intact. Pressure was held for hemostasis. Sterile dressings applied. Blood loss minimal. No apparent complication. He tolerated procedure well. He was taken to the recovery area in satisfactory addition. Inferior venacavogram demonstrated no evidence of thrombus good placement of the vena cava filter nice flow from the renal veins. There was successful uncomplicated retrieval of the inferior vena cava filter Specimen the filter. Filter was not sent for analysis. drains none. Blood loss minimal Dwain Dinh M.D., F.A.C.S. Type of Anesthesia:: Local
== END 2019-07-14 12:40 | disposition home or self-care (01) ==
LOC: CLSP 09:43
PROVIDERS: Family Provider Family Medicine; PCP Family Medicine; Referring Provider Surgery; Visit Provider Surgery
DX: Z45.2 Encounter for adjustment and management of vascular access device (principal); G35 Multiple sclerosis; I48.91 Unspecified atrial fibrillation; E78.00 Pure hypercholesterolemia, unspecified; M19.90 Unspecified osteoarthritis, unspecified site; G47.30 Sleep apnea, unspecified; K21.9 Gastro-esophageal reflux disease without esophagitis; F32.9 Major depressive disorder, single episode, unspecified; Z79.01 Long term (current) use of anticoagulants; Z79.899 Other long term (current) drug therapy; Z86.718 Personal history of other venous thrombosis and embolism; Z87.891 Personal history of nicotine dependence; Z95.0 Presence of cardiac pacemaker
CPT/HCPCS: 37193; 76937; 99152; C1773; J7040; Q9967; C1769

== ENCOUNTER 2019-07-22 08:26 | Emergency (ER) | payer MEDICARE, SELFPAY ==
[2019-07-13 08:03] VITALS: BMI 38.2
[2019-07-22 08:27] VITALS: BP 145/51; PULSE 66; RESP 16; TEMP 36.6; O2SAT 97; BMI 39.4
--- NOTE | 2019-07-22 08:30 | CT_ITS ---
STUDY: CT CERVICAL SPINE WITHOUT CONTRAST REASON FOR EXAM: Male, 69 years old. Fell today, laceration to nose and under left eye, no LOC. Hx complete spinal fusion with hardware. RADIATION DOSAGE (If Supplied By Facility): CTDIvol = ( 27.42 ) mGy, DLP = ( 525.33 ) mGycm TECHNIQUE: High resolution transaxial imaging was performed without contrast material. Sagittal and coronal images were reconstructed. Individualized dose optimization techniques were used for this CT. COMPARISON: Comparison is made with prior examination dated June 07, 2019. FINDINGS: Once again, there is a limited examination due to extensive beam hardening artifacts from the metallic fusion materials. The patient is status post anterior fusion at the C3-C4, C4-C5 and C5-6 levels. The patient also status post posterior fusion and laminectomy with screw and randal fixation devices. There has been essentially no change since prior study. CT/Spine Cervical without Contras IMPRESSION: Stable examination. No acute abnormality is seen. Electronically Signed: Lawson Vogel, at 9:54 EST , Service support ,
--- NOTE | 2019-07-22 08:30 | CT_ITS ---
STUDY: CT BRAIN WITHOUT CONTRAST REASON FOR EXAM: Male, 69 years old. Fell today, laceration to nose and under left eye, no LOC. Hx complete spinal fusion with hardware. RADIATION DOSAGE (If Supplied By Facility): CTDIvol = ( 44.99 ) mGy, DLP = ( 796.11 ) mGycm TECHNIQUE: Transaxial CT imaging of the brain was performed without administration of intravenous contrast material. Individualized dose optimization techniques were used for this CT. COMPARISON: No relevant priors. FINDINGS: Scalp hematoma overlying the left frontal bone. Normal calvarium. There is mild cerebral atrophy with widening of the extra-axial spaces and ventricular dilatation. There are areas of decreased attenuation within the white matter tracts of the supratentorial brain, consistent with microvascular disease changes. Normal basal ganglia and thalami. Normal brainstem. Normal cerebellum. There is no intracranial hemorrhage. There are no findings of an acute ischemic infarction. Atherosclerotic calcification of the cavernous portions of the internal carotid arteries bilaterally. Normal visualized paranasal sinuses. CT/Brain/Head without Contrast IMPRESSION: Chronic involutional changes of the brain. Scalp hematoma overlying the left frontal bone. Electronically Signed: Lawson Vogel, at 9:51 EST , Service support ,
--- NOTE | 2019-07-22 08:32 | RAD_ITS ---
STUDY: X-RAY - LEFT WRIST REASON FOR EXAM: Male, 69 years old. Left wrist pain s/p fall TECHNIQUE: 3 view(s) of the wrist were obtained. COMPARISON: None. FINDINGS: Normal visualized distal radius and ulna. Normal radiocarpal articulation. Normal distal radioulnar articulation. Normal carpal bones. Normal carpal articulations. Normal carpometacarpal articulation of the thumb. Normal second through fifth carpometacarpal articulations. Normal visualized metacarpal bones. Mild soft tissue swelling. RAD/Wrist min 3 Views IMPRESSION: Mild soft tissue swelling. Electronically Signed: Lawson Vogel, at 9:31 EST , Service support ,
--- NOTE | 2019-07-22 08:35 | ED.DCSUM_ITS ---
History of Present Illness Chief Complaint: Fall Informant: Patient Onset: Today Current Severity: Mild Maximum Severity: Moderate Narrative: Patient presents after mechanical fall in his garage. Patient states he was ex iting the house into the garage when he missed a step and fell onto the concrete. His glasses did break. He did strike his head but there was no loss of consciousness. He states he is able to get himself up and get back to the house where he washed his hands and then called EMS. He does have a skin abrasion above the left eyebrow. There is a small superficial laceration below the left eye. He is complaining of headache and left wrist pain. Patient is currently on Eliquis for a history of A. fib. - Past Medical History (1) History of DVT (deep vein thrombosis) Status: Chronic (2) Presence of cardiac pacemaker Status: Chronic (3) Sick sinus syndrome Status: Chronic (4) Atrial fibrillation Status: Chronic (5) BPH (benign prostatic hyperplasia) Status: Chronic (6) GERD (gastroesophageal reflux disease) Status: Chronic (7) Hyperlipidemia Status: Chronic (8) Multiple sclerosis Status: Chronic (9) Obstructive sleep apnea Status: Chronic (10) Osteoarthritis Status: Chronic (11) Restless leg syndrome Status: Chronic Past Medical History - Allergies and Home Meds Allergies/Adverse Reactions: Allergies No Known Allergies Allergy (Verified 07/22/19 08:37) Primary Care Physician: Elmer Castellanos MD [Primary Care Provider] - Prior records reviewed: Yes Surgical History: cholecystectomy, pacemaker implantation, tonsillectomy, - - IVC filter, Multiple spine surgeries. Smoking Status: Former smoker - Family History Maternal Family History: Family History (Last Reviewed 06/24/19 @ 09:32 by Maribell Tolliver) Father Arthritis Cancer Brother Cancer Mother High cholesterol Family History: Reports: No pertinent history Paternal Family History: Family History (Last Reviewed 06/24/19 @ 09:32 by Maribell Tolliver) Father Arthritis Cancer Brother Cancer Mother High cholesterol Family History: Reports: No pertinent history Review of Systems General: Denies: Chills, Fever Eyes: Denies: Visual changes - bilaterally ENT: Denies: Bilateral ear pain Cardiovascular: Denies: Chest pain Respiratory: Denies: Dyspnea, Cough Gastrointestinal: Denies: Abdominal pain, Nausea, Vomiting, Diarrhea Musculoskeletal: Reports: Extremity Pain Skin: Reports: Wounds Neurological: Reports: Headache. Denies: Weakness, Parasthesia Allergy: Denies: Uticaria Physical Exam Vital Signs/Narrative: Vital Signs Temp Pulse Resp BP Pulse Ox 07/22/19 08:27 97.8 F 66 16 145/51 H 97 Inital Vital Signs reviewed: Yes General: Well nourished, Well developed Head: Normocephalic, - - 1.5 cm diameter round skin tear above the left eye. Bleeding controlled at this time. Linear, 1.5 cm superficial laceration just below the left eye. No active bleeding. Eyes: EOMI ENT: Moist mucous membranes Neck: Supple, Nontender Cardiovascular: Regular rate, Regular rhythm Respiratory: No distress, CTA bilaterally Abdomen: Soft, Nontender, Normal bowel sounds Extremities: - - Tenderness to palpation of the left wrist. Good range of motion with no deformity. Strong distal pulses. No tenderness at the left elbow or shoulder. Skin: - - Skin tear as above Neurological: Alert, Oriented x3, - - No focal neuro deficits. Psychological: Normal affect Diagnostic/Tx/Re-eval - Medical Decision Making Patient was given Tylenol for headache. Abrasions were cleansed and dressed. Forehead abrasion had Surgifoam placed along with dressing. Test results discussed with the patient. He is to follow with his PCP next week. ED Disposition - Plan for ED Patient: Disposition: Home or Assisted Living Diagnosis: Fall, Skin avulsion Instructions: FALL, Mechanical, Skin Avulsion Referrals: Elmer Castellanos MD [Primary Care Provider] - 5-7 Days
[2019-07-22] MEDS: Acetaminophen 325 MG Tablet 650 MG PO (08:39)
[2019-07-22 10:34] VITALS: BP 138/59; O2SAT 96
== END 2019-07-22 11:23 | disposition home or self-care (01) ==
PROVIDERS: Emergency Provider Emergency Medicine; PCP Family Medicine
DX: S01.112A Laceration without foreign body of left eyelid and periocular area, initial encounter (principal); S01.81XA Laceration without foreign body of other part of head, initial encounter; M25.532 Pain in left wrist; W10.9XXA Fall (on) (from) unspecified stairs and steps, initial encounter; Y93.9 Activity, unspecified; Y92.008 Other place in unspecified non-institutional (private) residence as the place of occurrence of the external cause; Y99.9 Unspecified external cause status; I49.5 Sick sinus syndrome; I48.20 Chronic atrial fibrillation, unspecified; G35 Multiple sclerosis; G25.81 Restless legs syndrome; E78.5 Hyperlipidemia, unspecified; M19.90 Unspecified osteoarthritis, unspecified site; G47.33 Obstructive sleep apnea (adult) (pediatric); N40.0 Benign prostatic hyperplasia without lower urinary tract symptoms; K21.9 Gastro-esophageal reflux disease without esophagitis; Z79.01 Long term (current) use of anticoagulants; Z79.899 Other long term (current) drug therapy; Z86.718 Personal history of other venous thrombosis and embolism; Z87.891 Personal history of nicotine dependence; Z95.0 Presence of cardiac pacemaker; Z90.49 Acquired absence of other specified parts of digestive tract
CPT/HCPCS: 70450; 72125; 73110; 99284

== ENCOUNTER → 2019-09-13 10:37 | Outpatient (CLI) | payer MEDICARE, SELFPAY ==
[2019-09-13 10:37] VITALS: BMI 39.4
--- NOTE | 2019-09-13 10:38 | RAD_ITS ---
STUDY: X-RAY EXAMINATION: SCOLIOSIS SERIES REASON FOR EXAM: Male, 69 years old. 3 MONTH CHECK UP FROM CERVICAL SURGERY TECHNIQUE: 2 view(s) of the entire spine were obtained in the upright standing position. COMPARISON: 06/14/2019. FINDINGS: There is no scoliosis of the entire spine. Normal cervical lordosis and normal kyphosis of the thoracic spine. There are articular pillar screws and rods in the cervical spine which are unchanged. Metallic plate with transfixing screws from C3 down to C7 are unchanged. There are pedicular screws and rods throughout the thoracic spine. They remain intact and unchanged. No acute fractures or acute osseous abnormality. Multiple pedicular screws and rods in the lumbar spine extending down the sacrum. 2 threaded metallic screws fusing the SI joints. These are all intact and unchanged. No acute fractures of the lumbar vertebra and sacrum. Normal disc space heights of the lumbar spine. The soft tissue structures are unremarkable. RAD/Scoliosis 2 or 3 views IMPRESSION: 1. Intact articular pillar screws and rods in the cervical spine and intact metallic surgical plate with transfixing screws. 2. Intact pedicular screws and rods from the thoracic spine. 3. Intact pedicular screws and rods throughout the lumbar spine. 4. No acute fracture or acute osseous abnormality of the entire spine. 5. No significant interval change when compared to 06/14/2019. Electronically Signed: Lobo Gamboa MD at 9:24 EDT , Service support ,
== END ==
LOC: HPRAD 10:38
PROVIDERS: PCP Family Medicine; Referring Provider Orthopaedic Surgery; Visit Provider Orthopaedic Surgery
DX: Z98.1 Arthrodesis status (principal)
CPT/HCPCS: 72082

== ENCOUNTER 2020-01-18 05:35 | Day surgery (SDC) | payer MEDICARE, SELFPAY ==
[2019-09-13 10:37] VITALS: BMI 39.4
--- NOTE | 2020-01-13 10:24 | EKG12_ITS ---
Test Reason : PRE OP Blood Pressure : / mmHG Vent. Rate : 060 BPM Atrial Rate : 060 BPM P-R Int : 270 ms QRS Dur : 128 ms QT Int : 446 ms P-R-T Axes : 035 002 012 degrees QTc Int : 446 ms Atrial-paced rhythm with prolonged AV conduction Left ventricular hypertrophy with QRS widening Abnormal ECG Confirmed by KRISTEN MONET, BILLY ([id number]), scientific editor YVONNE HUITRON ([id number]) on 01/16/2020 8:27:43 AM Referred By: Brian Kumar Confirmed By:BILLY PETERSON MD
[2020-01-13 10:43] LABS: Hematocrit 26.3 % (40-54); Hemoglobin 8.5 g/dL (13.0-16.5); Mean Corp Hgb Conc 32.3 g/dL (32-36); Mean Corpuscular Hgb 32.9 pg (27.0-32.0); Mean Corpuscular Volume 101.9 fL (80-94); Mean Platelet Vol. 9.6 fl (6.2-12.0); Platelet Count 193 K/mm3 (150-450); Red Blood Count 2.58 M/mm3 (4.6-6.2); White Blood Count 4.9 K/mm3 (4.4-11.0)
[2020-01-13 11:06] LABS: Anion Gap 4 (5-15); BUN 46 mg/dL (7-18); BUN/Creat Ratio 25.1 RATIO (10-20); Calcium,Total 9.2 mg/dL (8.5-10.1); Chloride 107 mmol/L (98-107); Creatinine, Serum 1.83 mg/dL (0.70-1.30); EST Glomerular Filtration Rate 39 mL/min (>60); Est Glom Filt Rate - Afr Amer 47 mL/min (>60); Glucose 94 mg/dL (74-106); Potassium 4.4 mmol/L (3.5-5.1); Sodium Level 141 mmol/L (136-145)
[2020-01-18] VITALS (13 sets, daily range): BP systolic 104–139; BP diastolic 41–60; PULSE 58–64; RESP 16–18; TEMP 36.2–37.1; O2SAT 95–100; BMI 40.9
[2020-01-18] MEDS: Lactated Ringers 1,000 ML 100 ML IV (06:49)
--- NOTE | 2020-01-18 07:29 | PCM.HP.STD ---
History of Present Illness Date of Admission: 01/18/20 Chief Complaint: BPH with obstruction The patient is a 69 year old male who had a UroLift procedure a few years ago which initially did help and he was doing well but now in the last 6 months has been had more difficulty with urination slow stream difficulty emptying his bladder obstruction. On cystoscopy was found to have significant bilateral hypertrophy and obstruction clips are in place but still the channel has been obliterated by regrowth of prostate so at this point we can proceed with a transurethral section of the prostate. Patient has never had any prior prostate surgery. Past Medical History Past Medical History (Chronic Problems): Chronic Problems (Last Reviewed 06/24/19 @ 09:32 by Maribell Tolliver) Anemia (Chronic) Osteoarthritis (Chronic) Atrial fibrillation (Chronic) BPH (benign prostatic hyperplasia) (Chronic) DVT (deep venous thrombosis) (Chronic) GERD (gastroesophageal reflux disease) (Chronic) Hemorrhoids (Chronic) Multiple sclerosis (Chronic) Obstructive sleep apnea (Chronic) Scoliosis (Chronic) Hypokalemia (Chronic) Hyperlipidemia (Chronic) Iron deficiency anemia (Chronic) Restless leg syndrome (Chronic) Muscle spasm (Chronic) Vitamin D deficiency (Chronic) Overactive bladder (Chronic) History of DVT (deep vein thrombosis) (Chronic) Sick sinus syndrome (Chronic) Presence of cardiac pacemaker (Chronic) Medical History: Medical History (Last Reviewed 01/18/20 @ 07:[address] Brian Kumar MD) Presence of vena cava filter (Acute) Z95.828 Sick sinus syndrome (Chronic) I49.5 Presence of cardiac pacemaker (Chronic) Z95.0 Acid reflux K21.9 Arthritis M19.90 Atrial fibrillation I48.91 Depression F32.9 Hemorrhoids K64.9 History of back problems Hypercholesterolemia E78.00 MS (multiple sclerosis) G35 Sleep apnea G47.30 Allergies No Known Allergies Allergy (Verified 07/22/19 08:37) Home Medications: Ambulatory Orders Medication Instructions Recorded Apixaban [Eliquis] 5 mg PO BID 06/10/17 Bupropion HCl [Zyban] 150 mg PO BID 06/10/17 Finasteride [Proscar] 5 mg PO DINNER 06/10/17 Flecainide [Tambocor] 100 mg PO BID 06/10/17 Metoprolol Tartrate [Lopressor 50 mg PO BID 06/10/17 (beta modesto)] Omeprazole 40 mg PO LUNCH 06/10/17 Potassium Chloride [Klor-Con M20] 20 meq PO BREAKFAST 06/10/17 Pravastatin Sodium [Pravachol] 10 mg PO QHS 06/10/17 dimethyl fumarate 240 mg 240 mg PO BID 08/04/18 capsule,delayed release pramipexole 1 mg tablet 1 mg PO QHS 08/04/18 Fenofibrate,Micronized 200 mg PO LUNCH 08/19/18 [Fenofibrate] Multivitamin [Multivitamins] 1 ea PO DAILY 08/19/18 Oxybutynin [Ditropan] 2.5 mg PO DAILY 08/19/18 Sertraline HCl [Zoloft] 50 mg PO DAILY 08/19/18 Calcium (Elemental) [Os-Karlos 500] 600 mg PO BID 03/18/19 Cholecalciferol (VIT D3) [Vitamin 2,000 units PO DAILY 03/18/19 D3] Ferrous Gluconate 324 mg PO QHS 04/04/19 Nitroglycerin (INPATIENT USE) 0.4 mg SL DAILY PRN PRN 04/13/19 [Nitrostat] Zinc Sulfate 220 mg PO DAILY 04/13/19 traZODone [Desyrel] 50 mg PO QHS 04/13/19 Furosemide [Lasix] 40 mg PO DAILY #30 tab 04/21/19 Doxycycline 100 mg PO BID 01/11/20 Surgical History: Surgical History (Last Updated 06/24/19 @ 09:48 by Maribell Tolliver) H/O cervical spine surgery Z98.890 03/14/19 History of embolic filter insertion Onset Date: ~06/08/19 History of hemorrhoidectomy Z98.890 gallbladder removed S/P cholecystectomy Z90.49 Surgical History: cholecystectomy, pacemaker implantation, tonsillectomy, - - IVC filter, Multiple spine surgeries. Psychiatric History: Anxiety, Depression Smoking Status: Former smoker - *Family History Maternal Family History: Family History (Last Reviewed 06/24/19 @ 09:32 by Maribell Tolliver) Father Arthritis Cancer Brother Cancer Mother High cholesterol History Items: No pertinent history Paternal Family History: Family History (Last Reviewed 06/24/19 @ 09:32 by Maribell Tolliver) Father Arthritis Cancer Brother Cancer Mother High cholesterol History Items: No pertinent history Review of Systems Constitutional: Denies: Chills, Fever, Weight Change HEENT: Denies: Head Aches, Sinus Congestion, Sinus Drainage Cardiovascular: Denies: Chest Pain, Palpitations Respiratory: Denies: Cough, Shortness of breath at rest, Sputum production Gastrointestinal: Denies: Abdominal Pain, Nausea, Vomiting Genitourinary: Denies: Dysuria Musculoskeletal: Denies: Joint Pain, Joint Tenderness Skin: Denies: Rash, Wounds Neurological: Denies: Numbness, Tingling, Focal weakness Psychiatric: Denies: Anxiety, Depression, Homicidal Ideations, Suicidal Ideations Hematologic/ Lymphatic: Denies: Easy Bruising, Easy Bleeding VTE Information - Inpt Only VTE Present on Admission: No VTE Mechan Device Prophylaxis: SCD's - Physical Exam Vitals/I&O's: Vital Signs Temp Pulse Resp BP Pulse Ox 98.7 F 60 18 121/49 H 100 01/18/20 06:26 01/18/20 06:26 01/18/20 06:26 01/18/20 06:26 01/18/20 06:26 Oxygen Delivery Method Room Air Weight: 122.1 kg Body Mass Index (BMI) 40.9 General: Alert, Oriented x3, Cooperative HEENT: Atraumatic, PERRLA, EOMI, Normocephalic Neck: Supple, No JVD, Negative Carotid Bruits Lungs: Clear to auscultation, Normal air movement Cardiovascular: Regular rate, No murmurs Abdomen: Bowel Sounds Present, Soft, Non Tender Extremities: No edema, Capillary Refill Less than 3 Seconds Skin: No rashes, No breakdown Musculoskeletal: No Tenderness to Palpation of Joints or Extremities Neurological: Cranial nerves II-XII grossly intact Psych/Mental Status: Normal Affect, Appropriate Laboratory Results 01/18/20 06:00: Blood Type Not Reportable, Antibody Screen Pending, Crossmatch See Detail 01/18/20 06:00: Blood Type A POSITIVE, Antibody Screen Pending Current Medications Cefazolin Sodium 3 gm/ Sodium (Chloride) 115 mls @ 150 mls/hr IV PREOP ONE Stop: 01/18/20 09:40 Lactated Ringer's () 1,000 mls @ 100 mls/hr IV .Q10H ARI Last Admin: 01/18/20 06:49 Dose: 100 mls/hr Documented by: Assessment/Plan All Active Problems (Last Reviewed 06/24/19 @ 09:32 by Maribell Tolliver) Presence of vena cava filter (Acute) Staphylococcus epidermidis bacteremia (Acute) Spinal abscess (Acute) Debility (Acute) Hardware failure (Acute) 69-year-old male with BPH obstruction will proceed with transurethral resection of the prostate to alleviate obstruction.
--- NOTE | 2020-01-18 07:30 | DCINST_ITS ---
Discharge Diet: No Restrictions Discharge Activity: Return to Normal Activity, May Not Drive - for 2 days., May not drive while taking narcotic pain medications. Additional Activity Instructions:: Please be aware that pain medications may cause nausea. You should typically eat light foods as you take your pain medication. Pain medication may cause constipation, if this is a problem for you, please discuss with your doctor. Instructions: Transurethral Resection of the Prostate (TURP): Home Recovery Allergies/Adverse Reactions: Allergies No Known Allergies Allergy (Verified 07/22/19 08:37) Medications to take at Discharge Apixaban [Eliquis] 5 mg PO BID 06/10/17 Bupropion HCl [Zyban] 150 mg PO BID 06/10/17 Finasteride [Proscar] 5 mg PO DINNER 06/10/17 Flecainide [Tambocor] 100 mg PO BID 06/10/17 Metoprolol Tartrate [Lopressor (beta modesto)] 50 mg PO BID 06/10/17 Omeprazole 40 mg PO LUNCH 06/10/17 Potassium Chloride [Klor-Con M20] 20 meq PO BREAKFAST 06/10/17 Pravastatin Sodium [Pravachol] 10 mg PO QHS 06/10/17 dimethyl fumarate 240 mg capsule,delayed release 240 mg PO BID 08/04/18 pramipexole 1 mg tablet 1 mg PO QHS 08/04/18 Fenofibrate,Micronized [Fenofibrate] 200 mg PO LUNCH 08/19/18 Multivitamin [Multivitamins] 1 ea PO DAILY 08/19/18 Oxybutynin [Ditropan] 2.5 mg PO DAILY 08/19/18 Sertraline HCl [Zoloft] 50 mg PO DAILY 08/19/18 Calcium (Elemental) [Os-Karlos 500] 600 mg PO BID 03/18/19 Cholecalciferol (VIT D3) [Vitamin D3] 2,000 units PO DAILY 03/18/19 Ferrous Gluconate 324 mg PO QHS 04/04/19 Nitroglycerin (INPATIENT USE) [Nitrostat] 0.4 mg SL DAILY PRN PRN 04/13/19 Zinc Sulfate 220 mg PO DAILY 04/13/19 traZODone [Desyrel] 50 mg PO QHS 04/13/19 Furosemide [Lasix] 40 mg PO DAILY #30 tab 04/21/19 Doxycycline 100 mg PO BID 01/11/20 Orders to be completed after discharge: Basic Metabolic Profile (BMP) Time Frame: 01/13/20, Facility: [facility], Location: Laboratory CBC-Complete Blood Cnt No Diff Time Frame: 01/13/20, Facility: [facility], Location: Laboratory Primary Care Physician: Elmer Castellanos MD [Primary Care Provider] - Test Results: Test results from this visit will be discussed in further detail at your follow- up appointment, if applicable. Please Follow Up With: Brian Kumar MD When: in 2 weeks, please call to make an appointment.
--- NOTE | 2020-01-18 07:30 | PROS_PTH ---
PATIENT: FREDDY RODGERS LOC: [facility] – [place], [place] U#:[id number] AGE/SX: 69/M ROOM: RE01/18/[address]: Dr. Brian Kumar MD : 1950 BED: DIS: 01/19/2020 SPEC #: [id number] RECD: 01/18/20 09:55 STATUS: JENN RE #: [id number] MARQUES: 01/18/20 07:[address]: Brian Kumar DEPT: SURGICAL PATHOLOGY RECD BY: Fredis Jimenez ENTERED: 01/18/20 11:40 SP TYPE: TURP OTHR DR: Dr. Elmer Castellanos MD Tissues: Prostate, NOS Procedures: Surgery Specimen Level IV HEADER OPERATION: Cysto, TUR prostate, Olympus PRE-OP DIAGNOSIS: BPH with obstruction TISSUE SUBMITTED: Prostate chips MICROSCOPIC DIAGNOSIS Prostate chips, TUR: Benign prostatic hyperplasia, glandular and stromal type. Focal basal cell hyperplasia. SJ:goldy 01/19/20 MICROSCOPIC DESCRIPTION Slides are reviewed. GROSS DESCRIPTION Received is one container labeled with the patient's name and designated prostate chips. The specimen consists of multiple irregular fragments of pink-collado, rubbery, soft tissue that in aggregate weigh 18 gm and measure in aggregate 7 x 6 x 2.5 cm. Two metallic clips are also noted. Fire Fighter tissue is submitted in 12 cassettes. / VIRGEN:goldy 01/18/20 TC:5 CPT: 34547
[2020-01-18] MEDS: Lubricating Jelly 60 GM Tube 30 GM TOPICAL (08:00)
--- NOTE | 2020-01-18 08:27 | OP.PCM_ITS ---
Report of Operation Date of Procedure: 01/18/20 Pre-Operative Diagnosis: BPH with obstruction Post-Operative Diagnosis: Same Surgery/Procedure Performed:: Transurethral resection of prostate Description of Surgical Findings:: 69-year-old male was taken back to the operating room after smooth induction of general anesthesia he was placed in dorsolithotomy position the penis and testicles were prepped and draped in usual sterile fashion went into the bladder with a 24 [place] noncontinuous flow Olympus resectoscope. He had bilateral hypertrophy small median lobe no tumors or stones within the bladder. I then switched over to the large loop resectoscope and started resecting the prostate resected the floor the prostate back to the verumontanum resected the right lobe of the prostate back to the verumontanum during the resection I took out the UroLift clips 3 on the right side 3 in the left side. Then resected the left lobe of the prostate all the back to the verumontanum after the resection was done then I used the Mariah Lemus out all the chips then we switched over the button and vaporized the tissue get a nice smooth channel and had a wide open channel from the verumontanum into the bladder neck. Obtained good hemostasis p ut a catheter into the bladder on continuous bladder irrigation the urine was clear. Resection time was 30 minutes. Type of Anesthesia:: General Drains: 3 way saavedra - Admit VTE Documentation VTE Present on Admission: No VTE Mechan Device Prophylaxis: SCD's
[2020-01-18] MEDS: Ciprofloxacin 400 MG/200 ML BAG 200 MG IV ×2 (11:15→21:11)
[2020-01-18] MEDS: 0.9% Normal Saline 1,000 ML 75 ML IV (11:17)
[2020-01-18] MEDS: Flecainide 100 MG Tablet PO (21:07)
[2020-01-18] MEDS: Pravastatin 20 MG Tablet 10 MG PO (21:08)
[2020-01-18] MEDS: Pramipexole Di-HCl 1 MG Tablet PO (21:08)
[2020-01-18] MEDS: traZODone 50 MG Tablet PO (21:09)
[2020-01-18] MEDS: Metoprolol Tartrate 50 MG Tablet PO (21:09)
[2020-01-18] MEDS: Ferrous Gluconate 324 MG Tablet PO (21:09)
[2020-01-18] MEDS: DIMETHYL FUMARATE 240 MG CAPSULE.DR PO (21:10)
[2020-01-18] MEDS: buPROPion (SR) 150 MG Tablet.SA PO (21:10)
[2020-01-19] VITALS (10 sets, daily range): BP systolic 104–138; BP diastolic 42–54; PULSE 54–62; RESP 18; TEMP 36.6–37.2; O2SAT 95–98
[2020-01-19] MEDS: 0.9% Normal Saline 1,000 ML 75 ML IV (02:49)
[2020-01-19 06:24] LABS: Hematocrit 24.2 % (40-54); Hemoglobin 7.8 g/dL (13.0-16.5); Mean Corp Hgb Conc 32.2 g/dL (32-36); Mean Corpuscular Hgb 33.8 pg (27.0-32.0); Mean Corpuscular Volume 104.8 fL (80-94); Mean Platelet Vol. 9.6 fl (6.2-12.0); Platelet Count 152 K/mm3 (150-450); RBC Distribution Width CV 16.3 % (11.6-14.6); RBC Distribution Width SD 61.1 fl (35.1-43.9); Red Blood Count 2.31 M/mm3 (4.6-6.2); White Blood Count 4.5 K/mm3 (4.4-11.0)
[2020-01-19 07:06] LABS: Anion Gap 4 (5-15); BUN 33 mg/dL (7-18); BUN/Creat Ratio 21.3 RATIO (10-20); Calcium,Total 8.2 mg/dL (8.5-10.1); Chloride 112 mmol/L (98-107); Creatinine, Serum 1.55 mg/dL (0.70-1.30); EST Glomerular Filtration Rate 47 mL/min (>60); Est Glom Filt Rate - Afr Amer 57 mL/min (>60); Estimated Creatinine Clearance 43.52 ml/min; Glucose 91 mg/dL (74-106); Potassium 4.1 mmol/L (3.5-5.1); Sodium Level 142 mmol/L (136-145)
[2020-01-19] MEDS: Multivitamins,Therapeutic Tablet 1 TABLET PO (08:37)
[2020-01-19] MEDS: buPROPion (SR) 150 MG Tablet.SA PO (08:37)
[2020-01-19] MEDS: Flecainide 100 MG Tablet PO (08:37)
[2020-01-19] MEDS: Furosemide 40 MG Tablet PO (08:37)
[2020-01-19] MEDS: Sertraline 50 MG Tablet PO (08:37)
[2020-01-19] MEDS: DIMETHYL FUMARATE 240 MG CAPSULE.DR PO (08:38)
[2020-01-19] MEDS: Fenofibrate 145 MG Tablet PO (11:25)
[2020-01-19] MEDS: Metoprolol Tartrate 50 MG Tablet PO (11:25)
--- NOTE | 2020-01-19 14:56 | PHA.DC.MC ---
Pharmacy Service has performed discharge medication reconciliation and counseling for this patient. 1. CIPROFLOXACIN 500MG PO BID X 7 DAYS 2. IBUPROFEN 600MG PO Q6H PRN PAIN 3. ACETAMINOPHEN 500MG PO Q6H PRN PAIN The patient's discharge medication list was reviewed for discrepancies and discrepancies were resolved. Home Medications Bupropion HCl [Zyban] 150 mg PO BID 06/10/17 Finasteride [Proscar] 5 mg PO DINNER 06/10/17 Flecainide [Tambocor] 100 mg PO BID 06/10/17 Metoprolol Tartrate [Lopressor (beta modesto)] 50 mg PO BID 06/10/17 Omeprazole 40 mg PO LUNCH 06/10/17 Potassium Chloride [Klor-Con M20] 20 meq PO BREAKFAST 06/10/17 Pravastatin Sodium [Pravachol] 10 mg PO QHS 06/10/17 dimethyl fumarate 240 mg capsule,delayed release 240 mg PO BID 08/04/18 pramipexole 1 mg tablet 1 mg PO QHS 08/04/18 Fenofibrate,Micronized [Fenofibrate] 200 mg PO LUNCH 08/19/18 Multivitamin [Multivitamins] 1 ea PO DAILY 08/19/18 Oxybutynin [Ditropan] 2.5 mg PO DAILY 08/19/18 Sertraline HCl [Zoloft] 50 mg PO DAILY 08/19/18 Calcium (Elemental) [Os-Karlos 500] 600 mg PO BID 03/18/19 Cholecalciferol (VIT D3) [Vitamin D3] 2,000 units PO DAILY 03/18/19 Ferrous Gluconate 324 mg PO QHS 04/04/19 Nitroglycerin (INPATIENT USE) [Nitrostat] 0.4 mg SL DAILY PRN PRN 04/13/19 Zinc Sulfate 220 mg PO DAILY 04/13/19 traZODone [Desyrel] 50 mg PO QHS 04/13/19 Furosemide [Lasix] 40 mg PO DAILY #30 tab 04/21/19 Doxycycline 100 mg PO BID 01/11/20 Acetaminophen [Tylenol Extra Strength] 500 mg PO Q4H PRN PRN #20 tab 01/18/20 Ciprofloxacin [Cipro] 500 mg PO BID #14 tab 01/18/20 Ibuprofen 600 mg PO Q6H PRN PRN #20 tab 07/15/20 The patient was counseled on the following discharge medications and changes in medications for homegoing were reviewed. The Reason for Use, instructions for use, and potential side effects were reviewed for all new medications. The patient's questions regarding all of their medications were answered. The patient was able to verbally demonstrate an understanding of their discharge medications. Patient was counseled by hospital pharmacy directorDavid
== END 2020-01-19 15:54 | disposition home or self-care (01) ==
LOC: SDC 05:36 → AC 05:36 → MS3 08:11
PROVIDERS: Anesthesiology; PCP Family Medicine; Referring Provider Urology; Visit Provider Urology
PROC: (CPT 52601; principal; 2020-01-18 07:20)
DX: N40.1 Benign prostatic hyperplasia with lower urinary tract symptoms (principal); N13.8 Other obstructive and reflux uropathy; N32.81 Overactive bladder; R39.14 Feeling of incomplete bladder emptying; R39.12 Poor urinary stream; R35.0 Frequency of micturition; N39.41 Urge incontinence; R35.1 Nocturia; Z11.59 Encounter for screening for other viral diseases; G35 Multiple sclerosis; D50.9 Iron deficiency anemia, unspecified; M19.90 Unspecified osteoarthritis, unspecified site; G25.81 Restless legs syndrome; E78.5 Hyperlipidemia, unspecified; E55.9 Vitamin D deficiency, unspecified; G47.33 Obstructive sleep apnea (adult) (pediatric); K21.9 Gastro-esophageal reflux disease without esophagitis; F32.9 Major depressive disorder, single episode, unspecified; F41.9 Anxiety disorder, unspecified; Z79.01 Long term (current) use of anticoagulants; Z79.899 Other long term (current) drug therapy; Z86.718 Personal history of other venous thrombosis and embolism; Z87.891 Personal history of nicotine dependence; Z95.0 Presence of cardiac pacemaker
CPT/HCPCS: 00914; 52601; 36415; 80048; 85027; 86850; 86900; 86901; 86905; 86920; 86921; 86922; 87635; 88305; 93005; 99251; G2023; J7030; J7040; J7120; P9016; G0463; J0744; J2405; U0003

== ENCOUNTER 2020-02-28 10:22 | Day surgery (SDC) | payer MEDICARE, SELFPAY ==
[2020-01-18 06:26] VITALS: BMI 40.9
--- NOTE | 2020-02-27 18:57 | PCM.HP.BLA ---
History and Physical Date of Admission: 02/28/20 HISTORY AND PHYSICAL ? Juve Lo 1950 ? REFERRING PHYSICIAN: Jeffery Castellanos ? CHIEF COMPLAINT: Rectal Problem ? HPI: The patient is a 69 year old male referred for endoscopy. Juve notes a history of anemia and is referred for endoscopic evaluation to look for possible GI bleeding. Patient denies any change in bowel habits, weight changes, visible blood in stools, black tarry stools or abdominal pain. Denies family history of colon issues. The patient notes no upper GI complaints. ? Juve has undergone prior endoscopy, most recently by Dr. Davenport 06/12/2017 at [facility], no concerning findings at that time. ? Past medical history significant for atrial fibrillation and a pacemaker, which patient states has not been checked in over a year. He is scheduled for a pacer check in March. Patient follows with Dr. Castellanos for his chronic medical conditions. ? ? PAST MEDICAL HISTORY PAST MEDICAL HISTORY Diagnosis Date ? A-fib ([facility]) ? ? Dr. Pascual in [place] ? Anemia ? ? BPH (benign prostatic hyperplasia) ? ? Chronic lower back pain ? ? Dr. Humphrey ? CKD (chronic kidney disease) stage 3, GFR 30-59 ml/min ([facility]) ? ? DDD (degenerative disc disease), lumbar ? ? mild ? Depression ? ? Family history of prostate cancer ? ? GERD (gastroesophageal reflux disease) ? ? Hypertension ? ? Incontinence ? ? urinary, Dr. Kumar ? Lower extremity edema ? ? MS (multiple sclerosis) ([facility]) 1989 ? [facility] ? Obesity ? ? ANICETO (obstructive sleep apnea) ? ? Does not wear CPAP ? RLS (restless legs syndrome) ? ? S/P placement of cardiac pacemaker ? ? Scoliosis ? ? s/p T3 through pelvis spinal fusion ? Staphylococcus epidermidis bacteremia ? ? spine, lifelong doxycycline ? ? PAST SURGICAL HISTORY PAST SURGICAL HISTORY Procedure Laterality Date ? CATARACT SURGERY, COMPLEX Bilateral 2014 ? CHOLECYSTECTOMY ? ? ? COLONOSCOP W/ OR W/O [facility] SPEC ? 06/12/2017 ? Colonoscopy [facility] - normal 10 year follow up ? COLONOSCOPY ? 01/07/2016 ? repeat in 1 year ? HEMORRHOIDECTOMY ? ? ? PACEMAKER ? ? ? PAST SURGICAL HISTORY OF ? 08/2018 ? T3 through pelvis fusion ? PAST SURGICAL HISTORY OF ? 03/14/2019 ? revision C2-T8 posterior spinal fusion with plastics closure?on?03/14/19 ? PAST SURGICAL HISTORY OF ? 07/14/2019 ? IVC filter retrieval ? ? ? CURRENT MEDICATIONS Current Outpatient Medications Medication Sig ? flecainide (TAMBOCOR) 100 mg tablet TAKE 1 TABLET BY MOUTH TWICE A DAY ? furosemide (LASIX) 20 mg tablet Take 1 tablet by mouth twice daily. ? buPROPion SR (ZYBAN SR; WELLBUTRIN SR) 150 mg 12 hr tablet Take 1 tablet by mouth twice daily. ? sertraline (ZOLOFT) 50 mg tablet Take 1 tablet by mouth once daily. ? pramipexole (MIRAPEX) 1 mg tablet Take 0.5 tablets by mouth twice daily. ? traZODone (DESYREL) 50 mg tablet Take 1 tablet by mouth daily at bedtime. ? iron polysaccharide complex (FERREX 150) 150 mg iron capsule Take 1 capsule by mouth twice daily. ? potassium chloride 20 mEq TbER Take 1 tablet by mouth once daily. ? Cholecalciferol, Vitamin D3, (VITAMIN D-3) 50 mcg (2,000 unit) cap Take 1 capsule by mouth once daily. ? fenofibrate (LOFIBRA) 200 mg capsule Take 1 capsule by mouth once daily. ? therapeutic multivitamin (THERA VITAMIN) tablet Take 1 tablet by mouth once daily. ? apixaban (ELIQUIS) 5 mg tab(s) Take 1 tablet by mouth twice daily. ? finasteride (PROSCAR) 5 mg tablet Take 1 tablet by mouth once daily. ? pravastatin (PRAVACHOL) 10 mg tablet Take 1 tablet by mouth once daily. ? metoprolol tartrate, short acting, (LOPRESSOR) 50 mg tablet Take 1 tablet by mouth twice daily. ? dimethyl fumarate (TECFIDERA) 240 mg Take 1 capsule by mouth twice daily. ? mupirocin (BACTROBAN) 2 % ointment Apply to affected area three times daily. ? calcium carbonate (CALTRATE) 600 mg calcium (1,500 mg) tab Take 1 tablet PO BID ? Omeprazole 40 mg capsule Take 1 capsule by mouth once daily. ? zinc sulfate 220 (50) mg capsule Take 1 capsule by mouth once daily. ? oxybutynin XL (DITROPAN XL) 5 mg 24 hr tablet Take 1 tablet by mouth once daily. (Patient taking differently: Take 10 mg by mouth once daily. ) ? acetaminophen (TYLENOL) 325 mg tablet Take 2 tablets by mouth every 6 hours as needed. ? nitroglycerin sublingual (NITROQUICK) 0.4 mg SL tablet Dissolve 1 tablet under the tongue as needed. FOR CHEST PAIN. IF NO RELIEF CALL 911 ? COMPOUNDED PRESCRIPTION Low carbohydrate diet Dx: Morbid obesity ? No current facility-administered medications for this visit. ? ? ALLERGIES: Patient has no known allergies. ? PERSONAL HISTORY: SOCIAL HISTORY Social History ? Tobacco Use ? Smoking status: Former Smoker ? ? Types: Cigarettes ? ? Last attempt to quit: 07/1999 ? ? Years since quittin.5 ? Smokeless tobacco: Never Used Substance Use Topics ? Alcohol use: No ? ? Frequency: Never ? ? Drinks per session: 1 or 2 ? ? Binge frequency: Never ? Drug use: No ? FAMILY HISTORY: FAMILY HISTORY FAMILY HISTORY Problem Relation Age of Onset ? Prostate Cancer Brother ? ? Prostate Cancer Father ? ? Hyperlipidemia Mother ? ? Heart Mother ? ? ? REVIEW OF SYMPTOMS: The review of systems data was entered by the nurse and reviewed by me ? Nursing Notes: Haydee Herrmann LPN 01/18/2020 9:04 AM Signed REVIEW OF SYSTEMS: General: The patient NOTES fatigue, denies weight loss, denies weight gain, denies feeling hot, and denies feelings of cold. Eyes: The patient denies glaucoma, denies eye injury/surgery, does not wear glasses or contacts. Ear/Nose/Throat: The patient denies allergies, denies hayfever, denies ear infections, and denies bloody noses. Cardiovascular: The patient denies chest pain, NOTES heart disease, NOTES high blood pressure,denies cardiac stent, denies prior heart attack, NOTES irregular heart beat, denies high cholesterol, denies poor circulation, NOTES heart failure, other cardiac issues, denies claudication, denies cold feet, denies peripheral arterial stent. Respiratory: The patient denies tuberculosis, denies pneumonia, denies frequent cough, denies pulmonary embolism, denies shortness of breath, and denies coughing up blood. Gastrointestinal: The patient denies difficulty swallowing, NOTES acid reflux, denies ulcers, denies vomiting, denies jaundice/hepatitis, denies gallbladder problems, denies black or tarry stools, denies hemorrhoids, denies bleeding from rectum, denies diverticulitis, denies constipation, denies diarrhea, denies loss of stool control, and denies hernias. Kidney/Bladder: The patient denies kidney stones, denies urine infections, and denies bloody urine. Skin: The patient denies a history of skin cancer, denies bleeding/changing moles, and denies a history of skin rash. Neurologic: The patient denies a history of epilepsy/convulsions, denies headaches, denies head/spinal injuries, and denies stroke/TIA. Psychiatric: The patient denies psychiatric medications, NOTES depression, and denies voices, denies substance abuse. Endocrine: The patient denies thyroid disorders, denies diabetes, and denies hormonal problems. Hematologic: The patient denies a history of bruising, denies bleeding, and NOTES anemia, denies blood clots. Infections: The patient denies a history of measles and mumps, denies rheumatic fever, and denies sexually transmitted diseases. Musculoskeletal: The patient NOTES back pain/injury, denies back problems, denies sciatica, denies knee/foot trouble, denies arthritis, or denies gout. ? ? When was patient's last Mammogram screening? N/A ? Last Colonoscopy: 2018 ? Haydee Herrmann LPN I have confirmed and edited as necessary, the PFSH and ROS obtained by others. ? PHYSICAL EXAMINATION: ? General: The patient is 69 year old male, well nourished, well hydrated in no acute distress. The patient is oriented to time, place, and person. ? VITALS: Blood pressure 128/68, pulse 62, temperature 36.6 ?C (97.8 ?F), temperature source Temporal, resp. rate 24, weight 124.7 kg (275 lb), SpO2 97 %. Body mass index is 41.21 kg/m?. ? HEENT: Normal cephalic, ataumatic, pupils are equally round, sclera are anicteric, mucous membranes are moist, oropharynx is clear. Neck has no masses, asymmetry or lymphadenopathy. ? Respiratory: Clear to auscultation and percussion. Normal respiratory excursion and pattern. ? Cardiac: Examination is regular rate and rhythm. Normal S1/S2 ? Abdominal exam: Soft, nontender, with no palpable masses. No hepatosplenomegaly. No palpable hernias. ? Extremities: no clubbing, cyanosis or edema. No adenopathy. ? LABORATORY VALUES: As Noted ? RADIOLOGIC STUDIES: As Noted ? ? Assessment IMPRESSION: anemia, need for upper and lower endoscopy. Pacemaker in place ? PLAN: I have reviewed my findings with the surgeon. Will plan for upper and lower endoscopy. We discussed the risks and benefits of the planned endoscopy. I have informed the patient that complications can occur including failure to complete the endoscopy and perforation. The patient had the opportunity to ask questions concerning the planned endoscopy. My staff has also explained the procedure to the patient in understandable terms and has given the patient printed material concerning the procedure. The patient freely consents to surgery. ? I plan to use Golytely bowel preparation. Patient concerned about accidents on morning of procedure due to issues with prep last time. Discussed that he can start the bowel prep early the day before the procedure, and just stay pm clear liquids the remainder of the day. ? The patient has medical comorbidities for which we will plan for the procedure to be performed under Monitored Anesthetic Care. ? Patient will need PACC visit and updated pacer check prior to endoscopy ? Patient notes history of back issues-will need pillows to help support him when laying on side for procedure, to prevent exacerbation of back pain ? The patient was offered a surgery/procedure . I have counseled the patient regarding the risk of exposure to and/or potential harm posed by the COVID-19 virus with having a surgery/procedure at this time versus the risk of? delaying the surgery/procedure. It is not possible to know either the risk of delaying the surgery or procedure or chance of getting an infection with perfect accuracy, but a joint decision was made between the patient and myself?to proceed at this time with endoscopy. ? Will need preop COVID testing, ordered ? Patient verbalized understanding of all above and agreed with the plan. ?
[2020-02-28 11:11] VITALS: BP 153/59; PULSE 59; RESP 18; TEMP 36.4; O2SAT 100; BMI 40.7
[2020-02-28] MEDS: Lactated Ringers 1,000 ML 75 ML IV (11:32)
--- NOTE | 2020-02-28 12:38 | OP.EGD_ITS ---
Patient Name: Juve Lo Procedure Date: 02/28/2020 12:01 PM Date of : 1950 Age: 69 Procedure: Upper GI endoscopy Indications: Iron deficiency anemia Providers: Balbina Polanco MD Referring MD: Elmer Castellanos Medicines: See the Anesthesia note for documentation of the administered medications Patient Profile: Refer to note in patient chart for documentation of history and physical. Complications: No immediate complications. Estimated blood loss: None. Procedure: Pre-Anesthesia Assessment: - see anesthesia note After obtaining informed consent, the endoscope was passed under direct vision. Throughout the procedure, the patient's blood pressure, pulse, and oxygen saturations were monitored continuously. The gastroscope was introduced through the mouth, and advanced to the second part of duodenum. The upper GI endoscopy was accomplished without difficulty. The patient tolerated the procedure well. Scope In: 12:09:49 PM Scope Out: 12:14:33 PM Total Procedure Duration Time 0 hours 4 minutes 44 seconds Findings: The first portion of the duodenum and second portion of the duodenum were normal. Multiple 5 to 15 mm pedunculated polyps with no bleeding and no stigmata of recent bleeding were found in the gastric body. A small hiatal hernia was present. Impression: - Normal first portion of the duodenum and second portion of the duodenum. - Multiple gastric polyps - benign appearing fundic gland polyps - not biopsied patient on Eliquis. - Small hiatal hernia. - No specimens collected. Recommendation: - Discharge patient to home (ambulatory). - Resume previous diet. - Continue present medications. - Return to nurse practitioner PRN. Procedure Code(s): --- Professional --- 33842, Esophagogastroduodenoscopy, flexible, transoral; diagnostic, including collection of specimen(s) by brushing or washing, when performed (separate procedure) Diagnosis Code(s): --- Professional --- K31.7, Polyp of stomach and duodenum K44.9, Diaphragmatic hernia without obstruction or gangrene D50.9, Iron deficiency anemia, unspecified CPT copyright 2017 [employer]. All rights reserved. The codes documented in this report are preliminary and upon remote coders review may be revised to meet current compliance requirements. MD Balbina Spencer MD 02/28/2020 12:37:39 PM This report has been signed electronically. Number of Addenda: 0 Note Initiated On: 02/28/2020 12:01 PM
--- NOTE | 2020-02-28 12:38 | OP.CCLET_ITS ---
02/28/2020 Elmer Castellanos Re : Upper GI endoscopy procedure for Juve Lo Dear Jasmin This procedure was performed on Friday, February 28, 2020. My impressions and recommendations are as follows: Impressions : - Normal first portion of the duodenum and second portion of the duodenum. - Multiple gastric polyps - benign appearing fundic gland polyps - not biopsied patient on Eliquis. - Small hiatal hernia. - No specimens collected. Recommendations : - Discharge patient to home (ambulatory). - Resume previous diet. - Continue present medications. - Return to nurse practitioner PRN. My findings are described in the full procedure note, which is enclosed. If I can be of further assistance, please feel free to contact me at Doctor phone number(s): , Work: . Sincerely, MD Balbina Spencer MD 02/28/2020 12:37:39 PM This report has been signed electronically.
[2020-02-28 12:40] VITALS: BP 121/58; BP 153/59; PULSE 60; RESP 18; TEMP 36.3; O2SAT 98
--- NOTE | 2020-02-28 12:41 | OP.COLON_ITS ---
Patient Name: Juve Lo Procedure Date: 02/28/2020 12:14 PM Date of : 1950 Age: 69 Procedure: Colonoscopy Indications: Rectal bleeding, Iron deficiency anemia Providers: Balbina Polanco MD Referring MD: Elmer Castellanos Medicines: See the Anesthesia note for documentation of the administered medications Patient Profile: Refer to note in patient chart for documentation of history and physical. Last Colonoscopy: 2016. Complications: No immediate complications. Procedure: Pre-Anesthesia Assessment: - see anesthesia note After I obtained informed consent, the scope was passed under direct vision. Throughout the procedure, the patient's blood pressure, pulse, and oxygen saturations were monitored continuously. The Colonoscope was introduced through the anus and advanced to the cecum, identified by the appendiceal orifice, IC valve and transillumination. The colonoscopy was performed without difficulty. The patient tolerated the procedure well. The quality of the bowel preparation was adequate to identify polyps 6 mm and larger in size. Patient with poor colon cleansing preparation - inspissated fecal material on enciso that would not be lavaged and aspirated, but for the most part, the colon enciso could be visualized. No obvious large masses noted Scope In: 12:17:27 PM Scope Withdrawal Time 0 hours 7 minutes 34 seconds Scope Out: 12:32:22 PM Total Procedure Duration Time 0 hours 14 minutes 55 seconds Findings: The perianal and digital rectal examinations were normal. Non-bleeding internal hemorrhoids were found. Impression: - Non-bleeding internal hemorrhoids. - No specimens collected. Recommendation: - Repeat colonoscopy in 10 years for screening purposes. - Return to primary care physician PRN. - Continue present medications. Procedure Code(s): --- Professional --- 15958, Colonoscopy, flexible; diagnostic, including collection of specimen(s) by brushing or washing, when performed (separate procedure) Diagnosis Code(s): --- Professional --- K64.8, Other hemorrhoids K62.5, Hemorrhage of anus and rectum D50.9, Iron deficiency anemia, unspecified CPT copyright 2017 [employer]. All rights reserved. The codes documented in this report are preliminary and upon multimedia assistant review may be revised to meet current compliance requirements. MD Balbina Spencer MD 02/28/2020 12:41:17 PM This report has been signed electronically. Number of Addenda: 0 Note Initiated On: 02/28/2020 12:14 PM
--- NOTE | 2020-02-28 12:41 | OP.CCLET_ITS ---
02/28/2020 Elmer Castellanos Re : Colonoscopy procedure for Juve Lo Dear Jasmin This procedure was performed on Friday, February 28, 2020. My impressions and recommendations are as follows: Impressions : - Non-bleeding internal hemorrhoids. - No specimens collected. Recommendations : - Repeat colonoscopy in 10 years for screening purposes. - Return to primary care physician PRN. - Continue present medications. My findings are described in the full procedure note, which is enclosed. If I can be of further assistance, please feel free to contact me at Doctor phone number(s): , Work: . Sincerely, MD Balbina Spencer MD 02/28/2020 12:41:17 PM This report has been signed electronically.
[2020-02-28 12:45] VITALS: BP 121/57; BP 153/59; PULSE 60; RESP 18; O2SAT 97
[2020-02-28 12:50] VITALS: BP 115/55; BP 153/59; PULSE 60; RESP 18; O2SAT 100
[2020-02-28 12:56] VITALS: BP 121/61; BP 153/59; PULSE 60; RESP 18; TEMP 36.5; O2SAT 100
[2020-02-28 14:03] VITALS: BP 153/59
== END 2020-02-28 14:04 | disposition home or self-care (01) ==
LOC: EN 10:23 → AC 10:23
PROVIDERS: Anesthesiology; PCP Family Medicine; Referring Provider Family Medicine; Visit Provider Surgery
PROC: 0DJD8ZZ Inspection of Lower Intestinal Tract, Via Natural or Artificial Opening Endoscopic (ICD-10-PCS; CPT 45378; principal; 2020-02-28 11:55)
DX: D50.9 Iron deficiency anemia, unspecified (principal); Z11.59 Encounter for screening for other viral diseases; I48.91 Unspecified atrial fibrillation; K21.9 Gastro-esophageal reflux disease without esophagitis; N40.0 Benign prostatic hyperplasia without lower urinary tract symptoms; I12.9 Hypertensive chronic kidney disease with stage 1 through stage 4 chronic kidney disease, or unspecified chronic kidney disease; N18.3 Chronic kidney disease, stage 3 (moderate); G47.33 Obstructive sleep apnea (adult) (pediatric); G35 Multiple sclerosis; G25.81 Restless legs syndrome; F32.9 Major depressive disorder, single episode, unspecified; Z79.01 Long term (current) use of anticoagulants; Z79.899 Other long term (current) drug therapy; Z95.0 Presence of cardiac pacemaker; Z87.891 Personal history of nicotine dependence; K44.9 Diaphragmatic hernia without obstruction or gangrene; K31.7 Polyp of stomach and duodenum; K62.5 Hemorrhage of anus and rectum; K64.8 Other hemorrhoids; Z87.11 Personal history of peptic ulcer disease
CPT/HCPCS: 43235; 45378; 87635; 94799; J7120; J2405; U0003

== ENCOUNTER → 2020-04-02 | Outpatient (CLI) | payer MEDICARE, SELFPAY ==
[2020-03-13 14:54] VITALS: BMI 40.7
== END | disposition home or self-care (01) ==
LOC: LABSPEC 17:00
PROVIDERS: PCP Family Medicine; Referring Provider Urology; Visit Provider Urology
DX: N39.0 Urinary tract infection, site not specified (principal)
CPT/HCPCS: 87077; 87086; 87088; 87186

== ENCOUNTER 2020-04-13 11:32 | Emergency (ER) | payer MEDICARE, SELFPAY ==
[2020-03-13 14:54] VITALS: BMI 40.7
[2020-04-13 11:33] VITALS: BP 131/93; PULSE 84; RESP 18; TEMP 36.5; O2SAT 99; BMI 41.6
--- NOTE | 2020-04-13 12:30 | CT_ITS ---
STUDY: CT BRAIN WITHOUT CONTRAST REASON FOR EXAM: Male, 70 years old. FALL. HIT HEAD ON TOP OF DOOR RADIATION DOSAGE (If Supplied By Facility): CTDIvol = ( 44.99 ) mGy, DLP = ( 981.71 ) mGycm TECHNIQUE: Transaxial CT imaging of the brain was performed without administration of intravenous contrast material. Coronal and sagittal reconstructions were performed. Individualized dose optimization techniques were used for this CT. COMPARISON: CT head without contrast 07/22/2019. FINDINGS: Normal soft tissue structures. Normal calvarium. Normal size ventricles and extra-axial spaces for the patient''s age. Normal white matter tracts of the cerebral hemispheres. Normal basal ganglia and thalami. Normal brainstem. Normal cerebellum. There is no intracranial hemorrhage. There are no findings of an acute ischemic infarction. Normal visualized paranasal sinuses. CT/Brain/Head without Contrast IMPRESSION: 1. No CT evidence of intracranial bleeding, acute ischemic infarct or acute intracranial abnormality. 2. No interval change when compared to 07/22/2019. Electronically Signed: Lobo Gamboa MD at 13:53 EDT , Service support ,
--- NOTE | 2020-04-13 12:35 | RAD_ITS ---
STUDY: X-RAY - LEFT KNEE REASON FOR EXAM: Male, 70 years old. FALL, PAIN MEDIALLY AND WITHIN JOINT TECHNIQUE: 4 view(s) of the knee. COMPARISON: None. FINDINGS: Normal visualized distal femur. Normal visualized proximal tibia and fibula. Normal proximal tibiofibular articulation. Normal medial femorotibial compartment. Normal lateral femorotibial compartment. Normal patellofemoral articulation. The soft tissue structures are unremarkable. RAD/Knee 4 or More Views IMPRESSION: Normal x-ray examination of the knee. Electronically Signed: Mike Bowser MD at 12:48 EDT Tel , Service support ,
--- NOTE | 2020-04-13 14:10 | ED.VISSUMM ---
- ER Visit Summary Date of Service: 04/13/20 Chief Complaint: Fall History of Present Illness: The patient is a [address] Isidro. He reports yesterday was standing in his kitchen lost his balance and was stumbling forward. Did not catch his balance and hit his head onto a door. No loss of consciousness. However, he is on Eliquis and reports that he feels sluggish today. Patient reports he has left knee pain and stated 10 severity if I stepped just wrong. He denies any pain at this time. He denies any neck, back, shoulder, wrist, or hip pain. Physical Examination: Vitals: Stable. Afebrile. Neck: No vertebral tenderness. Full ROM without difficulty. Cleared by NEXUS criteria. Back: No vertebral tenderness. General: A&O x 3. NAD. Cardiovascular exam: Regular rate and rhythm, no murmur, rub or gallop. Respiratory exam: Chest nontender. No crepitus. Clear to auscultation bilaterally. No wheezes or stridor. Abdominal exam: Soft, nontender, nondistended, normal bowel sounds. No pain in RUQ or LUQ specifically. No peritoneal signs. Extremity: Mild tenderness palpation over the lateral portion of his knee. No appreciable joint effusion. He has no pain or ligamentous instability with anterior/posterior drawer or medial/lateral stress. Test Results: Clinical Impression(s) from Imaging Studies Brain CT 04/13/20 12:30 IMPRESSION: 1. No CT evidence of intracranial bleeding, acute ischemic infarct or acute intracranial abnormality. 2. No interval change when compared to 07/22/2019. Electronically Signed: Lobo Gamboa MD at 13:53 EDT , Service support , Knee X-Ray 04/13/20 12:35 IMPRESSION: Normal x-ray examination of the knee. Electronically Signed: Mike Bowser MD at 12:48 EDT Tel , Service support , Emergency Department Course and Treatment: Patient refused pain medications. He is resting comfortably. Treatment Plan: I did have a prolonged session the patient that he may have damaged the meniscus in his knee. He will be discharged instructions to follow-up his primary care physician in 1 week if not improving. Return to the emergency department for any worsening symptoms. Disposition: To home in improved and stable condition. Impression: 1 1. Fall. 2. Coagulopathy on Eliquis. 3. Left knee pain. This note was generated with [facility] dictation software. It may contain incorrect words, spelling, and punctuation that were not noted in review of the chart prior to signing ED Disposition - Plan for ED Patient: Instructions: ED Knee Pain [facility] Referrals: Elmer Castellanos MD [Primary Care Provider] - 1 Week if not improving
[2020-04-13 14:15] VITALS: PULSE 72; RESP 16; O2SAT 98
== END 2020-04-13 14:21 | disposition home or self-care (01) ==
PROVIDERS: Emergency Provider Emergency Medicine; PCP Family Medicine
DX: S09.90XA Unspecified injury of head, initial encounter (principal); M25.562 Pain in left knee; W01.0XXA Fall on same level from slipping, tripping and stumbling without subsequent striking against object, initial encounter; W01.198A Fall on same level from slipping, tripping and stumbling with subsequent striking against other object, initial encounter; Y93.9 Activity, unspecified; Y92.000 Kitchen of unspecified non-institutional (private) residence as the place of occurrence of the external cause; Y99.9 Unspecified external cause status; I48.91 Unspecified atrial fibrillation; I10 Essential (primary) hypertension; Z79.01 Long term (current) use of anticoagulants; Z79.899 Other long term (current) drug therapy
CPT/HCPCS: 70450; 73564; 99282

== ENCOUNTER 2020-04-18 07:12 | Day surgery (SDC) | payer MEDICARE, SELFPAY ==
[2020-03-13 14:54] VITALS: BMI 40.7
[2020-04-18 07:46] VITALS: BP 143/62; PULSE 62; RESP 20; TEMP 36.2; O2SAT 100; BMI 42.4
[2020-04-18] MEDS: Lactated Ringers 1,000 ML 100 ML IV (08:07)
--- NOTE | 2020-04-18 09:20 | DCINST_ITS ---
Discharge Diet: Light diet - advance as tolerated Discharge Activity: Return to Normal Activity Call your doctor if your incision/area has: Sudden Increased Bleeding Call your doctor if you observe: Fever of 101 or Higher Suture Line Care: Avoid Pulling/Pushing, Avoid Pinching/Bending Allergies/Adverse Reactions: Allergies No Known Allergies Allergy (Verified 04/13/20 11:35) Medications to take at Discharge Bupropion HCl [Zyban] 150 mg PO BID 06/10/17 Flecainide [Tambocor] 100 mg PO BID 06/10/17 Metoprolol Tartrate [Lopressor (beta modesto)] 50 mg PO BID 06/10/17 Omeprazole 40 mg PO LUNCH 06/10/17 Potassium Chloride [Klor-Con M20] 20 meq PO BREAKFAST 06/10/17 Pravastatin Sodium [Pravachol] 10 mg PO QHS 06/10/17 dimethyl fumarate 240 mg capsule,delayed release 240 mg PO BID 08/04/18 pramipexole 1 mg tablet 1 mg PO QHS 08/04/18 Fenofibrate,Micronized [Fenofibrate] 200 mg PO LUNCH 08/19/18 Multivitamin [Multivitamins] 1 ea PO DAILY 08/19/18 Oxybutynin [Ditropan] 10 mg PO DAILY 08/19/18 Sertraline HCl [Zoloft] 50 mg PO DAILY 08/19/18 Calcium (Elemental) [Os-Karlos 500] 600 mg PO BID 03/18/19 Cholecalciferol (VIT D3) [Vitamin D3] 2,000 units PO DAILY 03/18/19 Ferrous Gluconate 324 mg PO QHS 04/04/19 Nitroglycerin (INPATIENT USE) [Nitrostat] 0.4 mg SL DAILY PRN PRN 04/13/19 Zinc Sulfate 220 mg PO DAILY 04/13/19 Doxycycline 100 mg PO BID 01/11/20 Acetaminophen [Tylenol Extra Strength] 500 mg PO Q4H PRN PRN #20 tab 01/18/20 Apixaban [Eliquis] 5 mg PO BID 02/15/20 Furosemide [Lasix] 20 mg PO BID 02/15/20 Primary Care Physician: Elmer Castellanos MD [Primary Care Provider] - Test Results: Test results from this visit will be discussed in further detail at your follow- up appointment, if applicable. Please Follow Up With: Brian Kumar MD When: in 4 weeks, please call to make an appointment.
--- NOTE | 2020-04-18 09:21 | PCM.HP.STD ---
History of Present Illness Date of Admission: 04/18/20 Chief Complaint: Urge incontinence The patient is a 70 year old male with a history of overactive bladder and urge incontinence today presents for Botox injections of the bladder Past Medical History Past Medical History (Chronic Problems): Chronic Problems (Last Reviewed 01/18/20 @ 07:[address] Brian Kumar MD) Anemia (Chronic) Osteoarthritis (Chronic) Atrial fibrillation (Chronic) BPH (benign prostatic hyperplasia) (Chronic) DVT (deep venous thrombosis) (Chronic) GERD (gastroesophageal reflux disease) (Chronic) Hemorrhoids (Chronic) Multiple sclerosis (Chronic) Obstructive sleep apnea (Chronic) Scoliosis (Chronic) Hypokalemia (Chronic) Hyperlipidemia (Chronic) Iron deficiency anemia (Chronic) Restless leg syndrome (Chronic) Muscle spasm (Chronic) Vitamin D deficiency (Chronic) Overactive bladder (Chronic) History of DVT (deep vein thrombosis) (Chronic) Sick sinus syndrome (Chronic) Presence of cardiac pacemaker (Chronic) Medical History: Medical History (Last Reviewed 04/18/20 @ 09:[address] Brian Kumar MD) Presence of vena cava filter (Acute) Z95.828 Sick sinus syndrome (Chronic) I49.5 Presence of cardiac pacemaker (Chronic) Z95.0 Acid reflux K21.9 Arthritis M19.90 Atrial fibrillation I48.91 Depression F32.9 Hemorrhoids K64.9 History of back problems Hypercholesterolemia E78.00 MS (multiple sclerosis) G35 Sleep apnea G47.30 Allergies No Known Allergies Allergy (Verified 04/13/20 11:35) Home Medications: Ambulatory Orders Medication Instructions Recorded Bupropion HCl [Zyban] 150 mg PO BID 06/10/17 Flecainide [Tambocor] 100 mg PO BID 06/10/17 Metoprolol Tartrate [Lopressor 50 mg PO BID 06/10/17 (beta [place])] Omeprazole 40 mg PO LUNCH 06/10/17 Potassium Chloride [Klor-Con M20] 20 meq PO BREAKFAST 06/10/17 Pravastatin Sodium [Pravachol] 10 mg PO QHS 06/10/17 dimethyl fumarate 240 mg 240 mg PO BID 08/04/18 capsule,delayed release pramipexole 1 mg tablet 1 mg PO QHS 08/04/18 Fenofibrate,Micronized 200 mg PO LUNCH 08/19/18 [Fenofibrate] Multivitamin [Multivitamins] 1 ea PO DAILY 08/19/18 Oxybutynin [Ditropan] 10 mg PO DAILY 08/19/18 Sertraline HCl [Zoloft] 50 mg PO DAILY 08/19/18 Calcium (Elemental) [Os-Karlos 500] 600 mg PO BID 03/18/19 Cholecalciferol (VIT D3) [Vitamin 2,000 units PO DAILY 03/18/19 D3] Ferrous Gluconate 324 mg PO QHS 04/04/19 Nitroglycerin (INPATIENT USE) 0.4 mg SL DAILY PRN PRN 04/13/19 [Nitrostat] Zinc Sulfate 220 mg PO DAILY 04/13/19 Doxycycline 100 mg PO BID 01/11/20 Acetaminophen [Tylenol Extra 500 mg PO Q4H PRN PRN #20 tab 01/18/20 Strength] Apixaban [Eliquis] 5 mg PO BID 02/15/20 Furosemide [Lasix] 20 mg PO BID 02/15/20 Surgical History: Surgical History (Last Updated 06/24/19 @ 09:48 by Maribell Tolliver) H/O cervical spine surgery Z98.890 03/14/19 History of embolic filter insertion Onset Date: ~06/08/19 History of hemorrhoidectomy Z98.890 gallbladder removed S/P cholecystectomy Z90.49 Surgical History: cholecystectomy, pacemaker implantation, tonsillectomy, - - IVC filter, Multiple spine surgeries. Psychiatric History: Anxiety, Depression Smoking Status: Never smoker Tobacco Use: Non-smoker - *Family History Maternal Family History: Family History (Last Reviewed 06/24/19 @ 09:32 by Maribell Tolliver) Father Arthritis Cancer Brother Cancer Mother High cholesterol History Items: No pertinent history Paternal Family History: Family History (Last Reviewed 06/24/19 @ 09:32 by Maribell Tolliver) Father Arthritis Cancer Brother Cancer Mother High cholesterol History Items: No pertinent history Review of Systems Constitutional: Denies: Chills, Fever, Weight Change HEENT: Denies: Head Aches, Sinus Congestion, Sinus Drainage Cardiovascular: Denies: Chest Pain, Palpitations Respiratory: Denies: Cough, Shortness of breath at rest, Sputum production Gastrointestinal: Denies: Abdominal Pain, Nausea, Vomiting Genitourinary: Denies: Dysuria Musculoskeletal: Denies: Joint Pain, Joint Tenderness Skin: Denies: Rash, Wounds Neurological: Denies: Numbness, Tingling, Focal weakness Psychiatric: Denies: Anxiety, Depression, Homicidal Ideations, Suicidal Ideations Hematologic/ Lymphatic: Denies: Easy Bruising, Easy Bleeding VTE Information - Inpt Only VTE Present on Admission: No VTE Mechan Device Prophylaxis: SCD's - Physical Exam Vitals/I&O's: Vital Signs Temp Pulse Resp BP Pulse Ox 97.1 F L 62 20 H 143/62 H 100 04/18/20 07:46 04/18/20 07:46 04/18/20 07:46 04/18/20 07:46 04/18/20 07:46 Oxygen Delivery Method Room Air Weight: 126.6 kg Body Mass Index (BMI) 42.4 General: Alert, Oriented x3, Cooperative HEENT: Atraumatic, PERRLA, EOMI, Normocephalic Neck: Supple, No JVD, Negative Carotid Bruits Lungs: Clear to auscultation, Normal air movement Cardiovascular: Regular rate, No murmurs Abdomen: Bowel Sounds Present, Soft, Non Tender Extremities: No edema, Capillary Refill Less than 3 Seconds Skin: No rashes, No breakdown Musculoskeletal: No Tenderness to Palpation of Joints or Extremities Neurological: Cranial nerves II-XII grossly intact Psych/Mental Status: Normal Affect, Appropriate Current Medications Lactated Ringer's () 1,000 mls @ 100 mls/hr IV .Q10H ARI Last Admin: 04/18/20 08:07 Dose: 100 mls/hr Documented by: Assessment/Plan All Active Problems (Last Reviewed 01/18/20 @ 07:[address] Brian Kumar MD) Presence of vena cava filter (Acute) Staphylococcus epidermidis bacteremia (Acute) Spinal abscess (Acute) Debility (Acute) Hardware failure (Acute) 70-year-old male with a history of urge incontinence and overactive bladder presents for Botox injection
[2020-04-18 09:36] VITALS: BP 106/50; BP 143/62; PULSE 62; RESP 17; TEMP 36.4; O2SAT 93
--- NOTE | 2020-04-18 09:36 | OP.PCM_ITS ---
Report of Operation Date of Procedure: 04/18/20 Pre-Operative Diagnosis: Urge incontinence Post-Operative Diagnosis: Same Surgery/Procedure Performed:: Cystoscopy and injection of Botox 100 units into the bladder Description of Surgical Findings:: 70-year-old male who has a history of a TURP in the past he has severe overactive bladder with urge incontinence has difficulty holding his urine the minute he has to go to the bathroom he is failed medical therapy with other medications so he presents to the operating room for cystoscopy injection of Botox into the bladder. Patient was taken back to the operating room after smooth induction of anesthesia he was placed in dorsolithotomy position. The penis and testicles were prepped and draped in usual sterile fashion. Went into the bladder with a 19.5 [place] cystourethroscope the entire length of the urethra is normal the sphincter was intact the prostate had been resected wide open no blocking tissue within the bladder has a very heavily trabeculated bladder no tumors or stones seen within the bladder. I then prepared the Botox. 10 cc of injectable saline was mixed with the Botox and prepared on a needle and 10 cc syringe I then put the syringe through the Botox needle advanced the needle into the bladder I then injected the bladder with Botox in 10 different sites about 1 cc in each site for a total of 100 units into the back of the bladder at different sites. Minimal to no bleeding after the injection was done patient anesthetic was reversed the bladder was drained and emptied. He was taken back to the PACU in good condition. Type of Anesthesia:: General Drains: none - Admit VTE Documentation VTE Present on Admission: No VTE Mechan Device Prophylaxis: SCD's
[2020-04-18 09:41] VITALS: BP 102/51; BP 143/62; PULSE 63; RESP 18; O2SAT 94
[2020-04-18 09:46] VITALS: BP 116/52; BP 143/62; PULSE 61; RESP 18; O2SAT 95
[2020-04-18 09:52] VITALS: BP 113/45; BP 143/62; PULSE 60; RESP 18; TEMP 36.3; O2SAT 96
[2020-04-18 11:40] VITALS: BP 125/43; BP 143/62; PULSE 59; RESP 16; TEMP 36.2; O2SAT 98
== END 2020-04-18 12:14 | disposition home or self-care (01) ==
LOC: SDC 07:13 → AC 07:14
PROVIDERS: Anesthesiology; PCP Family Medicine; Referring Provider Urology; Visit Provider Urology
PROC: 3E0K8GC Introduction of Other Therapeutic Substance into Genitourinary Tract, Via Natural or Artificial Opening Endoscopic (ICD-10-PCS; CPT 52287; principal; 2020-04-18 09:00)
DX: N32.81 Overactive bladder (principal); N39.41 Urge incontinence; N32.89 Other specified disorders of bladder; Z20.828 Contact with and (suspected) exposure to other viral communicable diseases; N40.1 Benign prostatic hyperplasia with lower urinary tract symptoms; R35.0 Frequency of micturition; R35.1 Nocturia; R39.12 Poor urinary stream; G35 Multiple sclerosis; I48.91 Unspecified atrial fibrillation; I10 Essential (primary) hypertension; I25.10 Atherosclerotic heart disease of native coronary artery without angina pectoris; D50.9 Iron deficiency anemia, unspecified; E78.5 Hyperlipidemia, unspecified; G25.81 Restless legs syndrome; M19.90 Unspecified osteoarthritis, unspecified site; G47.33 Obstructive sleep apnea (adult) (pediatric); M41.9 Scoliosis, unspecified; K21.9 Gastro-esophageal reflux disease without esophagitis; F32.9 Major depressive disorder, single episode, unspecified; F41.9 Anxiety disorder, unspecified; Z79.01 Long term (current) use of anticoagulants; Z79.899 Other long term (current) drug therapy; Z86.718 Personal history of other venous thrombosis and embolism; Z87.891 Personal history of nicotine dependence; Z95.0 Presence of cardiac pacemaker
CPT/HCPCS: 52287; 87635; C9803; J7120; J0585; U0003

== ENCOUNTER → 2021-04-23 13:55 | Outpatient (CLI) | payer MEDICARE, MEDICAID, SELFPAY ==
[2021-04-23 15:54] LABS: PSA,Total - Annual Screen 0.86 ng/mL (0.00-4.00)
== END ==
PROVIDERS: PCP Family Medicine; Referring Provider Urology; Visit Provider Urology
DX: Z12.5 Encounter for screening for malignant neoplasm of prostate (principal)
CPT/HCPCS: 36415; 84153; G0103

== ENCOUNTER 2021-09-13 14:59 | Emergency (ER) | payer MEDICARE, MEDICAID, SELFPAY ==
[2021-09-13 15:01] VITALS: BP 135/80; PULSE 82; RESP 18; TEMP 36.2; O2SAT 95; BMI 31.1
--- NOTE | 2021-09-13 16:06 | EX.ED.GENINJ ---
HPI <ABDIRAHMAN Frost - Last Filed: 09/13/21 17:07> History of Present Illness Chief Complaint: Laceration Narrative Narrative: 71-year-old [id number] male presents with left thumb laceration after using a sharp kitchen knife. This occurred just prior to arrival. He is able to control the bleeding with pressure. He takes Eliquis for A. fib. Denies weakness, numbness, tingling of the extremity. He does not know when his last tetanus was. [facility] <ABDIRAHMAN Frost - Last Filed: 09/13/21 17:07> [facility] Medical History Acid reflux Arthritis Atrial fibrillation Depression Hemorrhoids History of back problems Hypercholesterolemia MS (multiple sclerosis) Presence of cardiac pacemaker Presence of vena cava filter Sick sinus syndrome Sleep apnea Home Medications bupropion HCl (smoking deter) 150 mg PO BID 06/10/17 [History Last Taken Unknown] flecainide 100 mg PO BID 06/10/17 [History Last Taken 06/12/17 09:30] metoprolol tartrate 75 mg PO BID 06/10/17 [History Last Taken 02/28/20 07:30] pravastatin 10 mg PO QHS 06/10/17 [History Last Taken Unknown] pramipexole 1 mg tablet 0.5 mg PO QHS 08/04/18 [History Last Taken Unknown] fenofibrate micronized 200 mg PO LUNCH 08/19/18 [History Last Taken Unknown] sertraline 50 mg PO DAILY 08/19/18 [History Last Taken Unknown] nitroglycerin 0.4 mg SUBLINGUAL DAILY PRN PRN 04/13/19 [History Last Taken Unknown] furosemide 20 mg PO BID 02/15/20 [History Last Taken Unknown] acetaminophen 650 mg PO Q6H PRN PRN 02/18/21 [History Last Taken Unknown] Allergy/AdvReac Type Severity Reaction Status Date / Time No Known Allergies Allergy Verified 09/13/21 15:02 Family History Father Arthritis Cancer prostate Brother Cancer prostate Mother High cholesterol Surgical History gallbladder removed H/O cervical spine surgery History of embolic filter insertion (~06/08/19) History of hemorrhoidectomy S/P cholecystectomy Social History Smoking Status: Never smoker alcohol intake: never substance use type: does not use ROS <ABDIRAHMAN Frost - Last Filed: 09/13/21 17:07> ROS ED ROS Narrative Constitutional: Negative for fever, chills, malaise. Eyes: Negative for visual change. ENT: Negative for sore throat, ear pain, rhinorrhea. CVS: Negative for palpitations, chest pain, syncope. Respiratory: Negative for shortness of breath, cough. GI: Negative for nausea, vomiting. : Negative for dysuria, hematuria or frequency. Neuro: Negative for motor/sensory dysfunction. Skin: Positive for laceration. Musc: Negative for joint pain, swelling, trauma. Heme: Positive for easy bruising, bleeding. EXAM <ABDIRAHMAN Frost - Last Filed: 09/13/21 17:07> Physical Exam Narrative Exam Narrative: CONST: Patient sitting in no acute distress. EYES: Normal inspection. NECK: Normal inspection. RESP: No respiratory distress, CTAB. CVS: Regular rate and rhythm, no murmur, no gallop. SKIN: 2 cm flap laceration on the pad of the left thumb. No bleeding. EXTREMITIES: Normal appearance, no pedal edema. Full range of motion of the left thumb and digits, no bony deformity or tenderness, normal motor and sensory function in median, ulnar, radial distributions, 2+ radial pulse, capillary refill less than 5 seconds, no subungual hematoma or nail injury. NEURO: Oriented x4. PSYCH: Normal affect. Const Vital Signs: 09/13/21 15:01 Temperature 97.1 F L Temperature Source Temporal Pulse Rate 82 Respiratory Rate 18 Blood Pressure 135/80 H Blood Pressure Mean 98 Pulse Ox 95 Oxygen Delivery Method Room Air <Dr. Renato Villarreal DO - Last Filed: 09/13/21 20:58> Physical Exam Const Vital Signs: 09/13/21 15:01 Temperature 97.1 F L Temperature Source Temporal Pulse Rate 82 Respiratory Rate 18 Blood Pressure 135/80 H Blood Pressure Mean 98 Pulse Ox 95 Oxygen Delivery Method Room Air MDM <ABDIRAHMAN Frost - Last Filed: 09/13/21 17:07> MDM MDM Narrative Medical decision making narrative: Patient presents with a laceration to the pad of his left thumb. It is approximately 2 cm flap laceration. There is no injury to the nail or subungual hematoma. Extremity is neurovascularly intact. Thumb was digitally blocked with 4 cc of 1% lidocaine with good anesthetization. Wound was thoroughly irrigated with sterile saline and closed with 5 simple interrupted sutures of 5-0 Ethilon. Tetanus was updated. We discussed wound care and that stitches need removed in 7 to 10 days and to monitor for signs of infection. Patient was discharged in stable condition. <Dr. Renato Villarreal, DO - Last Filed: 09/13/21 20:58> [facility] Narrative Medical decision making narrative: Patient was seen in conjunction with the physician visitor use assistant. I agree with her evaluation. Patient had sutures placed by the physician visitor use assistant. This was evaluated in the wound margins are well approximated. Patient has no bleeding, numbness after sutures were placed. He tolerated procedure well. Please see procedure note. Tetanus was updated today. Patient discharged home in stable condition. Discharge Plan Triage Chief Complaint: Laceration ED Provider: Catrina Turner Dx/Rx/DC Orders Clinical Impression: Laceration of left thumb Instructions: ED Laceration, Hand: All Closures Prescriptions: No Action pravastatin 10 MG tablet 10 mg PO QHS RF: 0 flecainide 100 MG tablet 100 mg PO BID RF: 0 metoprolol tartrate 50 MG tablet 75 mg PO BID RF: 0 bupropion HCl (smoking deter) 150 MG tablet extended release 12 hr 150 mg PO BID RF: 0 pramipexole 1 mg tablet 0.5 mg PO QHS RF: 0 fenofibrate micronized 200 MG capsule 200 mg PO LUNCH RF: 0 sertraline 50 MG tablet 50 mg PO DAILY RF: 0 nitroglycerin 0.4 MG tablet, sublingual 0.4 mg sublingual DAILY PRN PRN (Reason: chest pain) RF: 0 furosemide 40 MG tablet 20 mg PO BID RF: 0 acetaminophen 500 MG tablet 650 mg PO Q6H PRN PRN (Reason: Pain Or Fever) RF: 0 Primary Care Provider: Elmer Castellanos Referrals: Elmer Castellanos MD [Primary Care Provider] - Activity Restrictions/Additional Instructions: You can shower as normal but do not keep your hand submerged underwater for any length of time. The stitches need removed by your PCP or the ER in 7 to 10 days. If you develop any signs of infection such as redness, pus, or swelling come back to the ER immediately. Disposition Disposition: Home, Self Care Discharge Date/Time: 09/13/21 17:20
[2021-09-13] MEDS: Diphth,Pertuss(Acell),Tet Vac 0.5 ML Vial IM (17:14)
== END 2021-09-13 17:20 | disposition home or self-care (01) ==
PROVIDERS: Emergency Provider Physician Assistant; PCP Family Medicine; Visit Provider Physician Assistant
DX: S61.012A Laceration without foreign body of left thumb without damage to nail, initial encounter (principal); G35 Multiple sclerosis; I48.91 Unspecified atrial fibrillation; W26.0XXA Contact with knife, initial encounter; Z23 Encounter for immunization; E78.00 Pure hypercholesterolemia, unspecified; K21.9 Gastro-esophageal reflux disease without esophagitis; M19.90 Unspecified osteoarthritis, unspecified site; G47.30 Sleep apnea, unspecified; Z79.01 Long term (current) use of anticoagulants; Z79.899 Other long term (current) drug therapy; Z95.0 Presence of cardiac pacemaker
CPT/HCPCS: 12001; 90715; 99284

== ENCOUNTER 2022-07-02 18:02 | Emergency (ER) | payer MEDICARE, MEDICAID, SELFPAY ==
[2022-07-02 18:03] VITALS: BP 144/77; PULSE 81; RESP 16; TEMP 36.4; O2SAT 98; BMI 32.6
--- NOTE | 2022-07-02 19:57 | CT_ITS ---
STUDY: CT CERVICAL SPINE WITHOUT CONTRAST REASON FOR EXAM: Male, 72 years old. Fall. Trauma. History of spine surgery. RADIATION DOSAGE (If Supplied By Facility): CTDIvol = ( 30.86 ) mGy, DLP = ( 652.82 ) mGycm TECHNIQUE: High resolution transaxial imaging was performed without contrast material. Sagittal and coronal images were reconstructed. Individualized dose optimization techniques were used for this CT. COMPARISON: July 22, 2019. FINDINGS: Normal craniovertebral junction. There are degenerative changes of the anterior atlantoaxial articulation. There is a vague lucency through the base of the odontoid seen on the lateral film is unchanged from prior study. Question healed fracture. Normal cervical lordosis. There is posterior fusion of C2 into the upper thoracic spine. There is fracture of the right vertical stabilization randal at the level C5. There is evidence of a separate C3 through C C5 posterior fusion. The left hardware is also demonstrates a fracture of the vertical stabilization randal at the level of the C6 vertebra.. Also noted is anterior fusion of C3-C6. The anterior plate and screws and disc spacers are intact and in satisfactory position. C2-3: Normal endplates. Normal disc height and morphology. Facet joint degenerative change. Normal central canal and intervertebral neuroforamina. C3-4: Fusion of the disc space. Mild degenerative changes of the facet joints.. Normal central canal and intervertebral neuroforamina. C4-5: Fusion of the disc space. Mild degenerative changes of the facet joints. Normal central canal and intervertebral neuroforamina. C5-6: Fusion of the disc space. Mild degenerative changes of the facet joints. Normal central canal and intervertebral neuroforamina. C6-7: Endplate spondylosis with loss of disc height. Facet joint degenerative change. Normal central canal and intervertebral neuroforamina. C7-T1: Normal endplates. Normal disc height and morphology. Normal central canal and intervertebral neuroforamina. The study is limited due to scatter artifact secondary to the hardware. CT/Spine Cervical without Contras IMPRESSION: Bilateral fracture of the vertical stabilization rods at the lower cervical spine. There is no obvious spinal stenosis or loss of alignment. The possibility of cord injury cannot be ruled out on CT. Electronically Signed: Kvng Desir DO at 21:06 EST ,
--- NOTE | 2022-07-02 19:57 | CT_ITS ---
STUDY: CT BRAIN WITHOUT CONTRAST REASON FOR EXAM: Male, 72 years old. Head trauma post fall. RADIATION DOSAGE (If Supplied By Facility): CTDIvol = ( 29.71 ) mGy, DLP = ( 560.09 ) mGycm TECHNIQUE: Transaxial CT imaging of the brain was performed without administration of intravenous contrast material. Individualized dose optimization techniques were used for this CT. COMPARISON: April 13, 2020. FINDINGS: Small subcutaneous hematoma in the right frontal region. The soft tissues are otherwise unremarkable Normal calvarium. There is mild cerebral atrophy with widening of the extra-axial spaces and ventricular dilatation. Normal white matter tracts of the cerebral hemispheres. Normal basal ganglia and thalami. Normal brainstem. Normal cerebellum. There is no intracranial hemorrhage. There are no findings of an acute ischemic infarction. Normal visualized paranasal sinuses. CT/Brain/Head without Contrast IMPRESSION: Chronic involutional changes without evidence of acute intracranial or calvarial abnormality. There is no significant interval change. Electronically Signed: Kvng Desir DO at 20:58 EST ,
--- NOTE | 2022-07-02 20:07 | EX.ED.VIS.HA ---
HPI History of Present Illness Chief Complaint: Fall Narrative Narrative: 72-year-old male presenting with headache. He states that he is on Eliquis for history of A. fib and DVT. He had a mechanical fall today and he states he hit his head on the sidewalk. He does have a hematoma on the right side of his forehead he denies LOC. He denies nausea, dizziness, lightheadedness, visual changes. He is walking with a stable gait. He does complain of having a headache which he states may or may not be severe. He states he does not get headaches. Patient denies any neck pain. He has no other injuries. [facility] Medical History Acid reflux Arthritis Atrial fibrillation Depression Hemorrhoids History of back problems Hypercholesterolemia MS (multiple sclerosis) Presence of cardiac pacemaker Presence of vena cava filter Sick sinus syndrome Sleep apnea Home Medications bupropion HCl (smoking deter) 150 mg tablet,12 hr sustained-release(smoking deterrent) 150 mg PO BID mood 06/10/17 [History Last Taken Unknown] flecainide 100 mg tablet 100 mg PO BID heart 06/10/17 [History Last Taken 06/12/17 09:30] metoprolol tartrate 50 mg tablet 75 mg PO BID BP 06/10/17 [History Last Taken 02/28/20 07:30] pravastatin 10 mg tablet 10 mg PO QHS cholesterol 06/10/17 [History Last Taken Unknown] pramipexole 1 mg tablet 0.5 mg PO QHS RLS 08/04/18 [History Last Taken Unknown] fenofibrate micronized 200 mg capsule 200 mg PO LUNCH cholesterol 08/19/18 [History Last Taken Unknown] sertraline 50 mg tablet 50 mg PO DAILY mood 08/19/18 [History Last Taken Unknown] nitroglycerin 0.4 mg sublingual tablet 0.4 mg sublingual DAILY PRN PRN chest pain 04/13/19 [History Last Taken Unknown] furosemide 40 mg tablet 20 mg PO BID diuretic 02/15/20 [History Last Taken Unknown] acetaminophen 500 mg tablet 650 mg PO Q6H PRN PRN Pain Or Fever 02/18/21 [History Last Taken Unknown] ropinirole 2 mg PO/SL QHS 04/29/22 [History Last Taken Unknown] Allergy/AdvReac Type Severity Reaction Status Date / Time No Known Allergies Allergy Verified 07/02/22 18:05 Family History Father Arthritis Cancer prostate Brother Cancer prostate Mother High cholesterol Surgical History gallbladder removed H/O cervical spine surgery History of embolic filter insertion (~06/08/19) History of hemorrhoidectomy S/P cholecystectomy Social History Smoking Status: Never smoker alcohol intake: never substance use type: does not use ROS ROS ED Constitutional Constitutional ED: Denies chills or fever(s) Eyes Eyes: Denies change in vision or diplopia ENT ENT ED: Denies rhinorrhea or sore throat Cardiovascular Cardiovascular: Denies chest pain or palpitations Respiratory/Chest Respiratory/Chest: Denies cough or dyspnea Gastrointestinal Gastrointestinal: Denies abdominal pain Genitourinary Genitourinary ED: Denies dysuria or hematuria Musculoskeletal Musculoskeletal: Reports back pain; Denies arthralgias Integumentary Reports other Details: Hematoma on right foot Neurologic Neurologic: Reports headache(s); Denies paresthesias or weakness EXAM Physical Exam Const Vital Signs: 07/02/22 18:03 Temperature 97.6 F L Temperature Source Temporal Pulse Rate 81 Respiratory Rate 16 Blood Pressure 144/77 H Blood Pressure Mean 99 Pulse Ox 98 Oxygen Delivery Method Room Air Positive well nourished General Appearance ED: NAD; Negative for pallor HEENT Reports normocephalic and TM's clear HEENT Narrative: 5 cm cephalohematoma on the right side of the forehead. No skull deformity. No hemotympanum. No facial bone tenderness other than the forehead. Nasal bone midline. No epistaxis. No jaw malocclusion Tympanic Membrane ED: Yes TM's clear Eyes PERRL and EOMs intact bilaterally Neck no lymphadenopathy Resp normal respiratory effort Auscultation: Negative for rales, rhonchi or wheezes Cardio regular rate and regular rhythm Extremity normal to inspection General Extremety ED: Negative for edema General Extremity: Negative for edema Neuro oriented x3, CN's II-XII intact bilaterally and no sensory deficits noted Sensorium / Orientation: awake and alert Psych mental status grossly normal Skin General Skin Exam: Negative for jaundice or pallor MDM MDM MDM Narrative Medical decision making narrative: Tylenol for his headache. CT of the brain was negative for acute intracranial bleeding or other abnormalities. CT of the cervical spine does not show any spinal fractures but does show bilateral fracture of the vertical stabilization rods from previous surgery. Patient does not have any neuro signs or symptoms. He is moving all 4 extremities without deficits. Does not have any paresthesias. No evidence of a cord injury. Spoke with Dr. Hwang regarding the CT read and he states that the stabilization rods usually degenerated over time and this is probably not an acute fracture of the rods. This was discussed with the patient. He states he can follow-up with his surgeon from [facility] who did the surgery if he needs. Return precautions discussed. Impression: 1. Closed head injury 2. Mechanical fall 3. Fracture of vertical stabilization rods cervical spine Lab Data Attestation: I reviewed the patient's lab results. Radiography Diagnostic Testing: Clinical Impression(s) from Imaging Studies Brain CT 07/02/22 19:57 IMPRESSION: Chronic involutional changes without evidence of acute intracranial or calvarial abnormality. There is no significant interval change. Electronically Signed: Kvng Desir DO at 20:58 EST Reading Location ID and State: [place] / [employer] Tel [phone], Service support , Cervical Spine CT 07/02/22 19:57 IMPRESSION: Bilateral fracture of the vertical stabilization rods at the lower cervical spine. There is no obvious spinal stenosis or loss of alignment. The possibility of cord injury cannot be ruled out on CT. Electronically Signed: Kvng Desir DO at 21:06 EST Reading Location ID and State: [employer] / [employer] Tel [phone], Service support , Discharge Plan Triage Chief Complaint: Fall ED Provider: Renato Villarreal Dx/Rx/DC Orders Prescriptions: No Action pravastatin 10 MG tablet 10 mg PO QHS flecainide 100 MG tablet 100 mg PO BID metoprolol tartrate 50 MG tablet 75 mg PO BID Rx Instructions: 50MG 1.5 TABS BID bupropion HCl (smoking deter) 150 MG tablet extended release 12 hr 150 mg PO BID pramipexole 1 mg tablet 0.5 mg PO QHS fenofibrate micronized 200 MG capsule 200 mg PO LUNCH sertraline 50 MG tablet 50 mg PO DAILY nitroglycerin 0.4 MG tablet, sublingual 0.4 mg sublingual DAILY PRN PRN (Reason: chest pain) furosemide 40 MG tablet 20 mg PO BID acetaminophen 500 MG tablet 650 mg PO Q6H PRN PRN (Reason: Pain Or Fever) ropinirole 2 mg tablet 2 mg PO/SL QHS Primary Care Provider: Elmer Castellanos Referrals: Elmer Castellanos MD [Primary Care Provider] -
[2022-07-02] MEDS: Acetaminophen 325 MG Tablet 650 MG PO (20:57)
[2022-07-02 22:08] VITALS: BP 154/90; PULSE 70; RESP 18; O2SAT 96
== END 2022-07-02 22:08 | disposition home or self-care (01) ==
PROVIDERS: Emergency Provider Student in an Organized Health Care Education/Training Program; PCP Family Medicine; Visit Provider Student in an Organized Health Care Education/Training Program
DX: S09.90XA Unspecified injury of head, initial encounter (principal); I48.91 Unspecified atrial fibrillation; E78.00 Pure hypercholesterolemia, unspecified; R51.9 Headache, unspecified; Z79.01 Long term (current) use of anticoagulants; W19.XXXA Unspecified fall, initial encounter
CPT/HCPCS: 70450; 72125; 99282

== ENCOUNTER → 2022-07-24 | Outpatient (CLI) | payer MEDICARE, MEDICAID, SELFPAY ==
[2022-07-24 13:31] LABS: Albumin, Serum 3.3 g/dL (3.2-5.0); BUN 51 mg/dL (7-18); BUN/Creat Ratio 24.5 RATIO (10-20); Calcium,Total 9.5 mg/dL (8.5-10.1); Chloride 107 mmol/L (98-107); Creatinine, Serum 2.08 mg/dL (0.70-1.30); EST Glomerular Filtration Rate 34 mL/min (>60); Est Glom Filt Rate - Afr Amer 41 mL/min (>60); Glucose 87 mg/dL (74-106); Phosphorus 3.4 mg/dL (2.5-4.9); Potassium 3.8 mmol/L (3.5-5.1); Sodium Level 140 mmol/L (136-145)
== END | disposition home or self-care (01) ==
LOC: POLAB3 10:26
PROVIDERS: PCP Family Medicine; Visit Provider Internal Medicine Nephrology
DX: N18.4 Chronic kidney disease, stage 4 (severe) (principal)
CPT/HCPCS: 36415; 80069

== ENCOUNTER → 2022-08-05 | Outpatient (CLI) | payer MEDICARE, MEDICAID, SELFPAY ==
--- NOTE | 2022-08-05 13:11 | US_ITS ---
STUDY: RENAL ULTRASOUND - COMPLETE REASON FOR EXAM: Male, 72 years old. CKD TECHNIQUE: Ultrasound evaluation of the kidneys was performed with real-time and static carrillo-scale imaging. COMPARISON: None. FINDINGS: RIGHT KIDNEY: Normal location of the right kidney, which is normal in size. The right kidney measures 10.8 cm x 4.8 x 5 cm. There is focal scarring of the renal cortex. The renal cortex measures 1.3 cm. There is no right renal mass or cyst. There are no right renal calculi. There is no right hydronephrosis. DISTAL RIGHT URETER: There is non-visualization of the distal right ureter. There is no demonstrated right ureterovesical junction calculus. There is no demonstrated right ureteral jet. LEFT KIDNEY: Normal location of the left kidney, which is normal in size. The left kidney measures 10.7 cm x 4.8 cm x 6.3 cm. There is a normal cortex of the left kidney. The renal cortex measures 1.2 cm. There is no left renal mass or cyst. There are no left renal calculi. There is no left hydronephrosis. DISTAL LEFT URETER: There is non-visualization of the distal left ureter. There is no demonstrated left ureterovesical junction calculus. There is no demonstrated left ureteral jet. BLADDER: The distended urinary bladder has a volume of 81 ml. There is a normal wall thickness of the distended urinary bladder. There is no demonstrated mass within the urinary bladder. There are no demonstrated bladder calculi. US/Kidney and Bladder IMPRESSION: Normal ultrasound of the kidneys and urinary bladder. Electronically Signed: Lawson Vogel MD at 15:38 EST ,
== END | disposition home or self-care (01) ==
LOC: US 13:11
PROVIDERS: PCP Family Medicine; Referring Provider Internal Medicine Nephrology; Visit Provider Internal Medicine Nephrology
DX: N18.4 Chronic kidney disease, stage 4 (severe) (principal)
CPT/HCPCS: 76770

== ENCOUNTER 2024-08-05 11:38 | Emergency (ER) | payer MEDICARE, MEDICAID, SELFPAY ==
[2024-08-05 11:39] VITALS: BP 142/70; PULSE 80; RESP 14; TEMP 36.7; O2SAT 99; BMI 40.5
--- NOTE | 2024-08-05 12:03 | CT_ITS ---
PROCEDURE: BRAIN/HEAD WITHOUT CONTRAST REASON FOR EXAM: Dizziness. Right leg weakness, and blurred vision. TECHNIQUE: Noncontrasted CT of the head, with sagittal and coronal reconstructed images. COMPARISON: Head CT of 07/02/2022 FINDINGS: No intracranial hemorrhage, mass, or mass effect is seen. No extra-axial fluid collection is noted. Mild generalized cerebral atrophy is noted, with symmetric ventricular enlargement consistent with the degree of atrophy. No mass or mass effect is noted. Mild mucosal thickening is seen at the bilateral ethmoid and right maxillary sinuses. No air-fluid level is noted. The remaining portions of the visualized paranasal sinuses appear clear, as do the mastoid air cells. No acute osseous process is seen. CT/Brain/Head without Contrast IMPRESSION: 1. No acute intracranial process is seen. 2. Mild generalized cerebral atrophy. 3. Mild chronic appearing paranasal sinus disease. One or more dose reduction techniques were used (e.g., Automated exposure contr ol, adjustment of the mA and/or kV according to patient size, use of iterative reconstruction technique). Reading Location: [id number]
--- NOTE | 2024-08-05 12:03 | EKG12_ITS ---
Test Reason : WEAKNESS Blood Pressure : */* mmHG Vent. Rate : 61 BPM Atrial Rate : 61 BPM P-R Int : 316 ms QRS Dur : 138 ms QT Int : 436 ms P-R-T Axes : -6 -4 35 degrees QTcB Int : 438 ms Atrial-paced rhythm with prolonged AV conduction Non-specific intra-ventricular conduction block Minimal voltage criteria for LVH, may be normal variant ( R in aVL ) Abnormal ECG Confirmed by KRISTEN MONET, BILLY ([id number]), features editor ROSE NORTON ([id number]) on 08/08/2024 7:06:45 AM Referred By: Confirmed By: BILLY PETERSON MD
--- NOTE | 2024-08-05 12:04 | EX.ED.DYSGE1 ---
HPI History of Present Illness Chief Complaint: Weakness Narrative Narrative: 74-year-old male multiple medical problems including pacemaker for atrial fibrillation/sick sinus, on Eliquis, chronic low back pain with previous left-sided weakness presents with generalized weakness, and feeling off balance since 9 PM yesterday. He states that over 12 hours ago, he started having right leg weakness which is improving. His chronic left low back pain and leg weakness is from back surgeries from 2019. He states he usually walks with a cane, but starting last evening even using his walker he feels unsteady. He denies any fevers or chills, no nausea or vomiting, no other symptoms. He feels generally weak, and is mildly lightheaded and dizzy as well. [facility] Medical History Presence of vena cava filter Hypercholesterolemia Hemorrhoids Acid reflux Sleep apnea Depression Arthritis History of back problems Atrial fibrillation Sick sinus syndrome Presence of cardiac pacemaker MS (multiple sclerosis) Home Medications ?Medication ?Instructions ?Recorded ?Last Taken ?Type bupropion HCl (smoking deter) 150 150 mg PO BID mood 06/10/17 Unknown History mg tablet,12 hr sustained-release(smoking deterrent) flecainide 100 mg tablet 100 mg PO BID heart 06/10/17 06/12/17 09:30 History metoprolol tartrate 50 mg tablet 75 mg PO BID BP 06/10/17 02/28/20 07:30 History pravastatin 10 mg tablet 10 mg PO QHS cholesterol 06/10/17 Unknown History pramipexole 1 mg tablet 0.5 mg PO QHS RLS 08/04/18 Unknown History fenofibrate micronized 200 mg 200 mg PO LUNCH cholesterol 08/19/18 Unknown History capsule sertraline 50 mg tablet 50 mg PO DAILY mood 08/19/18 Unknown History nitroglycerin 0.4 mg sublingual 0.4 mg sublingual DAILY PRN PRN 04/13/19 Unknown History tablet chest pain furosemide 40 mg tablet 20 mg PO BID diuretic 02/15/20 Unknown History acetaminophen 500 mg tablet 650 mg PO Q6H PRN PRN Pain Or Fever 02/18/21 Unknown History ropinirole 2 mg PO/SL QHS 04/29/22 Unknown History apixaban 5 mg tablet (Eliquis) 5 mg PO BID 10/20/23 Unknown History potassium chloride 20 mEq 20 meq PO DAILY 10/20/23 Unknown History tablet,extended release trazodone 50 mg tablet 50 mg PO QHS 10/20/23 Unknown History Allergy/AdvReac Type Severity Reaction Status Date / Time No Known Allergies Allergy Verified 08/05/24 11:39 Family History Father Arthritis Cancer prostate Brother Cancer prostate Mother High cholesterol Surgical History History of embolic filter insertion (~06/08/19) H/O cervical spine surgery History of hemorrhoidectomy gallbladder removed S/P cholecystectomy Social History Smoking Status: Former smoker quit date: 07/06/99 pack-years: 30 alcohol intake: never substance use type: does not use ROS ROS ED ROS Narrative Review of systems positive for multiple complaints including dizziness and lightheadedness, no headache, no neck pain. Right lower extremity weakness, chronic left lower extremity weakness secondary to back surgery. No dysuria or hematuria. No chest pain or shortness of breath. EXAM Physical Exam Narrative Exam Narrative: Afebrile. Vital signs noted. Nontoxic-appearing. Cardiovascular examination reveals a regular rate and rhythm. There is noted pacemaker in left chest wall. Lungs are clear to auscultation bilaterally. Abdomen is soft nontender with normal active bowel sounds. Neurological examination is nonfocal and nonlateralizing. He is able to raise both legs off bed without difficulty without drift. Const Vital Signs: 08/05/24 11:39 08/05/24 11:57 08/05/24 13:39 Temperature 98.0 F Temperature Source Oral Pulse Rate 80 68 Respiratory Rate 14 15 Respiratory Effort Normal Non-Labored Respiratory Pattern Normal Blood Pressure 142/70 H 133/65 H Blood Pressure Mean 94 87 Pulse Ox 99 96 Oxygen Delivery Method Room Air Room Air MDM MDM MDM Narrative Medical decision making narrative: I do not feel that stroke team is indicated as his symptoms began at 9 PM yesterday, approximately 15 hours ago. Additionally, I do not feel he is a TNK candidate because he takes Eliquis. I have low suspicion for TIA or stroke. I do not feel he needs an emergent MRI of his back as there are no red flag signs for cauda equina. He will be worked up for generalized weakness including chest x-ray, as well as CT of the brain as I have low suspicion for intracranial hemorrhage based on his examination and the history and physical does not support this. I will look for metabolic or infectious cause for his generalized weakness. Additionally, with his history of multiple sclerosis, this could be secondary to that as well. EKG was obtained and interpreted by myself independently as paced rhythm at [address] changes. Good capture. No STEMI. I reviewed his laboratory work and he has normal white count of 5.3, hemoglobin stable at 12.3 with platelet count normal at 158. Electrolyte panel is grossly unremarkable except for BUN of 39 and creatinine slightly elevated 2.02 but he has history of chronic kidney disease when compared to prior laboratories. Glucose normal at 88. LFTs are grossly unremarkable. High-sensitivity troponin is 10. He has had leg weakness for greater than 6 hours so I do not feel he needs serial enzymes. Urinalysis is negative for infection. I do not feel antibiotics are indicated. Negative ketones as well so I doubt dehydration. I reviewed the radiology report of the CT of the brain which shows no acute process. Chest x-ray interpreted by myself independently shows no pneumonia or pneumothorax. I reviewed the radiology report which confirms my independent interpretation. I discussed observation with him, but he declines and feels comfortable going home. He had started feeling better when he was at the adult day facility. At this point in time, I feel he can be discharged to follow-up. I do not feel he requires admission for TIA or stroke workup as he is already on Eliquis. He should continue this. Return instructions to the emergency department were reviewed. Disposition is discharged home in stable condition. History & Record Review Discussion w/independent historian: Patient Additional record(s) reviewed:: Prior labs Lab Data Attestation: I reviewed the patient's lab results. Labs: Laboratory Results - last 24 hr 08/05/24 08/05/24 12:10 13:43 WBC 5.3 RBC 3.82 L Hgb 12.3 L Hct 36.7 L MCV 96.1 H MCH 32.2 H MCHC 33.5 RDW Std Deviation 47.3 H RDW Coeff of Nick 13.3 Plt Count 158 MPV 10.0 Immature Gran % (Auto) 0.400 Neut % (Auto) 71.9 H Lymph % (Auto) 16.3 L [place] % (Auto) 8.0 Eos % (Auto) 3.0 Baso % (Auto) 0.4 Absolute Neuts (auto) 3.8 Absolute Lymphs (auto) 0.86 Nucleated RBC % 0 Sodium 138 Potassium 4.6 Chloride 104 Carbon Dioxide 28.0 Anion Gap 6 BUN 39 H Creatinine 2.02 H Estim Creat Clear Calc 40.59 Est GFR (MDRD) Af Amer 42 L Est GFR (MDRD) Non-Af 35 L BUN/Creatinine Ratio 19.3 Glucose 88 Calcium 9.6 Total Bilirubin 0.30 AST 20 ALT 21 Alkaline Phosphatase 72 Troponin I High Sens 10 Total Protein 7.6 Albumin 3.2 Globulin 4.4 H Albumin/Globulin Ratio 0.7 L Urine Color Yellow Urine Clarity Clear Urine pH 6.0 Ur Specific [place] 1.010 Urine Protein Negative Urine Glucose (UA) Normal Urine Ketones Negative Urine Occult Blood 10 H Urine Nitrite Negative Urine Bilirubin Negative Urine Urobilinogen Normal Ur Leukocyte Esterase Negative Urine RBC 0 SEEN Urine WBC 0 SEEN Ur Squamous Epith Cells 0 SEEN Urine Bacteria 0 SEEN Urine Mucus 0 SEEN Radiography Diagnostic Testing: Clinical Impression(s) from Imaging Studies Brain CT 08/05/24 12:03 IMPRESSION: 1. No acute intracranial process is seen. 2. Mild generalized cerebral atrophy. 3. Mild chronic appearing paranasal sinus disease. One or more dose reduction techniques were used (e.g., Automated exposure control, adjustment of the mA and/or kV according to patient size, use of iterative reconstruction technique). Reading Location: [address] Chest X-Ray 08/05/24 12:31 IMPRESSION: Left thoracic transvenous pacemaker with atrial and ventricular leads in place. Partially visualized extensive thoracic and lumbar spine fixation noted. No evidence of pulmonary edema. Lungs appear clear of acute disease. No pleural effusion or pneumothorax is noted. The cardiomediastinal silhouette is within the normal range for age. No evidence of cardiomegaly. An old healed left clavicular fracture seen, with associated deformity. Reading Location: [address] Discharge Plan Triage Chief Complaint: Weakness ED Provider: Lobo Fritz Dx/Rx/DC Orders Clinical Impression: Right leg weakness, Lightheaded, History of multiple sclerosis Instructions: Multiple Sclerosis Dc, ED Weakness (Uncertain Cause) Prescriptions: No Action pravastatin 10 MG tablet 10 mg PO QHS flecainide 100 MG tablet 100 mg PO BID metoprolol tartrate 50 MG tablet 75 mg PO BID Rx Instructions: 50MG 1.5 TABS BID bupropion HCl (smoking deter) 150 MG tablet extended release 12 hr 150 mg PO BID pramipexole 1 mg tablet 0.5 mg PO QHS fenofibrate micronized 200 MG capsule 200 mg PO LUNCH sertraline 50 MG tablet 50 mg PO DAILY nitroglycerin 0.4 MG tablet, sublingual 0.4 mg sublingual DAILY PRN PRN (Reason: chest pain) furosemide 40 MG tablet 20 mg PO BID acetaminophen 500 MG tablet 650 mg PO Q6H PRN PRN (Reason: Pain Or Fever) ropinirole 2 mg tablet 2 mg PO/SL QHS Eliquis 5 mg tablet 5 mg PO BID potassium chloride 20 mEq tablet extended release 20 meq PO DAILY Patient Comments: TAKE 1 TABLET BY MOUTH ONCE DAILY trazodone 50 mg tablet 50 mg PO QHS Patient Comments: TAKE 1 TABLET BY MOUTH DAILY AT BEDTIME Primary Care Provider: Elmer Castellanos Referrals: Elmer Castellanos MD [Primary Care Provider] - 3-5 Days Activity Restrictions/Additional Instructions: Continue your previous medications and routines. Return with fever, new or worsening symptoms. Print Language: Arabic Disposition Disposition: Home, Self Care
[2024-08-05 12:19] LABS: Absolute Lymphocyte Count 0.86 X10^3/uL (0.83-4.51); Absolute Neutrophil Count 3.8 X10^3/uL (2.0-7.7); Basophil# 0.02 X10^3/uL; Basophil% 0.4 % (0-1); Eosinophil# 0.16 X10^3/uL; Hematocrit 36.7 % (40-54); Hemoglobin 12.3 g/dL (13.0-16.5); Lymphocyte # 0.86 X10^3/ul (0.83-4.51); Lymphocyte % 16.3 % (19-41); Mean Corp Hgb Conc 33.5 g/dL (32-36); Mean Corpuscular Hgb 32.2 pg (27.0-32.0); Mean Corpuscular Volume 96.1 fL (80-94); Monocyte# 0.42 X10^3/uL; NRBC Flagged by Analyzer 0 % (0-5); Neutrophil # 3.78 X10^3/uL (2.7-7.7); Neutrophil % 71.9 % (47-70); Platelet Count 158 K/mm3 (150-450); RBC Distribution Width CV 13.3 % (11.6-14.6); RBC Distribution Width SD 47.3 fl (35.1-43.9); Red Blood Count 3.82 M/mm3 (4.6-6.2); White Blood Count 5.3 K/mm3 (4.4-11.0)
--- NOTE | 2024-08-05 12:31 | RAD_ITS ---
PROCEDURE: CHEST 1 VIEW (PORTABLE) REASON FOR EXAM: Coronary artery disease. Chest pain. TECHNIQUE: AP portable upright chest. COMPARISON: None provided.. RAD/Chest 1 View (Portable) IMPRESSION: Left thoracic transvenous pacemaker with atrial and ventricular leads in place. Partially visualized extensive thoracic and lumbar spine fixation noted. No evidence of pulmonary edema. Lungs appear clear of acute disease. No pleural effusion or pneumothorax is noted. The cardiomediastinal silhouette is within the normal range for age. No eviden ce of cardiomegaly. An old healed left clavicular fracture seen, with associated deformity. Reading Location: [id number]
[2024-08-05 12:50] LABS: ALB/GLOB Ratio 0.7 RATIO (0.9-2.4); AST(SGOT) 20 U/L (15-37); Alanine Aminotransfer ALT/SGPT 21 U/L (16-61); Albumin, Serum 3.2 g/dL (3.2-5.0); Alkaline Phosphatase 72 U/L (45-117); Anion Gap 6 (5-15); BUN 39 mg/dL (7-18); BUN/Creat Ratio 19.3 RATIO (10-20); Calcium,Total 9.6 mg/dL (8.5-10.1); Chloride 104 mmol/L (98-107); Creatinine, Serum 2.02 mg/dL (0.70-1.30); EST Glomerular Filtration Rate 35 mL/min (>60); Est Glom Filt Rate - Afr Amer 42 mL/min (>60); Estimated Creatinine Clearance 40.59 ml/min; Globulin 4.4 g/dL (2.2-4.2); Glucose 88 mg/dL (74-106); Potassium 4.6 mmol/L (3.5-5.1); Protein, Total 7.6 g/dL (6.4-8.2); Sodium Level 138 mmol/L (136-145); Troponin-I HS 10 pg/mL (3.0-78.0)
[2024-08-05 13:39] VITALS: BP 133/65; PULSE 68; RESP 15; O2SAT 96
[2024-08-05 13:49] LABS: Bacteria 0 SEEN /hpf (None Seen); Mucous, Urine 0 SEEN /hpf (<or=2+); Red Blood Cells-Urine 0 SEEN /hpf (0-5); Squamous Epithelial Cells - UA 0 SEEN /hpf (0-5); White Blood Cells 0 SEEN /hpf (0-5)
[2024-08-05 13:57] LABS: Color, Urine Yellow (Yellow); Glucose, Dipstick Normal (Normal); Ketone-Dipstick Negative (Negative); Leukocyte Esterase-Dipstick Negative /ul (Negative); Nitrite-Dipstick Negative (Negative); Occult Blood-Urine 10 /ul (Negative); Protein-Dipstick Negative (Negative); Urine Bilirubin Dipstick Negative (Negative); Urine Clarity Clear (Clear); Urine Urobilinogen Normal (Normal)
[2024-08-05 14:23] VITALS: BP 135/64; PULSE 61; RESP 12; TEMP 37.1; O2SAT 97
== END 2024-08-05 14:40 | disposition home or self-care (01) ==
PROVIDERS: Emergency Provider Emergency Medicine; PCP Family Medicine; Visit Provider Emergency Medicine
DX: R29.898 Other symptoms and signs involving the musculoskeletal system (principal); G35 Multiple sclerosis; I48.91 Unspecified atrial fibrillation; R42 Dizziness and giddiness; N18.9 Chronic kidney disease, unspecified; E78.00 Pure hypercholesterolemia, unspecified; M54.50 Low back pain, unspecified; G89.29 Other chronic pain; Z79.01 Long term (current) use of anticoagulants; Z79.899 Other long term (current) drug therapy; Z87.891 Personal history of nicotine dependence; Z95.0 Presence of cardiac pacemaker
CPT/HCPCS: 70450; 71045; 80053; 81001; 84484; 85025; 93005; 99285; A4216

== ENCOUNTER 2025-01-12 15:21 | Emergency (ER) | payer MEDICARE, MEDICAID, SELFPAY ==
[2025-01-12 15:21] VITALS: BP 145/79; PULSE 72; RESP 18; TEMP 36.8; O2SAT 97
--- NOTE | 2025-01-12 16:11 | CT_ITS ---
PROCEDURE: BRAIN/HEAD WITHOUT CONTRAST 01/12/2025 REASON FOR EXAM: HEAD TRAUMA ON ELIQUIS TECHNIQUE: BRAIN/HEAD WITHOUT CONTRAST Coronal and Sagittal reconstruction series were provided. One or more dose reduction techniques were used (e.g., Automated exposure control, adjustment of the mA and/or kV according to patient size, use of iterative reconstruction technique. RADIATION DOSE SUMMARY: One or more dose reduction techniques were used (e.g., Automated exposure control, adjustment of the mA and/or kV according to patient size, use of iterative reconstruction technique. COMPARISON: Reviewed FINDINGS: Brain: Low density in the periventricular white matter suggests mild chronic small vessel ischemic changes. CSF Spaces: Moderate generalized cerebral atrophy Sinuses/Mastoids: Severe multifocal paranasal sinus opacification particularly of the sphenoids. Bones: Unremarkable CT/Brain/Head without Contrast IMPRESSION: No acute CT process. Severe paranasal sinus disease. Chronic changes as above . [facility]
[2025-01-12 16:21] VITALS: BP 149/88; PULSE 59; RESP 18; O2SAT 98
[2025-01-12 16:51] VITALS: BMI 37.8
[2025-01-12 16:53] VITALS: O2SAT 99
--- NOTE | 2025-01-12 16:55 | EDS_ITS ---
HPI History of Present Illness Chief Complaint: Fall Detail of Chief Complaint: Fall with head trauma, ear trauma, bilateral upper extremity trauma Informant: patient Onset/Context/Timing Onset: (Thursday, January 09) Mechanism/Context: Blunt Injury and Fall Location of pain/injuries: Right arm, Right elbow, Right forearm, Left arm, Left forearm and - (Right side of the head) Quality of Pain: - (Soreness) Location: Upper extremities and right parietal area and right ear Current Severity: Mild Maximum Severity: Moderate Worsened by: Not applicable Relieved by: Not applicable Associated Symptoms Associated Symptoms: Negative for Parasthesias, Weakness, Loss of function, Inability to ambulate, Loss of consciousness or Amnesia Narrative Narrative: Patient is a 74-year-old male. He is on Eliquis. He states he is on Eliquis because of pacemaker. He had a fall striking the right side of his head. He had blood noted on his right ear. He denies nausea, vomiting. He denies neck pain. He denies paresthesia, anesthesia or motor weakness upper or lower extremity. He denies chest discomfort or shortness of breath. He denies abdominal pain or low back pain. He denies trauma or pain to his lower extremities. He denies double vision, blurred vision or loss of vision. He denies ringing in his ears or decreased hearing. Prior similar symptoms: No Recent Illness/Hospitalization: No [facility] Medical History Presence of vena cava filter Hypercholesterolemia Hemorrhoids Acid reflux Sleep apnea Depression Arthritis History of back problems Atrial fibrillation Sick sinus syndrome Presence of cardiac pacemaker MS (multiple sclerosis) Home Medications ?Medication ?Instructions ?Recorded ?Last Taken ?Type bupropion HCl (smoking deter) 150 150 mg PO BID mood 1 08/11/16 Unknown History mg tablet,12 hr sustained-release(smoking deterrent) flecainide 100 mg tablet 100 mg PO BID heart 06/10/17 06/12/17 09:30 History metoprolol tartrate 50 mg tablet 75 mg PO BID BP 06/1002/28/20 07:30 History pravastatin 10 mg tablet 10 mg PO QHS cholesterol 12/20 Unknown History pramipexole 1 mg tablet 0.5 mg PO QHS RLS 08/04/18 U nknown History sertraline 50 mg tablet 50 mg PO DAILY mood 08/19/18 Unknown History nitroglycerin 0.4 mg sublingual 0.4 mg sublingual MICHAEL Y PRN PRN 04/13/19 Unknown History tablet chest pain furosemide 40 mg tablet 20 mg PO BID diuretic Unknown History acetaminophen 500 mg tablet 650 mg PO Q6H PRN PRN Pain Or Fever 02/18/21 Unknown History ropinirole 2 mg PO/SL QHS 04/29/22 Unkn own History apixaban 5 mg tablet (Eliquis) 5 mg PO BID 10/20/23 Un known History potassium chloride 20 mEq 20 meq PO DAILY 10/20/23 Unk nown History tablet,extended release trazodone 50 mg tablet 50 mg PO QHS 10/20/23 Unknow n History Allergy/AdvReac Type Severity Reaction Status Date / Time No Known Allergies Allergy Verified 01/12/25 15:23 Family History Father Arthritis Cancer prostate Brother Cancer prostate Mother High cholesterol Surgical History History of embolic filter insertion (~06/08/19) H/O cervical spine surgery History of hemorrhoidectomy gallbladder removed S/P cholecystectomy Social History Smoking Status: Former smoker quit date: 07/06/99 pack-years: 30 alcohol intake: never substance use type: does not use ROS ROS ED Constitutional Constitutional ED: Denies chills, fever(s), subjective or sweats Eyes Eyes: Denies change in vision ENT ENT ED: Reports other Details: Further detailed HPI narrative. ; Denies ear pain, rhinorrhea or sore throat Cardiovascular Cardiovascular: Denies chest pain or palpitations Respiratory/Chest Respiratory/Chest: Denies cough, dyspnea or dyspnea on exertion Gastrointestinal Gastrointestinal: Reports nausea and vomiting; Denies abdominal pain Genitourinary Genitourinary ED: Denies hematuria Musculoskeletal Musculoskeletal: Denies arthralgias, myalgias or neck pain Integumentary Denies abscess or rash Neurologic Neurologic: Denies headache(s), paresthesias or weakness Psychiatric Psychiatric: Denies anxiety or depression Endocrine Endocrinology: Denies cold intolerance or heat intolerance Hematologic/Lymphatic Hematologic/Lymphatic: Denies easy bleeding or easy bruising EXAM Physical Exam Const Vital Signs: 01/12/25 15:21 01/12/25 16:21 01/12/25 16:53 Temperature 98.2 F Temperature Source Oral Pulse Rate 72 59 L Respiratory Rate 18 18 Respiratory Effort Normal Respiratory Depth Normal Respiratory Pattern Normal Blood Pressure 145/79 H 149/88 H Blood Pressure Mean 101 108 Pulse Ox 97 98 99 Oxygen Delivery Method Room Air Room Air Room Air Positive well nourished and well developed Constitutional Narrative: BMI is 37.8. General Appearance ED: well developed HEENT Reports TM's clear HEENT Narrative: There is no palpable depression. There is no clinical signs of basilar skull fracture. trauma and tenderness Nose: Negative for septum abnormal Tympanic Membrane ED: Yes TM's clear Eyes PERRL and EOMs intact bilaterally General Eye ED: Yes other Other Details: There is no subconjunctival hemorrhage. There is no nystagmus. Neck full ROM General: Negative for tenderness Chest Wall inspection of chest normal and palpation of chest normal Resp normal respiratory effort and clear to auscultation bilaterally Cardio regular rhythm, S1 normal heart sound, S2 normal heart sound and no murmurs Back/Spine normal to inspection and no thoracic nor lumbar tenderness Extremity full ROM; Negative for normal to inspection Extremity Narrative: Patient has multiple bruises right and left arm, right and left elbow and right and left forearm. He denies loss of function. He denies any other symptoms. Neuro oriented x3, CN's II-XII intact bilaterally, moves all extremities, no focal motor deficits and no sensory deficits noted Mami Coma Scale: document GCS findings Spontaneous Sensorium / Orientation: alert Motor Exam: strength 5/5 throughout Psych mental status grossly normal and thought process normal Skin Skin Narrative: Multiple bruises right and left upper extremity MDM MDM MDM Narrative Medical decision making narrative: Per the [place] CT head rules this patient hit his head with evidence of trauma on anticoagulant, Eliquis, CT of the head is required/indicated. For this reason CT of the head was obtained. This was obtained to rule out subdural hematoma, epidural hematoma, traumatic subarachnoid hemorrhage and intraparenchymal contusion. Doubt fracture. Radiography Diagnostic Testing: Clinical Impression(s) from Imaging Studies Brain CT 01/12/25 16:11 IMPRESSION: No acute CT process. Severe paranasal sinus disease. Chronic changes as above. [facility] reveals no fracture. There is no evidence of subdural hematoma, epidural hematoma, traumatic subarachnoid hemorrhage or intraparenchymal contusion. There is evidence of bilateral ethmoid, right sphenoid, right frontal sinus disease. There is thickening of the nasal mucosa of the maxillary sinus the right Nirschl small air-fluid level left maxillary sinus. This appears to be chronic. Treatment and Re-Evaluation Narrative: When I informed patient of his CAT scan results he informing that he has chronic sinus disease on the left. He asked when I was ordering the shoulder x-ray. I informed him that there was no indication for shoulder x-ray. He stated his doctor told him he needed a shoulder x-ray. I informed him that his doctor did not call him. Based on exam with no evidence of trauma no point tenderness of the clavicle, AC joint proximal humerus full active range of motion and no neurovasc compromise there is no indication for x-ray. Patient understood. Discharge Plan Triage Chief Complaint: Fall ED Provider: Karl Toscano Dx/Rx/DC Orders Clinical Impression: CHI (closed head injury), Atrial fibrillation, Obstructive sleep apnea, Pacemaker, Sick sinus syndrome, Anticoagulant long-term use, Chronic ethmoidal sinusitis, Chronic left maxillary sinusitis, Sphenoid sinusitis Instructions: ED Head Injury (Adult) Prescriptions: No Action pravastatin 10 MG tablet 10 mg PO QHS flecainide 100 MG tablet 100 mg PO BID metoprolol tartrate 50 MG tablet 75 mg PO BID Rx Instructions: 50MG 1.5 TABS BID bupropion HCl (smoking deter) 150 MG tablet extended release 12 hr 150 mg PO BID pramipexole 1 mg tablet 0.5 mg PO QHS sertraline 50 MG tablet 50 mg PO DAILY nitroglycerin 0.4 MG tablet, sublingual 0.4 mg sublingual DAILY PRN PRN (Reason: chest pain) furosemide 40 MG tablet 20 mg PO BID acetaminophen 500 MG tablet 650 mg PO Q6H PRN PRN (Reason: Pain Or Fever) ropinirole 2 mg tablet 2 mg PO/SL QHS Eliquis 5 mg tablet 5 mg PO BID potassium chloride 20 mEq tablet extended release 20 meq PO DAILY Patient Comments: TAKE 1 TABLET BY MOUTH ONCE DAILY trazodone 50 mg tablet 50 mg PO QHS Patient Comments: TAKE 1 TABLET BY MOUTH DAILY AT BEDTIME Primary Care Provider: Elmer Castellanos Referrals: Elmer Castellanos MD [Primary Care Provider] - As Needed Print Language: Malian Disposition Disposition: Home, Self Care
[2025-01-12 17:00] VITALS: PULSE 66; RESP 18
[2025-01-12 17:45] VITALS: BP 149/88; PULSE 66; RESP 18; TEMP 36.8; O2SAT 99
== END 2025-01-12 17:47 | disposition home or self-care (01) ==
PROVIDERS: Emergency Provider Emergency Medicine; PCP Family Medicine; Referring Provider Emergency Medicine; Visit Provider Emergency Medicine
DX: S09.90XA Unspecified injury of head, initial encounter (principal); G35 Multiple sclerosis; I48.91 Unspecified atrial fibrillation; I49.5 Sick sinus syndrome; S50.12XA Contusion of left forearm, initial encounter; S50.11XA Contusion of right forearm, initial encounter; S40.022A Contusion of left upper arm, initial encounter; S40.021A Contusion of right upper arm, initial encounter; W01.10XA Fall on same level from slipping, tripping and stumbling with subsequent striking against unspecified object, initial encounter; J32.3 Chronic sphenoidal sinusitis; J32.2 Chronic ethmoidal sinusitis; J32.0 Chronic maxillary sinusitis; S09.91XA Unspecified injury of ear, initial encounter; R11.2 Nausea with vomiting, unspecified; E78.00 Pure hypercholesterolemia, unspecified; G47.33 Obstructive sleep apnea (adult) (pediatric); Z79.01 Long term (current) use of anticoagulants; Z79.899 Other long term (current) drug therapy; Z87.891 Personal history of nicotine dependence; Z95.0 Presence of cardiac pacemaker
CPT/HCPCS: 70450; 99282

== ENCOUNTER → 2025-05-26 | Outpatient (CLI) | payer MEDICARE, MEDICAID, SELFPAY ==
--- NOTE | 2025-05-26 13:48 | ECHOD_ITS ---
Reason For Study Reason For Study: HTN Procedure This was a 2D Doppler, Color Flow transthoracic echocardiogram. Exam performed in department. Left Ventricle Normal size left ventricle. Left ventricular EF by Paz's biplane method: 55%. Normal diastolic function. Septal motion consistent with pacemaker activation. No other wall motion abnormalities noted. Right Ventricle Normal right ventricle. Normal systolic function. Unable to estimate RV systolic pressure due to insufficient tricuspid regurgitant envelope. RV lead present. Atria The left and right atria are normal. ICD or pacer leads identified within the right atrium. Normal atrial septum. Right atrial pressure estimated at: 3 mmHg. Mitral Valve Normal mitral valve. No mitral stenosis. Trace mitral regurgitation. Tricuspid Valve Normal tricuspid valve. No tricuspid stenosis. Trace tricuspid regurgitation. Aortic Valve Normal trileaflet aortic valve. No hemodynamically significant aortic stenosis. No aortic regurgitation. Pulmonic Valve Normal valve. Trace pulmonary regurgitation. No pulmonary stenosis. Great Vessels Normal aortic root. Normal ascending aorta. Pericardium/Pleural No pericardial effusion. Epicardial fat. MMode/2D Measurements & Calculations LVIDd: 4.7 cm IVSd: 1.4 cm Ao root diam: 3.0 cm LVIDs: 3.3 cm LVPWd: 1.2 cm RVDd: 3.9 cm FS: 29.2 % LAV(MOD-bp): 51.2 ml LVAd ap4: 28.2 cm2 SV(MOD-sp4): 40.9 ml LAV(MOD-bp) Indexed: 23.4 ml/m2 LVLd ap4: 8.8 cm SI(MOD-sp4): 18.7 ml/m2 LAV(MOD-sp2): 56.2 ml EDV(MOD-sp4): 73.9 ml LAV(MOD-sp4): 43.6 ml EDV(sp4-el): 76.6 ml LVAs ap4: 16.5 cm2 LVLs ap4: 7.2 cm ESV(MOD-sp4): 33.0 ml ESV(sp4-el): 32.1 ml EF(MOD-sp4): 55.4 % EF(sp4-el): 58.2 % SV(sp4-el): 44.6 ml LA A4 area: 17.7 cm2 LA dimension(2D): 3.5 cm RA A4 area: 13.2 cm2 TAPSE: 1.9 cm Time Measurements MV dec time: 0.24 sec Doppler Measurements & Calculations MV E max chepe: 69.3 cm/sec Lat Peak E' Chepe: 8.1 cm/sec Med Peak E' Chepe: 8.0 cm/sec MV A max chepe: 72.7 cm/sec E/E' lat: 8.6 E/E' med: 8.7 MV E/A: 0.95 MV V2 max: 77.6 cm/sec MV P1/2t max chepe: 78.5 cm/sec Ao V2 max: 104.4 cm/sec MV max P.4 mmHg MV P1/2t: 82.4 msec Ao max P.4 mmHg MV V2 mean: 54.0 cm/sec Ao V2 mean: 73.0 cm/sec MV mean P.3 mmHg MV dec slope: 279.2 cm/sec2 Ao mean P.4 mmHg MV V2 VTI: 25.3 cm MVA(P1/2t): 2.7 cm2 Ao V2 VTI: 27.0 cm AV (velocity ratio): 0.76 LV V1 max: 81.2 cm/sec PA V2 max: 85.4 cm/sec TR max chepe: 210.0 cm/sec LV V1 max P.6 mmHg TR max P.6 mmHg LV V1 mean P.7 mmHg LV V1 mean: 61.0 cm/sec LV V1 VTI: 20.5 cm ECHO/Echo Complete Interpretation Summary Normal left ventricular systolic function with EF: 55% by Paz's biplane. Normal left ventricular diastolic function Normal RV systolic function No hemodynamically significant valvular disease. Ordering Physician: DAVID DINERO Referring Physician: DAVID DINERO Performed By: Alexander Oliva RCS
== END | disposition home or self-care (01) ==
PROVIDERS: PCP Family Medicine
DX: R94.31 Abnormal electrocardiogram [ECG] [EKG] (principal); I10 Essential (primary) hypertension
CPT/HCPCS: 93306